=== PATIENT | female | born 1935 | race Caucasian/White ===

== ENCOUNTER → 2025-04-06 | Outpatient (CLI) | payer MEDICARE, OTHER, SELFPAY ==
[2025-04-06 12:37] LABS: Hematocrit 37.6 % (37-47); Hemoglobin 11.9 g/dL (12.0-15.0); Mean Corp Hgb Conc 31.6 g/dL (32-36); Mean Corpuscular Hgb 29.4 pg (27.0-32.0); Mean Corpuscular Volume 92.8 fL (81-99); Mean Platelet Vol. 11.8 fl (6.2-12.0); Platelet Count 178 K/mm3 (150-450); RBC Distribution Width CV 14.8 % (11.6-14.6); RBC Distribution Width SD 50.6 fl (35.1-43.9); Red Blood Count 4.05 M/mm3 (4.2-5.4); White Blood Count 6.3 K/mm3 (4.4-11.0)
[2025-04-06 13:20] LABS: ALB/GLOB Ratio 1.7 RATIO (0.9-2.4); AST(SGOT) 32 U/L (<=31); Alanine Aminotransfer ALT/SGPT 23 U/L (<=34); Albumin, Serum 4.6 g/dL (3.4-4.8); Alkaline Phosphatase 60 U/L (35-104); Anion Gap 13 (5-15); BUN 37 mg/dL (4-19); BUN/Creat Ratio 24.3 RATIO (10-20); Calcium,Total 9.4 mg/dL (7.6-11.0); Carbon Dioxide 22.8 mmol/L (21.0-32.0); Chloride 103 mmol/L (98-108); Creatinine, Serum 1.54 mg/dL (0.70-1.20); EST Glomerular Filtration Rate 32 (>60); Globulin 2.7 g/dL (2.2-4.2); Glucose 91 mg/dL (70-99); Potassium 4.3 mmol/L (3.3-5.1); Protein, Total 7.3 g/dL (5.9-8.4); Sodium Level 139 mmol/L (133-145); Total Bilirubin 0.42 mg/dL (0.00-1.30); Vitamin B12 993 pg/mL (180-914)
[2025-04-08 12:08] LABS: Vitamin D 1,25-Dihydroxy 33.4 pg/mL (24.8-81.5)
[2025-04-14 14:09] LABS: Folate, Hemolysate Test > 620.0 ng/mL (Not Estab.); Free Kappa Light Chains 33.4 mg/L (3.3-19.4); Free Lambda Light Chains 22.2 mg/L (5.7-26.3); Vitamin B1, Thiamine 165.4 nmol/L (66.5-200.0)
== END | disposition home or self-care (01) ==
PROVIDERS: PCP Internal Medicine; Referring Provider Psychiatry & Neurology Neurology; Visit Provider Psychiatry & Neurology Neurology
DX: G62.9 Polyneuropathy, unspecified (principal); F03.90 Unspecified dementia, unspecified severity, without behavioral disturbance, psychotic disturbance, mood disturbance, and anxiety
CPT/HCPCS: 36415; 80053; 82607; 82652; 82747; 83883; 84425; 84439; 84443; 85014; 85027

== ENCOUNTER 2025-05-09 10:26 | Outpatient (CLI) | payer MEDICARE, OTHER, SELFPAY ==
--- NOTE | 2025-05-09 10:37 | MRI_ITS ---
PROCEDURE: BRAIN WITHOUT CONTRAST 05/09/2025 REASON FOR EXAM: MODERATE DEMENTIA TECHNIQUE: Multiplanar and multisequential MRI of the brain was performed without contrast. COMPARISON: None. FINDINGS: Moderate generalized cerebral and cerebellar parenchymal volume loss, with associated ex vacuo ventricular enlargement. No regions of abnormal restricted diffusion to indicate recent infarct. Moderate chronic small-vessel ischemic-gliotic changes, somewhat confluence along the bilateral periventricular white matter. 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 No evidence of acute hemorrhage, extra-axial collection, mass-effect, or other acute abnormality. Two punctate foci of nonspecific remote microhemorrhage in the cerebellar vermis. Major intracranial vascular flow voids appear preserved. Prior bilateral cataract surgery. Well-aerated paranasal sinuses and bilateral mastoid air cells. MRI/Brain without Contrast IMPRESSION: No acute intracranial abnormality. Moderate generalized volume loss and chronic microangiopathic changes. Reading Location: [id number]
--- NOTE | 2025-05-09 10:50 | RAD_ITS ---
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 Dental hardware is noted. RAD/Orbits for Foreign Body IMPRESSION: There is no visible radiopaque foreign body in the region of the orbits. Reading Location: [id number]
--- OUTSIDE RECORDS SUMMARY | 2025-05-09 20:07 | XMS RPT_ITS | CCD ---
Author Organization [facility] Care Team Providers Care Cutting Department Supervisor Name Role Phone Jayshree Kerr Unavailable Unavailable Tavallaee, Santhosh Unavailable Unavailable Tavallaee, Santhosh M Unavailable Unavailable Sulove, Saksham Unavailable Unavailable Jayshree Kerr Unavailable Unavailable Tavallaee, Santhosh M Unavailable Unavailable Unavailable Jayshree Kerr DO Unavailable Unavailable Santhosh Peters MD Unavailable Unavailabl e Tavallaee Santhosh Nita Unavailable Unavailable Sulove, Saksham Unavailable Unavailable Jayshree Kerr Unavailable Unavailab le Santhosh Peters MD Primary Care Provider Unavailable Primary Care Provider UnavailSanthosh Treviño MD Primary Care Provider Santhosh Peters MD Primary Care Prov ider Santhosh Peters MD Primary Care Provider Santhosh Peters MD Primary Care Prov ider Santhosh Peters MD Primary Care Provider [phone] MARIBEL SHETH Attending Unavailable MARIBEL SHETH Referring Unavailable TAVALLAEE, SANTHOSH M Primary Care Unavailable MARIBEL SHETH Attending Unavailable MARIBEL SHETH Referring Unavailable TAVALLAEE, SANTHOSH M Primary Care Unavailable MARIBEL SHETH Attending Unavailable MARIBEL SHETH Referring Unavailable TAVALLAEE, SANTHOSH M Primary Care Unavailable MARIBEL SHETH Attending Unavailable MARIBEL SHETH Referring Unavailable TAVALLAEE, SANTHOSH M Primary Care Unavailable LEWIS, MARIBEL Attending Unavailable YUAN, MARIBEL Referring Unavailable TAVALLAEE, SANTHOSH M Primary Care Unavailable LEWIS, MARIBEL Attending Unavailable LEWIS, MARIBEL Referring Unavailable TAVALLAEE, SANTHOSH M Primary Care Unavailable LEWIS, MARIBEL Attending Unavailable LEWIS, MARIBEL Referring Unavailable TAVALLAEE, SANTHOSH M Primary Care Unavailable LEWIS, MARIBEL Attending Unavailable MARIBEL SHETH Referring Unavailable TAVALLAEE, SATNHOSH M Primary Care Unavailable Omar Arreguin Attending Unavailable Tavallaee, Santhosh Primary Care Unavailable Rodríguez, Ms. Rubi Hazel Referring Unavailabl e Tavallaee, Santhosh Primary Care Unavailable Tavallaee, Santhosh Attending Unavailable Tavallaee, Santhosh Referring Unavailable Tavallaee, Santhosh Referring Unavailable Tavallaee, Santhosh Primary Care Unavailable Tavallaee, Santhosh Attending Unavailable Tavallaee, Santhosh Primary Care Unavailable Tavallaee, Santhosh Attending Unavailable Tavallaee, Santhosh Referring Unavailable Tavallaee, Santhosh Referring Unavailable Tavallaee, Santhosh Attending Unavailable Tavallaee, Santhosh Primary Care Unavailable Tavallaee, Santhosh Referring Unavailable Tavallaee, Santhosh Attending Unavailable Tavallaee, Santhosh Primary Care Unavailable Tavallaee, Santhosh Attending Unavailable Tavallaee, Santhosh Primary Care Unavailable Tavallaee, Santhosh Referring Unavailable Tavallaee, Santhosh Primary Care Unavailable Tavallaee, Santhosh Attending Unavailable Tavallaee, Santhosh Referring Unavailable Tavallaee, Santhosh Referring Unavailable Tavallaee, Santhosh Primary Care Unavailable Rodríguez, Ms. Rubi Hazel Attending Unavailabl e Tavallaee Santhosh SANTIAGO Primary Care Provider Santhosh Peters MD Unavailable Santhosh Peters MD Unavailable [phone] TAVSANTHOSH JORDAN Attending Unavailable TAVALLAEE, SANTHOSH Moya Primary Care Unavailable TAVALLAEE, SANTHOSH M Attending Unavailable SANTHOSH PETERS Primary Care Unavailable SANTHOSH PETERS Attending Unavailable SANTHOSH PETERS Primary Care Unavailable MD SANTHOSH PETERS Primary Care U navailable Rubi Arreguin Attending Unavailable Rubi Arreguin Referring Unavailable MD SANTHOSH PETERS Primary Care U navailMD SANTHOSH Singleton Attending U hiteshailable MD SANTHOSH PETERS Primary Care U navailable Rubi Arreguin Attending Unavailable Rodríguez Rubi Referring Unavailable Dills HUMAN RESOURCE MANAGER, Cheyanne Primary Care Provider DILLS, CHEYANNE Primary Care Unavailable GALINDO MIRTHA Referring Unavailable GALINDOMIRTHA Attending Unavailable GALINDOMIRTHA Attending Unavailable SHARMILA, RIK E Referring Unavailable DILLS, CHEYANNE Primary Care Unavailable GALINDOMIRTHA Referring Unavailable GALINDOMIRTHA Attending Unavailable DILLS, CHEYANNE Primary Care Unavailable GALINDOMIRTHA Attending Unavailable DILLS, CHEYANNE Referring Unavailable DILLS, CHEYANNE Primary Care Unavailable SHARMILA, RKI E Referring Unavailable DILLS, CHEYANNE Primary Care Unavailable SHARMILA, RIK E Attending Unavailable SHARMILA, RIK E Attending Unavailable DILLS, CHEYANNE Primary Care Unavailable SHARMILA, RIK E Referring Unavailable SHARMILA, RIK E Attending Unavailable DILLS, CHEYANNE Primary Care Unavailable SHARMILA, RIK E Referring Unavailable SHARMILA, RIK E Attending Unavailable DILLS, CHEYANNE Referring Unavailable DILLS, CHEYANNE Primary Care Unavailable DILLS, CHEYANNE Primary Care Unavailable DILLS, CHEYANNE Referring Unavailable SHARMILA, RIK E Attending Unavailable SHARMILA, RIK E Referring Unavailable DILLS, CHEYANNE Primary Care Unavailable SHARMILA, RIK E Attending Unavailable Dills HUMAN RESOURCE MANAGER, Cheyanne Primary Care Provider [phone] CANE PILER, DIALLO GARZA Attending Unavailab le DILLS, CHEYANNE Primary Care Unavailable STEVEN MARTINES Attending Unavailabl e DILLS, CHEYANNE Primary Care Unavailable GALA MAYS Attending Unavailable DILLS, CHEYANNE Primary Care Unavailable Ileana SANTIAGO, Dr. Flores Attending Provider [phone] Mark Tejeda Attending Unavailable Santhosh Peters Primary Care Unavailable Mark Tejeda Referring Unavailable Mark Tejeda Attending Unavailable SANTHOSH PETERS Primary Care Unav ailable DILLS, CHEYANNE Attending Unavailable DILLS, CHEYANNE Primary Care Unavailable DILLS, CHEYANNE Attending Unavailable RANDI JACKSON Attending Unavail able DILLS, CHEYANNE Primary Care Unavailable Allergies Allergy Classification Reported Allergen(s) Allergy Type Date of Onset Reaction(s) Facility Adrenergic Antagonists (7 sources) carvedilol; Translations: [carvedilol] Drug Allergy Muscle weakness [facility] Work Phone: Bisoprolol / hydroCHLOROthiazide (14 sources) Bisoprolol / hydroCHLOROthiazide; Translations: [bisoprolol-hydrochlo rothiazide] Drug Allergy Muscle weakness [facility] Work Phone: Fenofibrate (7 sources) Fenofibrate; Translations: [Tricor] Drug Allergy Muscle weakness [facility] Work Phone: HMG-CoA Reductase Inhibitors (statins) (14 sources) atorvastatin; Translations: [Lipitor] Drug Allergy [facility] Work Phone: hydrALAZINE / Isosorbide Dinitrate (7 sources) hydrALAZINE / Isosorbide Dinitrate; Translations: [BiDil] Drug Allergy [facility] Work Phone: hydroCHLOROthiazide / Losartan (7 sources) hydroCHLOROthiazide / Losartan; Translations: [hydrochlorothiazide- losartan] Drug Allergy [facility] Work Phone: Metoprolol (7 sources) Metoprolol; Translations: [Toprol XL TB24] Drug Allergy Muscle weakness [facility] Work Phone: Sulfonamides (antibiotic) (7 sources) Sulfonamides (Antibiotic); Translations: [Sulfa Drugs] Drug Allergy [facility] Work Phone: (20 sources) atorvastatin; Translations: [Lipitor] Drug Allergy [facility] Work Phone: (20 sources) Bisoprolol / hydroCHLOROthiazide; Translations: [bisoprolol-hydrochlo rothiazide] Drug Allergy 011 Hives, Unknown, Other [facility] Work Phone: [phone] (20 sources) Bisoprolol / hydroCHLOROthiazide; Translations: [Ziac TABS] Drug Allergy Muscle weakness [facility] Work Phone: [phone] (20 sources) Fenofibrate; Translations: [Tricor] Drug Allergy Muscle weakness [facility] Work Phone: [phone] (20 sources) hydrALAZINE / Isosorbide Dinitrate; Translations: [BiDil] Drug Allergy [facility] Work Phone: [phone] (20 sources) hydroCHLOROthiazide / Losartan; Translations: [hydrochlorothiazide- losartan] Drug Allergy [facility] Work Phone: [phone] (20 sources) Metoprolol; Translations: [Toprol XL TB24] Drug Allergy 021 Muscle weakness, Other: See Comments, Myalgia, Other [facility] (20 sources) Pravastatin; Translations: [pravastatin] Drug Allergy 022 Unknown [facility] Work Phone: [phone] (20 sources) Sulfonamides (Antibiotic); Translations: [Sulfa Drugs] drug allergy [facility] Work Phone: [phone] (20 sources) carvedilol; Translations: [carvedilol] Drug Allergy 021 Muscle weakness, Other: See Comments, Other (See Comments), Other [facility] (20 sources) aliskiren; Translations: [ALISKIREN] Drug Allergy 011 [facility] Work Phone: (13 sources) amLODIPine; Translations: [AMLODIPINE BESYLATE] Drug Allergy 011 [facility] Work Phone: (18 sources) atorvastatin; Translations: [ATORVASTATIN CALCIUM] Drug Allergy 011 [facility] Work Phone: (20 sources) Fenofibrate; Translations: [FENOFIBRATE MICRONIZED] Drug Allergy 011 Hives, Other (See Comments) [facility] Work Phone: (13 sources) Furosemide; Translations: [FUROSEMIDE] Drug Allergy 011 Other: See Comments, Other [facility] Work Phone: (20 sources) hydrALAZINE / Isosorbide Dinitrate; Translations: [ISOSORBIDE-HYDRALAZI NE] Drug Allergy 021 Unknown [facility] (20 sources) hydroCHLOROthiazide / Losartan; Translations: [LOSARTAN-HYDROCHLORO THIAZIDE] Drug Allergy 011 Rash, Unknown [facility] Work Phone: (20 sources) metFORMIN; Translations: [METFORMIN] Drug Allergy 011 Rash [facility] Work Phone: (13 sources) Niacin; Translations: [NIACIN] Drug Allergy 011 [facility] Work Phone: (13 sources) olmesartan; Translations: [OLMESARTAN MEDOXOMIL] Drug Allergy 011 [facility] Work Phone: (17 sources) Phenylephrine; Translations: [PHENYLEPHRINE] Drug Allergy Intolerance, Unknown [facility] (13 sources) pioglitazone; Translations: [PIOGLITAZONE HCL] Drug Allergy 010 Rash [facility] Work Phone: (8 sources) Simvastatin; Translations: [SIMVASTATIN] Drug Allergy Other: See Comments [facility] Work Phone: (20 sources) Sulfonamides (Antibiotic); Translations: [SULFA (SULFONAMIDE ANTIBIOTICS)] Propensity to adverse reactions to drug 008 Hives, [facility] Work Phone: (13 sources) Tropicamide; Translations: [TROPICAMIDE] Drug Allergy 015 Intolerance, Unknown [facility] (12 sources) atorvastatin; Translations: [ATORVASTATIN] Drug Allergy Unknown [facility] (6 sources) Metoprolol; Translations: [METOPROLOL SUCCINATE] Drug Allergy Other (See Comments) [facility] (2 sources) Metoprolol; Translations: [METOPROLOL] Drug Allergy 021 [facility] (6 sources) Fenofibrate; Translations: [FENOFIBRATE] Drug Allergy 023 Other [facility] Work Phone: (10 sources) amLODIPine Drug Allergy 011 [facility] (10 sources) Furosemide Drug Allergy 011 [facility] (10 sources) Losartan Drug Allergy 011 [facility] (10 sources) Niacin Drug Allergy 011 Hives [facility] (10 sources) Simvastatin Propensity to adverse reactions to drug 011 [facility] (4 sources) pioglitazone Drug Allergy 010 [facility] (4 sources) Tropicamide Drug Allergy 015 [facility] Medications Current Medications Medication Drug Class(es) Dates Sig (Normalized) Sig (Original) acetaminophen 500 mg oral capsule (13 sources) Start: 04-06-2025 take 1 capsule by mouth at bedtime as needed Acetaminophen 500 mg capsule Active 500 mg PO AT BEDTIME as needed April 06, 2025 12:00am take 2 tablets by ok ut every eight hours as needed acetaminophen (TYLENOL) 500 MG tablet Ta ke 2 (two) tablets (1,000 mg total) by mouth every 8 (eight) hours as needed . Active ascorbic acid 113 mg / beta carotene 7160 mg / cuprous oxide 0.4 mg / dl-alpha tocopheryl acetate 100 unt / zinc oxide 17.4 mg oral tablet (1 source) Vitamin C Start: 04-06-2025 Vitamins A,C,E -Zinc-Copper (Preservision Areds) 2,148 mcg-113 mg-45 mg-17.4mg tablet Active 2 {tbl} PO TWICE A DAY April 06, 2025 12:00am administer with AM and PM meals benoxinate hydrochloride 4 mg/ml / fluorescein sodium 2.5 mg/ml ophthalmic solution (2 sources) Diagnostic Dye Start: 01-02-2023 End: 01-03-2023 fluorescein-benoxinate 0.25-0.4 % 1 Drop (FLURESS) Start: 11-21-2022 End: 11-21-2022 fluorescein-benoxinate 0.25- 0.4 % 1 Drop (FLURESS) busPIRone hydrochloride 5 mg oral tablet (13 sources) Start: 04-06-2025 take 1 tablet by mouth twice daily Buspirone 5 mg tablet Active 5 mg PO TWICE A DAY April 06, 2025 12:00am take 1 tablet by mouth twice radha ly busPIRone (BUSPAR) 5 MG tablet Take 1 (one) tablet (5 mg total) by mouth 2 (two) times a day . Active citalopram 10 mg oral tablet (3 sources) Serotonin Reuptake Inhibitor Start: 12-09-2024 End: 12-09-2025 take 1 tablet by mouth once daily Citalopram 10 mg tablet Active 10 mg PO daily April 06, 2025 12:00am 1 ml denosumab 60 mg/ml prefilled syringe (3 sources) RANK Ligand Inhibitor Start: 03-19-2023 denosumab (Prolia) 60 mg/mL syringe Indications: Osteoporosis, unspecified osteoporosis type, unspecified pathological fracture presence Inject 1 mL (60 mg) under the skin every 6 months. 1 mL 1 03/19/2023 Active docusate sodium 100 mg oral capsule (20 sources) Start: 04-25-2021 End: 12-09-2024 docusate sodium (Colace) 100 mg capsule Take by mouth twice a day. 0 04/25/2021 Active donepezil hydrochloride 10 mg oral tablet (20 sources) Start: 04-06-2025 take 1 tablet by mouth at bedtime Donepezil 10 mg tablet Active 10 mg PO AT BEDTIME April 06, 2025 12:00am Start: 06-11-2023 End: 06-11-2023 take 1 tablet by mouth once daily at bedtime donepezil (Aricept) 5 mg tablet Indications: Alzheimer disease (CMS/HCC) Take 1 tablet (5 mg) by mouth once daily at bedtime. 30 tablet 0 06/11/2023 06/11/2023 Discontinued (Reorder) Start: 05-17-2022 End: 06-10-2024 take 1 tablet by mouth once daily donepeziL (ARICEPT) 10 MG tablet Indications: Dementia without behavioral disturbance, unspecified dementia type Take 1 (one) tablet (10 mg total) by mouth nightly Start: 05/31/22. 30 tablet 11 05/31/2022 Active Start: 05-17-2022 End: 09-05-2022 take 1 tablet by mouth once daily donepeziL (ARICEPT) 5 MG tablet Indications: Dementia without behavioral disturbance, unspecified dementia type Take 1 (one) tablet (5 mg total) by mouth nightly for 14 days . 14 tablet 0 05/17/2022 09/05/2022 Discontinued (Therapy completed) take 2 tablets by mo [facility] at bedtime donepezil 5 MG tablet Take 2 tablets by mouth At bedtime. Active famotidine 20 mg oral tablet (20 sources) Histamine-2 Receptor Antagonist Start: 04-06-2025 take 1 tablet by mouth once daily Famotidine 20 mg tablet Active 20 mg PO daily April 06, 2025 12:00am Start: 02-15-2019 End: 12-19-2021 Famotidine 20 MG Oral Tablet Quantity: 90 Refills: 0 Ordered: 15-Feb-2019 DO Start : 15-Feb-2019 End : 19-Dec-2021 Complete Start: 09-19-2010 [facility] famotidine (PEPCID) 20 MG tablet Take 1 (one) tablet (20 mg total) by mouth daily . 09/19/2010 Active Comment on above: Take one(1) tablet d aily. fluticasone propionate 0.05 mg/actuat metered dose nasal spray (20 sources) Corticosteroid Start: take 50 ug nasal route once daily Fluticasone Propionate (Allergy Relief (Fluticasone)) 50 mcg/actuation spray,suspension Active 1 NMA INTRANASAL daily April 06, 2025 12:00am administer into each nostril Start: 02-04-2025 fluticasone pr opionate (FLONASE) 50 mcg/actuation nasal spray 02/04/2025 Active Start: 11-02-2019 take 1 spray(s) nasa l route once daily Fluticasone Propionate 50 MCG/ACT Nasal Suspension USE 1 SPRAY IN EACH NOSTRIL ONCE DAILY. Quantity: 1 Refills: 11 Ordered: 02-Nov-2019 Santhosh Peters MD Start : 02-Nov-2019 Active fosfomycin 3000 mg powder for oral solution (1 source) Start: 11-23-2024 Fosfomycin tromethamine 3 g Pack 11/23/2024 Active hydrALAZINE hydrochloride 25 mg oral tablet (20 sources) Arteriolar Vasodilator Start: 04-06-2025 take 1 tablet by mouth three times daily Hydralazine 25 mg tablet Active 25 mg PO THREE TIMES A DAY April 06, 2025 12:00am Start: 07-21-2023 hydrALAZINE (A presoline) 25 mg tablet Indications: Essential hypertension, benign 2 IN AM 1 NOON 2 PM 150 tablet 11 07/21/2023 Active Start: 06-11-2023 End: 07-21-2023 hydrALAZINE (Apresoline) 25 mg tablet Indications: Essential hypertension, benign Take 1 tablet (25 mg) by mouth 2 times a day. 2 IN AM 1 NOON 1 PM 120 tablet 11 06/11/2023 07/21/2023 Discontinued (Reorder) Start: 04-01-2023 End: 06-11-2023 hydrALAZINE (Apresoline) 25 mg tablet Indications: Essential hypertension, benign 2 IN AM 1 NOON 1 PM 120 tablet 11 06/09/2023 06/11/2023 Discontinued (Reorder) Start: 03-11-2023 End: 03-10-2024 take 1 tablet by mouth three times daily hydrALAZINE (APRESOLINE) 25 MG tablet Take 1 (one) tablet (25 mg total) by mouth 3 (three) times a day . 07/21/2023 Active Start: 01-19-2023 take 1 tablet by marine th in the morning hydrALAZINE (Apresoline) 25 mg tablet Indications: Essential hypertension, benign Take 1 tablet (25 mg) by mouth in the morning and 1 tablet (25 mg) before bedtime. 180 tablet 0 01/19/2023 Active Start: 09-24-2022 take 1 tablet by marine th twice daily hydrALAZINE HCl - 25 MG Oral Tablet Take 1 tablet twice daily Quantity: 180 Refills: 0 Ordered: 22-Oct-2022 Santhosh Peters MD Start : 24-Sep-2022 Active Start: 03-27-2022 End: 04-23-2022 take 1 tablet by mouth twice daily hydrALAZINE HCl - 25 MG Oral Tablet Take 1 tablet twice daily Quantity: 60 Refills: 11 Ordered: 8-Wilberto-2022 Santhosh Peters MD Start : 27-Mar-2022 End : 23-Apr-2022 Complete levothyroxine sodium 0.075 mg oral capsule (20 sources) l-Thyroxine Start: 04-06-2025 take 1 capsule by mouth once daily Levothyroxine 75 mcg capsule Active 75 ug PO daily April 06, 2025 12:00am Start: 07-01-2019 levothyroxine (Synthroid, Levoxyl) 50 mcg tablet Take by mouth once daily in the morning. Take before meals. 0 12/11/2022 Active Start: 05-31-2013 take 1 tablet by marine th once daily levothyroxine (SYNTHROID, LEVOTHROID) 75 MCG tablet Take 1 (one) tablet (75 mcg total) by mouth daily . 03/19/2022 Active Comment on above: once daily. lisinopril 20 mg oral tablet (17 sources) Angiotensin Converting Enzyme Inhibitor Start: 04-06-2025 take 1 tablet by mouth once daily Lisinopril 20 mg tablet Active 20 mg PO daily April 06, 2025 12:00am Start: 11-25-2024 take 1 tablet by marine th once daily lisinopriL (PRINIVIL,ZESTRIL) 10 MG tablet Take 1 (one) tablet (10 mg total) by mouth daily . 11/25/2024 Active Start: 08-06-2019 lisinopril (ZE STRIL,PRINIVIL) 30 mg tablet Take by mouth q 24 HR. 0 08/06/2019 Active Start: 08-06-2019 take 1 tablet by marine th once daily Lisinopril 30 MG Oral Tablet TAKE 1 TABLET DAILY. Quantity: 30 Refills: 11 Santhosh Peters MD Start : 06-Aug-2019 Active Comment on above: Take by mouth q 24 H R. loratadine 10 mg oral tablet (2 sources) Start: End: 5 take 1 tablet by mouth once daily Loratadine 10 mg tablet Active 10 mg PO daily April 06, 2025 12:00am 24 hr memantine hydrochloride 7 mg extended release oral capsule (5 sources) P-mikvwy-A-aspartat e Receptor Antagonist Start: 5 take 1 capsule by mouth once daily in the morning Memantine 14 mg capsule,sprinkle,ER 24hr Active 14 mg PO EVERY MORNING 30 April 06, 2025 12:00am Week #2 and onward Start: 04-06-2025 take 1 capsule by mo uth once daily in the morning Memantine 7 mg capsule,sprinkle,ER 24hr Active 7 mg PO EVERY MORNING April 06, 2025 12:00am Week #1 Start: 06-11-2022 End: 12-09-2024 take 1 tablet by mouth twice daily memantine (NAMENDA) 5 MG tablet Indications: Dementia without behavioral disturbance, unspecified dementia type Take 1 (one) tablet (5 mg total) by mouth 2 (two) times a day . 60 tablet 11 06/11/2022 12/09/2024 Discontinued (Discontinued by another clinician) 24 hr metoprolol succinate 25 mg extended release oral tablet (20 sources) beta-Adrenergic Gordon Start: 04-06-2025 take 2 tablets by mouth twice daily Metoprolol Succinate 25 mg tablet extended release 24 hr Active 12.5 mg PO TWICE A DAY April 06, 2025 12:00am Start: 01-31-2021 Metoprolol suc cinate 25 MG tablet XL 12/06/2024 Active Start: 01-31-2021 take 1 tablet by marine th once daily metoprolol succinate ER (TOPROL XL) 25 mg 24 hr tablet Take 25 mg by mouth once daily. 0 01/31/2021 Active take 1 tablet by marine th twice daily Metoprolol 25 MG tab regular release Take 1 tablet by mouth 2 times daily. Active Comment on above: Take 25 mg by mouth once daily. Multiple Vitamin (multivitamin) tablet (10 sources) take 1 tablet by mouth once daily Multiple Vitamin (multivitamin) tablet Take 1 tablet by mouth daily. Active Multiple Vitamins-Minerals (PRESERVISION AREDS 2 PO) (10 sources) take 1 tablet by mouth twice daily Multiple Vitamins-Minerals (PRESERVISION AREDS 2 PO) Take 1 tablet by mouth 2 times daily. Active multivitamin (THERAGRAN) per tablet (4 sources) Start: 03-26-2011 take 1 tablet by mouth once multivitamin (THERAGRAN) per tablet Take 1 (one) tablet by mouth once . 03/26/2011 Active Start: 03-26-2011 take 1 tablet by mouth once mu ltivitamin (THERAGRAN) per tablet Take 1 tablet by mouth once . 0 03/26/2011 Active Multivitamin With Folic Acid (Tab-A-Juliet) 400 mcg tablet (1 source) Start: 04-06-2025 Multivitamin W ith Folic Acid (Tab-A-Juliet) 400 mcg tablet Active 1 {tbl} PO daily April 06, 2025 12:00am phenylephrine hydrochloride 25 mg/ml ophthalmic solution (1 source) alpha-1 Adrenergic Agonist Start: 01-02-2023 End: 01-03-2023 PHENYLephrine 2.5 % 1 Drop (AK-DILATE, SIMON-SYNEPHRINE) polyethylene glycol 3350 92430 mg powder for oral solution (13 sources) Osmotic Laxative Start: 04-06-2025 Polyethylene Glycol 3350 17 gram/dose powder Active 4 g PO Every 3 Days April 06, 2025 12:00am polyethylene gly col (MIRALAX) 17 gram powder Take 17 (seventeen) g by mouth daily as needed . Active proparacaine hydrochloride 5 mg/ml ophthalmic solution (2 sources) Local Anesthetic Start: 01-02-2023 End: 01-03-2023 proparacaine 0.5 % 1 Drop (ALCAINE) Start: 11-21-2022 End: 11-21-2022 proparacaine 0.5 % 1 Drop (A LCAINE) tropicamide 10 mg/ml ophthalmic solution (1 source) Anticholinergic Start: 01-02-2023 End: 01-03-2023 tropicamide 1 % 1 Drop (MYDRIACYL) Completed/Discontinued Medications Medication Drug Class(es) Dates Sig (Normalized) Sig (Original) 0.05 ml aflibercept 40 mg/ml injection (7 sources) Vascular Endothelial Growth Factor Inhibitor Start: 01-02-2023 End: 01-02-2023 aflibercept intravitreal injection 2 mg/0.05 mL (EYLEA) Start: 11-21-2022 End: 11-21-2022 aflibercept intravitreal inj ection 2 mg/0.05 mL (EYLEA) Start: 08-22-2022 End: 08-22-2022 aflibercept intravitreal inj ection 2 mg/0.05 mL (EYLEA) Start: 07-04-2022 End: 07-04-2022 aflibercept intravitreal inj ection 2 mg/0.05 mL (EYLEA) Start: 05-23-2022 End: 05-23-2022 aflibercept intravitreal inj ection 2 mg/0.05 mL (EYLEA) Start: 04-04-2022 End: 04-04-2022 aflibercept intravitreal inj ection 2 mg/0.05 mL (EYLEA) Start: 02-21-2022 End: 02-21-2022 aflibercept intravitreal inj ection 2 mg/0.05 mL (EYLEA) alendronic acid 70 mg oral tablet (16 sources) Bisphosphonate Start: 08-02-2020 take 1 tablet by mouth every week Alendronate Sodium 70 MG Oral Tablet TAKE 1 TABLET Weekly Quantity: 4 Refills: 11 Ordered: 02-Aug-2020 Santhosh Peters MD Start : 02-Aug-2020 Active amLODIPine 10 mg oral tablet (20 sources) Dihydropyridine Calcium Channel Gordon Start: 07-29-2019 take 1 tablet by mouth twice daily amLODIPine Besylate 10 MG Oral Tablet TAKE 1 TABLET TWICE DAILY. Quantity: 180 Refills: 3 Ordered: 12-Aug-2022 Santhosh Peters MD Start : 29-Jul-2019 Active Start: 11-06-2016 End: 12-09-2024 take 1 tablet by mouth once daily amLODIPine (NORVASC) 10 MG tablet Take 10 mg by mouth daily . 03/09/2022 12/09/2024 Discontinued (Discontinued by another clinician) Comment on above: Take 10 mg by mouth once daily. antiox #8/om3/dha/epa/lut /zeax (PRESERVISION AREDS 2, OMEGA-3, ORAL) (7 sources) take 1 capsule by mouth once daily antiox #8/om3/dha/epa/lut/ zeax (PRESERVISION AREDS 2, OMEGA-3, ORAL) Take 1 capsule by mouth once daily. 0 Active Comment on above: Take 1 capsule by mo [facility] once daily. ascorbic acid 500 mg oral tablet (20 sources) Vitamin C take 1 tablet by mouth once daily Vitamin C 500 MG Oral Tablet TAKE 1 TABLET DAILY. Quantity: 0 Refills: 0 Ordered: 02-Nov-2019 DO Active aspirin 81 mg delayed release oral tablet (20 sources) Platelet Aggregation Inhibitor, Nonsteroidal Anti-inflammatory Drug Start: 08-06-2019 Aspirin 81 MG Oral Tablet Delayed Release Quantity: 0 Refills: 0 Ordered: 06-Aug-2019 Jayshree Kerr DO Start : 06-Aug-2019 Active Start: 09-19-2010 take 1 tablet by marine th once daily aspirin 81 mg EC tablet Take 1 tablet (81 mg) by mouth once daily. 0 09/19/2010 Active Comment on above: Take one(1) tablet d aily. BUPivacaine (PF) (MARCAINE) 0.25 % 3 mL syringe (4 sources) Start: 11-11-2024 End: 11-15-2024 BUPivacaine (PF) (MARCAINE) 0.25 % 3 mL syringe Start: 11-11-2024 End: 11-15-2024 1.5 mL, Other, ONCE (OUTPT C LINIC), 1 dose, Starting on Priscilla 11/11/24 at 0937, Until 11/15/24 at 1424 Start: 07-13-2024 End: 07-13-2024 BUPivacaine (PF) (MARCAINE) 0.25 % 3 mL syringe Start: 07-13-2024 End: 07-13-2024 1.5 mL, Other, ONCE (OUTPT C LINIC), 1 dose, Starting on Fri07/13/24 at 1345, Until Fri07/13/24 at 1346 carvedilol 3.125 mg oral tablet (7 sources) alpha-Adrenergic Gordon, beta-Adrenergic Gordon Start: 05-13-2013 CARVEDILOL 3.125 mg tablet once daily. 0 05/13/2013 Active Comment on above: once daily. Chlorpheniramine (7 sources) Histamine-1 Receptor Antagonist CHLORPHENIRAMINE MALEATE (CHLOR-TABLET ORAL) Take by mouth as needed. 0 Active Comment on above: Take by mouth as nee ded. ciprofloxacin 500 mg oral tablet (2 sources) Quinolone Antimicrobial Start: 04-25-2021 take 1 tablet by mouth twice daily Ciprofloxacin HCl - 500 MG Oral Tablet Take 1 tablet twice daily Quantity: 10 Refills: 0 Ordered: 25-Apr-2021 Malathi Blair MD Start : 25-Apr-2021 Active diclofenac sodium 0.01 mg/mg topical gel (15 sources) Nonsteroidal Anti-inflammatory Drug Start: 05-09-2021 Diclofenac Sodium 1 % External Gel APPLY 2GM TO SKIN UP TO 4 TIMES DAILY NEEDED Quantity: 1 Refills: 5 Ordered: 09-May-2021 Malathi Blair MD Start : 09-May-2021 Active DOCOSAHEXANOIC ACID (DHA ORAL) (7 sources) DOCOSAHEXANOIC A LEI (DHA ORAL) Take by mouth. 0 Active Comment on above: Take by mouth. furosemide 20 mg oral tablet (20 sources) Loop Diuretic Start: 08-29-2022 End: 12-09-2024 take 1 tablet by mouth twice daily furosemide (LASIX) 20 MG tablet Take 1 (one) tablet (20 mg total) by mouth 2 (two) times a day . 08/29/2022 12/09/2024 Discontinued (Discontinued by another clinician) Start: 08-29-2022 take 1 tablet by marine th once daily Furosemide 20 MG Oral Tablet TAKE 1 TABLET BY MOUTH EVERY DAY Quantity: 90 Refills: 0 Ordered: 15-Oct-2022 Jade Jade Start : 29-Aug-2022 Active Iohexol (OMNIPAQUE) 300 MG/M L vial 3 mL (4 sources) Start: 11-11-2024 End: 11-15-2024 Iohexol (OMNIPAQUE) 300 MG/M L vial 3 mL Start: 11-11-2024 End: 11-15-2024 3 mL, Other, ONCE (OUTPT CLI DONITA), 1 dose, Starting on Priscilla 11/11/24 at 0937, Until Fri11/15/24 at 1424, Extravasation Risk Start: 07-13-2024 End: 07-13-2024 Iohexol (OMNIPAQUE) 300 MG/M L vial 3 mL Start: 07-13-2024 End: 07-13-2024 3 mL, Other, ONCE (OUTPT CLI DONITA), 1 dose, Starting on Fri07/13/24 at 1345, Until Fri07/13/24 at 1346, Extravasation Risk Lidocaine 1% (PF) (XYLOCAINE MPF) 10 mL syringe (4 sources) Start: 11-11-2024 End: 11-15-2024 Lidocaine 1% (PF) (XYLOCAINE MPF) 10 mL syringe Start: 11-11-2024 End: 11-15-2024 5 mL, Other, ONCE (OUTPT CLI DONITA), 1 dose, Starting on Priscilla 11/11/24 at 0937, Until 11/15/24 at 1425 Start: 07-13-2024 End: 07-13-2024 Lidocaine 1% (PF) (XYLOCAINE MPF) 10 mL syringe Start: 07-13-2024 End: 07-13-2024 5 mL, Other, ONCE (OUTPT CLI DONITA), 1 dose, Starting on Fri07/13/24 at 1345, Until Fri07/13/24 at 1347 losartan potassium 100 mg oral tablet (20 sources) Angiotensin 2 Receptor Gordon Start: 05-13-2013 LOSARTAN 100 mg tablet once daily. 0 05/13/2013 Active Comment on above: once daily. methylPREDNISolone 4 MG Oral Tablet Therapy Pack (8 sources) Start: 05-09-2021 methylPREDNISolone 4 MG Oral Tablet Therapy Pack as directed Quantity: 21 Refills: 0 Ordered: 09-May-2021 Malathi Blair MD Start : 09-May-2021 Active Multi-Vitamins Oral Tablet (3 sources) take 1 tablet by mouth once daily Multi-Vitamins Oral Tablet TAKE 1 TABLET DAILY. Quantity: 30 Refills: 5 Active take 1 tablet by mouth once griselda y Multi-Vitamins Oral Tablet TAKE 1 TABLET DAILY. Quantity: 30 Refills: 5 DO Active Multi-Vitamins TABS (3 sources) Multi-Vitamins T ABS TAKE 1 TABLET DAILY. Quantity: 30 Refills: 5 DO Active Multi-Vitamins TABS (20 sources) Multi-Vitamins T ABS TAKE 1 TABLET DAILY. Quantity: 30 Refills: 5 Ordered: 02-Nov-2019 DO Active Multi-Vitamins T ABS TAKE 1 TABLET DAILY. Quantity: 30 Refills: 5 Active multivitamin (DAILY MULTIPLE) ORAL tablet (3 sources) Start: 03-26-2011 take 1 tablet by mouth once daily multivitamin (DAILY MULTIPLE) ORAL tablet Take 1 tablet by mouth once daily. 0 03/26/2011 Active Comment on above: Take 1 tablet by marine th once daily. multivitamin tablet (9 sources) Start: 03-26-2011 take 1 tablet by mouth once daily multivitamin tablet Take 1 tablet by mouth once daily. 0 03/26/2011 Active take 1 tablet by mouth once griselda y multivitamin tablet Take 1 tablet by mouth once daily. 0 Active Comment on above: Take 1 tablet by marine th once daily. omeprazole 20 mg delayed release oral capsule (7 sources) Proton Pump Inhibitor Start: 3 take 2 capsules by mouth once daily omeprazole 20 mg capsule Take 2 capsules by mouth once daily. 60 capsule 0 06/15/2013 Active Comment on above: Take 2 capsules by m outh once daily. PARoxetine hydrochloride 10 mg oral tablet (7 sources) Serotonin Reuptake Inhibitor Start: 1 take 1 tablet by mouth once daily PARoxetine HCl - 10 MG Oral Tablet TAKE 1 TABLET BY MOUTH DAILY Quantity: 30 Refills: 11 Ordered: 01-Oct-2021 Santhosh Peters MD Start : 01-Oct-2021 Active Pneumovax 23 25 MCG/0.5ML Injection Injectable (2 sources) Start: 1 End: 1 Pneumovax 23 25 MCG/0.5ML Injection Injectable inject 0.5 mL once Quantity: 1 Refills: 0 Ordered: 31-Jan-2021 Santhosh Peters MD Start : 31-Jan-2021 End : 25-Apr-2021 Complete Start: 01-31-2021 Pneumovax 23 2 5 MCG/0.5ML Injection Injectable inject 0.5 mL once Quantity: 1 Refills: 0 Ordered: 31-Jan-2021 Santhosh Peters MD Start : 31-Jan-2021 Active Shingrix 50 MCG Intramuscular Suspension Reconstituted (2 sources) Start: 01-31-2021 End: 04-25-2021 inject 0.5 ug by intramuscular injection once Shingrix 50 MCG Intramuscular Suspension Reconstituted INJECT 0.5 MCG Once Quantity: 1 Refills: 1 Ordered: 31-Jan-2021 Santhosh Peters MD Start : 31-Jan-2021 End : 25-Apr-2021 Complete Start: 01-31-2021 inject 0.5 ug by int ramuscular injection once Shingrix 50 MCG Intramuscular Suspension Reconstituted INJECT 0.5 MCG Once Quantity: 1 Refills: 1 Ordered: 31-Jan-2021 Santhosh Peters MD Start : 31-Jan-2021 Active 1 ml triamcinolone acetonide 40 mg/ml injection (4 sources) Corticosteroid Start: 11-11-2024 End: 11-15-2024 triamcinolone (KENALOG-40) injection 20 mg Start: 11-11-2024 End: 11-15-2024 20 mg, Other, ONCE (OUTPT CL INIC), 1 dose, Starting on Priscilla 11/11/24 at 0937, Until 11/15/24 at 1425 Start: 07-13-2024 End: 07-13-2024 triamcinolone (KENALOG-40) i njection 20 mg Start: 07-13-2024 End: 07-13-2024 20 mg, Other, ONCE (OUTPT CL INIC), 1 dose, Starting on Fri07/13/24 at 1345, Until Fri07/13/24 at 1347 vitamin b12 5 mg oral capsule (20 sources) Vitamin B12 Start: 07-03-2020 take 1 capsule by mouth once daily B-12 5000 MCG Oral Capsule Take one daily Quantity: 0 Refills: 0 Ordered: 03-Jul-2020 DO Start : 03-Jul-2020 Active Start: 07-03-2020 take 1 capsule by mo [facility] once daily B-12 5000 MCG Oral Capsule Take one daily Refills: 0 DO Start : 03-Jul-2020 Active vitamin e 180 mg oral tablet (20 sources) Start: 07-03-2020 take 1 tablet by mouth once daily Vitamin E 400 UNIT Oral Tablet TAKE 1 TABLET DAILY. Quantity: 0 Refills: 0 Ordered: 03-Jul-2020 DO Start : 03-Jul-2020 Active Problems Active Problems Problem Classification Problem Date Documented Date Episodic/Chronic Administrative/socia l admission (19 sources) Advance directive discussed with patient; Translations: [Other specified counseling] Episodic Anxiety disorders (20 sources) Mixed anxiety and depressive disorder; Translations: [Anxiety state, unspecified] Onset: 3 02-07-2023 Chronic Aortic; peripheral; and visceral artery aneurysms (7 sources) Dissection of aorta; Translations: [Dissection of unspecified site of aorta] Onset: 3 06-02-2013 Chronic Cataract (20 sources) Cataract; Translations: [Unspecified cataract] Onset: 5 11-15-2015 Chronic Comment on above: AND STENT; Chronic kidney disease (20 sources) Chronic kidney disease; Translations: [Chronic kidney disease, unspecified] Onset: 3 03-03-2023 Chronic Chronic kidney disease (4 sources) Chronic kidney disease; Translations: [Chronic kidney disease, stage 3b (CMS/HCC)] Onset: 2 Delirium, dementia, and amnestic and other cognitive disorders (14 sources) Dementia; Translations: [Unspecified dementia without behavioral disturbance] Onset: 3 Chronic Diabetes mellitus without complication (20 sources) Impaired fasting glycaemia; Translations: [Impaired fasting glucose] Onset: 3 03-03-2023 Episodic Disorders of lipid metabolism (20 sources) Hypertriglyceridemia; Translations: [Hypercholesterolemia] Onset: 3 03-03-2023 Chronic Diverticulosis and diverticulitis (20 sources) Diverticular disease; Translations: [Diverticulosis of colon (without mention of hemorrhage)] Onset: 3 02-07-2023 Chronic Esophageal disorders (20 sources) Gastroesophageal reflux disease; Translations: [Esophageal reflux] Onset: 3 02-07-2023 Chronic Essential hypertension (20 sources) Hypertensive disorder; Translations: [Unspecified essential hypertension] Onset: 3 02-07-2023 Chronic Glaucoma (7 sources) Primary open angle glaucoma; Translations: [Primary open-angle glaucoma, bilateral, mild stage] Onset: 7 12-02-2016 Chronic Mood disorders (20 sources) Major depression in remission; Translations: [Major depressive affective disorder, single episode, in partial or unspecified remission] Onset: 3 03-03-2023 Chronic Osteoporosis (20 sources) Osteoporosis; Translations: [Osteoporosis, unspecified] Onset: 3 02-07-2023 Chronic Other connective tissue disease (20 sources) Tendinitis of hip; Translations: [Other synovitis and tenosynovitis] Episodic Other connective tissue disease (12 sources) H/O: osteoarthritis; Translations: [Personal history of other musculoskeletal disorders] Episodic Other connective tissue disease (3 sources) Pain in bilateral legs; Translations: [Pain in right leg] 07-07-2024 Episodic Other connective tissue disease (1 source) Cramp in lower limb; Translations: [Cramp and spasm] 11-02-2024 Episodic Other connective tissue disease (2 sources) Cramp and spasm; Translations: [Cramp and spasm] Onset: 5 Episodic Other ear and sense organ disorders (2 sources) Sensorineural hearing loss, bilateral; Translations: [Sensorineural hearing loss, bilateral] Onset: 5 03-17-2025 Chronic Other ear and sense organ disorders (1 source) Sensorineural hearing loss, bilateral; Translations: [Sensorineural hearing loss, bilateral] Onset: 5 Chronic Other ear and sense organ disorders (1 source) Excessive cerumen in ear canal ; Translations: [Impacted cerumen, bilateral] 03-17-2025 Episodic Other ear and sense organ disorders (2 sources) Impacted cerumen, bilateral; Translations: [Impacted cerumen, bilateral] Onset: 5 Episodic Other endocrine disorders (20 sources) Hyperparathyroidism; Translations: [Hyperparathyroidism, unspecified] Onset: 3 03-03-2023 Chronic Other endocrine disorders (2 sources) Hyperparathyroidism, unspecified; Translations: [Hyperparathyroidism, unspecified (CMS/HCC)] Onset: 3 Chronic Other eye disorders (7 sources) Bilateral vitreous floaters; Translations: [Other vitreous opacities, bilateral] Onset: 5 05-03-2015 Chronic Other eye disorders (7 sources) Optic cupping; Translations: [Glaucomatous optic atrophy, bilateral] Onset: 6 05-15-2016 Chronic Other hereditary and degenerative nervous system conditions (2 sources) Mild cognitive impairment, so stated; Translations: [Mild cognitive impairment of uncertain or unknown etiology] Onset: 3 Chronic Other hereditary and degenerative nervous system conditions (2 sources) Cerebral atrophy; Translations: [Degenerative disease of nervous system, unspecified] Onset: 3 07-21-2023 Chronic Other nervous system disorders (11 sources) Piriformis syndrome; Translations: [Lesion of sciatic nerve] Chronic Other nervous system disorders (5 sources) Right-sided piriformis syndrome; Translations: [Lesion of sciatic nerve, right lower limb] Onset: 3 02-07-2023 Chronic Other nervous system disorders (1 source) Lesion of sciatic nerve, right lower limb; Translations: [Lesion of sciatic nerve, right lower limb] Onset: 2 Chronic Other nervous system disorders (2 sources) Other chronic pain; Translations: [Other chronic pain] Onset: 4 Chronic Other nervous system disorders (2 sources) Polyneuropathy; Translations: [Polyneuropathy, unspecified] 04-06-2025 Chronic Other nervous system disorders (2 sources) Polyneuropathy, unspecified; Translations: [Polyneuropathy, unspecified] Onset: 5 Chronic Other non-traumatic joint disorders (20 sources) Hip pain; Translations: [Pain in joint, pelvic region and thigh] 07-07-2024 Episodic Other nutritional; endocrine; and metabolic disorders (4 sources) Morbid obesity; Translations: [Morbid obesity] Chronic Other screening for suspected conditions (not mental disorders or infectious disease) (20 sources) Cancer cervix - screening done; Translations: [Patient encounter status] Onset: 3 03-03-2023 Episodic Other upper respiratory disease (20 sources) Allergic rhinitis; Translations: [Allergic rhinitis, cause unspecified] Onset: 3 02-07-2023 Chronic Other upper respiratory disease (2 sources) Vasomotor rhinitis; Translations: [Vasomotor rhinitis] Onset: 5 03-17-2025 Chronic Other upper respiratory disease (1 source) Vasomotor rhinitis; Translations: [Vasomotor rhinitis] Onset: 5 Chronic Residual codes; unclassified (11 sources) Needs influenza immunization; Translations: [Need for prophylactic vaccination and inoculation against influenza] 07-21-2023 Episodic Residual codes; unclassified (1 source) Postmenopausal state; Translations: [Asymptomatic menopausal state] 03-03-2023 Episodic Residual codes; unclassified (5 sources) Asymptomatic menopausal state; Translations: [Asymptomatic menopausal state] Onset: 3 Episodic Retinal detachments; defects; vascular occlusion; and retinopathy (14 sources) Neovascularization of choroid of left eye; 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, unspecified, left eye] Onset: 1 Chronic Spondylosis; intervertebral disc disorders; other back problems (18 sources) Inflammation of sacroiliac joint; Translations: [Sacroiliitis, not elsewhere classified] Onset: 5 07-07-2024 Chronic Spondylosis; intervertebral disc disorders; other back problems (20 sources) Low back pain; Translations: [Lumbago] Onset: 3 02-07-2023 Episodic Thyroid disorders (20 sources) Hypothyroidism; Translations: [Other specified acquired hypothyroidism] Onset: 3 03-03-2023 Chronic Unclassified (1 source) Dementia in other diseases classified elsewhere, unspecified severity, with other behavioral disturbance; Translations: [Dementia in other diseases classified elsewhere, unspecified severity, with other behavioral disturbance] Onset: 4 Urinary tract infections (4 sources) Acute cystitis; Translations: [Acute cystitis] Onset: 5 Episodic Past or Other Problems Problem Classification Problem Date Documented Da te Episodic/Chronic Abdominal pain (9 sources) Flank pain; Translations: [Abdominal pain, other specified site] Onset: 06-02-2013 06-02-2013 Episodic Immunizations and screening for infectious disease (20 sources) Patient encounter status; Translations: [Need for prophylactic vaccination and inoculation against unspecified single disease] Onset: 10-07-2022 Episodic Malaise and fatigue (20 sources) Fatigue; Translations: [Other malaise and fatigue] Onset: 02-07-2023 02-07-2023 Episodic Mood disorders (2 sources) Mood disorders Onset: 09-05-2022 09-05-2022 Other and unspecified benign neoplasm (20 sources) History of polyp of colon; Translations: [Personal history of colonic polyps] Onset: 02-07-2023 02-07-2023 Episodic Other connective tissue disease (20 sources) Cramp in lower leg ; Translations: [Cramp of limb] Onset: 02-07-2023 02-07-2023 Episodic Other connective tissue disease (5 sources) Tendinitis of right hip; Translations: [Other specified enthesopathies of right lower limb, excluding foot] Onset: 02-07-2023 02-07-2023 Episodic Other connective tissue disease (1 source) Personal history of other diseases of the musculoskeletal system and connective tissue; Translations: [Personal history of diseases of the ms sys and conn tiss] Onset: 05-09-2022 Episodic Other connective tissue disease (2 sources) Pain in right leg; Translations: [Pain in right leg] Onset: 07-27-2024 Episodic Other connective tissue disease (2 sources) Pain in left leg; Translations: [Pain in left leg] Onset: 07-27-2024 Episodic Other connective tissue disease (2 sources) Repeated falls; Translations: [Repeated falls] Onset: 06-15-2024 Episodic Other diseases of kidney and ureters (1 source) Small kidney, bilateral; Translations: [Small kidney, bilateral] Onset: 05-07-2022 Episodic Other gastrointestinal disorders (20 sources) Chronic constipation; Translations: [Constipation, unspecified] Onset: 02-07-2023 02-07-2023 Episodic Other hereditary and degenerative nervous system conditions (20 sources) Impaired cognition; Translations: [Mild cognitive impairment, so stated] Onset: 02-07-2023 Resolved: 06-11-2023 Chronic Other non-traumatic joint disorders (5 sources) Pain in right hip joint; Translations: [Pain in right hip] Onset: 02-07-2023 02-07-2023 Episodic Other non-traumatic joint disorders (2 sources) Pain in right hip; Translations: [Pain in right hip] Onset: 07-27-2024 Episodic Other non-traumatic joint disorders (2 sources) Pain in left hip; Translations: [Pain in left hip] Onset: 07-27-2024 Episodic Residual codes; unclassified (20 sources) Past history of procedure; Translations: [Other specified personal history presenting hazards to health] Onset: 07-31-2018 Episodic Comment on above: IMPRESSION:No mammog raphic evidence of malignancy.BI-RADS CATEGORY:Category: 2 - Benign Finding.Recommendation: Normal Interval Follow-up, Over Age 40.Recall Interval: 12 Months.Breast Density: Scattered Fibroglandular Density.; CAT 2; Residual codes; unclassified (12 sources) Edema of lower extremity; Translations: [Edema] Onset: 02-07-2023 02-07-2023 Episodic Residual codes; unclassified (14 sources) Memory impairment; Translations: [Other amnesia] Onset: 10-06-2022 Episodic Residual codes; unclassified (2 sources) Altered mental status, unspecified; Translations: [Altered mental status, unspecified] Onset: 11-28-2024 Episodic Screening and history of mental health and substance abuse codes (2 sources) Encounter for screening for depression; Translations: [Encounter for screening for depression] Onset: 10-07-2022 Episodic Unclassified (10 sources) Well adult; Translations: [Well adult] Unclassified (3 sources) Patient encounter status; Translations: [Encounter for vaccination] Unclassified (5 sources) Onset: 03-03-2023 Resolved: 07-21-2023 03-03-2023 Unclassified (1 source) Dementia in other diseases classified elsewhere, unspecified severity, with other behavioral disturbance; Translations: [Dementia in other diseases classified elsewhere, unspecified severity, with other behavioral disturbance] Onset: 06-15-2024 NEGATED: Highlighted row has not occurred!Residual codes; unclassified (20 sources) Disease Episodic Results Test Name Value Interpretation Reference Range Facility URINALYSISon 04-21-2025 BACTERIA, URINE None Seen Normal None Seen [facility] Comment on above: Order Comment: Micro scopic examination is performed on all urinalysis samples and only positive findings are reported. The test for blood on the chemical analytic portion of urinalysis may also be positive due to hemoglobinuria and myoglobinuria and if red blood cells are present they are quantified by microscopic examination. Performed By: #### [id number] #### LAB [address] [address] Stalin Patino M.D. [id number] BILIRUBIN, URINE Negative Normal Negative [facility] Comment on above: Order Comment: Micro scopic examination is performed on all urinalysis samples and only positive findings are reported. The test for blood on the chemical analytic portion of urinalysis may also be positive due to hemoglobinuria and myoglobinuria and if red blood cells are present they are quantified by microscopic examination. Performed By: #### [id number] #### [facility] [address] [address] Stalin Patino M.D. [id number] BLOOD, URINE Negative Normal Negative [facility] Comment on above: Order Comment: Micro scopic examination is performed on all urinalysis samples and only positive findings are reported. The test for blood on the chemical analytic portion of urinalysis may also be positive due to hemoglobinuria and myoglobinuria and if red blood cells are present they are quantified by microscopic examination. Performed By: #### [id number] #### [facility] [address] [address] Stalin Patino M.D. [id number] Clarity (U) Clear Normal Clear [facility] Comment on above: Order Comment: Micro scopic examination is performed on all urinalysis samples and only positive findings are reported. The test for blood on the chemical analytic portion of urinalysis may also be positive due to hemoglobinuria and myoglobinuria and if red blood cells are present they are quantified by microscopic examination. Performed By: #### [id number] #### [facility] [address] [address] Stalin Patino M.D. [id number] Color (U) Yellow Normal Colorless, Yellow [facility] Comment on above: Order Comment: Micro scopic examination is performed on all urinalysis samples and only positive findings are reported. The test for blood on the chemical analytic portion of urinalysis may also be positive due to hemoglobinuria and myoglobinuria and if red blood cells are present they are quantified by microscopic examination. Performed By: #### [id number] #### LAB [address] [place] [address] Stalin Patino M.D. [id number] Glucose Ql (U) Negative Normal Negative [facility] Comment on above: Order Comment: Micro scopic examination is performed on all urinalysis samples and only positive findings are reported. The test for blood on the chemical analytic portion of urinalysis may also be positive due to hemoglobinuria and myoglobinuria and if red blood cells are present they are quantified by microscopic examination. Performed By: #### [id number] #### LAB [address] [address] Stalin Patino M.D. [id number] Ketones Ql (U) Negative Normal Negative [facility] Comment on above: Order Comment: Micro scopic examination is performed on all urinalysis samples and only positive findings are reported. The test for blood on the chemical analytic portion of urinalysis may also be positive due to hemoglobinuria and myoglobinuria and if red blood cells are present they are quantified by microscopic examination. Performed By: #### 4 6625 #### LAB [address] [address] Stalin Patino M.D. [id number] Leukocyte esterase Test strip Ql (U) Negative Normal Negative [facility] Comment on above: Order Comment: Micro scopic examination is performed on all urinalysis samples and only positive findings are reported. The test for blood on the chemical analytic portion of urinalysis may also be positive due to hemoglobinuria and myoglobinuria and if red blood cells are present they are quantified by microscopic examination. Performed By: #### 4 6625 #### LAB [address] [place] [address] Stalin Patino M.D. [id number] NITRITE, URINE Negative Normal Negative [facility] Comment on above: Order Comment: Micro scopic examination is performed on all urinalysis samples and only positive findings are reported. The test for blood on the chemical analytic portion of urinalysis may also be positive due to hemoglobinuria and myoglobinuria and if red blood cells are present they are quantified by microscopic examination. Performed By: #### 4 6625 #### LAB [address] [place] [address] Stalin Patino M.D. [id number] pH (U) 7.0 [pH] Normal 5.0-7.0 [facility] Comment on above: Order Comment: Micro scopic examination is performed on all urinalysis samples and only positive findings are reported. The test for blood on the chemical analytic portion of urinalysis may also be positive due to hemoglobinuria and myoglobinuria and if red blood cells are present they are quantified by microscopic examination. Performed By: #### 4 6625 #### LAB [address] [place] [address] Stalin Patino M.D. [id number] PROTEIN, URINE Negative Normal Negative [facility] Comment on above: Order Comment: Micro scopic examination is performed on all urinalysis samples and only positive findings are reported. The test for blood on the chemical analytic portion of urinalysis may also be positive due to hemoglobinuria and myoglobinuria and if red blood cells are present they are quantified by microscopic examination. Performed By: #### 4 6625 #### LAB [address] [address] Stalin Patino M.D. [id number] RBC, URINE < Normal 0-3 [facility] Comment on above: Order Comment: Micro scopic examination is performed on all urinalysis samples and only positive findings are reported. The test for blood on the chemical analytic portion of urinalysis may also be positive due to hemoglobinuria and myoglobinuria and if red blood cells are present they are quantified by microscopic examination. Performed By: #### 4 6625 #### LAB [address] [address] Stalin Patino M.D. [id number] Specific gravity (U) [Rel density] 1.009 Normal 1.005-1.025 [facility] Comment on above: Order Comment: Micro scopic examination is performed on all urinalysis samples and only positive findings are reported. The test for blood on the chemical analytic portion of urinalysis may also be positive due to hemoglobinuria and myoglobinuria and if red blood cells are present they are quantified by microscopic examination. Performed By: #### 4 6625 #### LAB [address] [place] [address] Stalin Patino M.D. [id number] SQUAMOUS EPITHELIAL < Normal 0-4 [facility] Comment on above: Order Comment: Micro scopic examination is performed on all urinalysis samples and only positive findings are reported. The test for blood on the chemical analytic portion of urinalysis may also be positive due to hemoglobinuria and myoglobinuria and if red blood cells are present they are quantified by microscopic examination. Performed By: #### 4 6625 #### LAB [address] [address] Stalin Patino M.D. [id number] UROBILINOGEN, URINE <2.0 Normal <2.0 [facility] Comment on above: Order Comment: Micro scopic examination is performed on all urinalysis samples and only positive findings are reported. The test for blood on the chemical analytic portion of urinalysis may also be positive due to hemoglobinuria and myoglobinuria and if red blood cells are present they are quantified by microscopic examination. Performed By: #### 4 6625 #### LAB [address] [address] Stalin Patino M.D. [id number] WBC, URINE < Normal 0-5 [facility] Comment on above: Order Comment: Micro scopic examination is performed on all urinalysis samples and only positive findings are reported. The test for blood on the chemical analytic portion of urinalysis may also be positive due to hemoglobinuria and myoglobinuria and if red blood cells are present they are quantified by microscopic examination. Performed By: #### 4 6625 #### LAB [address] [place], [place] [address] Stalin Patino M.D. [id number] URINE AEROBIC CULTUREon 07-0 URINE AEROBIC CULTURE URINE CULTURE < 10,000 CFU/mL of normal urogenital microbiota Normal [facility] Comment on above: Performed By: #### 4 4053 #### [facility] [address] [place], [place] [address] Leonidas Reyes M.D. [id number] Folates, RBCon 04-14-2025 Fol.,Hemolysate > 620.0 Normal Not Estab. [facility] Comment on above: Order Comment: Test( s) 515951-Kuj. B1, Whole Blood was developed and its performance characteristics determined by [facility]. It has not been cleared or approved by the Food and Drug Administration. Performed By: #### L 3300.8000, L3100.1725, L3130.0010, L503.0106, L3300.0960, L506.0400, L501.9520, L500.4050, L100.0500 #### [facility] [address] [place], [place], [address] Folate, RBC TNP Normal . [facility] Comment on above: Order Comment: Test( s) 694224-Pff. B1, Whole Blood was developed and its performance characteristics determined by [facility]. It has not been cleared or approved by the Food and Drug Administration. Result Comment: Unab le to calculate result since non-numeric result obtained for component test. Performed By: #### L 3300.8000, L3100.1725, L3130.0010, L503.0106, L3300.0960, L506.0400, L501.9520, L500.4050, L100.0500 #### [facility] [address] [place], [address] Hematocrit TNP Normal . [facility] Comment on above: Order Comment: Test( s) 096679-Ncv. B1, Whole Blood was developed and its performance characteristics determined by [facility]. It has not been cleared or approved by the Food and Drug Administration. Result Comment: Test not performed. Deterioration occurred during specimen handling. CONTACTED SUDHA Moss AT YOUR FACILITY ON 04-12-2025 Performed By: #### L 3300.8000, L3100.1725, L3130.0010, L503.0106, L3300.0960, L506.0400, L501.9520, L500.4050, L100.0500 #### [facility] [address] [place], [address] [place] Lambda Light Chainson 04-14-2025 FR KAPPA LT CHN 33.4 mg/L Abnormal 3.3-19.4 [facility] Comment on above: Order Comment: Test( s) 984551-Epq. B1, Whole Blood was developed and its performance characteristics determined by [facility]. It has not been cleared or approved by the Food and Drug Administration. Performed By: #### L 3300.8000, L3100.1725, L3130.0010, L503.0106, L3300.0960, L506.0400, L501.9520, L500.4050, L100.0500 #### [facility] [address] [place], [address] FR LAMBDA LT CH 22.2 mg/L Normal 5.7-26.3 [facility] Comment on above: Order Comment: Test( s) 979110-Qlk. B1, Whole Blood was developed and its performance characteristics determined by [facility]. It has not been cleared or approved by the Food and Drug Administration. Performed By: #### L 3300.8000, L3100.1725, L3130.0010, L503.0106, L3300.0960, L506.0400, L501.9520, L500.4050, L100.0500 #### [facility] [address] [place], [place], [address] (297) KAPPA/LAMBDA % 1.50 Normal 0.26-1.65 [facility] Comment on above: Order Comment: Test( s) 936342-Mrs. B1, Whole Blood was developed and its performance characteristics determined by [facility]. It has not been cleared or approved by the Food and Drug Administration. Performed By: #### L 3300.8000, L3100.1725, L3130.0010, L503.0106, L3300.0960, L506.0400, L501.9520, L500.4050, L100.0500 #### [facility] [address] [place], [place], [id number] (446) Vitamin B1, Thiamineon 04-14 VIT B1 THIAMINE 165.4 nmol/L Normal 66.5-200.0 [facility] Comment on above: Order Comment: Test( s) 896504-Eaf. B1, Whole Blood was developed and its performance characteristics determined by [facility]. It has not been cleared or approved by the Food and Drug Administration. Performed By: #### L 3300.8000, L3100.1725, L3130.0010, L503.0106, L3300.0960, L506.0400, L501.9520, L500.4050, L100.0500 #### [facility] [address] [place], [address] Vitamin D 1,25-Dihydroxyon 0 04-08-2025 VIT D 1,25 DIHY 33.4 pg/mL Normal 24.8-81.5 [facility] Comment on above: Result Comment: Perf ormed at: [facility] - [facility] [address] [id number] Scratch Brusher: Snadie Teran MD, Phone: [phone] Performed By: #### L 3300.8000, L3100.1725, L3130.0010, L503.0106, L3300.0960, L506.0400, L501.9520, L500.4050, L100.0500 #### [facility] [address] [place], [address] CBC-Complete Blood Cnt No Di ffon 04-06-2025 Erythrocyte distribution width (RBC) [Ratio] 14.8 % High 11.6-14.6 [facility] Comment on above: Performed By: #### L 3300.8000, L3100.1725, L3130.0010, L503.0106, L3300.0960, L506.0400, L501.9520, L500.4050, L100.0500 #### [facility] [address] [facility] [place], [address] Hematocrit (Bld) [Volume fraction] 37.6 % Normal 37-47 [facility] Comment on above: Performed By: #### L 3300.8000, L3100.1725, L3130.0010, L503.0106, L3300.0960, L506.0400, L501.9520, L500.4050, L100.0500 #### [facility] [address] [place], [address] Hemoglobin (Bld) [Mass/Vol] 11.9 g/dL Low 12.0-15.0 [facility] Comment on above: Performed By: #### L 3300.8000, L3100.1725, L3130.0010, L503.0106, L3300.0960, L506.0400, L501.9520, L500.4050, L100.0500 #### [facility] [address] [facility] [place], [address] MCH (RBC) [Entitic mass] 29.4 pg Normal 27.0-32.0 [facility] Comment on above: Performed By: #### L 3300.8000, L3100.1725, L3130.0010, L503.0106, L3300.0960, L506.0400, L501.9520, L500.4050, L100.0500 #### [facility] [address] [place], [address] MCHC (RBC) [Mass/Vol] 31.6 g/dL Low 32-36 [facility] Comment on above: Performed By: #### L 3300.8000, L3100.1725, L3130.0010, L503.0106, L3300.0960, L506.0400, L501.9520, L500.4050, L100.0500 #### [facility] [address] [place], [address] MCV (RBC) [Entitic vol] 92.8 fL Normal 81-99 [facility] Comment on above: Performed By: #### L 3300.8000, L3100.1725, L3130.0010, L503.0106, L3300.0960, L506.0400, L501.9520, L500.4050, L100.0500 #### [facility] [address] [place], [address] Platelet mean volume (Bld) [Entitic vol] 11.8 fL Normal 6.2-12.0 [facility] Comment on above: Performed By: #### L 3300.8000, L3100.1725, L3130.0010, L503.0106, L3300.0960, L506.0400, L501.9520, L500.4050, L100.0500 #### [facility] [address] [place], [address] Platelets (Bld) [#/Vol] 178 10*3/uL Normal 150-450 [facility] Comment on above: Performed By: #### L 3300.8000, L3100.1725, L3130.0010, L503.0106, L3300.0960, L506.0400, L501.9520, L500.4050, L100.0500 #### [facility] [address] [place], [address] RBC (Bld) [#/Vol] 4.05 10*6/uL Low 4.2-5.4 [facility] Comment on above: Performed By: #### L 3300.8000, L3100.1725, L3130.0010, L503.0106, L3300.0960, L506.0400, L501.9520, L500.4050, L100.0500 #### [facility] [address] [place], [address] (379) RDW SD 50.6 fl High 35.1-43.9 [facility] Comment on above: Performed By: #### L 3300.8000, L3100.1725, L3130.0010, L503.0106, L3300.0960, L506.0400, L501.9520, L500.4050, L100.0500 #### [facility] [address] [place], [address] WBC (Bld) [#/Vol] 6.3 10*3/uL Normal 4.4-11.0 [facility] Comment on above: Performed By: #### L 3300.8000, L3100.1725, L3130.0010, L503.0106, L3300.0960, L506.0400, L501.9520, L500.4050, L100.0500 #### [facility] [address] [place], [address] Comprehensive Metabolic Prof [facility] 04-06-2025 Albumin [Mass/Vol] 4.6 g/dL Normal 3.4-4.8 [facility] Comment on above: Performed By: #### L 3300.8000, L3100.1725, L3130.0010, L503.0106, L3300.0960, L506.0400, L501.9520, L500.4050, L100.0500 #### [facility] [address] [place], [address] Albumin/Globulin [Mass ratio] 1.7 {ratio} Normal 0.9-2.4 [facility] Comment on above: Performed By: #### L 3300.8000, L3100.1725, L3130.0010, L503.0106, L3300.0960, L506.0400, L501.9520, L500.4050, L100.0500 #### [facility] [address] [place], [address] ALK PHOS 60 U/L Normal 35-104 [facility] Comment on above: Performed By: #### L 3300.8000, L3100.1725, L3130.0010, L503.0106, L3300.0960, L506.0400, L501.9520, L500.4050, L100.0500 #### [facility] [address] [place], [address] ALT [Catalytic activity/Vol] 23 U/L Normal <=34 [facility] Comment on above: Performed By: #### L 3300.8000, L3100.1725, L3130.0010, L503.0106, L3300.0960, L506.0400, L501.9520, L500.4050, L100.0500 #### [facility] [address] [place], [address] AST [Catalytic activity/Vol] 32 U/L Normal <=31 [facility] Comment on above: Performed By: #### L 3300.8000, L3100.1725, L3130.0010, L503.0106, L3300.0960, L506.0400, L501.9520, L500.4050, L100.0500 #### [facility] [address] [place], [address] Bilirubin [Mass/Vol] 0.42 mg/dL Normal 0.00-1.30 [facility] Comment on above: Performed By: #### L 3300.8000, L3100.1725, L3130.0010, L503.0106, L3300.0960, L506.0400, L501.9520, L500.4050, L100.0500 #### [facility] [address] [place], [address] BUN/CRE 24.3 RATIO High 10-20 [facility] Comment on above: Performed By: #### L 3300.8000, L3100.1725, L3130.0010, L503.0106, L3300.0960, L506.0400, L501.9520, L500.4050, L100.0500 #### [facility] [address] [place], [address] Calcium [Mass/Vol] 9.4 mg/dL Normal 7.6-11.0 [facility] Comment on above: Performed By: #### L 3300.8000, L3100.1725, L3130.0010, L503.0106, L3300.0960, L506.0400, L501.9520, L500.4050, L100.0500 #### [facility] [address] [place], [address] Chloride [Moles/Vol] 103 mmol/L Normal 98-108 [facility] Comment on above: Performed By: #### L 3300.8000, L3100.1725, L3130.0010, L503.0106, L3300.0960, L506.0400, L501.9520, L500.4050, L100.0500 #### [facility] [address] [place], [address] CO2 [Moles/Vol] 22.8 mmol/L Normal 21.0-32.0 [facility] Comment on above: Performed By: #### L 3300.8000, L3100.1725, L3130.0010, L503.0106, L3300.0960, L506.0400, L501.9520, L500.4050, L100.0500 #### [facility] [address] [place], [address] Creatinine [Mass/Vol] 1.54 mg/dL High 0.70-1.20 [facility] Comment on above: Performed By: #### L 3300.8000, L3100.1725, L3130.0010, L503.0106, L3300.0960, L506.0400, L501.9520, L500.4050, L100.0500 #### [facility] [address] [place], [place], [id number] (972) GAP 13 Normal 5-15 [facility] Comment on above: Performed By: #### L 3300.8000, L3100.1725, L3130.0010, L503.0106, L3300.0960, L506.0400, L501.9520, L500.4050, L100.0500 #### [facility] [address] [place], [place], [id number] (133) GFR/1.73 sq M.predicted among non-blacks MDRD (S/P/Bld) [Vol rate/Area] 32 mL/min/{1.73_m2} Low >60 [facility] Comment on above: Result Comment: mL/m in/1.73m2 CKD-EPI Creatinine Equation (2020) Performed By: #### L 3300.8000, L3100.1725, L3130.0010, L503.0106, L3300.0960, L506.0400, L501.9520, L500.4050, L100.0500 #### [facility] [address] [place], [address] Globulin (S) [Mass/Vol] 2.7 g/dL Normal 2.2-4.2 [facility] Comment on above: Performed By: #### L 3300.8000, L3100.1725, L3130.0010, L503.0106, L3300.0960, L506.0400, L501.9520, L500.4050, L100.0500 #### [facility] [address] [place], [address] Glucose [Mass/Vol] 91 mg/dL Normal 70-99 [facility] Comment on above: Performed By: #### L 3300.8000, L3100.1725, L3130.0010, L503.0106, L3300.0960, L506.0400, L501.9520, L500.4050, L100.0500 #### [facility] [address] [place], [address] Potassium [Moles/Vol] 4.3 mmol/L Normal 3.3-5.1 [facility] Comment on above: Performed By: #### L 3300.8000, L3100.1725, L3130.0010, L503.0106, L3300.0960, L506.0400, L501.9520, L500.4050, L100.0500 #### [facility] [address] [place], [address] Sodium [Moles/Vol] 139 mmol/L Normal 133-145 [facility] Comment on above: Performed By: #### L 3300.8000, L3100.1725, L3130.0010, L503.0106, L3300.0960, L506.0400, L501.9520, L500.4050, L100.0500 #### [facility] [address] [place], [address] T PROT 7.3 g/dL Normal 5.9-8.4 [facility] Comment on above: Performed By: #### L 3300.8000, L3100.1725, L3130.0010, L503.0106, L3300.0960, L506.0400, L501.9520, L500.4050, L100.0500 #### [facility] [address] [place], [place], [id number] Urea nitrogen [Mass/Vol] 37 mg/dL High 4-19 [facility] Comment on above: Performed By: #### L 3300.8000, L3100.1725, L3130.0010, L503.0106, L3300.0960, L506.0400, L501.9520, L500.4050, L100.0500 #### [facility] [address] [facility] [address] [address] [place], [place], [address] Neurology Visit Reporton Neurology Visit Report [facility] [address] [place] [address], [address] [place], [place] [address] OFFICE VISIT Date of Service: 04/06/25 MR#: [id number] Acct: [id number] Name: DUKE ACOSTA Rep #: [id number] : 1935 Provider: Dr. Mark montilla MD Age/Sex: 89/F [place] [facility] [place] Status: Signed with Addenda ADDENDUM by Dr. Mark Tejeda MD on 04/21/25 at 1612 Addendum Addendum (04/21/2025): The patient has depression. Citalopram will be discontinued. Sertraline 50 mg 1/2 tablet every morning for 1 week then 1 tablet every morning thereafter will be prescribed. 04/21/25 1612 Date Mark Tejeda MD cc: * Signed HPI HPI Details: History: The patient is an 89-year-old right-handed woman with a past medical history of hypertension, hypothyroidism, renal insufficiency, basal cell skin cancer status post excision, and dementia who presents for evaluation of her dementia. She is accompanied by her daughter. The patient began to exhibit cognitive decline around 2019. Her cognitive decline has progressively worsened over time. She was evaluated by a neurologist around 2022 and was diagnosed with dementia and donepezil was initiated at that time. No improvement of her memory was noted following initiation of donepezil. She has a tendency to forget conversations and to repeat conversations. She exhibits confusion. She was no longer able to manage her finances and these are now managed by her son who has power of regulatory attorney. She has become lost in familiar surroundings. Since around 2022 she has had visual and auditory hallucinations. She has also had some easy irritability. She has had some anxiety. It is unclear whether she is experiencing depression. She is independent in basic activities such as dressing and bathing. She has been residing in an assisted living community since 2022. She has chronic hearing loss. She denies having any vision change, headaches, dizziness, lightheadedness, numbness, or weakness. She has right hip pain that radiates distally in the right lower extremity. She denies having low back pain. Details regarding her prior evaluation are presently not available. She takes buspirone and citalopram. Past Medical History: As above. There is no history of diabetes mellitus, heart disease, lung disease, stroke, seizure, or hyperlipidemia. Social History: She quit smoking tobacco around 31 years ago. There is no history of alcohol abuse or illicit drug use. She left school in the 11th grade to work. Family History: The patient's mother had a stroke and related dementia. There is no family history of cerebral aneurysm or seizure. Review of Systems: As above. The patient has not had any recent fever, rash, weight change, chest pain, shortness of breath, or urinary problems. She denies having sleep disturbance. She has constipation. Physical Exam: General: Well-developed, well-nourished female in no acute distress. Neuro: The patient is awake; she is moderately bradyphrenic; she is intermittently irritable; Mini- Mental status exam score is 19/30; speech is not dysarthric Cranial nerves: Pupils are round and minimally reactive to light, 1.5 mm on the right and 2 mm on the left; EOMI; visual ham are full; visual acuity is 20/70 on the right and 20/800 on the left; face is symmetrical; tongue is midline; there are no deficits to pinprick Cerebellar system: No nystagmus or dysmetria Deep tendon reflexes: +2 at the brachioradialis bilaterally, absent at the biceps bilaterally, triceps bilaterally, knees and ankles; plantar responses are downward bilaterally Motor: Strength 5/5 in the biceps bilaterally, abductor pollicis brevis muscles bilaterally, first dorsal interosseous muscles bilaterally, quadriceps bilaterally and foot dorsiflexors bilaterally; no drift Sensory: There are no deficits to soft touch or pinprick; decreased vibration is noted in both feet Gait: Mildly slow and mildly unsteady HEENT: Normocephalic; atraumatic; tympanic membranes are clear Neck: No bruits Heart: Regular rhythm and rate Extremities: No cyanosis or edema; right posterior tibial and right dorsalis pedis pulses are not palpable; left dorsalis pedis pulses +2 Assessment and Plan Assessment and Plan (1) Dementia: Status: Acute (2) Polyneuropathy: Status: Acute Orders: Orders Brain without Contrast Today F03.90 - Unspecified dementia, unspecified severity, without behavioral disturbance, psychotic disturbance, mood disturbance, and anxiety Orbits for Foreign Body Today F03.90 - Unspecified dementia, unspecified severity, without behavioral disturbance, psychotic disturbance, mood disturbance, and anxiety CBC-Complete Blood Cnt No Diff Today F03.90 - Unspecified dementia, unspecified severity, without behavioral disturbance, psychotic disturbance, mood distu (more content not included)... Normal [facility] T4 Free Directon 04-06-2025 T4 FREE DIRECT 1.00 ng/dL Normal 0.76-1.46 [facility] Comment on above: Performed By: #### L 3300.8000, L3100.1725, L3130.0010, L503.0106, L3300.0960, L506.0400, L501.9520, L500.4050, L100.0500 #### [facility] [address] [place], [place], [id number] Thyroid Stim Hormone (TSH)on 04-06-2025 TSH 6.850 uIU/mL High 0.300-4.200 [facility] Comment on above: Performed By: #### L 3300.8000, L3100.1725, L3130.0010, L503.0106, L3300.0960, L506.0400, L501.9520, L500.4050, L100.0500 #### [facility] [address] [place], [address] Vitamin B12on 04-06-2025 Cobalamin (Vitamin B12) [Mass/Vol] 993 pg/mL High 180-914 [facility] Comment on above: Performed By: #### L 3300.8000, L3100.1725, L3130.0010, L503.0106, L3300.0960, L506.0400, L501.9520, L500.4050, L100.0500 #### [facility] [address] [place], [address] BASIC METABOLIC PANELon - Anion gap [Moles/Vol] 18 mmol/L Normal 10-20 [facility] Comment on above: Order Comment: [facility] has implemented the eGFR calculation approach that does not have a coefficient for race that conforms to the NKF-ASN Task Force Recommendations. Performed By: #### 4 6612 #### LAB [address] [place], [place] [address] Stalin Patino M.D. [id number] Calcium [Mass/Vol] 9.5 mg/dL Normal 8.4-10.2 [facility] Comment on above: Order Comment: [facility] has implemented the eGFR calculation approach that does not have a coefficient for race that conforms to the NKF-ASN Task Force Recommendations. Performed By: #### 4 6612 #### [facility] [address] [place], [place] [address] Stalin Patino M.D. [id number] Chloride [Moles/Vol] 102 mmol/L Normal 98-108 [facility] Comment on above: Order Comment: [facility] has implemented the eGFR calculation approach that does not have a coefficient for race that conforms to the NKF-ASN Task Force Recommendations. Performed By: #### 4 6612 #### LAB [address] [place], [place] [address] Stalin Patino M.D. [id number] Creatinine [Mass/Vol] 1.87 mg/dL High 0.60-1.10 [facility] Comment on above: Order Comment: [facility] has implemented the eGFR calculation approach that does not have a coefficient for race that conforms to the NKF-ASN Task Force Recommendations. Performed By: #### 4 6612 #### LAB [address] [place] [address] Stalin Patino M.D. [id number] EGFR 26 mL/min/1.73 m2 Low >=60 [facility] Comment on above: Order Comment: [facility] has implemented the eGFR calculation approach that does not have a coefficient for race that conforms to the NKF-ASN Task Force Recommendations. Result Comment: Ivonne mated GFR was calculated using the 2020 CKD-EPI creatinine equation. Performed By: #### 4 6612 #### LAB [address] [place] [address] Stalin Patino M.D. [id number] Glucose [Mass/Vol] 99 mg/dL Normal 65-99 [facility] Comment on above: Order Comment: [facility] has implemented the eGFR calculation approach that does not have a coefficient for race that conforms to the NKF-ASN Task Force Recommendations. Performed By: #### 4 6612 #### LAB [address] [place] [address] Stalin Patino M.D. [id number] HCO3 (Bld) [Moles/Vol] 22 mmol/L Normal 21-32 [facility] Comment on above: Order Comment: [facility] has implemented the eGFR calculation approach that does not have a coefficient for race that conforms to the NKF-ASN Task Force Recommendations. Performed By: #### 4 6612 #### LAB [address] [place] [address] Stalin Patino M.D. [id number] Potassium [Moles/Vol] 4.4 mmol/L Normal 3.5-5.1 [facility] Comment on above: Order Comment: [facility] has implemented the eGFR calculation approach that does not have a coefficient for race that conforms to the NKF-ASN Task Force Recommendations. Performed By: #### 4 6612 #### LAB [address] [place] [address] Stalin Patino M.D. [id number] Sodium [Moles/Vol] 138 mmol/L Normal 135-145 [facility] Comment on above: Order Comment: [facility] has implemented the eGFR calculation approach that does not have a coefficient for race that conforms to the NKF-ASN Task Force Recommendations. Performed By: #### 4 6612 #### LAB [address] [place] [address] Stalin Patino M.D. [id number] Urea nitrogen [Mass/Vol] 35 mg/dL High 8-25 [facility] Comment on above: Order Comment: [facility] has implemented the eGFR calculation approach that does not have a coefficient for race that conforms to the NKF-ASN Task Force Recommendations. Performed By: #### 4 6612 #### LAB [address] [place] [address] Stalin Patino M.D. [id number] Urea nitrogen/Creatinine [Mass ratio] 18.7 mg/mg Normal 10.0-20.0 [facility] Comment on above: Order Comment: [facility] has implemented the eGFR calculation approach that does not have a coefficient for race that conforms to the NKF-ASN Task Force Recommendations. Performed By: #### 4 6612 #### LAB [address] [address] Stalin Patino M.D. [id number] CBC WITH AUTO DIFFERENTIALon 11-28-2024 AUTO NRBC 0.0 % Normal [facility] Comment on above: Performed By: #### L [id number] #### [facility] LAB [address] [place] [id number] Stalin Patino M.D. [id number] AUTO NRBC ABS COUNT 0.00 K/mcL Normal 0.00-0.00 [facility] Comment on above: Performed By: #### L [id number] #### LAB [address] [address] Stalin Patino M.D. [id number] BASOPHILS ABSOLUTE COUNT 0.08 K/mcL Normal 0.00-0.30 [facility] Comment on above: Performed By: #### L [id number] #### LAB [address] [address] Stalin Patino M.D. [id number] Basophils/100 WBC (Bld) 0.9 % Normal [facility] Comment on above: Performed By: #### L [id number] #### LAB [address] [address] Stalin Patino M.D. [id number] Eosinophils (Bld) [#/Vol] 0.17 10*3/uL Normal 0.00-0.50 [facility] Comment on above: Performed By: #### L [id number] #### LAB [address] [address] Stalin Patino M.D. [id number] Eosinophils/100 WBC (Bld) 1.9 % Normal [facility] Comment on above: Performed By: #### L [id number] #### LAB [address] [address] Stalin Patino M.D. [id number] Erythrocyte distribution width (RBC) [Ratio] 13.8 % Normal 11.6-14.8 [facility] Comment on above: Performed By: #### L [id number] #### LAB [address] [place] [address] Stalin Patino M.D. [id number] Hematocrit (Bld) [Volume fraction] 40.7 % Normal 36.0-46.0 [facility] Comment on above: Performed By: #### L [id number] #### LAB [address] [place] [address] Stalin Patino M.D. [id number] Hemoglobin (Bld) [Mass/Vol] 12.8 g/dL Normal 12.0-16.0 [facility] Comment on above: Performed By: #### L [id number] #### LAB [address] [place] [address] Stalin Patino M.D. [id number] IG ABSOLUTE 0.04 K/mcL Normal 0.00-0.30 [facility] Comment on above: Performed By: #### L [id number] #### LAB [address] [place] [address] Stalin Patino M.D. [id number] IG PERCENT 0.40 % Normal [facility] Comment on above: Result Comment: The IG parameter is the percentage of metamyelocytes, myelocytes and promyelocytes. An immature granulocyte count (IG) of 1% or more suggests the possibility of infection, an IG count of 3% is very likely related to an infection. Performed By: #### L [id number] #### LAB [address] [place] [address] Stalin Patino M.D. [id number] Lymphocytes (Bld) [#/Vol] 1.22 10*3/uL Normal 0.90-4.00 [facility] Comment on above: Performed By: #### L [id number] #### LAB [address] [place] [address] Stalin Patino M.D. [id number] Lymphocytes/100 WBC (Bld) 13.7 % Normal [facility] Comment on above: Performed By: #### L [id number] #### LAB [address] [place] [address] Stalin Patino M.D. [id number] MCH (RBC) [Entitic mass] 29.8 pg Normal 26.0-34.0 [facility] Comment on above: Performed By: #### L [id number] #### LAB [address] [place] [address] Stalin Patino M.D. [id number] MCV (RBC) [Entitic vol] 94.9 fL Normal 80.0-100.0 [facility] Comment on above: Performed By: #### L [id number] #### LAB [address] [address] Stalin Patino M.D. [id number] MEAN CORPUSCULAR HEMOGLOBIN CONC 31.4 g/dL Normal 31.0-37.0 [facility] Comment on above: Performed By: #### L [id number] #### LAB [address] [address] Stalin Patino M.D. [id number] Monocytes (Bld) [#/Vol] 1.01 10*3/uL High 0.30-0.90 [facility] Comment on above: Performed By: #### L [id number] #### LAB [address] [address] Stalin Patino M.D. [id number] Monocytes/100 WBC (Bld) 11.3 % Normal [facility] Comment on above: Performed By: #### L [id number] #### LAB [address] [address] Stalin Patino M.D. [id number] NEUTROPHILS ABSOLUTE COUNT 6.40 K/mcL Normal 1.70-7.00 [facility] Comment on above: Performed By: #### L [id number] #### LAB [address] [address] Stalin Patino M.D. [id number] Neutrophils/100 WBC (Bld) 71.8 % Normal [facility] Comment on above: Performed By: #### L [id number] #### LAB [address] [address] Stalin Patino M.D. [id number] Platelet mean volume (Bld) [Entitic vol] 10.3 fL Normal 9.4-12.4 [facility] Comment on above: Performed By: #### L [id number] #### LAB [address] [address] Stalin Patino M.D. [id number] Platelets (Bld) [#/Vol] 167 10*3/uL Normal 150-400 [facility] Comment on above: Performed By: #### L [id number] #### LAB [address] [place], [place] [address] Stalin Patino M.D. [id number] RBC (Bld) [#/Vol] 4.29 10*6/uL Normal 4.00-5.20 [facility] Comment on above: Performed By: #### L [id number] #### [facility] LAB [address] [place], [place] [address] Stalin Patino M.D. [id number] WBC (Bld) [#/Vol] 8.92 10*3/uL Normal 4.50-11.00 [facility] Comment on above: Performed By: #### L [id number] #### [facility] [address] [address] Stalin Patino M.D. [id number] CT HEAD OR BRAIN WITHOUT CON TRASTon 11-28-2024 CT HEAD OR BRAIN WITHOUT CONTRAST EXAMINATION: CT HEAD OR BRAIN WITHOUT CONTRAST. 11/28/2024 CLINICAL HISTORY: AMS TECHNIQUE: Axial CT scans through the head were obtained without contrast administration. Dose reduction techniques were achieved by using: automated exposure control and/or adjustment of mA and/or kV according to patient size and/or use of iterative reconstruction technique. COMPARISON: None. FINDINGS: Moderate periventricular low attenuation in the cerebral hemispheres without associated mass effect. The brainstem appears normal. The cerebellum appears normal. There is no edema or intracranial hemorrhage. The ventricular system is prominent, secondary to cerebral volume loss. The visualized orbits show no gross mass. The visualized paranasal sinuses show no air-fluid levels. Middle ear cavities are clear. Mastoids are clear. IMPRESSION: No acute intracranial process. Moderate old microvascular ischemic changes in the white matter of the cerebral hemispheres and age-related cerebral volume loss. Workstation ID: [id number] Dictated by: LUCAS URIBE on [place] Nov 28, 2024 10:28:09 PM EST Transcribed by: LUCAS URIBE on [place] Nov 28, 2024 10:28:09 PM EST Finalized by: LUCAS URIBE on [place] Nov 28, 2024 10:28:09 PM EST Normal [facility] Comment on above: Order Comment: Injur y/Trauma or Illness?:Illness/Other How long have you had these symptoms (acute/chronic)?:Acute Reason for exam?:AMS Type of Exam?:Initial Additional signs and symptoms?:. ED Prov Noteon 11-28-2024 ED Prov Note PCP - Cheyanne RollinsDAYAN Chief Complaint Patient presents with Altered Mental Status HPI Keyla is a pleasant 89-year-old female presenting here from assisted living facility for evaluation of confusion this afternoon. She had noted that she needed to get the kids ready for school although this is completely inappropriate. On redirection, she was aware that this was not appropriate given her current living situation and age, but was having a hard time letting go of this and getting back to her baseline. She does have some history of dementia but generally does very well. Family and facility were concerned that this could be related to urinary tract infection which was treated with a dose of fosfomycin followed by Macrobid. Patient notes that she does not have any urinary symptoms, abdominal pain, fever, chest pain, shortness of breath, nausea or vomiting, appetite change. No fall or injury. MDM/COURSE I did personally review [facility]'s past medical history, surgical history, social history, as well as family history (when relevant). In this case, I also oversaw the her drug management by reviewing her medication list, allergy list, as well as the medications that I prescribed during the ED course and/or recommended as an out-patient (including possible OTC medications such as acetaminophen, NSAIDs , etc). Her past medical problem list included: Active Ambulatory Problems Diagnosis Date Noted Memory changes 10/06/2022 Depression screen 10/07/2022 Resolved Ambulatory Problems Diagnosis Date Noted No Resolved Ambulatory Problems Past Medical History: Diagnosis Date Disease of thyroid gland Hypertension ED MEDICATIONS GIVEN: Medications hydrALAZINE (APRESOLINE) injection 10 mg (10 mg Intravenous Given 11/28/241948) After reviewing the items above, I did look at previous medical documentation, such as recent hospitalizations, office visits, and/or recent consultations with PCP/specialist. SDOH: Another factor that I considered in [facility]'s care was her Social Determinants of Health (SDOH). During this ED encounter, she DID have issues that complicated the ED care today which included cognitive impairment (dementia, alzheimer's, etc). LAB TESTING: Labs were obtained during this encounter. Labs were compared to prior values labs including urinalysis are benign RADIOLOGY: I did consider radiological studies for [facility]'s care today. Radiology testing was notable for no hemorrhage or mass effect on my independent review of CT brain DIFFERENTIAL DIAGNOSES: Some general clinical impressions that I considered included NPH, CVA, toxic/metabolic/infecti ous encephalopathy ED COURSE: Patient is doing rather well here. She did have high blood pressure initially with improvement after hydralazine which she is prescribed at home. They have been having a hard time controlling blood pressure and are adjusting medications at the facility. No clear indication for hospitalization at this time. Son at the bedside and patient are comfortable with plan for discharge and close outpatient management On this particular ED encounter, I did utilize shared decision making. After consideration of the risks of hospitalization such as nosocomial infections, falls, thromboembolic disease as well as being discharged(worsening condition or complications up to cardiopulmonary arrest) at this time the most appropriate disposition for [facility] is Discharged . IMPRESSION 1. Altered mental status, unspecified altered mental status type 2. Dementia, unspecified dementia severity, unspecified dementia type, unspecified whether behavioral, psychotic, or mood disturbance or anxiety (HCC) 3. Accelerated hypertension Past Medical History Past Medical History: Diagnosis Date Disease of thyroid gland Hypertension Past Surgical History Past Surgical History: Procedure Laterality Date CT COLONOSCOPY 11/20/[address] COLONOSCOPY 11/01/2022 CT COLONOSCOPY Family History History reviewed. No pertinent family history. Social History Social History Tobacco Use Smoking status: Never Smokeless tobacco: Never Substance Use Topics Alcohol use: Not Currently Drug use: Never Allergies Allergies Allergen Reactions Bidil [Isosorbide-Hydralazine ] Unknown Bisoprolol-Hydrochlorot hiazide Unknown Ziac tabs also Carvedilol Other (See Comments) Muscle weakness Lipitor [Atorvastatin] Unknown Losartan-Hydrochlorothi azide Unknown Pravastatin Unknown Sulfa (Sulfonamide Antibiotics) Unknown Toprol Xl [Metoprolol Succinate] Other (See Comments) Muscle weakness Tricor [Fenofibrate Micronized] Other (See Comments) Muscle weakness Medications Active Home Medications Medication Sig Note Take Last Dose On Take Morning of Surgery Comment(s) famotidine (PEPCID) 20 MG tablet Take 1 (one) tablet (20 mg total) by mouth daily . 11/28/2024: Filled 11/25/24 #: (more content not included)... Normal [facility] HEPATIC FUNCTION PANELon 02- 09-2025 Albumin [Mass/Vol] 4.5 g/dL Normal 3.2-5.2 [facility] Comment on above: Performed By: #### 4 5866 #### LAB [address] [place] [address] Stalin Patino M.D. [id number] ALP [Catalytic activity/Vol] 61 U/L Normal 40-150 [facility] Comment on above: Performed By: #### 4 5866 #### LAB [address] [place] [address] Stalin Patino M.D. [id number] ALT [Catalytic activity/Vol] 14 U/L Normal 0-35 U/L [facility] Comment on above: Performed By: #### 4 5866 #### LAB [address] [place] [address] Stalin Patino M.D. [id number] AST [Catalytic activity/Vol] 20 U/L Normal 0-35 U/L [facility] Comment on above: Performed By: #### 4 5866 #### LAB [address] [place] [address] Stalin Patino M.D. [id number] Bilirubin [Mass/Vol] 0.3 mg/dL Normal 0.0-1.3 [facility] Comment on above: Performed By: #### 4 5866 #### LAB [address] [place] [address] Stalin Patino M.D. [id number] BILIRUBIN, DIRECT < Normal 0.0-0.4 [facility] Comment on above: Performed By: #### 4 5866 #### LAB [address] [place] [address] Stalin Patino M.D. [id number] Protein [Mass/Vol] 7.4 g/dL Normal 6.0-8.0 [facility] Comment on above: Performed By: #### 4 5866 #### [facility] LAB [address] [place] [address] Stalin Patino M.D. [id number] TSH WITH REFLEX FREE T4on TSH Qn 1.77 m[IU]/L Normal 0.27-4.20 [facility] Comment on above: Performed By: #### 4 6612 #### LAB [address] [place] [address] Stalin Patino M.D. [id number] URINALYSISon 11-28-2024 BACTERIA, URINE None Seen Normal None Seen [facility] Comment on above: Order Comment: Micro scopic examination is performed on all urinalysis samples and only positive findings are reported. The test for blood on the chemical analytic portion of urinalysis may also be positive due to hemoglobinuria and myoglobinuria and if red blood cells are present they are quantified by microscopic examination. Performed By: #### 4 6612 #### LAB [address] [place] [address] Stalin Patino M.D. [id number] BILIRUBIN, URINE Negative Normal Negative [facility] Comment on above: Order Comment: Micro scopic examination is performed on all urinalysis samples and only positive findings are reported. The test for blood on the chemical analytic portion of urinalysis may also be positive due to hemoglobinuria and myoglobinuria and if red blood cells are present they are quantified by microscopic examination. Performed By: #### 4 6612 #### LAB [address] [place] [address] Stalin Patino M.D. [id number] BLOOD, URINE Negative Normal Negative [facility] Comment on above: Order Comment: Micro scopic examination is performed on all urinalysis samples and only positive findings are reported. The test for blood on the chemical analytic portion of urinalysis may also be positive due to hemoglobinuria and myoglobinuria and if red blood cells are present they are quantified by microscopic examination. Performed By: #### 4 6612 #### LAB [address] [place] [address] Stalin Patino M.D. [id number] Clarity (U) Clear Normal Clear [facility] Comment on above: Order Comment: Micro scopic examination is performed on all urinalysis samples and only positive findings are reported. The test for blood on the chemical analytic portion of urinalysis may also be positive due to hemoglobinuria and myoglobinuria and if red blood cells are present they are quantified by microscopic examination. Performed By: #### 4 6612 #### LAB [address] [address] Stalin Patino M.D. [id number] Color (U) Yellow Normal Colorless, Yellow [facility] Comment on above: Order Comment: Micro scopic examination is performed on all urinalysis samples and only positive findings are reported. The test for blood on the chemical analytic portion of urinalysis may also be positive due to hemoglobinuria and myoglobinuria and if red blood cells are present they are quantified by microscopic examination. Performed By: #### 4 6612 #### LAB [address] [place] [address] Stalin Patino M.D. [id number] Glucose Ql (U) Negative Normal Negative, >=1000 [facility] Comment on above: Order Comment: Micro scopic examination is performed on all urinalysis samples and only positive findings are reported. The test for blood on the chemical analytic portion of urinalysis may also be positive due to hemoglobinuria and myoglobinuria and if red blood cells are present they are quantified by microscopic examination. Performed By: #### 4 6612 #### LAB [address] [place] [address] Stalin Patino M.D. [id number] Ketones Ql (U) Trace Abnormal Negative [facility] Comment on above: Order Comment: Micro scopic examination is performed on all urinalysis samples and only positive findings are reported. The test for blood on the chemical analytic portion of urinalysis may also be positive due to hemoglobinuria and myoglobinuria and if red blood cells are present they are quantified by microscopic examination. Performed By: #### 4 6612 #### LAB [address] [place] [address] Stalin Patino M.D. [id number] Leukocyte esterase Test strip Ql (U) Negative Normal Negative [facility] Comment on above: Order Comment: Micro scopic examination is performed on all urinalysis samples and only positive findings are reported. The test for blood on the chemical analytic portion of urinalysis may also be positive due to hemoglobinuria and myoglobinuria and if red blood cells are present they are quantified by microscopic examination. Performed By: #### 4 6612 #### LAB [address] [place] [address] Stalin Patino M.D. [id number] NITRITE, URINE Negative Normal Negative [facility] Comment on above: Order Comment: Micro scopic examination is performed on all urinalysis samples and only positive findings are reported. The test for blood on the chemical analytic portion of urinalysis may also be positive due to hemoglobinuria and myoglobinuria and if red blood cells are present they are quantified by microscopic examination. Performed By: #### 4 6612 #### LAB [address] [address] Stalin Patino M.D. [id number] pH (U) 6.5 [pH] Normal 5.0-7.0 [facility] Comment on above: Order Comment: Micro scopic examination is performed on all urinalysis samples and only positive findings are reported. The test for blood on the chemical analytic portion of urinalysis may also be positive due to hemoglobinuria and myoglobinuria and if red blood cells are present they are quantified by microscopic examination. Performed By: #### 4 6612 #### LAB [address] [address] Stalin Patino M.D. [id number] Protein (U) [Mass/Vol] 30 mg/dL Abnormal Negative [facility] Comment on above: Order Comment: Micro scopic examination is performed on all urinalysis samples and only positive findings are reported. The test for blood on the chemical analytic portion of urinalysis may also be positive due to hemoglobinuria and myoglobinuria and if red blood cells are present they are quantified by microscopic examination. Result Comment: Fals e positive results may occur in urines with large amounts of hemoglobin, pH greater than 8.0, contrast medium, or disinfectants including ammonium compounds. Performed By: #### 4 [id number] #### LAB [address] [address] Stalin Patino M.D. [id number] RBC LM.HPF (Urine sed) [#/Area] 2 /[HPF] Normal 0-3 [facility] Comment on above: Order Comment: Micro scopic examination is performed on all urinalysis samples and only positive findings are reported. The test for blood on the chemical analytic portion of urinalysis may also be positive due to hemoglobinuria and myoglobinuria and if red blood cells are present they are quantified by microscopic examination. Performed By: #### 4 6612 #### LAB [address] [address] Stalin Patino M.D. [id number] Specific gravity (U) [Rel density] 1.015 Normal 1.005-1.025 [facility] Comment on above: Order Comment: Micro scopic examination is performed on all urinalysis samples and only positive findings are reported. The test for blood on the chemical analytic portion of urinalysis may also be positive due to hemoglobinuria and myoglobinuria and if red blood cells are present they are quantified by microscopic examination. Performed By: #### 4 6612 #### [facility] [address] [address] Stalin Patino M.D. [id number] UROBILINOGEN, URINE <2.0 Normal <2.0 [facility] Comment on above: Order Comment: Micro scopic examination is performed on all urinalysis samples and only positive findings are reported. The test for blood on the chemical analytic portion of urinalysis may also be positive due to hemoglobinuria and myoglobinuria and if red blood cells are present they are quantified by microscopic examination. Performed By: #### 4 6612 #### LAB [address] [address] Stalin Patino M.D. [id number] WBC, URINE < Normal 0-5 [facility] Comment on above: Order Comment: Micro scopic examination is performed on all urinalysis samples and only positive findings are reported. The test for blood on the chemical analytic portion of urinalysis may also be positive due to hemoglobinuria and myoglobinuria and if red blood cells are present they are quantified by microscopic examination. Performed By: #### 4 [id number] #### LAB [address] [place] [address] Stalin Patino M.D. [id number] URINE AEROBIC CULTUREon URINE AEROBIC CULTURE URINE CULTURE No Growth (<1,000 CFU/mL) Normal [facility] Comment on above: Performed By: #### 4 [id number] #### [facility] [address] [place] [address] Leonidas Reyes M.D. [id number] GENERAL PROCEDUREon 11-15-19 25 Mirtha Galindo MD - 11/15/2024 2:00 PM EST Sacroiliac Joint Injection Procedure: Right Sacroiliac Joint Injection under Fluoroscopy Physician: Mirtha Gailndo MD PreOperative Diagnosis: Sacroiliitis, Sacroiliac Joint Disorder, Low back pain PostOperative Diagnosis: Same Anesthesia: Local Complications:None Informed Consent: The patient's condition and proposed procedures, risks (including but not limited to infection, bleeding, damage or scarring to skin, muscle, ligament, fascia, tendon, blood vessel and nerve tissue, allergic reaction, adverse side effects from medications such as steroids, contrast, local anesthetics, and medication preservatives, vasovagal reactions, headaches, bruising, soreness, and increased pain after the injection), and alternatives were discussed with the patient or responsible democrat. The patient's / responsible democrat's questions were answered. The patient / responsible democrat appeared to understand and chose to proceed. Informed consent was obtained. Blood Loss: Minimal Indications for Procedure: This patient presents for treatment of chronic low back pain. The patient has increased pain with RAAD test on the Right. The patient presents for Right SI joint injection. Technique: The scrub nurse's and physician's hands were washed immediately prior to the procedure using a chlorhexidine soap or sanitized using ethyl alcohol hand electric motor control assembler. Hat, mask, and sterile gloves were used for the entirety of the procedure. All other personnel in the room wore hat and masks, as well as appropriate personal protective equipment. Risks and benefits of the procedure were discussed in detail, and an informed consent was completed and signed by the patient and physician. A timeout was performed prior to the start of the procedure. The patient was given a verbal description of the intended procedure including the risks and benefits of the procedure. The patient then provided written informed consent for the procedure. The patient was then taken to the operating room and placed prone on the operating table. The patient's lumbosacral spine was prepped and draped in the usual sterile fashion using chlorhexidine prep times 3. A C-arm flouroscope was then brought into the operating field and an AP radiograph is taken of the lumbosacral spine with attention to the Right sacroiliac joint. The C-arm was then obliqued 10 to the left to align the medial and lateral aspect of the joint. The skin and subcutaneous tissue overlying this target was anesthetized with 2 mL of 1% lidocaine. Through this anesthetized tissue a 3.5" 22gauge angulated Quincke spinal needle was advanced under intermittent fluoroscopic guidance to enter the joint. A lateral radiograph was then taken to determine the depth of the needle. Needle position was confirmed within the joint. The stylet was then removed. Then, after negative aspiration for blood, CSF or any other body fluids, 0.5 ml of Omnipaque 300 contrast was injected which revealed an appropriate arthrogram with no vascular uptake. 20 mg of kenalog + 1.5 ml 0.25% Bupivicaine was injected slowly. When the injection was complete the needle was flushed with 0.2mL of 1% lidocaine and then removed. The patient's lumbosacral spine was cleansed and dried. A Band-Aid dressing was applied. The patient was then turned supine onto a transport bed and taken to the recovery room in good condition. The patient tolerated the procedure well with no immediate complications. Post Procedure Evaluation: Pre-procedure pain level: up to 10/10 Post-procedure pain level: 0/10 with SIJ maneuvers Amount of pain relief: 100% Pain with provocative maneuvers: Improved [employer] [facility] JOOR [facility] Radiology Study observation (narrative) JOOR [facility] XR SPINE LUMBAR W/ BENDING 6 + VIEWSon 07-30-2024 XR SPINE LUMBAR W/ BENDING 6+ VIEWS XR SPINE LUMBAR W/ BENDING 6+ VIEWS CLINICAL STATEMENT: Chronic pain radiating down the left leg. COMPARISON: None. TECHNIQUE: Scanning 7 views of the lumbar spine including lateral flexion and extension. FINDINGS: The bones are diffusely demineralized. There is moderate to severe L4-5 disc space narrowing with endplate sclerosis, endplate osteophytes and small endplate cystic changes. There is facet osteoarthritis and a slight grade 1 degenerative anterolisthesis L4 and L5. Anterolisthesis appears fixed with flexion and extension. No abnormal motion is identified. There is no obvious aggressive bone lesion. There is diffuse atherosclerotic plaquing of the abdominal aorta. IMPRESSION: 1. Diffuse osseous demineralization. Within the confines of this limitation, no acute compression fracture is identified. 2. Severe L4-L5 degenerative disc changes with a slight grade 1 degenerative anterolisthesis. Normal [facility] GENERAL PROCEDUREon 07-13-20 Mirtha Galindo MD - 07/13/2024 1:15 PM EDT Sacroiliac Joint Injection Procedure: Right Sacroiliac Joint Injection under Fluoroscopy Physician: Mirtha Galindo MD PreOperative Diagnosis: Sacroiliitis, Sacroiliac Joint Disorder, Low back pain PostOperative Diagnosis: Same Anesthesia: Local Complications:None Informed Consent: The patient's condition and proposed procedures, risks (including but not limited to infection, bleeding, damage or scarring to skin, muscle, ligament, fascia, tendon, blood vessel and nerve tissue, allergic reaction, adverse side effects from medications such as steroids, contrast, local anesthetics, and medication preservatives, vasovagal reactions, headaches, bruising, soreness, and increased pain after the injection), and alternatives were discussed with the patient or responsible democrat. The patient's / responsible democrat's questions were answered. The patient / responsible democrat appeared to understand and chose to proceed. Informed consent was obtained. Blood Loss: Minimal Indications for Procedure: This patient presents for treatment of chronic low back pain. The patient has increased pain with RAAD test on the Right. The patient presents for Right SI joint injection. Technique: The scrub nurse's and physician's hands were washed immediately prior to the procedure using a chlorhexidine soap or sanitized using ethyl alcohol hand electric motor control assembler. Hat, mask, and sterile gloves were used for the entirety of the procedure. All other personnel in the room wore hat and masks, as well as appropriate personal protective equipment. Risks and benefits of the procedure were discussed in detail, and an informed consent was completed and signed by the patient and physician. A timeout was performed prior to the start of the procedure. The patient was given a verbal description of the intended procedure including the risks and benefits of the procedure. The patient then provided written informed consent for the procedure. The patient was then taken to the operating room and placed prone on the operating table. The patient's lumbosacral spine was prepped and draped in the usual sterile fashion using chlorhexidine prep times 3. A C-arm flouroscope was then brought into the operating field and an AP radiograph is taken of the lumbosacral spine with attention to the Right sacroiliac joint. The C-arm was then obliqued 10 to the left to align the medial and lateral aspect of the joint. The skin and subcutaneous tissue overlying this target was anesthetized with 2 mL of 1% lidocaine. Through this anesthetized tissue a 3.5" 22gauge angulated Quincke spinal needle was advanced under intermittent fluoroscopic guidance to enter the joint. A lateral radiograph was then taken to determine the depth of the needle. Needle position was confirmed within the joint. The stylet was then removed. Then, after negative aspiration for blood, CSF or any other body fluids, 0.5 ml of Omnipaque 300 contrast was injected which revealed an appropriate arthrogram with no vascular uptake. 20 mg of kenalog + 1.5 ml 0.25% Bupivicaine was injected slowly. When the injection was complete the needle was flushed with 0.2mL of 1% lidocaine and then removed. The patient's lumbosacral spine was cleansed and dried. A Band-Aid dressing was applied. The patient was then turned supine onto a transport bed and taken to the recovery room in good condition. The patient tolerated the procedure well with no immediate complications. Post Procedure Evaluation: Pre-procedure pain level: up to 10/10 Post-procedure pain level: 0/10 with SIJ maneuvers Amount of pain relief: 100% Pain with provocative maneuvers: Improved [facility] Radiology Study observation (narrative) [facility] XR HIPS WITH PELVIS BILATERA Duran 07-09-2024 XR HIPS WITH PELVIS BILATERAL EXAM: XR HIPS WITH PELVIS BILATERAL HISTORY: chronic pain COMPARISON: None. FINDINGS/IMPRESSION: 1. Mild symmetric degenerative change of the hips and SI joints for age. 2. No fracture, lytic, or blastic lesion. 3. Femoral heads remain rounded. 4. Degenerative change lower lumbar spine. Normal [facility] CBCon 06-15-2024 AUTO NRBC 0.0 % Normal [facility] Comment on above: Performed By: #### 4 [id number] #### LAB [address] [address] Stalin Patino M.D. [id number] AUTO NRBC ABS COUNT 0.00 K/mcL Normal 0.00-0.00 [facility] Comment on above: Performed By: #### 4 [id number] #### LAB [address] [address] Stalin Patino M.D. [id number] Erythrocyte distribution width (RBC) [Ratio] 13.9 % Normal 11.6-14.8 [facility] Comment on above: Performed By: #### 4 [id number] #### LAB [address] [address] Stalin Patino M.D. [id number] Hematocrit (Bld) [Volume fraction] 40.5 % Normal 36.0-46.0 [facility] Comment on above: Performed By: #### 4 [id number] #### LAB [address] [address] Stalin Patino M.D. [id number] Hemoglobin (Bld) [Mass/Vol] 12.9 g/dL Normal 12.0-16.0 [facility] Comment on above: Performed By: #### 4 [id number] #### LAB [address] [address] Stalin Patino M.D. [id number] MCH (RBC) [Entitic mass] 29.7 pg Normal 26.0-34.0 [facility] Comment on above: Performed By: #### 4 [id number] #### LAB [address] [address] Stalin Patino M.D. [id number] MCV (RBC) [Entitic vol] 93.3 fL Normal 80.0-100.0 [facility] Comment on above: Performed By: #### 4 [id number] #### LAB [address] [address] Stalin Patino M.D. [id number] MEAN CORPUSCULAR HEMOGLOBIN CONC 31.9 g/dL Normal 31.0-37.0 [facility] Comment on above: Performed By: #### 4 [id number] #### LAB [address] [address] Stalin Patino M.D. [id number] Platelet mean volume (Bld) [Entitic vol] 11.2 fL Normal 9.4-12.4 [facility] Comment on above: Performed By: #### 4 [id number] #### [facility] [address] [address] Stalin Patino M.D. [id number] Platelets (Bld) [#/Vol] 175 10*3/uL Normal 150-400 [facility] Comment on above: Performed By: #### 4 [id number] #### LAB [address] [address] Stalin Patino M.D. [id number] RBC (Bld) [#/Vol] 4.34 10*6/uL Normal 4.00-5.20 [facility] Comment on above: Performed By: #### 4 [id number] #### LAB [address] [address] Stalin Patino M.D. [id number] WBC (Bld) [#/Vol] 6.32 10*3/uL Normal 4.50-11.00 [facility] Comment on above: Performed By: #### 4 [id number] #### LAB [address] [address] Stalin Patino M.D. [id number] COMPREHENSIVE METABOLIC PANE Duran 06-15-2024 Albumin [Mass/Vol] 4.5 g/dL Normal 3.2-5.2 [facility] Comment on above: Order Comment: [facility] has implemented the eGFR calculation approach that does not have a coefficient for race that conforms to the NKF-ASN Task Force Recommendations. Performed By: #### 4 6612 #### LAB [address] [address] Stalin Patino M.D. [id number] ALP [Catalytic activity/Vol] 59 U/L Normal 40-150 [facility] Comment on above: Order Comment: [facility] has implemented the eGFR calculation approach that does not have a coefficient for race that conforms to the NKF-ASN Task Force Recommendations. Performed By: #### 4 6612 #### LAB [address] [address] Stalin Patino M.D. [id number] ALT [Catalytic activity/Vol] 7 U/L Normal 0-35 U/L [facility] Comment on above: Order Comment: [facility] has implemented the eGFR calculation approach that does not have a coefficient for race that conforms to the NKF-ASN Task Force Recommendations. Performed By: #### 4 6612 #### LAB [address] [address] Stalin Patino M.D. [id number] Anion gap [Moles/Vol] 17 mmol/L Normal 10-20 [facility] Comment on above: Order Comment: [facility] has implemented the eGFR calculation approach that does not have a coefficient for race that conforms to the NKF-ASN Task Force Recommendations. Performed By: #### 4 6612 #### LAB [address] [address] Stalin Patino M.D. [id number] AST [Catalytic activity/Vol] 25 U/L Normal 0-35 U/L [facility] Comment on above: Order Comment: [facility] has implemented the eGFR calculation approach that does not have a coefficient for race that conforms to the NKF-ASN Task Force Recommendations. Performed By: #### 4 6612 #### LAB [address] [address] Stalin Patino M.D. [id number] Bilirubin [Mass/Vol] 0.5 mg/dL Normal 0.0-1.3 [facility] Comment on above: Order Comment: [facility] has implemented the eGFR calculation approach that does not have a coefficient for race that conforms to the NKF-ASN Task Force Recommendations. Performed By: #### 4 6612 #### LAB [address] [id number] Stalin Patino M.D. [id number] Calcium [Mass/Vol] 9.5 mg/dL Normal 8.4-10.2 [facility] Comment on above: Order Comment: [facility] has implemented the eGFR calculation approach that does not have a coefficient for race that conforms to the NKF-ASN Task Force Recommendations. Performed By: #### 4 6612 #### LAB [address] [address] Stalin Patino M.D. [id number] Chloride [Moles/Vol] 105 mmol/L Normal 98-108 [facility] Comment on above: Order Comment: [facility] has implemented the eGFR calculation approach that does not have a coefficient for race that conforms to the NKF-ASN Task Force Recommendations. Performed By: #### 4 6612 #### LAB [address] [address] Stalin Patino M.D. [id number] Creatinine [Mass/Vol] 1.84 mg/dL High 0.60-1.10 [facility] Comment on above: Order Comment: [facility] has implemented the eGFR calculation approach that does not have a coefficient for race that conforms to the NKF-ASN Task Force Recommendations. Performed By: #### 4 6612 #### LAB [address] [address] Stalin Patino M.D. [id number] EGFR 26 mL/min/1.73 m2 Low >=60 [facility] Comment on above: Order Comment: [facility] has implemented the eGFR calculation approach that does not have a coefficient for race that conforms to the NKF-ASN Task Force Recommendations. Result Comment: Ivonne mated GFR was calculated using the 2020 CKD-EPI creatinine equation. Performed By: #### 4 6612 #### LAB [address] [address] Stalin Patino M.D. [id number] Glucose [Mass/Vol] 94 mg/dL Normal 65-99 [facility] Comment on above: Order Comment: [facility] has implemented the eGFR calculation approach that does not have a coefficient for race that conforms to the NKF-ASN Task Force Recommendations. Performed By: #### 4 6612 #### LAB [address] [address] Stalin Patino M.D. [id number] HCO3 (Bld) [Moles/Vol] 23 mmol/L Normal 21-32 [facility] Comment on above: Order Comment: [facility] has implemented the eGFR calculation approach that does not have a coefficient for race that conforms to the NKF-ASN Task Force Recommendations. Performed By: #### 4 6612 #### LAB [address] [address] Stalin Patino M.D. [id number] Potassium [Moles/Vol] 4.0 mmol/L Normal 3.5-5.1 [facility] Comment on above: Order Comment: [facility] has implemented the eGFR calculation approach that does not have a coefficient for race that conforms to the NKF-ASN Task Force Recommendations. Performed By: #### 4 6612 #### LAB [address] [address] Stalin Patino M.D. [id number] Protein [Mass/Vol] 7.2 g/dL Normal 6.0-8.0 [facility] Comment on above: Order Comment: [facility] has implemented the eGFR calculation approach that does not have a coefficient for race that conforms to the NKF-ASN Task Force Recommendations. Performed By: #### 4 6612 #### LAB [address] [address] Stalin Patino M.D. [id number] Sodium [Moles/Vol] 141 mmol/L Normal 135-145 [facility] Comment on above: Order Comment: [facility] has implemented the eGFR calculation approach that does not have a coefficient for race that conforms to the NKF-ASN Task Force Recommendations. Performed By: #### 4 6612 #### LAB [address] [address] Stalin Patino M.D. [id number] Urea nitrogen [Mass/Vol] 30 mg/dL High 8-25 [facility] Comment on above: Order Comment: [facility] has implemented the eGFR calculation approach that does not have a coefficient for race that conforms to the NKF-ASN Task Force Recommendations. Performed By: #### 4 6612 #### LAB [address] [address] Stalin Patino M.D. [id number] Urea nitrogen/Creatinine [Mass ratio] 16.3 mg/mg Normal 10.0-20.0 [facility] Comment on above: Order Comment: [facility] has implemented the eGFR calculation approach that does not have a coefficient for race that conforms to the NKF-ASN Task Force Recommendations. Performed By: #### 4 6612 #### LAB [address] [address] Stalin Patino M.D. [id number] LIPID PANELon 06-15-2024 Cholesterol [Mass/Vol] 216 mg/dL High 100-199 [facility] Comment on above: Performed By: #### 4 6612 #### LAB [address] [address] Stalin Patino M.D. [id number] Cholesterol in HDL [Mass/Vol] 52 mg/dL Normal 40-59 [facility] Comment on above: Performed By: #### 4 6612 #### LAB [address] [address] Stalin Patino M.D. [id number] Cholesterol.total/C holesterol in HDL [Mass ratio] 4.2 {ratio} Normal [facility] Comment on above: Result Comment: [facility]ela [facility] Cholesterol/HDL Ratio: Average risk: 4.4 1/2 average risk: 3.3 2 x average risk: 7.1 Performed By: #### 4 6612 #### LAB [address] [address] Stalin Patino M.D. [id number] LDL CHOLESTEROL CALCULATED 125 mg/dL Normal 10-130 [facility] Comment on above: Result Comment: [facility] Cholesterol Education Program Guidelines: LDL Cholesterol Optimal: <100 mg/dL Near Optimal/above Optimal: 100-129 mg/dL Borderline High: 130-159 mg/dL High: 160-189 mg/dL Very High: greater than or equal to 190 mg/dL Performed By: #### 4 6612 #### LAB [address] [place], [place] [address] Stalin Patino M.D. [id number] NON HDL CHOL 164 mg/dL Normal [facility] Comment on above: Result Comment: [facility] Cholesterol Education Program Guidelines: NON HDL Cholesterol Desirable: <130 mg/dL Borderline High: 130-159 mg/dL High: 160-189 mg/dL Very High: > or = 190 mg/dL Performed By: #### 4 6612 #### LAB [address] [address] Stalin Patino M.D. [id number] Triglyceride [Mass/Vol] 195 mg/dL High 30-150 [facility] Comment on above: Performed By: #### 4 6612 #### LAB [address] [address] Stalin Patino M.D. [id number] MAGNESIUM LEVELon 06-15-2024 Magnesium [Mass/Vol] 2.3 mg/dL Normal 1.6-2.4 [facility] Comment on above: Performed By: #### 4 6109 #### LAB [address] [address] Stalin Patino M.D. [id number] TSHon 06-15-2024 TSH Qn 12.40 m[IU]/L High 0.27-4.20 [facility] Comment on above: Performed By: #### 4 6612 #### LAB [address] [id number] Stalin Patino M.D. [id number] VITAMIN B12on 06-15-2024 Cobalamin (Vitamin B12) [Mass/Vol] 1339 pg/mL High 232-1245 [facility] Comment on above: Performed By: #### 4 6612 #### LAB [address] [place], [place] [address] Stalin Patino M.D. [id number] VITAMIN D, TOTAL, 25-OHon VITAMIN D 25-HYDROXY 46 ng/mL Normal 20-100 [facility] [facility] Comment on above: Order Comment: Vitam in D Expected ValuesDeficiency: 0-10Insufficiency: 10-20Sufficient: 20-100Toxicity: >100 Performed By: #### 4 6612 #### LAB [address] [place], [place] [address] Stalin Patino M.D. [id number] BONE DENSITY, DEXA 1 OR MORE SITES: AXIAL SKELETONon 03-11-2023 BONE DENSITY, DEXA 1 OR MORE SITES: AXIAL SKELETON Patient Name: DUKE ACOSTA STUDY: BONE DENSITY, DEXA 1 OR MORE SITES: AXIAL SKELET03/11/2023 1:44 pm INDICATION: postmenopausalThe patient is a 88 year old female for a screening bone Densitometry (DEXA). COMPARISON: 07/28/2020. ACCESSION NUMBER(S): [id number] ORDERING CLINICIAN: SANTHOSH PETERS TECHNIQUE: Bone Densitometry (DEXA) of the lumbar spine and left hip performed. FINDINGS: Name: DUKE ACOSTA Date:1935 Height:162.6 Gender:F Exam Date:03/11/2023 Weight:59.875 Indications:postmenopau yaakov Fractures:None Treatments:None LEFT FEMUR -TOTAL Bone Mineral Density: 0.601 g/cm2 T-Score -2.8 Z-Score -0.5 LEFT FEMUR -NECK Bone Mineral Density: 0.619 g/cm2 T-Score -2.1 Z-Score 0.5 SPINE L1-L4 Bone Mineral Density: 0.944 g/cm2 T-Score -0.7 Z-Score 2.1 LEFT FOREARM Bone Mineral Density: 0.521 g/cm2 T-Score -2.8 Z-Score NA World Health Organization (WHO) criteria for post-menopausal, Women: Normal: T-score at or above -1 SD Osteopenia: T-score between -1 and -2.5 SD Osteoporosis: T-score at or below -2.5 SD 10-Year Fracture Risk: FRAX N/A IMPRESSION: According to World Health Organization criteria, classification is osteoporosis. Followup recommended in one year or sooner as clinically warranted. Electronically signed by: JACK LOPEZ MD [facility] DIGITAL MAMM SCREENING W/ TO Neumann 03-11-2023 DIGITAL MAMM SCREENING W/ EDGAR Patient Name: DUKE ACOSTA STUDY: Digital mammography screening with edgar; 03/11/2023 1:35 pm ACCESSION NUMBER(S): [id number] ORDERING CLINICIAN: SANTHOSH PETERS INDICATION: Screening. COMPARISON: Comparison is made to prior digital mammograms dated 08/17/2021 FINDINGS: CC and MLO 2D digital mammograms and digital breast tomosynthesis images were obtained of the bilateral breasts. 3-D volume images were reconstructed in 4 views at an independent workstation as 1 mm slices through the breasts in both the CC and MLO projections. The breast tissue is heterogeneously dense, which may obscure small masses. A well-defined intramammary lymph node is seen in the far posterolateral right breast, similar to prior studies. Scattered dystrophic calcifications are seen bilaterally, similar to prior studies. No new or enlarging mass or focal asymmetry is identified. No suspicious microcalcifications or foci of architectural distortion are seen. There has been no significant change. This study was interpreted with CAD. IMPRESSION: No mammographic evidence of malignancy. BI-RADS CATEGORY: Category: 2 - Benign. Recommendation: 1 Year Screening. Electronically signed by: JACK LOPEZ MD [facility] CBC AND DIFFERENTIALon 02-25 % AUTOMATED IMMATURE GRAN 0.3 % Normal 0.0 - 0.9 [facility] Comment on above: Result Comment: Char ture Granulocyte Count (IG) includes promyelocytes, myelocytes and metamyelocytes but does not include bands. Percent differential counts (%) should be interpreted in the context of the absolute cell counts (cells/L). Performed By: #### C BCDF #### [place] [address] Basophils (Bld) [#/Vol] 0.08 10*3/uL Normal 0.00 - 0.10 [facility] Comment on above: Performed By: #### C BCDF #### [address] [address] Basophils/100 WBC (Bld) 1.2 % Normal 0.0 - 2.0 [facility] Comment on above: Performed By: #### C BCDF #### [address] [address] Eosinophils (Bld) [#/Vol] 0.29 10*3/uL Normal 0.00 - 0.40 [facility] Comment on above: Performed By: #### C BCDF #### [address] [address] Eosinophils/100 WBC (Bld) 4.4 % Normal 0.0 - 6.0 [facility] Comment on above: Performed By: #### C BCDF #### [address] [address] Erythrocyte distribution width (RBC) [Ratio] 13.1 % Normal 11.5 - 14.5 [facility] Comment on above: Performed By: #### C BCDF #### [address] [address] Hematocrit (Bld) [Volume fraction] 42.8 % Normal 36.0 - 46.0 [facility] Comment on above: Performed By: #### C BCDF #### [address] [address] Hemoglobin (Bld) [Mass/Vol] 13.7 g/dL Normal 12.0 - 16.0 [facility] Comment on above: Performed By: #### C BCDF #### [address] [address] Lymphocytes (Bld) [#/Vol] 1.62 10*3/uL Normal 0.80 - 3.00 [facility] Comment on above: Performed By: #### C BCDF #### [address] [address] Lymphocytes/100 WBC (Bld) 24.5 % Normal 13.0 - 44.0 [facility] Comment on above: Performed By: #### C BCDF #### [address] [address] MCHC (RBC) [Mass/Vol] 32.0 g/dL Normal 32.0 - 36.0 [facility] Comment on above: Performed By: #### C BCDF #### [address] [address] MCV (RBC) [Entitic vol] 95 fL Normal 80 - 100 [facility] Comment on above: Performed By: #### C BCDF #### [address] [address] Monocytes (Bld) [#/Vol] 0.56 10*3/uL Normal 0.05 - 0.80 [facility] Comment on above: Performed By: #### C BCDF #### [address] [address] Monocytes/100 WBC (Bld) 8.5 % Normal 2.0 - 10.0 [facility] Comment on above: Performed By: #### C BCDF #### [address] [address] Neutrophils (Bld) [#/Vol] 4.05 10*3/uL Normal 1.60 - 5.50 [facility] Comment on above: Result Comment: Perc ent differential counts (%) should be interpreted in the context of the absolute cell counts (cells/L). Performed By: #### C BCDF #### [address] [address] Neutrophils/100 WBC (Bld) 61.1 % Normal 40.0 - 80.0 [facility] Comment on above: Performed By: #### C BCDF #### [address] [address] Platelets (Bld) [#/Vol] 201 10*3/uL Normal 150 - 450 [facility] Comment on above: Performed By: #### C BCDF #### [address] [address] RBC 4.52 x10E12/L Normal 4.00 - 5.20 [facility] Comment on above: Performed By: #### C BCDF #### [address] [address] WBC (Bld) [#/Vol] 6.6 10*3/uL Normal 4.4 - 11.3 [facility] Comment on above: Performed By: #### C BCDF #### [address] [address] COMPREHENSIVE PANELon 2022 Albumin [Mass/Vol] 4.1 g/dL Normal 3.4 - 5.0 [facility] Comment on above: Performed By: #### T PS2 #### [address] [address] ALP [Catalytic activity/Vol] 58 U/L Normal 33 - 136 [facility] Comment on above: Performed By: #### T PS2 #### [address] [address] ALT [Catalytic activity/Vol] 12 U/L Normal 7 - 45 [facility] Comment on above: Result Comment: Kay ents treated with Sulfasalazine may generate falsely decreased results for ALT. Performed By: #### T PS2 #### [address] [address] Anion gap [Moles/Vol] 12 mmol/L Normal 10 - 20 [facility] Comment on above: Performed By: #### T PS2 #### [address] [address] AST [Catalytic activity/Vol] 16 U/L Normal 9 - 39 [facility] Comment on above: Performed By: #### T PS2 #### [address] [address] Bilirubin [Mass/Vol] 0.6 mg/dL Normal 0.0 - 1.2 [facility] Comment on above: Performed By: #### T PS2 #### [address] [address] Calcium [Mass/Vol] 9.5 mg/dL Normal 8.6 - 10.3 [facility] Comment on above: Performed By: #### T PS2 #### [address] [address] Chloride [Moles/Vol] 102 mmol/L Normal 98 - 107 [facility] Comment on above: Performed By: #### T PS2 #### [address] [address] Creatinine [Mass/Vol] 1.40 mg/dL High 0.50 - 1.05 [facility] Comment on above: Performed By: #### T PS2 #### [address] [address] GFR/1.73 sq M.predicted among non-blacks MDRD (S/P/Bld) [Vol rate/Area] 36 mL/min/{1.73_m2} Abnormal >90 [facility] Comment on above: Result Comment: CALC ULATIONS OF ESTIMATED GFR ARE PERFORMED USING THE 2020 CKD-EPI STUDY REFIT EQUATION WITHOUT THE RACE VARIABLE FOR THE IDMS-TRACEABLE CREATININE METHODS. https://jasn.asnjournals.org/content/early//ASN.21477680 88 Performed By: #### T PS2 #### [address] [address] Glucose [Mass/Vol] 107 mg/dL High 74 - 99 [facility] Comment on above: Performed By: #### T PS2 #### [address] [address] HCO3 (Bld) [Moles/Vol] 29 mmol/L Normal 21 - 32 [facility] Comment on above: Performed By: #### T PS2 #### [address] [address] Potassium [Moles/Vol] 3.7 mmol/L Normal 3.5 - 5.3 [facility] Comment on above: Performed By: #### T PS2 #### [address] [address] Protein [Mass/Vol] 6.9 g/dL Normal 6.4 - 8.2 [facility] Comment on above: Performed By: #### T PS2 #### [address] [address] Sodium [Moles/Vol] 139 mmol/L Normal 136 - 145 [facility] Comment on above: Performed By: #### T PS2 #### [address] [address] Urea nitrogen [Mass/Vol] 34 mg/dL High 6 - 23 [facility] Comment on above: Performed By: #### T PS2 #### [address] [address] HEMOGLOBIN A1Con 02-25-2023 Glucose [Mass/Vol] 120 mg/dL Normal [facility] Comment on above: Performed By: #### T PS2 #### [address] [address] HbA1c (Bld) [Mass fraction] 5.8 % Abnormal [facility] Comment on above: Result Comment: Diag nosis of Diabetes-Adults Non-Diabetic: < or = 5.6% Increased risk for developing diabetes: 5.7-6.4% Diagnostic of diabetes: > or = 6.5% . Monitoring of Diabetes Age (y) Therapeutic Goal (%) Adults: >18 <7.0 Pediatrics: 13-18 <7.5 7-12 <8.0 0- 6 7.5-8.5 [place] [employer]. Diabetes Care 33(S1), Oct 2009. Performed By: #### T PS2 #### [address] [address] TSHon 02-25-2023 TSH Qn 2.92 m[IU]/L Normal 0.44 - 3.98 [facility] Comment on above: Result Comment: TSH testing is performed using different testing methodology at [facility] than at other [facility]. Direct result comparisons should only be made within the same method. 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) Hyperparathyroidism (252.00) (E21.3) Orders HTN (hypertension) Renew: hydrALAZINE HCl - 25 MG Oral Tablet; Take 1 tablet twice daily Rx By: Santhosh Peters; Dispense: 30 Days ; #:180 Tablet; Refill: 0;For: HTN (hypertension); ERUM = N; Sent To: [facility][id number] Patient Discussion/Summary F/U BEFORE Provider Impressions CLINICALLY DOING FINE EDEMA IS MINIMAL CONT SAME MONITOR BP GOAL BP LOWER THAN 130/80 LOW SALT EXERCISE DAILY MDM 1) COMPLEXITY: MORE THAN 1 STABLE CHRONIC CONDITION ADDRESSED 2)DATA: TESTS INTERPRETED AND OR ORDERED, TOOK INDEPENDENT HISTORY OR RECORDS REVIEWED 3)RISK: MODERATE RISK DUE TO NATURE OF MEDICAL CONDITIONS/COMORBIDITY OR MEDICATIONS ORDERED OR SURGICAL OR PROCEDURE REFERRAL, . Chief Complaint PT C/O B/L FEET EDEMA X 1 DAY History of Present IllnessPT C/O B/L LE EDEMA FOR 1 DAY SEVERITY: MILD CHARACTERISTIC: CHRONIC EXACERBATION FACTOR: NONE RELIEVING FACTOR: NONE ASSOCIATED SYMPTOMS: NONE PRIOR TX: RAN OUT OF HYDRALAZINE TAKES THE REST OF MEDS SAME Review of Systems ALL OTHER SYSTEMS HAVE BEEN REVIEWED AND ARE NEGATIVE 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) Encounter for colonoscopy in patient with family history of colon cancer (V76.51,V16.0) (Z12.11,Z80.0) Encounter for vaccination (V05.9) (Z23) Fatigue (780.79) (R53.83) GERD (gastroesophageal reflux disease) (530.81) (K21.9) History of degenerative disc disease (V13.59) (Z87.39) HTN (hypertension) (401.9) (I10) Hypercholesterolemia (272.0) (E78.00) Hyperparathyroidism (252.00) (E21.3) Hypertriglyceridemia (272.1) (E78.1) IFG (impaired fasting glucose) (790.21) (R73.01) Low back pain (724.2) (M54.50) Lower extremity edema (782.3) (R60.0) MCI (mild cognitive impairment) (331.83) (G31.84) Osteoporosis (733.00) (M81.0) Personal history of colonic polyps (V12.72) (Z86.010) Piriformis syndrome of right side (355.0) (G57.01) Right hip pain (719.45) (M25.551) Stage 3b chronic kidney disease (585.3) (N18.32) Tendinitis of right hip (727.09) (M76.891) Past Medical History Problems History of Cataract, right eye (366.9) (H26.9) History of mammogram (V15.89) (Z92.89) CAT 2 History of Pap smear, low-risk (V76.2) (Z01.419) 2011 Surgical History Problems History of Abdominal aortic dissection repair History of Cataract surgery History of Colonoscopy [address] Carolina Recommended to repeat in 3 years (2019) due to family history and personal history of polyps 02/13/2017- Colonoscopy findings Cecum identified by: ileo-cecal valve, Transillumination, PHOTO TAKEN, Cecum was normal, Ascending colon was normal, Transverse colon was normal, Descending colon was normal, SIGMOID REVEALED MILD UNCOMPLICATED DIVERTICULOSIS, Rectum was normal, Retroflex rectum was normal. Impression and Plan Diagnosis Colonic diverticular disease ([id number]-GO K57.30, Discharge, Medical). Personal history of colonic polyps 17-NOV-2013 12:29:57<$> ([id number] Z86.010, Discharge, Medical). Orders High fiber diet. Repeat colonoscopy in 3 years. History of Lumpectomy Family History Mother Family history of cerebrovascular accident (CVA) (V17.1) (Z82.3) in her 70s Family history of type 2 diabetes mellitus (V18.0) (Z83.3) Father Family history of cardiac disorder (V17.49) (Z82.49) at 57 of an [place] Son Family history of multiple sclerosis (V17.2) (Z82.0) Sister Family history of malignant neoplasm (V16.9) (Z80.9) Brother Family history of malignant neoplasm of colon (V16.0) (Z80.0) two brothers with colon cancer in their 60s Social History Problems Caffeine use (V49.89) (Z78.9) Denies alcohol consumption (V49.89) (Z78.9) Does not use illicit drugs (V49.89) (Z78.9) Former smoker (V15.82) (Z87.891) quit smoking at age 58 Patient has living will (V49.89) (Z78.9) Allergies Medication carvedilol Muscle weakness; Recorded By: Poonam Rey; 12/07/2019 8:13:51 AM Toprol XL TB24 Muscle weakness; Recorded By: Denice Martines; 11/01/2019 10:53:36 AM Tricor Muscle weakness; Recorded By: Denice Martines; 11/01/2019 10:53:36 AM Ziac TABS Muscle weakness; Recorded By: Denice Martines; 11/01/2019 10:53:36 AM BiDil Recorded By: Denice Martines; 11/01/2019 10:53:36 AM Additional reactions - Muscl (more content not included)... 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) Chronic kidney disease (585.9) (N18.9) Stage 3b chronic kidney disease (585.3) (N18.32) IFG (impaired fasting glucose) (790.21) (R73.01) Patient Discussion/Summary F/U 5 MO CMP TSH HGA1C CBC Provider Impressions DECREASE FLUID MONITOR BP GOAL BP LOWER THAN 130/80 EXERCISE DAILY C/O OFF AND ON NONSPECIFIC ITCH ON THE LEGS NO RASH , MAY TRY CLARITIN MDM 1) COMPLEXITY: 1 OR MORE CHRONIC CONDITION WITH EXACERBATION, OR PROGRESSION OR SIDE EFFECT OF TREATMENT ADDRESSED 2)DATA: TESTS INTERPRETED AND OR ORDERED, TOOK INDEPENDENT HISTORY OR RECORDS REVIEWED 3)RISK: MODERATE RISK DUE TO NATURE OF MEDICAL CONDITIONS/COMORBIDITY OR MEDICATIONS ORDERED OR SURGICAL OR PROCEDURE REFERRAL, . Chief Complaint 1 WK FU LAB AND BP CHECK TODAY History of Present IllnessHERE FOR F/U NO COMPLAINT Review of Systems Constitutional: not feeling poorly, no fever, no recent weight gain and no recent weight loss. Eyes: no blurred vision and no diplopia. ENT: no hearing loss, no tinnitus, no earache, no sore throat, no hoarseness and no swollen glands in the neck. Cardiovascular: no chest pain, no tightness or heavy pressure, no shortness of breath, no palpitations and no lower extremity edema. Respiratory: no cough, not coughing up sputum and no wheezing that is consistent with asthma. Gastrointestinal: no change in bowel habits, no diarrhea, no constipation, no bloody stools, no nausea, no vomiting, no abdominal pain, no signs and symptoms of ulcer disease, no blanca colored stools and no intolerance to fatty foods. Genitourinary: no urinary frequency, no dysuria, no burning sensation during urination and no hematuria. Musculoskeletal: no arthralgias, no joint stiffness, no muscle weakness, no back pain and no difficulty walking. Skin: no rashes, no change in skin color and pigmentation, no skin lesions and no skin lumps. Neurological: no headaches, no dizziness, no seizures, no tingling, no numbness, no signs and symptoms of stroke and no limb weakness. Psychiatric: no confusion, no memory lapses or loss, no depression and no sleep disturbances. Endocrine: no goiter, no thyroid disorder, no diabetes mellitus, no excessive thirst, no dry skin, no cold intolerance, no heat intolerance and no increased urinary frequency. Hematologic/Lymphatic: is not slow to heal, does not bleed easily, does not bruise easily, no thrombophlebitis, no anemia and no history of blood transfusion. All other systems have been reviewed and are negative for complaint. 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) Encounter for colonoscopy in patient with family history of colon cancer (V76.51,V16.0) (Z12.11,Z80.0) Encounter for vaccination (V05.9) (Z23) Fatigue (780.79) (R53.83) GERD (gastroesophageal reflux disease) (530.81) (K21.9) History of degenerative disc disease (V13.59) (Z87.39) HTN (hypertension) (401.9) (I10) Hypercholesterolemia (272.0) (E78.00) Hyperparathyroidism (252.00) (E21.3) Hypertriglyceridemia (272.1) (E78.1) IFG (impaired fasting glucose) (790.21) (R73.01) Low back pain (724.2) (M54.50) Lower extremity edema (782.3) (R60.0) MCI (mild cognitive impairment) (331.83) (G31.84) Osteoporosis (733.00) (M81.0) Personal history of colonic polyps (V12.72) (Z86.010) Piriformis syndrome of right side (355.0) (G57.01) Right hip pain (719.45) (M25.551) Stage 3b chronic kidney disease (585.3) (N18.32) Tendinitis of right hip (727.09) (M76.891) Past Medical History Problems History of Cataract, right eye (366.9) (H26.9) History of mammogram (V15.89) (Z92.89) CAT 2 History of Pap smear, low-risk (V76.2) (Z01.419) 2011 Surgical History Problems History of Abdominal aortic dissection repair History of Cataract surgery History of Colonoscopy [address] Carolina Recommended to repeat in 3 years (2019) due to family history and personal history of polyps 02/13/2017- Colonoscopy findings Cecum identified by: ileo-cecal valve, Transillumination, PHOTO TAKEN, Cecum was normal, Ascending colon was normal, Transverse colon was normal, Descending colon was normal, SIGMOID REVEALED MILD UNCOMPLICATED DIVERTICULOSIS, Rectum was normal, Retroflex rectum was normal. Impression and Plan Diagnosis Colonic diverticular disease ([id number]-BH K57.30, Discharge, Medical). Personal history of colonic polyps 17-NOV-2013 12:29:5 (more content not included)... Normal [facility] Tobacco Screening.on 022 Fall risk assessment a) No falls within the last year [facility] Work Phone: Tobacco use status CP b) No [facility] Work Phone: BASIC METABOLIC PANELon 12-0 Anion gap [Moles/Vol] 14 mmol/L Normal 10 - 20 [facility] Comment on above: Performed By: #### T PS2 #### [address] [address] Calcium [Mass/Vol] 9.5 mg/dL Normal 8.6 - 10.3 [facility] Comment on above: Performed By: #### T PS2 #### [address] [address] Chloride [Moles/Vol] 89 mmol/L Low 98 - 107 [facility] Comment on above: Performed By: #### T PS2 #### [address] [address] Creatinine [Mass/Vol] 1.39 mg/dL High 0.50 - 1.05 [facility] Comment on above: Performed By: #### T PS2 #### [address] [address] GFR/1.73 sq M.predicted among non-blacks MDRD (S/P/Bld) [Vol rate/Area] 37 mL/min/{1.73_m2} Abnormal >90 [facility] Comment on above: Result Comment: CALC ULATIONS OF ESTIMATED GFR ARE PERFORMED USING THE 2020 CKD-EPI STUDY REFIT EQUATION WITHOUT THE RACE VARIABLE FOR THE IDMS-TRACEABLE CREATININE METHODS. https://jasn.asnjournals.org/content//ASN.11452072 88 Performed By: #### T PS2 #### [address] [address] Glucose [Mass/Vol] 119 mg/dL High 74 - 99 [facility] Comment on above: Performed By: #### T PS2 #### [address] [address] HCO3 (Bld) [Moles/Vol] 25 mmol/L Normal 21 - 32 [facility] Comment on above: Performed By: #### T PS2 #### [address] [address] Potassium [Moles/Vol] 3.8 mmol/L Normal 3.5 - 5.3 [facility] Comment on above: Performed By: #### T PS2 #### [address] [address] Sodium [Moles/Vol] 124 mmol/L Low 136 - 145 [facility] Comment on above: Performed By: #### T PS2 #### [address] [address] Urea nitrogen [Mass/Vol] 19 mg/dL Normal 6 - 23 [facility] Comment on above: Performed By: #### T PS2 #### [address] [address] Laboratory - Chemistry and C hemistry - challengeon 09-27-2022 Anion gap [Moles/Vol] 14 mmol/L 10 - 20 [facility] Work Phone: Calcium [Mass/Vol] 9.5 mg/dL 8.6 - 10.3 [facility] Work Phone: Chloride [Moles/Vol] 89 mmol/L below low threshold 98 - 107 [facility] Work Phone: CO2 [Moles/Vol] 25 mmol/L 21 - 32 [facility] Work Phone: Creatinine [Mass/Vol] 1.39 mg/dL above high threshold See Below [facility] Work Phone: Comment on above: Reference Range: 0.5 0 - 1.05 Glucose [Mass/Vol] 119 mg/dL above high threshold 74 - 99 [facility] Work Phone: Potassium [Moles/Vol] 3.8 mmol/L 3.5 - 5.3 [facility] Work Phone: Sodium [Moles/Vol] 124 mmol/L below low threshold 136 - 145 [facility] Work Phone: Urea nitrogen [Mass/Vol] 19 mg/dL 6 - 23 [facility] Work Phone: No Panel Informationon 09-27 37 {mL/min/1.73m2} Abnormal >90 [facility] Work Phone: Comment on above: CALCULATIONS OF IVONNE MATED GFR ARE PERFORMED USING THE 2020 CKD-EPI STUDY REFIT EQUATION WITHOUT THE RACE VARIABLE FOR THE IDMS-TRACEABLE CREATININE METHODS.https://jasn.asnjournals.org/content//ASN. 2647745668 Office Visit (Internal Medic ine)on 09-24-2022 Follow-up visit Diagnoses/Problems Assessed HTN (hypertension) (401.9) (I10) Adult onset hypothyroidism (244.8) (E03.8) Allergic rhinitis (477.9) (J30.9) IFG (impaired fasting glucose) (790.21) (R73.01) Stage 3b chronic kidney disease (585.3) (N18.32) Orders Adult onset hypothyroidism Renew: Levothyroxine Sodium 50 MCG Oral Tablet; TAKE 1 TABLET DAILY DIRECTED Rx By: Santhosh Peters; Dispense: 30 Days ; #:30 Tablet; Refill: 11;For: Adult onset hypothyroidism; ERUM = N; Verified Transmission to [facility] 1448; Last Updated By: [employer]; 09/24/2022 1:52:27 PM HTN (hypertension) Start: hydrALAZINE HCl - 25 MG Oral Tablet; Take 1 tablet twice daily Rx By: Santhosh Peters; Dispense: 30 Days ; #:60 Tablet; Refill: 11;For: HTN (hypertension); ERUM = N; Verified Transmission to [facility] 1448; Last Updated By: [employer]; 09/24/2022 1:52:24 PM HTN (hypertension), Lower extremity edema Renew: Furosemide 20 MG Oral Tablet (Lasix); TAKE 1 TABLET BY MOUTH EVERY DAY Rx By: Santhosh Peters; Dispense: 30 Days ; #:30 Tablet; Refill: 11;For: HTN (hypertension), Lower extremity edema; ERUM = N; Verified Transmission to [facility] 1448; Last Updated By: [employer]; 09/24/2022 1:52:16 PM Patient Discussion/Summary F/U 1 WEEK FOR BP WITH BMP Provider Impressions AVOID NSAIDS INCREASE FLUID INTAKE MONITOR BP GOAL BP LOWER THAN 130/80 LOW SALT EXERCISE DAILY DECREASE LASIX ONCE A DAY HYDRALAZINE ADDED MDM 1) COMPLEXITY: 1 OR MORE CHRONIC CONDITION WITH EXACERBATION, OR PROGRESSION OR SIDE EFFECT OF TREATMENT ADDRESSED 2)DATA: TESTS INTERPRETED AND OR ORDERED, TOOK INDEPENDENT HISTORY OR RECORDS REVIEWED 3)RISK: MODERATE RISK DUE TO NATURE OF MEDICAL CONDITIONS/COMORBIDITY OR MEDICATIONS ORDERED OR SURGICAL OR PROCEDURE REFERRAL, . Chief Complaint FU LABS TODAY PT CO SINUS DRAINAGE WORSENING AND EARS FEEL PLUGGED History of Present IllnessHERE FOR F/U WITH LABS HAS BEEN HAVING NASAL CONGESTION ( CHRONIC ) LE EDEMA RESOLVED Review of Systems Constitutional: not feeling poorly, no fever, no recent weight gain and no recent weight loss. Eyes: no blurred vision and no diplopia. ENT: no hearing loss, no tinnitus, no earache, no sore throat, no hoarseness and no swollen glands in the neck. Cardiovascular: no chest pain, no tightness or heavy pressure, no shortness of breath, no palpitations and no lower extremity edema. Respiratory: no cough, not coughing up sputum and no wheezing that is consistent with asthma. Gastrointestinal: no change in bowel habits, no diarrhea, no constipation, no bloody stools, no nausea, no vomiting, no abdominal pain, no signs and symptoms of ulcer disease, no blanca colored stools and no intolerance to fatty foods. Genitourinary: no urinary frequency, no dysuria, no burning sensation during urination and no hematuria. Musculoskeletal: no arthralgias, no joint stiffness, no muscle weakness, no back pain and no difficulty walking. Skin: no rashes, no change in skin color and pigmentation, no skin lesions and no skin lumps. Neurological: no headaches, no dizziness, no seizures, no tingling, no numbness, no signs and symptoms of stroke and no limb weakness. Psychiatric: no confusion, no memory lapses or loss, no depression and no sleep disturbances. Endocrine: no goiter, no thyroid disorder, no diabetes mellitus, no excessive thirst, no dry skin, no cold intolerance, no heat intolerance and no increased urinary frequency. Hematologic/Lymphatic: is not slow to heal, does not bleed easily, does not bruise easily, no thrombophlebitis, no anemia and no history of blood transfusion. All other systems have been reviewed and are negative for complaint. 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) Encounter for colonoscopy in patient with family history of colon cancer (V76.51,V16.0) (Z12.11,Z80.0) Encounter for vaccination (V05.9) (Z23) Fatigue (780.79) (R53.83) GERD (gastroesophageal reflux disease) (530.81) (K21.9) History of degenerative disc disease (V13.59) (Z87.39) HTN (hypertension) (401.9) (I10) Hypercholesterolemia (272.0) (E78.00) Hyperparathyroidism (252.00) (E21.3) Hypertriglyceridemia (272.1) (E78.1) IFG (impaired fasting glucose) (790.21) (R73.01) Low back pain (724.2) (M54.50) Lower extremity edema (782.3) (R60.0) MCI (mild cognitive impairment) (331.83) (G31.84) Osteoporosis (733.00) (M81.0) Personal history of colonic polyps (V12.72) (Z86.010) Pir (more content not included)... Normal [employer] Tobacco Screening.on 022 Fall risk assessment a) No falls within the last year [facility] Work Phone: Tobacco use status CPHS b) No [facility] Work Phone: CBC AND DIFFERENTIALon 09-11 % AUTOMATED IMMATURE GRAN 0.3 % Normal 0.0 - 0.9 [facility] Comment on above: Result Comment: Char ture Granulocyte Count (IG) includes promyelocytes, myelocytes and metamyelocytes but does not include bands. Percent differential counts (%) should be interpreted in the context of the absolute cell counts (cells/L). Performed By: #### C BCDF #### [address] [address] Basophils (Bld) [#/Vol] 0.10 10*3/uL Normal 0.00 - 0.10 [facility] Comment on above: Performed By: #### C BCDF #### [address] [address] Basophils/100 WBC (Bld) 1.4 % Normal 0.0 - 2.0 [facility] Comment on above: Performed By: #### C BCDF #### [address] [address] Eosinophils (Bld) [#/Vol] 0.30 10*3/uL Normal 0.00 - 0.40 [facility] Comment on above: Performed By: #### C BCDF #### [address] [address] Eosinophils/100 WBC (Bld) 4.1 % Normal 0.0 - 6.0 [facility] Comment on above: Performed By: #### C BCDF #### [address] [address] Erythrocyte distribution width (RBC) [Ratio] 12.9 % Normal 11.5 - 14.5 [facility] Comment on above: Performed By: #### C BCDF #### [address] [address] Hematocrit (Bld) [Volume fraction] 45.9 % Normal 36.0 - 46.0 [facility] Comment on above: Performed By: #### C BCDF #### [address] [address] Hemoglobin (Bld) [Mass/Vol] 14.5 g/dL Normal 12.0 - 16.0 [facility] Comment on above: Performed By: #### C BCDF #### [address] [address] Lymphocytes (Bld) [#/Vol] 2.01 10*3/uL Normal 0.80 - 3.00 [facility] Comment on above: Performed By: #### C BCDF #### [address] [address] Lymphocytes/100 WBC (Bld) 27.4 % Normal 13.0 - 44.0 [facility] Comment on above: Performed By: #### C BCDF #### [address] [address] MCHC (RBC) [Mass/Vol] 31.6 g/dL Low 32.0 - 36.0 [facility] Comment on above: Performed By: #### C BCDF #### [address] [address] MCV (RBC) [Entitic vol] 92 fL Normal 80 - 100 [facility] Comment on above: Performed By: #### C BCDF #### [address] [address] Monocytes (Bld) [#/Vol] 0.59 10*3/uL Normal 0.05 - 0.80 [facility] Comment on above: Performed By: #### C BCDF #### [address] [address] Monocytes/100 WBC (Bld) 8.0 % Normal 2.0 - 10.0 [facility] Comment on above: Performed By: #### C BCDF #### [address] [address] Neutrophils (Bld) [#/Vol] 4.31 10*3/uL Normal 1.60 - 5.50 [facility] Comment on above: Result Comment: Perc ent differential counts (%) should be interpreted in the context of the absolute cell counts (cells/L). Performed By: #### C BCDF #### [address] [address] Neutrophils/100 WBC (Bld) 58.8 % Normal 40.0 - 80.0 [facility] Comment on above: Performed By: #### C BCDF #### [address] [address] Platelets (Bld) [#/Vol] 202 10*3/uL Normal 150 - 450 [facility] Comment on above: Performed By: #### C BCDF #### [address] [address] RBC 5.01 x10E12/L Normal 4.00 - 5.20 [facility] Comment on above: Performed By: #### C BCDF #### [address] [address] WBC (Bld) [#/Vol] 7.3 10*3/uL Normal 4.4 - 11.3 [facility] Comment on above: Performed By: #### C BCDF #### [address] [address] COMPREHENSIVE PANELon 2021 Albumin [Mass/Vol] 4.4 g/dL Normal 3.4 - 5.0 [facility] Comment on above: Performed By: #### C MP #### [address] [address] ALP [Catalytic activity/Vol] 69 U/L Normal 33 - 136 [facility] Comment on above: Performed By: #### C MP #### [address] [address] ALT [Catalytic activity/Vol] 10 U/L Normal 7 - 45 [facility] Comment on above: Result Comment: Kay ents treated with Sulfasalazine may generate falsely decreased results for ALT. Performed By: #### C MP #### [address] [address] Anion gap [Moles/Vol] 14 mmol/L Normal 10 - 20 [facility] Comment on above: Performed By: #### C MP #### [address] [address] AST [Catalytic activity/Vol] 15 U/L Normal 9 - 39 [facility] Comment on above: Performed By: #### C MP #### [address] [address] Bilirubin [Mass/Vol] 0.5 mg/dL Normal 0.0 - 1.2 [facility] Comment on above: Performed By: #### C MP #### [address] [address] Calcium [Mass/Vol] 9.7 mg/dL Normal 8.6 - 10.3 [facility] Comment on above: Performed By: #### C MP #### [address] [address] Chloride [Moles/Vol] 99 mmol/L Normal 98 - 107 [facility] Comment on above: Performed By: #### C MP #### [address] [address] Creatinine [Mass/Vol] 1.74 mg/dL High 0.50 - 1.05 [facility] Comment on above: Performed By: #### C MP #### [address] [address] GFR/1.73 sq M.predicted among non-blacks MDRD (S/P/Bld) [Vol rate/Area] 28 mL/min/{1.73_m2} Abnormal >90 [facility] Comment on above: Result Comment: CALC ULATIONS OF ESTIMATED GFR ARE PERFORMED USING THE 2020 CKD-EPI STUDY REFIT EQUATION WITHOUT THE RACE VARIABLE FOR THE IDMS-TRACEABLE CREATININE METHODS. https://jasn.asnjournals.org/content/early//ASN.55725297 88 Performed By: #### C MP #### [address] [address] Glucose [Mass/Vol] 179 mg/dL High 74 - 99 [facility] Comment on above: Performed By: #### C MP #### [address] [address] HCO3 (Bld) [Moles/Vol] 29 mmol/L Normal 21 - 32 [facility] Comment on above: Performed By: #### C MP #### [address] [address] Potassium [Moles/Vol] 4.1 mmol/L Normal 3.5 - 5.3 [facility] Comment on above: Performed By: #### C MP #### [address] [address] Protein [Mass/Vol] 7.0 g/dL Normal 6.4 - 8.2 [facility] Comment on above: Performed By: #### C MP #### [address] [address] Sodium [Moles/Vol] 138 mmol/L Normal 136 - 145 [facility] Comment on above: Performed By: #### C MP #### [address] [address] Urea nitrogen [Mass/Vol] 34 mg/dL High 6 - 23 [facility] Comment on above: Performed By: #### C MP #### [address] [address] Complete Blood Count + Karlene garcia 09-11-2022 Basophils/100 WBC (Bld) 1.4 % 0.0 - 2.0 [facility] Work Phone: Erythrocyte distribution width (RBC) [Ratio] 12.9 % See Below [facility] Work Phone: Comment on above: Reference Range: 11. 5 - 14.5 Hematocrit (Bld) [Volume fraction] 45.9 % See Below [facility] Work Phone: Comment on above: Reference Range: 36. 0 - 46.0 Hemoglobin (Bld) [Mass/Vol] 14.5 g/dL See Below [facility] Work Phone: Comment on above: Reference Range: 12. 0 - 16.0 Lymphocytes/100 WBC (Bld) 27.4 % See Below [facility] Work Phone: Comment on above: Reference Range: 13. 0 - 44.0 MCHC (RBC) [Mass/Vol] 31.6 g/dL below low threshold See Below [facility] Work Phone: Comment on above: Reference Range: 32. 0 - 36.0 MCV (RBC) [Entitic vol] 92 fL 80 - 100 [facility] Work Phone: Monocytes/100 WBC (Bld) 8.0 % 2.0 - 10.0 [facility] Work Phone: Neutrophils/100 WBC (Bld) 58.8 % See Below [facility] Work Phone: Comment on above: Reference Range: 40. 0 - 80.0 Platelets (Bld) [#/Vol] 202 10*3/uL 150 - 450 [facility] Work Phone: RBC (Bld) [#/Vol] 5.01 {x10E12/L} See Below [facility] Work Phone: Comment on above: Reference Range: 4.0 0 - 5.20 WBC (Bld) [#/Vol] 7.3 10*3/uL 4.4 - 11.3 [facility] Work Phone: Complete Blood Count + Differential 0.10 {x10E9/L} See Below [facility] Work Phone: Comment on above: Reference Range: 0.0 0 - 0.10 Complete Blood Count + Differential 0.30 {x10E9/L} See Below [facility] Work Phone: Comment on above: Reference Range: 0.0 0 - 0.40 Complete Blood Count + Differential 0.59 {x10E9/L} See Below [facility] Work Phone: Comment on above: Reference Range: 0.0 5 - 0.80 Complete Blood Count + Differential 2.01 {x10E9/L} See Below [facility] Work Phone: Comment on above: Reference Range: 0.8 0 - 3.00 Complete Blood Count + Differential 4.31 {x10E9/L} See Below [facility] Work Phone: Comment on above: Reference Range: 1.6 0 - 5.50 Percent differential counts (%) should be interpreted in the context of the absolute cell counts (cells/L). Complete Blood Count + Differential 4.1 % 0.0 - 6.0 [facility] Work Phone: Complete Blood Count + Differential 0.3 % 0.0 - 0.9 [facility] Work Phone: Comment on above: Immature Granulocyte Count (IG) includes promyelocytes, myelocytes and metamyelocytes but does not include bands. Percent differential counts (%) should be interpreted in the context of the absolute cell counts (cells/L). HEMOGLOBIN A1Con 09-11-2022 Glucose [Mass/Vol] 128 mg/dL Normal [facility] Comment on above: Performed By: #### P HOS #### [place] [address] HbA1c (Bld) [Mass fraction] 6.1 % Abnormal [facility] Comment on above: Result Comment: Diag nosis of Diabetes-Adults Non-Diabetic: < or = 5.6% Increased risk for developing diabetes: 5.7-6.4% Diagnostic of diabetes: > or = 6.5% . Monitoring of Diabetes Age (y) Therapeutic Goal (%) Adults: >18 <7.0 Pediatrics: 13-18 <7.5 7-12 <8.0 0- 6 7.5-8.5 [place] [employer]. Diabetes Care 33(S1), Oct 2009. Performed By: #### P HOS #### [facility] [address] [place] [address] Hemoglobin A1Con 09-11-2022 Glucose [Mass/Vol] 128 mg/dL [facility] Work Phone: HbA1c (Bld) [Mass fraction] 6.1 % Abnormal [facility] Work Phone: Comment on above: Diagnosis of Diabete s-Adults Non-Diabetic: < or = 5.6% Increased risk for developing diabetes: 5.7-6.4% Diagnostic of diabetes: > or = 6.5%. Monitoring of Diabetes Age (y) Therapeutic Goal (%) Adults: >18 <7.0 Pediatrics: 13-18 <7.5 7-12 <8.0 0- 6 7.5-8.5 [place] [employer]. Diabetes Care 33(S1), Oct 2009. Laboratory - Chemistry and C hemistry - challengeon 09-11-2022 Albumin BCP dye [Mass/Vol] 4.4 g/dL 3.4 - 5.0 [facility] Work Phone: ALP [Catalytic activity/Vol] 69 U/L 33 - 136 [facility] Work Phone: ALT With P-5'-P [Catalytic activity/Vol] 10 U/L 7 - 45 [facility] Work Phone: Comment on above: Patients treated wit h Sulfasalazine may generate falsely decreased results for ALT. Anion gap [Moles/Vol] 14 mmol/L 10 - 20 [facility] Work Phone: AST With P-5'-P [Catalytic activity/Vol] 15 U/L 9 - 39 [facility] Work Phone: Bilirubin [Mass/Vol] 0.5 mg/dL 0.0 - 1.2 [facility] Work Phone: Calcium [Mass/Vol] 9.7 mg/dL 8.6 - 10.3 [facility] Work Phone: Chloride [Moles/Vol] 99 mmol/L 98 - 107 [facility] Work Phone: CO2 [Moles/Vol] 29 mmol/L 21 - 32 [facility] Work Phone: Creatinine [Mass/Vol] 1.74 mg/dL above high threshold See Below [facility] Work Phone: Comment on above: Reference Range: 0.5 0 - 1.05 Glucose [Mass/Vol] 179 mg/dL above high threshold 74 - 99 [facility] Work Phone: Potassium [Moles/Vol] 4.1 mmol/L 3.5 - 5.3 [facility] Work Phone: Protein [Mass/Vol] 7.0 g/dL 6.4 - 8.2 [facility] Work Phone: Sodium [Moles/Vol] 138 mmol/L 136 - 145 [facility] Work Phone: Urea nitrogen [Mass/Vol] 34 mg/dL above high threshold 6 - 23 [facility] Work Phone: No Panel Informationon 09-11 28 {mL/min/1.73m2} Abnormal >90 [facility] Work Phone: Comment on above: CALCULATIONS OF IVONNE MATED GFR ARE PERFORMED USING THE 2020 CKD-EPI STUDY REFIT EQUATION WITHOUT THE RACE VARIABLE FOR THE IDMS-TRACEABLE CREATININE METHODS.https://jasn.asnjournals.org/content//ASN. 7760804096 TSHon 09-11-2022 TSH Qn 0.19 m[IU]/L Low 0.44 - 3.98 [facility] Comment on above: Result Comment: TSH testing is performed using different testing methodology at [facility] than at other [facility]. Direct result comparisons should only be made within the same method. Performed By: #### T SH2 #### [facility] [address] [place] [id number] TSH - Thyroid Stimulating Ho loraine, Serumon 09-11-2022 TSH Qn 0.19 m[IU]/L below low threshold See Below [facility] Work Phone: Comment on above: Reference Range: 0.4 4 - 3.98 TSH testing is performed using different testing methodology at [facility] than at other [facility]. Direct result comparisons should only be made within the same method. Office Visit (Internal Medic ine)on 08-29-2022 Follow-up visit Diagnoses/Problems Assessed Encounter for vaccination (V05.9) (Z23) Lower extremity edema (782.3) (R60.0) HTN (hypertension) (401.9) (I10) Stage 3b chronic kidney disease (585.3) (N18.32) Orders Encounter for vaccination Administered: Fluzone High-Dose Quadrivalent 0.7 ML Intramuscular Suspension Prefilled Syringe For: Encounter for vaccination; Ordered By:Santhosh Peters; Effective Date:29Aug2022; Administered by: Rogers Hilliard [employer]: 08/29/2022 3:32:00 PM; Last Updated By: Rogers Hilliard; 08/29/2022 3:32:40 PM HTN (hypertension), Lower extremity edema Start: Furosemide 20 MG Oral Tablet (Lasix); take 1 tablet by mouth twice a day Rx By: Santhosh Peters; Dispense: 0 Days ; #:60 Tablet; Refill: 11;For: HTN (hypertension), Lower extremity edema; ERUM = N; Verified Transmission to [facility] 9769; Last Updated By: Lisbet Mohamud; 08/29/2022 3:48:40 PM Patient Discussion/Summary F/U 2 WEEKS WITH BMP Provider Impressions MONITOR BP GOAL BP LOWER THAN 130/80 LOW SALT EXERCISE DAILY D/C AMLODIPINE START LASIX KEEP LEGS ELEVATED MDM 1) COMPLEXITY: 1 OR MORE CHRONIC CONDITION WITH EXACERBATION, OR PROGRESSION OR SIDE EFFECT OF TREATMENT ADDRESSED 2)DATA: TESTS INTERPRETED AND OR ORDERED, TOOK INDEPENDENT HISTORY OR RECORDS REVIEWED 3)RISK: MODERATE RISK DUE TO NATURE OF MEDICAL CONDITIONS/COMORBIDITY OR MEDICATIONS ORDERED OR SURGICAL OR PROCEDURE REFERRAL, . Chief Complaint C/O BLE EDEMA WITH BURNING X3WKS History of Present IllnessPT C/O LE EDEMA WITH BURNING FOR 1 MO SEVERITY: MODERATE CHARACTERISTIC: PERSISTENT EXACERBATION FACTOR: STANDING RELIEVING FACTOR: NONE ASSOCIATED SYMPTOMS: NONE PRIOR TX: AMLODIPIE Review of Systems Constitutional: not feeling poorly, no fever, no recent weight gain and no recent weight loss. Eyes: no blurred vision and no diplopia. ENT: no hearing loss, no tinnitus, no earache, no sore throat, no hoarseness and no swollen glands in the neck. Cardiovascular: no chest pain, no tightness or heavy pressure, no shortness of breath, no palpitations and no lower extremity edema. Respiratory: no cough, not coughing up sputum and no wheezing that is consistent with asthma. Gastrointestinal: no change in bowel habits, no diarrhea, no constipation, no bloody stools, no nausea, no vomiting, no abdominal pain, no signs and symptoms of ulcer disease, no blanca colored stools and no intolerance to fatty foods. Genitourinary: no urinary frequency, no dysuria, no burning sensation during urination and no hematuria. Musculoskeletal: no arthralgias, no joint stiffness, no muscle weakness, no back pain and no difficulty walking. Skin: no rashes, no change in skin color and pigmentation, no skin lesions and no skin lumps. Neurological: no headaches, no dizziness, no seizures, no tingling, no numbness, no signs and symptoms of stroke and no limb weakness. Psychiatric: no confusion, no memory lapses or loss, no depression and no sleep disturbances. Endocrine: no goiter, no thyroid disorder, no diabetes mellitus, no excessive thirst, no dry skin, no cold intolerance, no heat intolerance and no increased urinary frequency. Hematologic/Lymphatic: is not slow to heal, does not bleed easily, does not bruise easily, no thrombophlebitis, no anemia and no history of blood transfusion. All other systems have been reviewed and are negative for complaint. 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) Encounter for colonoscopy in patient with family history of colon cancer (V76.51,V16.0) (Z12.11,Z80.0) Fatigue (780.79) (R53.83) GERD (gastroesophageal reflux disease) (530.81) (K21.9) History of degenerative disc disease (V13.59) (Z87.39) HTN (hypertension) (401.9) (I10) Hypercholesterolemia (272.0) (E78.00) Hyperparathyroidism (252.00) (E21.3) Hypertriglyceridemia (272.1) (E78.1) IFG (impaired fasting glucose) (790.21) (R73.01) Low back pain (724.2) (M54.50) MCI (mild cognitive impairment) (331.83) (G31.84) Osteoporosis (733.00) (M81.0) Personal history of colonic polyps (V12.72) (Z86.010) Piriformis syndrome of right side (355.0) (G57.01) Right hip pain (719.45) (M25.551) Stage 3b chronic kidney disease (585.3) (N18.32) Tendinitis of right hip (727.09) (M76.891) Encounter for vaccination (V05.9) (Z23) Past Medical History Problems History of Cataract, right eye (366.9) (H26.9) History of mammogram (V15.89) (Z92.89) CAT (more content not included)... Normal [employer] Tobacco Screening.on 022 Adult depression screening assessment No [facility] Work Phone: Fall risk assessment a) No falls within the last year [facility] Work Phone: Tobacco use status CPHS b) No [facility] Work Phone: Established Visit (Nephrolog y)on 05-14-2022 Established Visit (Nephrology) Diagnoses/Problems Chronic kidney disease (585.9) (N18.9) GERD (gastroesophageal reflux disease) (530.81) (K21.9) HTN (hypertension) (401.9) (I10) Hypercholesterolemia (272.0) (E78.00) Orders Chronic kidney disease Albumin, Urine Spot; Status:Active; Requested for:[id number]; Basic Metabolic Panel; Status:Active; Requested for:[id number]; Patient Discussion/Summary Issues: 1. CKD that is stable. At 1.3-1.5 2. HTN that at home is well controlled. Small kidneys. No chagnes for now. Recheck labs in 6 months. Call with any issues. Provider Impressions Chronic kidney disease stage III with baseline creatinine 1.3-1.5 Hypertension: Currently not optimally controlled on amlodipine and metoprolol Degenerative disc disease Hypothyroidism on replacement GERD Osteoporosis Chief Complaint 2 WEEK FUV History of Present IllnessShe is here for follow-up secondary to chronic kidney disease with a baseline creatinine of about 1.3-1.5, hypertension, hypothyroidism, acid reflux. She had a blood work drawn on May 07 Magnesium is 2.15 Uric acid is slightly elevated at 7.4 BUN is 23 with a creatinine of 1.3 with an estimated GFR of 40 Her electrolytes look normal her bicarb is 29 phosphorus is 3.6 vitamin D 57 Urinalysis is bland Urine protein creatinine ratio is 0.23 Renal ultrasound shows the right kidney to be 6.2 cm and the left kidney to be 8.3 cm. She has bilateral small kidneys with thin cortices Her medications are reviewed and include amlodipine, Synthroid, metoprolol and a multivitamin She has been measureing her BP at home but cant remember what it was and . Her daughter states that it was 121/81. Review of Systems Constitutional: no fever, no chills, no recent weight gain and no recent weight loss. Eyes: no blurred vision and no diplopia. ENT: no hearing loss, no earache, no sore throat, no swollen glands in the neck and no nasal discharge. Cardiovascular: no chest pain, no palpitations and no lower extremity edema. Respiratory: no shortness of breath, no chronic cough and no shortness of breath during exertion. Gastrointestinal: no abdominal pain, no constipation, no heartburn, no vomiting, no bloody stools and no change in bowel movements. Genitourinary: no dysuria and no hematuria. Musculoskeletal: no arthralgias and no myalgias. Skin: no rashes and no skin lesions. Neurological: no headaches and no dizziness. Psychiatric: no confusion, no depression and no anxiety. Endocrine: no heat intolerance, no cold intolerance, appetite not increased, no thyroid disorder, no increased urinary frequency and no dry skin. Hematologic/Lymphatic: does not bleed easily and does not bruise easily. All other systems have been reviewed and are negative for complaint. 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) Encounter for colonoscopy in patient with family history of colon cancer (V76.51,V16.0) (Z12.11,Z80.0) Encounter for vaccination (V05.9) (Z23) Fatigue (780.79) (R53.83) GERD (gastroesophageal reflux disease) (530.81) (K21.9) History of degenerative disc disease (V13.59) (Z87.39) HTN (hypertension) (401.9) (I10) Hypercholesterolemia (272.0) (E78.00) Hyperparathyroidism (252.00) (E21.3) Hypertriglyceridemia (272.1) (E78.1) IFG (impaired fasting glucose) (790.21) (R73.01) Low back pain (724.2) (M54.50) MCI (mild cognitive impairment) (331.83) (G31.84) Osteoporosis (733.00) (M81.0) Personal history of colonic polyps (V12.72) (Z86.010) Piriformis syndrome of right side (355.0) (G57.01) Right hip pain (719.45) (M25.551) Stage 3b chronic kidney disease (585.3) (N18.32) Tendinitis of right hip (727.09) (M76.891) Past Medical History History of Cataract, right eye (366.9) (H26.9) History of mammogram (V15.89) (Z92.89) CAT 2 History of Pap smear, low-risk (V76.2) (Z01.419) 2011 Surgical History History of Abdominal aortic dissection repair History of Cataract surgery History of Colonoscopy [address] Carolina Recommended to repeat in 3 years (2019) due to family history and personal history of polyps 02/13/2017- Colonoscopy findings Cecum identified by: ileo-cecal valve, Transillumination, PHOTO TAKEN, Cecum was normal, Ascending colon was normal, Transverse colon was normal, Descending colon was normal, SIGMOID REVEALED MILD UNCOMPLICATED DIVERTICULOSIS, Rectum was normal, Retroflex rectum was normal. Impression and Plan Diagnosis Colonic diverticular disease ([id number]-HE K57.30, (more content not included)... Normal [facility] PT Initial Evaluationon 07-2 PT Initial Evaluation Therapy Diagnosis Assessed History of degenerative disc disease (V13.59) (Z87.39) Piriformis syndrome of right side (355.0) (G57.01) Plan of Care Goals: Goals set and discussed today. Pain: Range Of Motion/Joint Mobility: Plan of care was developed with input and agreement by the patient. Assessment Ms. Acosta arrives to outpatient PT with s/s consistent with c/o R piriformis tightness. Pt presents with the following impairments: slight weakness of B hip flexors and decreased flexibility of R HS and R piriformis which is causing pain in lateral/posterior hip especially when sleeping. As pt has limited impairments she was given HEP with no further visits planned. She verbalized good understanding of HEP. Pt instructed to call with any questions or if symptoms persist/ worsen. If pt does not make contact within 30 days she will be d/c from skilled PT. The pt verbalized understanding and agreement to goals and POC. Thank you for this referral and please call [phone] with any questions or concerns. Clinical Presentation: Stable and/or uncomplicated characteristics. Level of Complexity: low Problem List: decreased knowledge of HEP, flexibility and pain. Reason For Visit Initial Evaluation . Z87.39. Referred by: Rubi Young Adult Risk Screening There are no spiritual/cultural practices/values/needs that are important to know Initial Fall Risk Screening: DUKE has not fallen in the last 6 months. DUKE does not have a fear of falling. She does not need assistance with sitting, standing or walking. Does not need assistance walking in her home. She does not need assistance in an unfamiliar setting. The patient is not using an assistive device. Insurance Insurance reviewed Visit number: 1 Insurance: primary medicare. secondary humana supplement Evaluating therapist: Jennifer Cabral PT, DPT PT dx: G57.01 Beginnin2021 Endin2021 Subjective Current Episode of Functional Impairment and/or Pain Date of onset: 04/26/22 Mechanism of Injury:. Pt is a 87 y/o F arriving to outpatient PT c/o occasional pain in R lateral and posterior hip. She reports it is sometimes hard to sleep and she experiences swelling in the R ankle upon waking up. The pain and swelling only occur some nights. Pt denies N/T. Pt rates pain 0/10 while sitting at rest currently however states it can increase to 5/10. She is not limited in her ADLs. She lives an active lifestyle- goes up/down stairs a lot and walks. She reports pain began approximately 1.5 years ago. Medical Screening: Reviewed medical history form with patient and medical screening assessed. HTN. Current Medical Management:. Patient confirmed name and date of this session. Precautions: Fall Risk: low d/t age. Functional Assessment Prior level of function: Pt was previously IND in all ADLs with no restrictions. Patient stated goal(s) for treatment include: relieving pain . Patient Awareness: Patient is aware of her diagnosis and prognosis. Living Environment: reviewed and no concern. Personal Factors That May Impact Care:. No barriers to learning. Objective Ortho MMT hip R- flex:4+ /5 abd: 5 /5 add: 5 /5 L- flex: 4+ /5 abd: 5 /5 add: 5 /5 MMT knee flex, ext and ankle DF R- 5 /5 L- 5/5 AROM back flex, ext, rot, LF 100% TTP: none Tightness: slight of R HS, mod of R piriformis. Treatment Time in clinic started at 11:15 am Time in clinic ended at 11:55 pm Total time in clinic is 40 minutes. Total timed code time is 15 minutes. Treatment Performed Today:. Seated HS stretch R 2x30 sec Seated piriformis stretch R 2x30 sec Supine piriformis stretch R x30 sec. Evaluation Code: 70568 PT Eval: Low Complexity, 23 min(s). Timed: 19415 Therapeutic Exercises, 15 min(s), 1 unit(s). Resources provided today: home program (scanned) and education Education Provided: plan of care and home exercise program. Information communicated to patient. 05/09/22 HEP HO given HS stretch, seated and supine piriformis stretch. Contacts for Physician Signature First attempt date: 05/09/22. Referring Provider Signature: I am in agreement with the above plan of care. Referring Provider Signature __, Date/Time Signatures Electronically signed by : Jennifer Cabral PT; May 09 2022 12:02PM EST (Author) Normal [employer] BASIC METABOLIC PANELon 07- Anion gap [Moles/Vol] 10 mmol/L Normal 10 - 20 [facility] Comment on above: Performed By: #### T PS2 #### [place] [address] Calcium [Mass/Vol] 9.7 mg/dL Normal 8.6 - 10.3 [facility] Comment on above: Performed By: #### T PS2 #### [address] [address] Chloride [Moles/Vol] 102 mmol/L Normal 98 - 107 [facility] Comment on above: Performed By: #### T PS2 #### [address] [address] Creatinine [Mass/Vol] 1.30 mg/dL High 0.50 - 1.05 [facility] Comment on above: Performed By: #### T PS2 #### [address] [address] GFR/1.73 sq M.predicted among non-blacks MDRD (S/P/Bld) [Vol rate/Area] 40 mL/min/{1.73_m2} Abnormal >90 [facility] Comment on above: Result Comment: CALC ULATIONS OF ESTIMATED GFR ARE PERFORMED USING THE 2020 CKD-EPI STUDY REFIT EQUATION WITHOUT THE RACE VARIABLE FOR THE IDMS-TRACEABLE CREATININE METHODS. https://jasn.asnjournals.org/content//ASN.38778362 88 Performed By: #### T PS2 #### [address] [address] Glucose [Mass/Vol] 85 mg/dL Normal 74 - 99 [facility] Comment on above: Performed By: #### T PS2 #### [address] [address] HCO3 (Bld) [Moles/Vol] 29 mmol/L Normal 21 - 32 [facility] Comment on above: Performed By: #### T PS2 #### [address] [address] Potassium [Moles/Vol] 4.3 mmol/L Normal 3.5 - 5.3 [facility] Comment on above: Performed By: #### T PS2 #### [address] [address] Sodium [Moles/Vol] 137 mmol/L Normal 136 - 145 [facility] Comment on above: Performed By: #### T PS2 #### [place] [address] [place] [address] Urea nitrogen [Mass/Vol] 23 mg/dL Normal 6 - 23 [facility] Comment on above: Performed By: #### T PS2 #### [facility] [address] [place] [address] Laboratory - Chemistry and C hemistry - challengeon 05-07-2022 Anion gap [Moles/Vol] 10 mmol/L 10 - 20 [facility] 3 DO Work Phone: [phone] Calcium [Mass/Vol] 9.7 mg/dL 8.6 - 10.3 [place] [address] DO Work Phone: [phone] Chloride [Moles/Vol] 102 mmol/L 98 - 107 [facility] [address] [facility] Work Phone: [phone] CO2 [Moles/Vol] 29 mmol/L 21 - 32 [facility] Work Phone: [phone] Creatinine [Mass/Vol] 1.30 mg/dL above high threshold See Below [place] [address] DO Work Phone: Comment on above: Reference Range: 0.5 0 - 1.05 Glucose [Mass/Vol] 85 mg/dL 74 - 99 [facility] 3 DO Work Phone: [phone] Potassium [Moles/Vol] 4.3 mmol/L 3.5 - 5.3 [facility] [address] [facility] Work Phone: Sodium [Moles/Vol] 137 mmol/L 136 - 145 [facility] 3 DO Work Phone: [phone] Urea nitrogen [Mass/Vol] 23 mg/dL 6 - 23 [facility] 3 DO Work Phone: MAGNESIUMon 07-19-2022 Magnesium [Mass/Vol] 2.15 mg/dL Normal 1.60 - 2.40 [facility] Comment on above: Performed By: #### T PS2 #### [address] [address] Magnesium, Serumon 2 Magnesium [Mass/Vol] 2.15 mg/dL See Below [facility] 3 DO Work Phone: Comment on above: Reference Range: 1.6 0 - 2.40 No Panel Informationon 05-07 40 {mL/min/1.73m2} Abnormal >90 -[facility] 3 DO Work Phone: Comment on above: CALCULATIONS OF IVONNE MATED GFR ARE PERFORMED USING THE 2020 CKD-EPI STUDY REFIT EQUATION WITHOUT THE RACE VARIABLE FOR THE IDMS-TRACEABLE CREATININE METHODS.https://jasn.asnjournals.org/content/early//ASN. 1301320273 PHOSPHORUSon 05-07-2022 Phosphate [Mass/Vol] 3.6 mg/dL Normal 2.5 - 4.9 [facility] Comment on above: Result Comment: The performance characteristics of phosphorus testing in heparinized plasma have been validated by the individual laboratory site where testing is performed. Testing on heparinized plasma is not approved by the FDA; however, such approval is not necessary. Performed By: #### P HOS #### [address] [address] Phosphorus, Serumon 05-07-20 22 Phosphate [Mass/Vol] 3.6 mg/dL 2.5 - 4.9 [facility] 3 DO Work Phone: Comment on above: The performance osmar acteristics of phosphorus testing in heparinized plasma have been validated by the individual laboratory site where testing is performed. Testing on heparinized plasma is not approved by the FDA; however, such approval is not necessary. Radiologyon 05-07-2022 US Kidney - bilateral Please click on the link to view the study images Normal [facility] 3 DO Work Phone: US Kidney - bilateral Normal [facility] 3 DO Work Phone: TOTAL PROTEIN, URINE SPOTon 05-07-2022 CREATININE,URINE 44.0 mg/dL Normal 20.0 - 320.0 [facility] Comment on above: Performed By: #### T PS2 #### [place] [id number] T. PROTEIN/CREAT RATIO 0.23 mg/mg Creat High 0.00 - 0.17 [facility] Comment on above: Performed By: #### T PS2 #### [address] [address] TOTAL PROT,URINE SPOT 10 mg/dL Normal 5 - 24 [facility] Comment on above: Performed By: #### T PS2 #### [address] [address] CREATININE,URINE Canceled Normal [facility] Comment on above: Order Comment: TEST TOTAL PROTEIN, URINE SPOT WAS CANCELLED, 05/07/2022 12:38 pt unable to void. Performed By: #### T PS2 #### [address] [address] T. PROTEIN/CREAT RATIO Canceled Normal [facility] Comment on above: Order Comment: TEST TOTAL PROTEIN, URINE SPOT WAS CANCELLED, 05/07/2022 12:38 pt unable to void. Performed By: #### T PS2 #### [address] [address] TOTAL PROT,URINE SPOT Canceled Normal [facility] Comment on above: Order Comment: TEST TOTAL PROTEIN, URINE SPOT WAS CANCELLED, 05/07/2022 12:38 pt unable to void. Performed By: #### T PS2 #### [address] [address] Total Protein, Urine Spoton 05-07-2022 Creatinine (U) [Mass/Vol] 44.0 mg/dL See Below [facility] [address] [facility] Work Phone: Comment on above: Reference Range: 20. 0 - 320.0 Protein (U) [Mass/Vol] 10 mg/dL 5 - 24 [facility] [address] DO Work Phone: Protein/Creatinine (U) [Ratio] 0.23 {mg/mg_Creat} above high threshold See Below [place] [address] DO Work Phone: Comment on above: Reference Range: 0.0 0 - 0.17 Creatinine (U) [Mass/Vol] Canceled [place] [address] DO Work Phone: Protein (U) [Mass/Vol] Canceled [place] [address] DO Work Phone: Protein/Creatinine (U) [Ratio] Canceled [place] [address] DO Work Phone: UA MICROSCOPICon 05-07-2022 BACTERIA 1+ /HPF Abnormal [facility] Comment on above: Performed By: #### P HOS #### [place] [address] HYALINE CAST OCC Abnormal [facility] Comment on above: Performed By: #### P HOS #### [place] [address] RBC 1 /HPF Normal 0-5 [facility] Comment on above: Performed By: #### P HOS #### [place] [address] SQUAMOUS EPITH. CELLS 1 /HPF Normal [facility] Comment on above: Performed By: #### P HOS #### [place] [address] TRANSITIONAL EPITH.CELLS <1 Normal [facility] Comment on above: Performed By: #### P HOS #### [place] [address] WBC 2 /HPF Normal 0-5 [facility] Comment on above: Performed By: #### P HOS #### [address] [address] URIC ACIDon 05-07-2022 Urate [Mass/Vol] 7.4 mg/dL High 2.3 - 6.7 [facility] Comment on above: Result Comment: Lisa puncture immediately after or during the administration of Metamizole may lead to falsely low results. Testing should be performed immediately prior to Metamizole dosing. Performed By: #### T PS2 #### [address] [address] URINALYSISon 05-07-2022 Appearance (U) CLEAR Normal CLEAR [facility] Comment on above: Performed By: #### U A #### [address] [address] Bilirubin Ql (U) Negative Normal NEGATIVE [facility] Comment on above: Performed By: #### U A #### [address] [address] Color (U) Yellow Normal STRAW,YELLOW [facility] Comment on above: Performed By: #### U A #### [address] [address] Glucose Ql (U) Negative Normal NEGATIVE [facility] Comment on above: Performed By: #### U A #### [address] [address] Hemoglobin Ql (U) Negative Normal NEGATIVE [facility] Comment on above: Performed By: #### U A #### [address] [address] Ketones Ql (U) Negative Normal NEGATIVE [facility] Comment on above: Performed By: #### U A #### [address] [address] Leukocyte esterase Test strip Ql (U) TRACE Abnormal NEGATIVE [facility] Comment on above: Performed By: #### U A #### [address] [address] Nitrite Ql (U) Negative Normal NEGATIVE [facility] Comment on above: Performed By: #### U A #### [address] [address] pH (U) 7.0 [pH] Normal 5.0 - 8.0 [facility] Comment on above: Performed By: #### U A #### [address] [address] Protein Ql (U) Negative Normal NEGATIVE [facility] Comment on above: Performed By: #### U A #### [address] [address] Specific gravity (U) [Rel density] 1.009 Normal 1.005 - 1.035 [facility] Comment on above: Performed By: #### U A #### [address] [address] Urobilinogen (U) [Mass/Vol] mg/dL Normal 0.0 - 1.9 [facility] Comment on above: Performed By: #### U A #### [address] [address] Appearance (U) Canceled Normal [facility] Comment on above: Order Comment: TEST URINALYSIS WAS CANCELLED, 05/07/2022 12:38 pt unable to void. Performed By: #### P HOS #### [address] [address] ASCORBIC ACID Canceled Normal [facility] Comment on above: Order Comment: TEST URINALYSIS WAS CANCELLED, 05/07/2022 12:38 pt unable to void. Result Comment: Conc entrations > = 20 mg/dL of ascorbic acid can be expected to cause strong interference in the reactions testing for glucose, nitrite and blood. It is recommended to discontinue Vitamin C administration and retest in 10 hours. Performed By: #### P HOS #### [address] [address] Bilirubin Ql (U) Canceled Normal [facility] Comment on above: Order Comment: TEST URINALYSIS WAS CANCELLED, 05/07/2022 12:38 pt unable to void. Performed By: #### P HOS #### [address] [address] Color (U) Canceled Normal [facility] Comment on above: Order Comment: TEST URINALYSIS WAS CANCELLED, 05/07/2022 12:38 pt unable to void. Performed By: #### P HOS #### [address] [address] Glucose Ql (U) Canceled Normal [facility] Comment on above: Order Comment: TEST URINALYSIS WAS CANCELLED, 05/07/2022 12:38 pt unable to void. Performed By: #### P HOS #### [address] [address] Hemoglobin Ql (U) Canceled Normal [facility] Comment on above: Order Comment: TEST URINALYSIS WAS CANCELLED, 05/07/2022 12:38 pt unable to void. Performed By: #### P HOS #### [address] [address] Ketones Ql (U) Canceled Normal [facility] Comment on above: Order Comment: TEST URINALYSIS WAS CANCELLED, 05/07/2022 12:38 pt unable to void. Performed By: #### P HOS #### [address] [address] Leukocyte esterase Test strip Ql (U) Canceled Normal [facility] Comment on above: Order Comment: TEST URINALYSIS WAS CANCELLED, 05/07/2022 12:38 pt unable to void. Performed By: #### P HOS #### [address] [address] Nitrite Ql (U) Canceled Normal [facility] Comment on above: Order Comment: TEST URINALYSIS WAS CANCELLED, 05/07/2022 12:38 pt unable to void. Performed By: #### P HOS #### [address] [address] pH Canceled Normal [facility] Comment on above: Order Comment: TEST URINALYSIS WAS CANCELLED, 05/07/2022 12:38 pt unable to void. Performed By: #### P HOS #### [address] [address] Protein Ql (U) Canceled Normal [facility] Comment on above: Order Comment: TEST URINALYSIS WAS CANCELLED, 05/07/2022 12:38 pt unable to void. Performed By: #### P HOS #### [address] [address] Specific gravity (U) [Rel density] Canceled Normal [facility] Comment on above: Order Comment: TEST URINALYSIS WAS CANCELLED, 05/07/2022 12:38 pt unable to void. Performed By: #### P HOS #### [address] [address] UROBILINOGEN Canceled Normal [facility] Comment on above: Order Comment: TEST URINALYSIS WAS CANCELLED, 05/07/2022 12:38 pt unable to void. Performed By: #### P HOS #### [address] [address] Uric Acid, Serumon 2 Urate [Mass/Vol] 7.4 mg/dL above high threshold 2.3 - 6.7 [facility] Work Phone: Comment on above: Venipuncture immedia tely after or during the administration of Metamizole may lead to falsely low results. Testing should be performed immediately prior to Metamizole dosing. Urinalysison 05-07-2022 Color (U) Yellow See Below [facility] 3 DO Work Phone: Comment on above: Reference Range: STR AW,YELLOW Glucose Ql (U) Negative NEGATIVE -Nephrol [facility] 3 DO Work Phone: Ketones Ql (U) Negative NEGATIVE [facility] 3 DO Work Phone: Leukocyte esterase Test strip Ql (U) TRACE Abnormal NEGATIVE [facility] 3 DO Work Phone: pH (U) 7.0 [pH] 5.0 - 8.0 -Nephrology -[facility] 3 DO Work Phone: Protein (U) [Mass/Vol] Negative NEGATIVE -Nephrology [place] [address] DO Work Phone: RBC (U) [#/Vol] Negative NEGATIVE -Nephro [place] [address] DO Work Phone: Specific gravity (U) [Rel density] 1.009 1 See Below [facility] [place] [address] DO Work Phone: Comment on above: Reference Range: 1.0 05 - 1.035 Urinalysis Negative NEGATIVE [facility] [place] [address] DO Work Phone: Urinalysis <2.0 0.0 - 1.9 [facility] [place] [address] DO Work Phone: Urinalysis CLEAR CLEAR [facility] [place] [address] DO Work Phone: Appearance (U) Canceled -Nephrol [place] [address] DO Work Phone: Color (U) Canceled [facility] [place] [address] DO Work Phone: Glucose Ql (U) Canceled MP-Nephrol [facility] [place] [address] DO Work Phone: Ketones Ql (U) Canceled MP-Nephrol [place] [address] DO Work Phone: Leukocyte esterase Test strip Ql (U) Canceled -Nephrology [place] [address] DO Work Phone: RBC (U) [#/Vol] Canceled MP-Nephro logy -[facility] 3 DO Work Phone: Specific gravity (U) [Rel density] Canceled [place] [address] DO Work Phone: Urinalysis Canceled [place] [address] DO Work Phone: Comment on above: Concentrations > = 2 0 mg/dL of ascorbic acid can be expected to cause strong interference in the reactions testing for glucose, nitrite and blood. It is recommended to discontinue Vitamin C administration and retest in 10 hours. Urinalysis, Microscopicon Hyaline casts LM Ql (Urine sed) OCC Abnormal [place] [address] DO Work Phone: Urinalysis, Microscopic 1+ Abnormal [place] [address] DO Work Phone: Urinalysis, Microscopic <1 [place] [address] DO Work Phone: Urinalysis, Microscopic 1 {/HPF} 0-5 [place] [address] DO Work Phone: Urinalysis, Microscopic 2 {/HPF} 0-5 [place] [address] DO Work Phone: VITAMIN D, 25-HYDROXYon 04-19 VITAMIN D, 25-HYDROXY 57 ng/mL Normal [facility] Comment on above: Result Comment: . DEFICIENCY: < 20 NG/ML INSUFFICIENCY: 20-29 NG/ML SUFFICIENCY: 30-100 NG/ML THIS ASSAY ACCURATELY QUANTIFIES THE SUM OF VITAMIN D3, 25-HYDROXY AND VIT D2,25-HYDROXY. Performed By: #### V TDOH #### [address] [address] Vitamin D 25-Hydroxyon 05-07 25-hydroxyvitamin D3 [Mass/Vol] 57 ng/mL [place] [address] DO Work Phone: Comment on above: .DEFICIENCY: < 20 NG /MLINSUFFICIENCY: 20-29 NG/MLSUFFICIENCY: 30-100 NG/MLTHIS ASSAY ACCURATELY QUANTIFIES THE SUM OFVITAMIN D3, 25-HYDROXY AND VIT D2,25-HYDROXY. Initial Visit (Nephrology)on 04-26-2022 Initial Visit (Nephrology) Diagnoses/Problems HTN (hypertension) (401.9) (I10) Stage 3b chronic kidney disease (585.3) (N18.32) Hypercholesterolemia (272.0) (E78.00) History of degenerative disc disease (V13.59) (Z87.39) Orders Physical Therapy - General Referral Evaluation and Treatment Evaluate AND Treat Status: Hold For - Scheduling Requested for: [id number] Basic Metabolic Panel; Status:Active; Requested for:[id number]; Magnesium, Serum; Status:Active; Requested for:[id number]; Phosphorus, Serum; Status:Active; Requested for:[id number]; Total Protein, Urine Spot; Status:Active; Requested for:[id number]; Ultrasound Kidney Bilateral; Status:Active; Requested for:[id number]; Radiologist to Determine Optimal Study : Y What are the patient's signs and symptoms? : increase in creatinine Uric Acid, Serum; Status:Active; Requested for:[id number]; Urinalysis; Status:Active; Requested for:[id number]; Vitamin D 25-Hydroxy; Status:Active; Requested for:[id number]; Patient Discussion/Summary Issues: 1. Chronic kidney disease stage IIIb-creatinine is typically 1.3-1.5, she does have a slight increase on March 26-1., she was also having some more hypertension at that time, 2. 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 Vo Recommendation will be communicated via EMR Labs reviewed CMP with glucose of 129 Electrolytes sodium 140, potassium 4.0, chloride 104, bicarb 27 Renal function with a BUN of 31 and creatinine of 1.65 Calcium 9.5 Does appear that her creatinine has ranged from 1.3-1.4 since 2018 CBC with white count of 6.6, HANDH 14.2 and 42.8, platelets 215 Hemoglobin A1c 6.1 TSH 0.44 PTH 88.2 She had an ultrasound of her kidneys completed in June 2020 which showed echogenicity of the kidneys with mild cortical thinning suggestive of chronic kidney disease she had no postvoid residual. She has no complaints swelling Her blood pressure medicines that were recently increased by her primary care doctor as she was hypertensive in his office She does not routinely check her blood pressure at home She has some frequency and urgency and also some incontinence. She feels like this is getting a little worse She gets up several times during the night to void She does not routinely take any pain medication She does complain of some chronic back pain with discomfort that goes down her leg She also complains of constipation Review of Systems Constitutional: no fever, no chills, no recent weight gain and no recent weight loss. Eyes: no blurred vision and no diplopia. ENT: no hearing loss, no earache, no sore throat, no swollen glands in the neck and no nasal discharge. Cardiovascular: no chest pain, no palpitations and no lower extremity edema. Respiratory: no shortness of breath, no chronic cough and no shortness of breath during exertion. Gastrointestinal: no abdominal pain, no constipation, no heartburn, no vomiting, no bloody stools and no change in bowel movements. Genitourinary: no dysuria and no hematuria. Musculoskeletal: no arthralgias and no myalgias. Skin: no rashes and no skin lesions. Neurological: no headaches and no dizziness. Psychiatric: no confusion, no depression and no anxiety. Endocrine: no heat intolerance, no cold intolerance, appetite not increased, no thyroid disorder, no increased urinary frequency and no dry skin. Hematologic/Lymphatic: does not bleed easily and does not bruise easily. All other systems have been reviewed and are negative for complaint. 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 Normal [facility] Office Visit (Internal Medic ine)on 04-23-2022 Follow-up visit Diagnoses/Problems Assessed Stage 3b chronic kidney disease (585.3) (N18.32) HTN (hypertension) (401.9) (I10) MCI (mild cognitive impairment) (331.83) (G31.84) IFG (impaired fasting glucose) (790.21) (R73.01) Orders HTN (hypertension) Renew: Metoprolol Succinate ER 25 MG Oral Tablet Extended Release 24 Hour (Toprol XL); TAKE 1 TAB BID Rx By: Santhosh Peters; Dispense: 0 Days ; #:60 Tablet; Refill: 11;For: HTN (hypertension); ERUM = N; Verified Transmission to [facility]; Last Updated By: Lisbet Mohamud; 04/23/2022 2:57:39 PM MCI (mild cognitive impairment) Neurology - General Referral Evaluation and Treatment Evaluate AND Treat Status: Hold For - Scheduling Requested for: [id number] Ordered;For: MCI (mild cognitive impairment); Ordered By: Santhosh Peters Performed: Due: 22Jul2022 Patient Discussion/Summary LETTER TO DELIVER THE MAIL TO THE DOOR DUE TO HEALTH CONDITION SET UP VIISTING NURSE FOR MED MANAGEMENT F/U 4 MO CBC CMP TSH HGA1C TSH Provider Impressions AVOID NSAIDS INCREASE FLUID INTAKE MONITOR BP GOAL BP LOWER THAN 130/80 LOW SALT EXERCISE DAILY MDM 1) COMPLEXITY: 1 OR MORE CHRONIC CONDITION WITH EXACERBATION, OR PROGRESSION OR SIDE EFFECT OF TREATMENT ADDRESSED 2)DATA: TESTS INTERPRETED AND OR ORDERED, TOOK INDEPENDENT HISTORY OR RECORDS REVIEWED 3)RISK: MODERATE RISK DUE TO NATURE OF MEDICAL CONDITIONS/COMORBIDITY OR MEDICATIONS ORDERED OR SURGICAL OR PROCEDURE REFERRAL, . Chief Complaint 1 MONTH F/U BP. HYDRAZALINE D/C LAST WEEK B/C IT CASUSED BURNING OF HER LEGS AND AROUND TO HER BACK ON RIGHT SIDE. DISCUSS REFERRAL TO KIDNEY SPECIALIST AND GO OVER LABS. PT STOPPED HER PAXIL. DISCUSS HOME HEALTH NURSE TO HELP WITH MEDS (SHE HAS SOME CONFUSION WITH HER MEDS). PT NEEDS NOTE SO MAIL CAN BE DELIVERED TO HER DOOR. History of Present IllnessHERE FOR F/U DUE TO SIDE EFFECT OF HYDRALAZINE HAD TO STOP SINCE IT CAUSED LEG BURNING PAIN NEED VISITING NURSE MAIL TO BE DELIVERED DAUGHTER CONCERNS THE ,MEMORY IS GETTING WORSE PT STOPPED HER PAXIL FEELS BETTER NOW SINCE OFF HYDRALAZINE Review of Systems Constitutional: not feeling poorly, no fever, no recent weight gain and no recent weight loss. Eyes: no blurred vision and no diplopia. ENT: no hearing loss, no tinnitus, no earache, no sore throat, no hoarseness and no swollen glands in the neck. Cardiovascular: no chest pain, no tightness or heavy pressure, no shortness of breath, no palpitations and no lower extremity edema. Respiratory: no cough, not coughing up sputum and no wheezing that is consistent with asthma. Gastrointestinal: no change in bowel habits, no diarrhea, no constipation, no bloody stools, no nausea, no vomiting, no abdominal pain, no signs and symptoms of ulcer disease, no blanca colored stools and no intolerance to fatty foods. Genitourinary: no urinary frequency, no dysuria, no burning sensation during urination and no hematuria. Musculoskeletal: no arthralgias, no joint stiffness, no muscle weakness, no back pain and no difficulty walking. Skin: no rashes, no change in skin color and pigmentation, no skin lesions and no skin lumps. Neurological: no headaches, no dizziness, no seizures, no tingling, no numbness, no signs and symptoms of stroke and no limb weakness. Psychiatric: memory lapses or loss, but no confusion, no depression and no sleep disturbances. Endocrine: no goiter, no thyroid disorder, no diabetes mellitus, no excessive thirst, no dry skin, no cold intolerance, no heat intolerance and no increased urinary frequency. Hematologic/Lymphatic: is not slow to heal, does not bleed easily, does not bruise easily, no thrombophlebitis, no anemia and no history of blood transfusion. All other systems have been reviewed and are negative for complaint. 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) Encounter for colonoscopy in patient with family history of colon cancer (V76.51,V16.0) (Z12.11,Z80.0) Encounter for vaccination (V05.9) (Z23) Fatigue (780.79) (R53.83) GERD (gastroesophageal reflux disease) (530.81) (K21.9) HTN (hypertension) (401.9) (I10) Hypercholesterolemia (272.0) (E78.00) Hyperparathyroidism (252.00) (E21.3) Hypertriglyceridemia (272.1) (E78.1) IFG (impaired fasting glucose) (790.21) (R73.01) Low back pain (724.2) (M54.50) MCI (mild cognitive impairment) (331.83) (G31.84) Osteoporosis (733.00) (M81.0) Personal history of colonic polyps (V12.72) (Z86.010) Right hip pain (719.45) (M25.551) S (more content not included)... Normal [facility] Tobacco Screening.on 022 Fall risk assessment a) No falls within the last year [facility] Work Phone: Tobacco use status [facility]PH[facility] b) No [facility] Work Phone: Medicare Annual Wellness Vis iton 03-27-2022 Medicare Annual Wellness Visit *Chief Complaint MEDICARE WELLNESS WITH LABS. NO LONGER TAKING LOSARTAN History of Present Illness The patient is being seen for the subsequent annual wellness visit. Past Medical, Surgical and Family History: reviewed and updated in chart. Medications and Supplements: Review of all medications by a prescribing practitioner or clinical pharmacist (such as prescriptions, OTCs, herbal therapies and supplements) documented in the medical record. No, the patient is not using opioids. Patient Self Assessment of Health Status: good. Tobacco use: Non-User Alcohol use: Non-User Illicit drug use: Non-User Current diet: unhealthy diet. Exercise Frequency: the patient does not exercise. Depression/Suicide Screening: Patient has a current diagnosis of depression. Cognitive Impairment: Cognitive impairment was observed. Bathing: performs independently. Dressing: performs independently. Walking: performs independently. Managing Finances: performs independently. Shopping: performs independently. Managing Medications: performs independently. Housework / Basic Home Maintenance: performs independently. Falls Risk Screening:. [facility] has not fallen in the last 6 months. Home safety risk factors: none. Advance directives:. Advance Care Planning discussed and documented in the medical record, patient did not wish or was not able to name a surrogate decision maker or provide an advance care plan. Additional Information: BRING A COPY. HERE FOR F/U NO COMPLAINT WELLNESS EXAM HAS NOT BEEN ABLE TO TAKE LOSARTAN GIVE HER HEAT BURN Review of Systems Constitutional: not feeling poorly, no fever, no recent weight gain and no recent weight loss. Eyes: no blurred vision and no diplopia. ENT: no hearing loss, no tinnitus, no earache, no sore throat, no hoarseness and no swollen glands in the neck. Cardiovascular: no chest pain, no tightness or heavy pressure, no shortness of breath, no palpitations and no lower extremity edema. Respiratory: no cough, not coughing up sputum and no wheezing that is consistent with asthma. Gastrointestinal: no change in bowel habits, no diarrhea, no constipation, no bloody stools, no nausea, no vomiting, no abdominal pain, no signs and symptoms of ulcer disease, no blanca colored stools and no intolerance to fatty foods. Genitourinary: no urinary frequency, no dysuria, no burning sensation during urination and no hematuria. Musculoskeletal: no arthralgias, no joint stiffness, no muscle weakness, no back pain and no difficulty walking. Skin: no rashes, no change in skin color and pigmentation, no skin lesions and no skin lumps. Neurological: no headaches, no dizziness, no seizures, no tingling, no numbness, no signs and symptoms of stroke and no limb weakness. Psychiatric: no confusion, no memory lapses or loss, no depression and no sleep disturbances. Endocrine: no goiter, no thyroid disorder, no diabetes mellitus, no excessive thirst, no dry skin, no cold intolerance, no heat intolerance and no increased urinary frequency. Hematologic/Lymphatic: is not slow to heal, does not bleed easily, does not bruise easily, no thrombophlebitis, no anemia and no history of blood transfusion. All other systems have been reviewed and are negative for complaint. 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) Encounter for colonoscopy in patient with family history of colon cancer (V76.51,V16.0) (Z12.11,Z80.0) Encounter for vaccination (V05.9) (Z23) Fatigue (780.79) (R53.83) GERD (gastroesophageal reflux disease) (530.81) (K21.9) HTN (hypertension) (401.9) (I10) Hypercholesterolemia (272.0) (E78.00) Hyperparathyroidism (252.00) (E21.3) Hypertriglyceridemia (272.1) (E78.1) IFG (impaired fasting glucose) (790.21) (R73.01) Low back pain (724.2) (M54.50) MCI (mild cognitive impairment) (331.83) (G31.84) Osteoporosis (733.00) (M81.0) Personal history of colonic polyps (V12.72) (Z86.010) Right hip pain (719.45) (M25.551) Stage 3b chronic kidney disease (585.3) (N18.32) Tendinitis of right hip (727.09) (M76.891) Past Medical History History of Cataract, right eye (366.9) (H26.9) History of mammogram (V15.89) (Z92.89) CAT 2 History of Pap smear, low-risk (V76.2) (Z01.419) 2011 Surgical History History of Abdominal aortic dissection repair History of Cataract surgery History of Colonoscopy [address] Carolina Recommended to repeat in 3 years (2019) due to family history and personal history of polyps 02/13/2017- C (more content not included)... [facility] Tobacco Screening.on 022 Fall risk assessment a) No falls within the last year [facility] Work Phone: Tobacco use status CP b) No [facility] Work Phone: CBC AND DIFFERENTIALon 03-26 Basophils (Bld) [#/Vol] 0.10 10*3/uL Normal 0.00 - 0.10 [facility] Comment on above: Performed By: #### T PS2 #### [address] [address] Basophils/100 WBC (Bld) 1.4 % Normal 0.0 - 2.0 [facility] Comment on above: Performed By: #### T PS2 #### [address] [address] Eosinophils (Bld) [#/Vol] 0.30 10*3/uL Normal 0.00 - 0.40 [facility] Comment on above: Performed By: #### T PS2 #### [address] [address] Eosinophils/100 WBC (Bld) 5.1 % Normal 0.0 - 6.0 [facility] Comment on above: Performed By: #### T PS2 #### [address] [address] Erythrocyte distribution width (RBC) [Ratio] 13.2 % Normal 11.5 - 14.5 [facility] Comment on above: Performed By: #### T PS2 #### [address] [address] Hematocrit (Bld) [Volume fraction] 42.8 % Normal 36.0 - 46.0 [facility] Comment on above: Performed By: #### T PS2 #### [address] [address] Hemoglobin (Bld) [Mass/Vol] 14.2 g/dL Normal 12.0 - 16.0 [facility] Comment on above: Performed By: #### T PS2 #### [address] [address] Lymphocytes (Bld) [#/Vol] 2.10 10*3/uL Normal 0.80 - 3.00 [facility] Comment on above: Performed By: #### T PS2 #### [address] [address] Lymphocytes/100 WBC (Bld) 31.2 % Normal 13.0 - 44.0 [facility] Comment on above: Performed By: #### T PS2 #### [address] [address] MCHC (RBC) [Mass/Vol] 33.3 g/dL Normal 32.0 - 36.0 [facility] Comment on above: Performed By: #### T PS2 #### [address] [address] MCV (RBC) [Entitic vol] 90 fL Normal 80 - 100 [facility] Comment on above: Performed By: #### T PS2 #### [address] [address] Monocytes (Bld) [#/Vol] 0.50 10*3/uL Normal 0.05 - 0.80 [facility] Comment on above: Performed By: #### T PS2 #### [address] [address] Monocytes/100 WBC (Bld) 7.9 % Normal 2.0 - 10.0 [facility] Comment on above: Performed By: #### T PS2 #### [address] [address] Neutrophils (Bld) [#/Vol] 3.60 10*3/uL Normal 1.60 - 5.50 [facility] Comment on above: Result Comment: Perc ent differential counts (%) should be interpreted in the context of the absolute cell counts (cells/L). Performed By: #### T PS2 #### [address] [address] Neutrophils/100 WBC (Bld) 54.4 % Normal 40.0 - 80.0 [facility] Comment on above: Performed By: #### T PS2 #### [address] [address] NUCLEATED RBC 0.1 /100 WBC Normal [facility] Comment on above: Performed By: #### T PS2 #### [address] [address] Platelets (Bld) [#/Vol] 215 10*3/uL Normal 150 - 450 [facility] Comment on above: Performed By: #### T PS2 #### [address] [address] RBC 4.75 x10E12/L Normal 4.00 - 5.20 [facility] Comment on above: Performed By: #### T PS2 #### [address] [address] WBC (Bld) [#/Vol] 6.6 10*3/uL Normal 4.4 - 11.3 [facility] Comment on above: Performed By: #### T PS2 #### [address] [address] COMPREHENSIVE PANELon 2021 Albumin [Mass/Vol] 4.4 g/dL Normal 3.4 - 5.0 [facility] Comment on above: Performed By: #### T PS2 #### [address] [address] ALP [Catalytic activity/Vol] 56 U/L Normal 33 - 136 [facility] Comment on above: Performed By: #### T PS2 #### [address] [address] ALT [Catalytic activity/Vol] 17 U/L Normal 7 - 45 [facility] Comment on above: Result Comment: Kay ents treated with Sulfasalazine may generate falsely decreased results for ALT. Performed By: #### T PS2 #### [address] [address] Anion gap [Moles/Vol] 13 mmol/L Normal 10 - 20 [facility] Comment on above: Performed By: #### T PS2 #### [address] [address] AST [Catalytic activity/Vol] 19 U/L Normal 9 - 39 [facility] Comment on above: Performed By: #### T PS2 #### [address] [address] Bilirubin [Mass/Vol] 0.6 mg/dL Normal 0.0 - 1.2 [facility] Comment on above: Performed By: #### T PS2 #### [address] [address] Calcium [Mass/Vol] 9.5 mg/dL Normal 8.6 - 10.3 [facility] Comment on above: Performed By: #### T PS2 #### [address] [address] Chloride [Moles/Vol] 104 mmol/L Normal 98 - 107 [facility] Comment on above: Performed By: #### T PS2 #### [address] [address] Creatinine [Mass/Vol] 1.65 mg/dL High 0.50 - 1.05 [facility] Comment on above: Performed By: #### T PS2 #### [address] [address] GFR/1.73 sq M.predicted among non-blacks MDRD (S/P/Bld) [Vol rate/Area] 30 mL/min/{1.73_m2} Abnormal >90 [facility] Comment on above: Result Comment: CALC ULATIONS OF ESTIMATED GFR ARE PERFORMED USING THE 2020 CKD-EPI STUDY REFIT EQUATION WITHOUT THE RACE VARIABLE FOR THE IDMS-TRACEABLE CREATININE METHODS. https://jasn.asnjournals.org/content/early/ASN.51937689 88 Performed By: #### T PS2 #### [address] [address] Glucose [Mass/Vol] 129 mg/dL High 74 - 99 [facility] Comment on above: Performed By: #### T PS2 #### [address] [address] HCO3 (Bld) [Moles/Vol] 27 mmol/L Normal 21 - 32 [facility] Comment on above: Performed By: #### T PS2 #### [address] [address] Potassium [Moles/Vol] 4.0 mmol/L Normal 3.5 - 5.3 [facility] Comment on above: Performed By: #### T PS2 #### [address] [address] Protein [Mass/Vol] 7.0 g/dL Normal 6.4 - 8.2 [facility] Comment on above: Performed By: #### T PS2 #### [address] [address] Sodium [Moles/Vol] 140 mmol/L Normal 136 - 145 [facility] Comment on above: Performed By: #### T PS2 #### [place] [address] [place] [address] Urea nitrogen [Mass/Vol] 31 mg/dL High 6 - 23 [facility] Comment on above: Performed By: #### T PS2 #### [place] [place] [address] Complete Blood Count + Diffe jose 03-26-2022 Basophils/100 WBC (Bld) 1.4 % 0.0 - 2.0 [facility] Work Phone: Erythrocyte distribution width (RBC) [Ratio] 13.2 % See Below [facility] Work Phone: Comment on above: Reference Range: 11. 5 - 14.5 Hematocrit (Bld) [Volume fraction] 42.8 % See Below [facility] Work Phone: Comment on above: Reference Range: 36. 0 - 46.0 Hemoglobin (Bld) [Mass/Vol] 14.2 g/dL See Below [facility] Work Phone: Comment on above: Reference Range: 12. 0 - 16.0 Lymphocytes/100 WBC (Bld) 31.2 % See Below [facility] Work Phone: Comment on above: Reference Range: 13. 0 - 44.0 MCHC (RBC) [Mass/Vol] 33.3 g/dL See Below [facility] Work Phone: Comment on above: Reference Range: 32. 0 - 36.0 MCV (RBC) [Entitic vol] 90 fL 80 - 100 [facility] Work Phone: Monocytes/100 WBC (Bld) 7.9 % 2.0 - 10.0 [facility] Work Phone: Neutrophils/100 WBC (Bld) 54.4 % See Below [facility] Work Phone: Comment on above: Reference Range: 40. 0 - 80.0 Platelets (Bld) [#/Vol] 215 10*3/uL 150 - 450 [facility] Work Phone: RBC (Bld) [#/Vol] 4.75 {x10E12/L} See Below [facility] Work Phone: Comment on above: Reference Range: 4.0 0 - 5.20 WBC (Bld) [#/Vol] 6.6 10*3/uL 4.4 - 11.3 [facility] Work Phone: Complete Blood Count + Differential 0.10 {x10E9/L} See Below [facility] Work Phone: Comment on above: Reference Range: 0.0 0 - 0.10 Complete Blood Count + Differential 0.30 {x10E9/L} See Below [facility] Work Phone: Comment on above: Reference Range: 0.0 0 - 0.40 Complete Blood Count + Differential 0.50 {x10E9/L} See Below [facility] Work Phone: Comment on above: Reference Range: 0.0 5 - 0.80 Complete Blood Count + Differential 2.10 {x10E9/L} See Below [facility] Work Phone: Comment on above: Reference Range: 0.8 0 - 3.00 Complete Blood Count + Differential 3.60 {x10E9/L} See Below [facility] Work Phone: Comment on above: Reference Range: 1.6 0 - 5.50 Percent differential counts (%) should be interpreted in the context of the absolute cell counts (cells/L). Complete Blood Count + Differential 5.1 % 0.0 - 6.0 [facility] Work Phone: Complete Blood Count + Differential 0.1 {/100_WBC} [facility] Work Phone: HEMOGLOBIN A1Con 03-26-2022 Glucose [Mass/Vol] 128 mg/dL Normal [facility] Comment on above: Performed By: #### T PS2 #### [id number] [place] [address] HbA1c (Bld) [Mass fraction] 6.1 % Abnormal [facility] Comment on above: Result Comment: Diag nosis of Diabetes-Adults Non-Diabetic: < or = 5.6% Increased risk for developing diabetes: 5.7-6.4% Diagnostic of diabetes: > or = 6.5% . Monitoring of Diabetes Age (y) Therapeutic Goal (%) Adults: >18 <7.0 Pediatrics: 13-18 <7.5 7-12 <8.0 0- 6 7.5-8.5 [place] [employer]. Diabetes Care 33(S1), Oct 2009. Performed By: #### T PS2 #### [address] [address] Hemoglobin A1Con 03-26-2022 Glucose [Mass/Vol] 128 mg/dL [facility] Work Phone: HbA1c (Bld) [Mass fraction] 6.1 % Abnormal [facility] Work Phone: Comment on above: Diagnosis of Diabete s-Adults Non-Diabetic: < or = 5.6% Increased risk for developing diabetes: 5.7-6.4% Diagnostic of diabetes: > or = 6.5%. Monitoring of Diabetes Age (y) Therapeutic Goal (%) Adults: >18 <7.0 Pediatrics: 13-18 <7.5 7-12 <8.0 0- 6 7.5-8.5 [place] [employer]. Diabetes Care 33(S1), Oct 2009. Laboratory - Chemistry and C hemistry - challengeon 03-26-2022 Albumin BCP dye [Mass/Vol] 4.4 g/dL 3.4 - 5.0 [facility] Work Phone: ALP [Catalytic activity/Vol] 56 U/L 33 - 136 [facility] Work Phone: ALT With P-5'-P [Catalytic activity/Vol] 17 U/L 7 - 45 [facility] Work Phone: Comment on above: Patients treated wit h Sulfasalazine may generate falsely decreased results for ALT. Anion gap [Moles/Vol] 13 mmol/L 10 - 20 [facility] Work Phone: AST With P-5'-P [Catalytic activity/Vol] 19 U/L 9 - 39 [facility] Work Phone: Bilirubin [Mass/Vol] 0.6 mg/dL 0.0 - 1.2 [facility] Work Phone: Calcium [Mass/Vol] 9.5 mg/dL 8.6 - 10.3 [facility] Work Phone: Chloride [Moles/Vol] 104 mmol/L 98 - 107 [facility] Work Phone: CO2 [Moles/Vol] 27 mmol/L 21 - 32 [facility] Work Phone: Creatinine [Mass/Vol] 1.65 mg/dL above high threshold See Below [facility] Work Phone: Comment on above: Reference Range: 0.5 0 - 1.05 Glucose [Mass/Vol] 129 mg/dL above high threshold 74 - 99 [facility] Work Phone: Potassium [Moles/Vol] 4.0 mmol/L 3.5 - 5.3 [facility] Work Phone: Protein [Mass/Vol] 7.0 g/dL 6.4 - 8.2 [facility] Work Phone: Sodium [Moles/Vol] 140 mmol/L 136 - 145 [facility] Work Phone: TSH Qn 0.44 m[IU]/L See Below [facility] Work Phone: Comment on above: Reference Range: 0.4 4 - 3.98 TSH testing is performed using different testing methodology at [facility] than at other [facility]. Direct result comparisons should only be made within the same method. Urea nitrogen [Mass/Vol] 31 mg/dL above high threshold 6 - 23 [facility] Work Phone: No Panel Informationon 03-26 30 {mL/min/1.73m2} Abnormal >90 [facility] Work Phone: Comment on above: CALCULATIONS OF IVONNE MATED GFR ARE PERFORMED USING THE 2020 CKD-EPI STUDY REFIT EQUATION WITHOUT THE RACE VARIABLE FOR THE IDMS-TRACEABLE CREATININE METHODS.https://jasn.asnjournals.org/content/early/ASN. 2849586478 PARATHYROID HORMONE,INTACTon 03-26-2022 PARATHYROID HORMONE,INTACT 88.2 pg/mL High 18.5 - 88.0 [facility] Comment on above: Performed By: #### P HOS #### [address] [address] Parathormone Intact, Serumon 03-26-2022 Parathyrin.intact [Mass/Vol] 88.2 pg/mL above high threshold See Below [facility] Work Phone: Comment on above: Reference Range: 18. 5 - 88.0 TSH WITH REFLEX TO FREE T4 I F ABNORMALon 03-26-2022 TSH Qn 0.44 m[IU]/L Normal 0.44 - 3.98 [facility] Comment on above: Result Comment: TSH testing is performed using different testing methodology at [facility] than at [facility]. Direct result comparisons should only be made within the same method. Performed By: #### T PS2 #### [address] [address] Office Visit (Internal Medic ine)on 12-19-2021 Follow-up visit Diagnoses/Problems Assessed HTN (hypertension) (401.9) (I10) Adult onset hypothyroidism (244.8) (E03.8) Patient Discussion/Summary F/U BEFORE Provider Impressions MONITOR BP GOAL BP LOWER THAN 130/80 LOW SALT EXERCISE DAILY BP AT HOME HAS BEEN VERY GOOD, HAS A LOG MEDS REVIEWED AND DISCUSSED WITH PT TO CONT. SAME Chief Complaint PT WANTS TO DISCUSS HER MEDICATIONS POSSIBLY GETTING SOME DC'D SHE IS UNSURE OF THE BEST TIME TO TAKE THEM History of Present IllnessHERE TO DISCUSS MEDS FEELS FINE Review of Systems Constitutional: not feeling poorly, no fever, no recent weight gain and no recent weight loss. Eyes: no blurred vision and no diplopia. ENT: no hearing loss, no tinnitus, no earache, no sore throat, no hoarseness and no swollen glands in the neck. Cardiovascular: no chest pain, no tightness or heavy pressure, no shortness of breath, no palpitations and no lower extremity edema. Respiratory: no cough, not coughing up sputum and no wheezing that is consistent with asthma. Gastrointestinal: no change in bowel habits, no diarrhea, no constipation, no bloody stools, no nausea, no vomiting, no abdominal pain, no signs and symptoms of ulcer disease, no blanca colored stools and no intolerance to fatty foods. Genitourinary: no urinary frequency, no dysuria, no burning sensation during urination and no hematuria. Musculoskeletal: no arthralgias, no joint stiffness, no muscle weakness, no back pain and no difficulty walking. Skin: no rashes, no change in skin color and pigmentation, no skin lesions and no skin lumps. Neurological: no headaches, no dizziness, no seizures, no tingling, no numbness, no signs and symptoms of stroke and no limb weakness. Psychiatric: no confusion, no memory lapses or loss, no depression and no sleep disturbances. Endocrine: no goiter, no thyroid disorder, no diabetes mellitus, no excessive thirst, no dry skin, no cold intolerance, no heat intolerance and no increased urinary frequency. Hematologic/Lymphatic: is not slow to heal, does not bleed easily, does not bruise easily, no thrombophlebitis, no anemia and no history of blood transfusion. All other systems have been reviewed and are negative for complaint. 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) Encounter for colonoscopy in patient with family history of colon cancer (V76.51,V16.0) (Z12.11,Z80.0) Encounter for vaccination (V05.9) (Z23) Fatigue (780.79) (R53.83) GERD (gastroesophageal reflux disease) (530.81) (K21.9) HTN (hypertension) (401.9) (I10) Hypercholesterolemia (272.0) (E78.00) Hyperparathyroidism (252.00) (E21.3) Hypertriglyceridemia (272.1) (E78.1) IFG (impaired fasting glucose) (790.21) (R73.01) Low back pain (724.2) (M54.50) MCI (mild cognitive impairment) (331.83) (G31.84) Osteoporosis (733.00) (M81.0) Personal history of colonic polyps (V12.72) (Z86.010) Right hip pain (719.45) (M25.551) Stage 3b chronic kidney disease (585.3) (N18.32) Tendinitis of right hip (727.09) (M76.891) Past Medical History Problems History of Cataract, right eye (366.9) (H26.9) History of mammogram (V15.89) (Z92.89) CAT 2 History of Pap smear, low-risk (V76.2) (Z01.419) 2011 Surgical History Problems History of Abdominal aortic dissection repair History of Cataract surgery History of Colonoscopy 2013, [address] Carolina Recommended to repeat in 3 years (2019) due to family history and personal history of polyps 02/13/2017- Colonoscopy findings Cecum identified by: ileo-cecal valve, Transillumination, PHOTO TAKEN, Cecum was normal, Ascending colon was normal, Transverse colon was normal, Descending colon was normal, SIGMOID REVEALED MILD UNCOMPLICATED DIVERTICULOSIS, Rectum was normal, Retroflex rectum was normal. Impression and Plan Diagnosis Colonic diverticular disease ([id number] K57.30, Discharge, Medical). Personal history of colonic polyps 17-NOV-2013 12:29:57<$> ([id number] Z86.010, Discharge, Medical). Orders High fiber diet. Repeat colonoscopy in 3 years. History of Lumpectomy Family History Mother Family history of cerebrovascular accident (CVA) (V17.1) (Z82.3) in her 70s Family history of type 2 diabetes mellitus (V18.0) (Z83.3) Father Family history of cardiac disorder (V17.49) (Z82.49) at 57 of an [place] Son Family history of multiple sclerosis (V17.2) (Z82.0) Sister Family history of malignant neoplasm (V16.9) (Z80.9) Brother Family history of malig (more content not included)... 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) Orders HTN (hypertension) Renew: amLODIPine Besylate 10 MG Oral Tablet; TAKE 1 TABLET DAILY Rx By: Santhosh Peters; Dispense: 30 Days ; #:90 Tablet; Refill: 3;For: HTN (hypertension); ERUM = N; Sent To: [facility] Renew: Losartan Potassium 100 MG Oral Tablet (Cozaar); TAKE 1 TABLET DAILY Rx By: Santhosh Peters; Dispense: 90 Days ; #:90 Tablet; Refill: 3;For: HTN (hypertension); ERUM = N; Sent To: [facility] Renew: Metoprolol Succinate ER 25 MG Oral Tablet Extended Release 24 Hour (Toprol XL); Take 1 tablet daily Rx By: Santhosh Peters; Dispense: 90 Days ; #:90 Tablet; Refill: 3;For: HTN (hypertension); ERUM = N; Sent To: [facility] Patient Discussion/Summary F/U 4 MO CMP PTH CBC HGA1C Provider Impressions MONITOR BP GOAL BP LOWER THAN 130/80 LOW SALT EXERCISE DAILY MDM 1) COMPLEXITY: MORE THAN 1 STABLE CHRONIC CONDITION ADDRESSED 2)DATA: TESTS INTERPRETED AND OR ORDERED, TOOK INDEPENDENT HISTORY OR RECORDS REVIEWED 3)RISK: MODERATE RISK DUE TO NATURE OF MEDICAL CONDITIONS/COMORBIDITY OR MEDICATIONS ORDERED OR SURGICAL OR PROCEDURE REFERRAL, . Chief Complaint 6 MO FU LAB NOT DONE NO NEW CO TODAY PT NOT TAKING PAXIL STATES SHE DOESN'T NEED IT Adult Risk Screening Advance Care Planning discussed and documented in the medical record, patient did not wish or was not able to name a surrogate decision maker or provide an advance care plan. Requested patient bring documents again on next visit. History of Present Illness HERE FOR F/U NO COMPLAINT Review of Systems Constitutional: not feeling poorly, no fever, no recent weight gain and no recent weight loss. Eyes: no blurred vision and no diplopia. ENT: no hearing loss, no tinnitus, no earache, no sore throat, no hoarseness and no swollen glands in the neck. Cardiovascular: no chest pain, no tightness or heavy pressure, no shortness of breath, no palpitations and no lower extremity edema. Respiratory: no cough, not coughing up sputum and no wheezing that is consistent with asthma. Gastrointestinal: no change in bowel habits, no diarrhea, no constipation, no bloody stools, no nausea, no vomiting, no abdominal pain, no signs and symptoms of ulcer disease, no blanca colored stools and no intolerance to fatty foods. Genitourinary: no urinary frequency, no dysuria, no burning sensation during urination and no hematuria. Musculoskeletal: no arthralgias, no joint stiffness, no muscle weakness, no back pain and no difficulty walking. Skin: no rashes, no change in skin color and pigmentation, no skin lesions and no skin lumps. Neurological: no headaches, no dizziness, no seizures, no tingling, no numbness, no signs and symptoms of stroke and no limb weakness. Psychiatric: no confusion, no memory lapses or loss, no depression and no sleep disturbances. Endocrine: no goiter, no thyroid disorder, no diabetes mellitus, no excessive thirst, no dry skin, no cold intolerance, no heat intolerance and no increased urinary frequency. Hematologic/Lymphatic: is not slow to heal, does not bleed easily, does not bruise easily, no thrombophlebitis, no anemia and no history of blood transfusion. All other systems have been reviewed and are negative for complaint. 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) Allergic rhinitis (477.9) (J30.9) Anxiety and depression (300.00,311) (F41.9,F32.A) Breast cancer screening (V76.10) (Z12.39) Cataract, right (366.9) (H26.9) AND STENT Chronic constipation (564.00) (K59.09) Chronic kidney disease (585.9) (N18.9) Cramp in lower leg (729.82) (R25.2) Diverticular disease (562.10) (K57.90) Encounter for colonoscopy in patient with family history of colon cancer (V76.51,V16.0) (Z12.11,Z80.0) Encounter for vaccination (V05.9) (Z23) Fatigue (780.79) (R53.83) GERD (gastroesophageal reflux disease) (530.81) (K21.9) HTN (hypertension) (401.9) (I10) Hypercholesterolemia (272.0) (E78.00) Hyperparathyroidism (252.00) (E21.3) Hypertriglyceridemia (272.1) (E78.1) IFG (impaired fasting glucose) (790.21) (R73.01) Low back pain (724.2) (M54.50) MCI (mild cognitive impairment) (331.83) (G31.84) Osteoporosis (733.00) (M81.0) Personal history of colonic polyps (V12.72) (Z86.010) Right hip pain (719.45) (M25.551) Stage 3b chronic kidney disease (585.3) (N18.32) Tendinitis of right hip (727.09) (M76.891) Past Medical History Problems History of Cataract, right eye (366.9) (H26.9) History of mammogram (V15.89) (Z92.89) CAT 2 History of Pap smear, low-risk (V76.2) (Z01.419) 2011 Surgical History Problems History of Abdomin (more content not included)... Normal [facility] Tobacco Screening.on 022 Fall risk assessment a) No falls within the last year [facility] Work Phone: Tobacco use status [facility] b) No [facility] Work Phone: Tobacco Screening.on 021 Fall risk assessment a) No falls within the last year [facility] Work Phone: Tobacco use status [facility] b) No [facility] Work Phone: No Panel Informationon 07-05 [facility] Work Phone: [email or web address] pro [email or web address] ?={[id number] [id number]} [facility] Work Phone: Tobacco Screening.on 021 Fall risk assessment a) No falls within the last year [facility] Work Phone: Tobacco use status [facility] b) No [facility] Work Phone: Hemoglobin A1Con 06-01-2021 Glucose [Mass/Vol] 134 mg/dL [facility] Work Phone: HbA1c (Bld) [Mass fraction] 6.3 % [facility] Work Phone: Comment on above: Diagnosis of Diabete s-Adults Non-Diabetic: < or = 5.6% Increased risk for developing diabetes: 5.7-6.4% Diagnostic of diabetes: > or = 6.5%. Monitoring of Diabetes Age (y) Therapeutic Goal (%) Adults: >18 <7.0 Pediatrics: 13-18 <7.5 7-12 <8.0 0- 6 7.5-8.5 [place] [employer]. Diabetes Care 33(S1), Oct 2009. Laboratory - Chemistry and C hemistry - challengeon 06-01-2021 Albumin BCP dye [Mass/Vol] 4.4 g/dL 3.4 - 5.0 [facility] Work Phone: ALP [Catalytic activity/Vol] 62 U/L 33 - 136 [facility] Work Phone: ALT With P-5'-P [Catalytic activity/Vol] 16 U/L 7 - 45 [facility] Work Phone: Comment on above: Patients treated wit h Sulfasalazine may generate falsely decreased results for ALT. Anion gap [Moles/Vol] 12 mmol/L 10 - 20 [facility] Work Phone: AST With P-5'-P [Catalytic activity/Vol] 20 U/L 9 - 39 [facility] Work Phone: Bilirubin [Mass/Vol] 0.6 mg/dL 0.0 - 1.2 [facility] Work Phone: Calcium [Mass/Vol] 10.1 mg/dL 8.6 - 10.3 [facility] Work Phone: Chloride [Moles/Vol] 104 mmol/L 98 - 107 [facility] Work Phone: CO2 [Moles/Vol] 28 mmol/L 21 - 32 [facility] Work Phone: Creatinine [Mass/Vol] 1.41 mg/dL above high threshold See Below [facility] Work Phone: Comment on above: Reference Range: 0.5 0 - 1.05 Glucose [Mass/Vol] 111 mg/dL above high threshold 74 - 99 [facility] Work Phone: Potassium [Moles/Vol] 4.1 mmol/L 3.5 - 5.3 [facility] Work Phone: Protein [Mass/Vol] 7.2 g/dL 6.4 - 8.2 [facility] Work Phone: Sodium [Moles/Vol] 140 mmol/L 136 - 145 [facility] Work Phone: TSH Qn 1.20 m[IU]/L See Below [facility] Work Phone: Comment on above: Reference Range: 0.4 4 - 3.98 TSH testing is performed using different testing methodology at [facility] than at [facility]. Direct result comparisons should only be made within the same method. Urea nitrogen [Mass/Vol] 23 mg/dL 6 - 23 [facility] Work Phone: No Panel Informationon 06-01 42 {mL/min/1.73m2} Abnormal >60 [facility] Work Phone: Comment on above: CALCULATIONS OF IVONNE MATED GFR ARE PERFORMED USING THE MDRD STUDY EQUATION FOR THE IDMS-TRACEABLE CREATININE METHODS. CLIN CHEM 2007;53:766-72 35 {mL/min/1.73m2} Abnormal >60 [facility] Work Phone: Tobacco Screening.on 021 Fall risk assessment a) No falls within the last year [facility] Work Phone: Tobacco use status [facility] b) No [facility] Work Phone: Cult, Urineon 04-25-2021 Bacteria identified Cx Nom (U) [facility] Work Phone: IO UA (automated w/o microsc opy)on 04-25-2021 Protein (U) [Mass/Vol] Trace [facility] Work Phone: IO UA (automated w/o microscopy) Trace [facility] Work Phone: IO UA (automated w/o microscopy) Negative [facility] Work Phone: IO UA (automated w/o microscopy) Normal (0.2-1.0 mg/dl) [facility] Work Phone: IO UA (automated w/o microscopy) 6.0 1 [facility] Work Phone: IO UA (automated w/o microscopy) 1.025 1 [facility] Work Phone: IO UA (automated w/o microscopy) (+)small - 15 [facility] Work Phone: IO UA (automated w/o microscopy) Clear [facility] Work Phone: IO UA (automated w/o microscopy) Yellow [facility] Work Phone: No Panel Informationon 04-25 Normal [facility] Work Phone: Please click on the link to view the study images Normal [facility] Work Phone: Tobacco Screening.on 021 Fall risk assessment b) One or more falls in the last year [facility] Work Phone: Tobacco use status [facility] b) No [facility] Work Phone: Mamm - Screening Mammogram w / Tomosynthesison 08-14-2020 MG Breast screening Interpreted by: JACK LOPEZ08/15/20 09:44MRN: [id number] Name: DUKE ACOSTA STUDY:Digital mammography screening with edgar; 08/14/2020 2:22 pm ORDERING CLINICIAN:SANTHOSH PETERS INDICATION:Screening. COMPARISON:Comparison is made to prior digital mammograms dated1 FINDINGS:CC and MLO 2D digital mammograms and digital breast tomosynthesisimages were obtained of the bilateral breasts. 3-D volume imageswere reconstructed in 4 views at an independent workstation as 1 mmslices through the breasts in both the CC and MLO projections. There are areas of scattered fibroglandular tissue. Scattereddystrophic calcifications are seen bilaterally, similar to priorstudies. No discrete mass or focal asymmetry is identified. Nosuspicious microcalcifications or foci of architectural distortionare seen. There has been no significant change. This study was interpreted with CAD. IMPRESSION:No mammographic evidence of malignancy. BI-RADS CATEGORY: Category: 2 - Benign.Recommendation: 1 Year Screening.Electronicall y signed by: JACK LOPEZ 08/15/20 09:44 Normal [facility] Work Phone: Otheron 08-09-2020 US Thyroid gland Interpreted by: LILIA JONAS08/09/20 11:57MRN: [id number] Name: DUKE ACOSTA STUDY:US THYROID; 08/09/2020 10:50 am INDICATION:PAIN. COMPARISON:None. ORDERING CLINICIAN:SANTHOSH PETERS TECHNIQUE:Multiple ultrasonographic images of the thyroid gland were obtained. FINDINGS: RIGHT LOBE:The right lobe measures 2.2 x 0.7 x 0.9 cm. The echogenicity ishomogeneous. No mass lesion. LEFT LOBE:The left lobe measures 2.3 x 0.6 x 1 cm without any focal masslesion. The echogenicity is similar to the contralateral side. ISTHMUS:The isthmus measures approximately 1 mm and is homogeneous inechotexture and without any identifiable nodules. The parathyroid glands were not visualized IMPRESSION:Small size of thyroid. No thyroid nodules.Electronically signed by: TANVIR JONAS 08/09/20 11:57 Normal [facility] Work Phone: Comment on above: ORDER REVISED TO A [facility] THYROID BY RADIOLOGIST; Original Order Number: [id number] Metabolic Panelon 07-28-2020 Anion gap [Moles/Vol] 12 mmol/L 10 - [facility] Work Phone: Calcium [Mass/Vol] 9.2 mg/dL 8.6 - 10.3 [facility] Work Phone: Chloride [Moles/Vol] 105 mmol/L 98 - 107 [facility] Work Phone: CO2 [Moles/Vol] 26 mmol/L 21 - 32 [facility] Work Phone: Creatinine [Mass/Vol] 1.33 mg/dL above high threshold See Below [facility] Work Phone: Comment on above: Reference Range: 0.5 0 - 1.05 Glucose [Mass/Vol] 126 mg/dL above high threshold 74 - 99 [facility] Work Phone: Potassium [Moles/Vol] 4.1 mmol/L 3.5 - 5.3 [facility] Work Phone: Sodium [Moles/Vol] 139 mmol/L 136 - 145 [facility] Work Phone: Urea nitrogen [Mass/Vol] 24 mg/dL above high threshold 6 - 23 [facility] Work Phone: Otheron 07-28-2020 Interpreted by: REINA STEWART07/28/20 16:18MRN: [id number] Name: DUKE ACOSTA STUDY:BONE DENSITY, DEXA 1 OR MORE SITES: AXIAL SKELETN; 07/28/2020 12:57 pm INDICATION:HYPERTHYROID ISM RIGHT HIP PAIN. Evaluate for osteopenia/osteoporosis , COMPARISON:None. ORDERING CLINICIAN:SANTHOSH PETERS FINDINGS:Standard measurements were obtained utilizing an [employer] X-rayAbsorptiometry bone densitometer. Data obtained includes planar bonedensity measurements over the left hip and lumbar spine and leftforearm. Comparison of measured data and standardized mean data for [facility] adult population (when peak bone mass occurs) results in a Tscore. This represents the number of standard deviations above orbelow the mean of a young adult population. Comparison of measureddata to standards from an age-adjusted population similarly yields aZ score. Left hip Bone density: 0.635 g/cm2 T score: - 2.5. Fracture risk is high. Z Score: - 0.2 Lumbar Spine (L1-3) Bone density: 0.950 g/cm2 T Score: - 0.6 Z Score: 2.2 Left forearm Bone density: 0.403 g/cm2 T Score: - 3.2. Fracture risk is high. Z Score: 0.6 World Health Organization (WHO) criteria defines normal bone densityas that which is less than 1 standard deviation below the mean of [facility] adult population. Osteopenia is defined as a measured bonedensity that is between 1 and 2.5 standard deviations below the meanof a young adult population. Osteoporosis is defined as a measuredbone density that is greater than or equal to 2.5 standard deviationsbelow the mean of a young adult population. IMPRESSION:According to World Health Organization criteria, bone mineral densityof the left hip is osteoporotic and lumbar spine is within normallimits and left forearm is osteoporotic. The patient is at high riskfor fracture . Electronically signed by: REINA STEWART 07/28/20 16:18 Normal [facility] Work Phone: Comment on above: ORDER REVISED TO A B ONE DENSITY, DEXA 1 OR MORE SITES: AXIAL SKELETON BY RADIOLOGIST; Original Order Number: [id number] 46 {mL/min/1.73m2} Abnormal >60 [facility] Work Phone: Comment on above: CALCULATIONS OF IVONNE MATED GFR ARE PERFORMED USING THE MDRD STUDY EQUATION FOR THE IDMS-TRACEABLE CREATININE METHODS. CLIN CHEM 2007;53:766-72 38 {mL/min/1.73m2} Abnormal >60 [facility] Work Phone: Vitamin D 25-Hydroxyon 07-28 Calcidiol [Mass/Vol] 67 ng/mL [facility] Work Phone: Comment on above: .DEFICIENCY: < 20 NG /MLINSUFFICIENCY: 20-29 NG/MLSUFFICIENCY: 30-100 NG/MLTHIS ASSAY ACCURATELY QUANTIFIES THE SUM OFVITAMIN D3, 25-HYDROXY AND VIT D2,25-HYDROXY. Otheron 07-17-2020 Kidney - bilateral Interpreted by: RADHA RILEY MLIWVY75/29/20 12:11MRN: [id number] Name: FOSTERFRANCESCADUKE Ortiz STUDY:US RENAL BILAT; 07/17/2020 3:31 pm INDICATION:PAIN. COMPARISON:01/30/2018 ORDERING CLINICIAN:SANTHOSH PETERS TECHNIQUE:Multiple images of the kidneys were obtained . FINDINGS:RIGHT KIDNEY:Mild cortical thinning with echogenic cortex. 12 mm peripelvic cyst.No hydronephrosis. 7.3 cm in cephalocaudal length.Visualized portion of the liver appears echogenic. LEFT KIDNEY:Mild cortical thinning with echogenic cortex. No hydronephrosis. 8.0cm in cephalocaudal length. BLADDER:Prevoid volume 516 mL. Postvoid residual 5 mL. IMPRESSION:Echogenic kidneys with mild cortical thinning suggesting chronicmedical renal disease. No hydronephrosis. Partially imaged findings suggesting hepatic steatosis.Electronicall y signed by: RADHA SUAREZ 07/18/20 12:11 Normal [facility] Work Phone: Comment on above: ORDER REVISED TO A [facility] RENAL BILAT BY RADIOLOGIST; Original Order Number: [id number] Hemoglobin A1Con 06-22-2020 Glucose [Mass/Vol] 134 mg/dL [facility] Work Phone: HbA1c (Bld) [Mass fraction] 6.3 % [facility] Work Phone: Comment on above: Diagnosis of Diabete s-Adults Non-Diabetic: < or = 5.6% Increased risk for developing diabetes: 5.7-6.4% Diagnostic of diabetes: > or = 6.5%. Monitoring of Diabetes Age (y) Therapeutic Goal (%) Adults: >18 <7.0 Pediatrics: 13-18 <7.5 7-12 <8.0 0- 6 7.5-8.5 [place] [employer]. Diabetes Care 33(S1), Oct 2009. Laboratory - Chemistry and C hemistry - challengeon 06-22-2020 Albumin BCP dye [Mass/Vol] 4.5 g/dL 3.4 - 5.0 [facility] Medicine Work Phone: ALP [Catalytic activity/Vol] 54 U/L 33 - 136 [facility] Work Phone: ALT With P-5'-P [Catalytic activity/Vol] 22 U/L 7 - 45 [facility] Work Phone: Comment on above: Patients treated wit h Sulfasalazine may generate falsely decreased results for ALT. Anion gap [Moles/Vol] 11 mmol/L 10 - 20 [facility] Work Phone: AST With P-5'-P [Catalytic activity/Vol] 19 U/L 9 - 39 [facility] Work Phone: Bilirubin [Mass/Vol] 0.4 mg/dL 0.0 - 1.2 [facility] Work Phone: Calcium [Mass/Vol] 9.7 mg/dL 8.6 - 10.3 [facility] Work Phone: Chloride [Moles/Vol] 104 mmol/L 98 - 107 [facility] Work Phone: CO2 [Moles/Vol] 28 mmol/L 21 - 32 [facility] Work Phone: Creatinine [Mass/Vol] 1.37 mg/dL above high threshold See Below [facility] Work Phone: Comment on above: Reference Range: 0.5 0 - 1.05 Glucose [Mass/Vol] 125 mg/dL above high threshold 74 - 99 [facility] Work Phone: Potassium [Moles/Vol] 4.1 mmol/L 3.5 - 5.3 [facility] Work Phone: Protein [Mass/Vol] 7.2 g/dL 6.4 - 8.2 [facility] Work Phone: Sodium [Moles/Vol] 139 mmol/L 136 - 145 [facility] Work Phone: Urea nitrogen [Mass/Vol] 26 mg/dL above high threshold 6 - 23 [facility] Work Phone: No Panel Informationon 06-22 37 {mL/min/1.73m2} Abnormal >60 [facility] Work Phone: 45 {mL/min/1.73m2} Abnormal >60 [facility] Work Phone: Comment on above: CALCULATIONS OF IVONNE MATED GFR ARE PERFORMED USING THE MDRD STUDY EQUATION FOR THE IDMS-TRACEABLE CREATININE METHODS. CLIN CHEM 2007;53:766-72 Parathormone Intact, Serumon 06-22-2020 Parathyrin.intact [Mass/Vol] 106.9 pg/mL above high threshold See Below [facility] Work Phone: Comment on above: Reference Range: 18. 5 - 88.0 Metabolic Panelon 02-28-2020 Anion gap [Moles/Vol] 11 mmol/L 10 - 20 [facility] Work Phone: Calcium [Mass/Vol] 10.6 mg/dL above high threshold 8.6 - 10.3 [facility] Work Phone: Chloride [Moles/Vol] 102 mmol/L 98 - 107 [facility] Work Phone: CO2 [Moles/Vol] 31 mmol/L 21 - 32 [facility] Work Phone: Creatinine [Mass/Vol] 1.58 mg/dL above high threshold See Below [facility] Work Phone: Comment on above: Reference Range: 0.5 0 - 1.05 Glucose [Mass/Vol] 120 mg/dL above high threshold 74 - 99 [facility] Work Phone: Potassium [Moles/Vol] 4.1 mmol/L 3.5 - 5.3 [facility] Work Phone: Sodium [Moles/Vol] 140 mmol/L 136 - 145 [facility] Work Phone: Urea nitrogen [Mass/Vol] 36 mg/dL above high threshold 6 - 23 [facility] Work Phone: Otheron 02-28-2020 31 {mL/min/1.73m2} Abnormal >60 [facility] Work Phone: 38 {mL/min/1.73m2} Abnormal >60 [facility] Work Phone: Comment on above: CALCULATIONS OF IVONNE MATED GFR ARE PERFORMED USING THE MDRD STUDY EQUATION FOR THE IDMS-TRACEABLE CREATININE METHODS. CLIN CHEM 2007;53:766-72 TSH - Thyroid Stimulating Ho Tara baronon 02-28-2020 TSH Qn 0.70 {mIU/L} See Below [facility] Work Phone: Comment on above: Reference Range: 0.4 4 - 3.98 Note new pediatric reference range as of 12/23/2019. TSH testing is performed using different testing methodology at [facility] than at other [facility] hospitals. Direct result comparisons should only be made within the same method. Otheron 11-18-2019 Name KEYLA ACOSTA Pathologist: MARIANA BARONate of Procedure: 11/18/2019Date Received: 11/18/2019Date Reported 11/22/2019Submitting Physician: SANTHOSH PETERS M.D.Location: [facility] Endoscopy Copy To/Referring/Attending: SANTHOSH PETERS M.D. Other External # FINAL DIAGNOSISA. DESCENDING COLON POLYP: --COLON POLYP WITH MARKED CAUTERY ARTIFACT.B. TRANSVERSE COLON POLYP: --TUBULAR ADENOMA. [facility]ation performed at:[facility] [id number] [place] [address]Phone: Electronically Signed Out By HILDA CROSS MD/Ashley the signature on this report, the individual or group listed as making theFinal Interpretation/Diagnosi s certifies that they have reviewed this case. Clinical History:Physician Contact Number: [id number] (A): FormalinFixative (B): FormalinClinical Diagnosis History HX COLON POLYPSSpecimens Submitted As:A: DESCENDING COLON POLYP B: TRANSVERSE COLON POLYP Gross Description:A: Received in formalin, labeled with the patient's name and hospital numberand descending colon polyp", is a fragment of zepeda, soft tissue measuring 0.2 x0.2 x 0.2 cm. The specimen is submitted in toto in one cassette.IADB: Received in formalin, labeled with the patient's name and hospital numberand transverse colon polyp", is a fragment of zepeda, soft tissue measuring 0.2 x0.2 x 0.1 cm. The specimen is submitted in toto in one cassette.IADiad/11/19/19 20 [facility] Work Phone: [email or web address] ?={[id number]} [facility] Work Phone: Auto Diffon 07-31-2018 Basophils #/vol (Bld) 0.1 E3/mcL Normal 0.0-0.2 [facility] Comment on above: Order Comment: Order Added by Discern Expert. Performed By: #### 2 [id number] #### MANUELITO EstevesHemo [facility] [place] [address] Basophils/100 WBC (Bld) 2.0 % Normal 0.0-2.0 [facility] Comment on above: Order Comment: Order Added by Discern Expert. Performed By: #### 2 [id number] #### MANUEILTO EstevesHemo [address] [place] [address] Eos Absolute 0.2 E3/mcL Normal 0.0-0.7 [facility] Comment on above: Order Comment: Order Added by Discern Expert. Performed By: #### 2 [id number] #### MANUELITO RemHemo [address] [place] [address] Eosinophils/100 WBC (Bld) 4.7 % Normal 0.0-11.0 [facility] Comment on above: Order Comment: Order Added by Discern Expert. Performed By: #### 2 [id number] #### MANUELITO RemHemo [address] [place] [address] Lymphocytes #/vol (Bld) 1.9 E3/mcL Normal 1.2-3.4 [facility] Comment on above: Order Comment: Order Added by Discern Expert. Performed By: #### 2 [id number] #### MANUELITO RemHemo [facility] [place] [address] Lymphocytes/100 WBC (Bld) 36.7 % Normal 20.0-55.0 [facility] Comment on above: Order Comment: Order Added by Discern Expert. Performed By: #### 2 [id number] #### MANUELITO RemHemo [address] [place] [address] [place] Absolute 0.6 E3/mcL Normal 0.0-0.7 [facility] Comment on above: Order Comment: Order Added by Discern Expert. Performed By: #### 2 [id number] #### MANUELITO EstevesHemo [address] [place] [address] Monocytes/100 WBC (Bld) 10.9 % High 0.0-10.0 [facility] Comment on above: Order Comment: Order Added by Discern Expert. Performed By: #### 2 [id number] #### MANUELITO RemHemo [address] [place] [address] Neutro Absolute 2.3 E3/mcL Normal 1.4-6.5 [facility] Comment on above: Order Comment: Order Added by Discern Expert. Performed By: #### 2 [id number] #### MANUELITO EstevesHemo [address] [place] [address] Neutro Auto 45.7 % Normal 37.0-75.0 [facility] Comment on above: Order Comment: Order Added by Discern Expert. Performed By: #### 2 [id number] #### MANUELITO EstevesHemo [address] [place] [address] CBC w/ Auto Diffon 8 Erythrocyte distribution width Ratio (RBC) 13.5 % Normal 11.5-14.5 [facility] Comment on above: Performed By: #### 2 [id number] #### MANUELITO RemHemo [address] [place] [address] Hematocrit Volume Fraction (Bld) 41.2 % Normal 36.0-48.0 [facility] Comment on above: Performed By: #### 2 [id number] #### MANUELITO RemHemo [address] [place] [address] Hemoglobin mass conc (Bld) 13.7 g/dL Normal 12.0-16.0 [facility] Comment on above: Performed By: #### 2 [id number] #### MANUELITO RemHemo [address] [place] [address] MCH Entitic mass (RBC) 30.2 pg Normal 27.0-31.0 [facility] Comment on above: Performed By: #### 2 [id number] #### MANUELITO RemHemo [address] [place] [address] MCHC mass conc (RBC) 33.2 g/dL Normal 33.0-37.0 [facility] Comment on above: Performed By: #### 2 [id number] #### MANUELITO RemHemo [address] [place] [address] MCV Entitic volume (RBC) 91.1 fL Normal 78.0-100.0 [facility] Comment on above: Performed By: #### 2 [id number] #### MANUELITO RemHemo [address] [place] [id number] Platelet mean volume Entitic volume (Bld) 8.9 fL Normal 7.4-11.0 [facility] Comment on above: Performed By: #### 2 [id number] #### MANUELITO RemHemo [address] [place] [id number] Platelets #/vol (Bld) 199 E3/mcL Normal 130-400 [facility] Comment on above: Performed By: #### 2 [id number] #### MANUELITO RemHemo [address] [place] [address] RBC #/vol (Bld) 4.53 E6/mcL Normal 3.90-5.40 [facility] Comment on above: Performed By: #### 2 [id number] #### MANUELITO RemHemo [address] [place] [address] WBC #/vol (Bld) 5.1 E3/mcL Normal 3.6-11.0 [facility] Comment on above: Performed By: #### 2 [id number] #### MANUELITO RemHemo [address] [place] [address] CMPon 07-31-2018 Globulin mass conc (S) 3.0 g/dL Normal 2.0-4.0 [facility] Comment on above: Performed By: #### 2 [id number] #### MANUELITO [employer] [address] [place] [address] Anion gap molar conc 11 mmol/L Normal 6-16 [facility] Comment on above: Performed By: #### 2 126524 #### MANUELITO [employer] [address] [place] [address] Albumin mass conc 4.5 g/dL Normal 3.4-5.0 [facility] Comment on above: Performed By: #### 2 [id number] #### [facility] [employer] [address] [place] [address] Albumin/Globulin mass ratio 1.7 {ratio} Normal 1.1-1.9 [facility] Comment on above: Performed By: #### 2 108612 #### [facility] [employer] [address] [place] [address] Alk Phos 54 Int._Unit/L Normal 33-136 [facility] Comment on above: Performed By: #### 2 [id number] #### [facility] [employer] [address] [place] [address] ALT enzyme act/vol 18 Int._Unit/L Normal 7-45 [facility] Comment on above: Performed By: #### 2 [id number] #### [facility] [employer] [address] [place] [address] AST enzyme act/vol 20 Int._Unit/L Normal 9-39 [facility] Comment on above: Performed By: #### 2 147040 #### [facility] [employer] [address] [place] [address] Bili Total 0.5 mg/dL Normal 0.0-1.2 [facility] Comment on above: Performed By: #### 2 316915 #### [facility] [employer] [address] [place] [address] Calcium mass conc 9.7 mg/dL Normal 8.6-10.3 [facility] Comment on above: Performed By: #### 2 060313 #### MANUELITO [employer] [address] [place] [address] Chloride molar conc 104 mmol/L Normal 98-[address] [facility] Comment on above: Performed By: #### 2 281366 #### MANUELITO [employer] [address] [place] [address] CO2 molar conc 28.0 mmol/L Normal 21.0-32.0 [facility] Comment on above: Performed By: #### 2 392684 #### MANUELITO [employer] [address] [place] [address] Creatinine mass conc 1.6 mg/dL High 0.6-1.3 [facility] Comment on above: Performed By: #### 2 376168 #### MANUELITO [employer] [address] [place] [address] Glucose mass conc 122 mg/dL High 70-99 [facility] Comment on above: Performed By: #### 2 [id number] #### MANUELITO [employer] [address] [place] [address] Potassium molar conc 4.0 mmol/L Normal 3.5-5.3 [facility] Comment on above: Performed By: #### 2 [id number] #### MANUELITO [employer] [address] [place] [address] Protein mass conc 7.1 g/dL Normal 6.4-8.2 [facility] Comment on above: Performed By: #### 2 286758 #### MANUELITO [employer] [address] [place] [address] Sodium molar conc 139 mmol/L Normal 136-145 [facility] Comment on above: Performed By: #### 2 273026 #### MANUELITO [employer] [address] [place] [address] Urea nitrogen mass conc 32 mg/dL High 6-23 [facility] Comment on above: Performed By: #### 2 [id number] #### MANUELITO [employer] [address] [place] [address] Urea nitrogen/Creatinine mass ratio 20.0 ratio Normal 5.4-30.0 [facility] Comment on above: Performed By: #### 2 242976 #### MANUELITO [employer] [address] [place] [address] Lipid Profileon 07-31-2018 Cholesterol in HDL mass conc 45 mg/dL Normal [facility] Comment on above: Performed By: #### 3 [id number] #### MANUELITO [employer] [address] [place] [address] Cholesterol in LDL mass conc 135 mg/dL High 0-130 [facility] Comment on above: Result Comment: <100 OPTIMAL 100-129 NEAR / ABOVE OPTIMAL 130-159 BORDERLINE HIGH 160-189 HIGH >190 VERY HIGH CALC LDL NOT VALID WHEN TRIGLYCERIDE IS >400 MG/DL Performed By: #### 3 [id number] #### MANUELITO [employer] [address] [place] [address] Cholesterol in VLDL mass conc 49 mg/dL Normal [facility] Comment on above: Performed By: #### 3 [id number] #### MANUELITO [employer] [address] [place] [address] Cholesterol mass conc 229 mg/dL High 120-200 [facility] Comment on above: Result Comment: TOTA L CHOLEESTEROL: <200 NORMAL 200 - 239 BORDERLINE HIGH >240 HIGH Performed By: #### 3 [id number] #### MANUELITO [employer] [address] [place] [address] Triglyceride mass conc 245 mg/dL High 0-150 [facility] Comment on above: Result Comment: <150 NORMAL 150-199 BORDERLINE HIGH 200-499 HIGH >500 VERY HIGH Performed By: #### 3 [id number] #### MANUELITO [employer] [address] [place], [place] [address] [place] Mamm Screen w/CAD if perf and 3D Bilon 07-31-2018 Bilirubin.direct mass conc Exam Date/Time: 07/31/2018 14:05 EDT Reason for Exam: SCREENING 3D/EDGAR;Screening Report STUDY: Digital mammography screening with edgar; 07/31/2018 2:05 pm ACCESSION NUMBER(S): [id number] ORDERING CLINICIAN: Santhosh Peters INDICATION: Screening. COMPARISON: Comparison is made to prior digital mammograms dated1 and 07/29/2016 FINDINGS: CC and MLO 2D digital mammograms and digital breast tomosynthesis images were obtained of the bilateral breasts. 3-D volume images were reconstructed in 4 views at an independent workstation as 1 mm slices through the breasts in both the CC and MLO projections. There are areas of scattered fibroglandular tissue. Tightly clustered microcalcifications are seen inches the 11 o'clock position of the right breast, unchanged from prior studies. A well-defined intramammary lymph node is seen in the posterior upper outer quadrant of the right breast, and is unchanged.No new or enlarging mass or focal asymmetry is identified. No suspicious microcalcifications or foci of architectural distortion are seen. There has been no significant change. This study was interpreted with CAD. IMPRESSION: No mammographic evidence of malignancy. BI-RADS CATEGORY: Category: 2 - Benign Finding. Recommendation: Normal Interval Follow-up, Over Age 40. Recall Interval: 12 Months. Breast Density: Scattered Fibroglandular Density. FINAL REPORT Dictated: 07/31/2018 2:50 pm Jack Lopez MD Signed (Electronic Signature): 07/31/2018 2:50 pm Signed by: Jack Lopez MD Technologist: KVNG Assessment: BI-RADS Category 2-Benign finding Recommendation: Normal interval follow-up Normal [facility] TSHon 07-31-2018 Thyrotropin Qn 0.75 mIU/m Normal 0.30-5.60 [facility] Comment on above: Performed By: #### 2 [id number] #### MANUELITO [employer] [address] [place] [id number] eGFRon 07-31-2018 GFR/1.73 sq M predicted among non-blacks MDRD vol rate/area (S/P/Bld) 37 mL/min/1.73 m2 [facility] Comment on above: Order Comment: Order added by Discern Expert. Performed By: #### 1 [id number] #### MANUELITO [employer] [address] [place] [id number] GFR/1.73 sq M predicted among non-blacks MDRD vol rate/area (S/P/Bld) 31 mL/min/1.73 m2 [facility] Comment on above: Order Comment: Order added by Discern Expert. Performed By: #### 1 [id number] #### MANUELITO [employer] [address] [place] [id number] No Panel Information [facility] Vital Signs Date Time Vital Sign Value Performing Clinician Facility 04-06-2025 09:28-0400 Body height 162.[address] Mark Tejeda MD Work Phone: [facility] 04-06-2025 09:28-0400 Body mass index (BMI) [Ratio] 19.8 kg/m2 Dr. Mark Tejeda MD Work Phone: [facility] 04-06-2025 09:28-0400 Body temperature 94.6 [degF] Dr. Mark Tejeda MD Work Phone: [facility] 04-06-2025 09:28-0400 Body weight 52.[address] Mark Tejeda MD Work Phone: [facility] 04-06-2025 09:28-0400 Diastolic blood pressure 79 mm[Hg] Dr. Mark Tejeda MD Work Phone: [facility] 04-06-2025 09:28-0400 Heart rate 55 /min Dr. Mark Tejeda MD Work Phone: [facility] 04-06-2025 09:28-0400 Respiratory rate 17 /min Dr. Mark Tejeda MD Work Phone: [facility] 04-06-2025 09:28-0400 SaO2% (BldA) [Mass fraction] 99 % Dr. Mark Tejeda MD Work Phone: [facility] 04-06-2025 09:28-0400 Systolic blood pressure 202 mm[Hg] Dr. Mark Tejeda MD Work Phone: [facility] 03-17-2025 13:32-0400 Body height 163.8 cm Landrum [employer] HUMAN RESOURCE MANAGER Work Phone: [facility] 03-17-2025 13:32-0400 Body mass index (BMI) [Ratio] 19.43 kg/m2 Landrum [employer] HUMAN RESOURCE MANAGER Work Phone: [facility] 03-17-2025 13:32-0400 Body weight 52.16 kg Landrum Log Sorting Supervisor HUMAN RESOURCE MANAGER Work Phone: [facility] 03-17-2025 13:32-0400 Heart rate 58 /min Landrum [employer] Sorting Supervisor HUMAN RESOURCE MANAGER Work Phone: [facility] 03-17-2025 13:32-0400 SaO2% (BldA) [Mass fraction] 96 % Landrum [employer] HUMAN RESOURCE MANAGER Work Phone: [facility] 12-09-2024 11:29-0500 Diastolic blood pressure 91 mm[Hg] Steven Martines HUMAN RESOURCE MANAGER Work Phone: [facility] 12-09-2024 11:29-0500 Systolic blood pressure 221 mm[Hg] Steven Martines HUMAN RESOURCE MANAGER Work Phone: [facility] 12-09-2024 10:07-0500 Heart rate 50 /min Steven Martines HUMAN RESOURCE MANAGER Work Phone: [facility] 12-09-2024 10:07-0500 Respiratory rate 16 /min Steven Martines HUMAN RESOURCE MANAGER Work Phone: [facility] 12-09-2024 10:07-0500 SaO2% (BldA) [Mass fraction] 96 % Steven Martines HUMAN RESOURCE MANAGER Work Phone: [facility] 12-08-2024 15:01-0500 Body height 162.6 cm Rik Douglas APRN-HUMAN RESOURCE MANAGER Work Phone: [facility] 12-08-2024 15:01-0500 Body mass index (BMI) [Ratio] 20.6 kg/m2 Rik Douglas APRN-HUMAN RESOURCE MANAGER Work Phone: [facility] 12-08-2024 15:01-0500 Body weight 54.43 kg Rik Douglas APRN-HUMAN RESOURCE MANAGER Work Phone: [facility] 12-08-2024 15:01-0500 Diastolic blood pressure 71 mm[Hg] Rik Douglas APRN-HUMAN RESOURCE MANAGER Work Phone: [facility] 12-08-2024 15:01-0500 Heart rate 56 /min Rik Douglas APRN-HUMAN RESOURCE MANAGER Work Phone: [facility] 12-08-2024 15:01-0500 SaO2% (BldA) [Mass fraction] 100 % Rik Douglas APRN-HUMAN RESOURCE MANAGER Work Phone: [facility] 12-08-2024 15:01-0500 Systolic blood pressure 127 mm[Hg] Rik Douglas APRN-HUMAN RESOURCE MANAGER Work Phone: [facility] 11-15-2024 14:28-0500 Diastolic blood pressure 89 mm[Hg] Mirtha Galindo MD Work Phone: [facility] 11-15-2024 14:28-0500 Heart rate 58 /min Mirtha Galindo MD Work Phone: [facility] 11-15-2024 14:28-0500 Respiratory rate 18 /min Mirtha Galindo MD Work Phone: [facility] 11-15-2024 14:28-0500 SaO2% (BldA) [Mass fraction] 97 % Mirtha Galindo MD Work Phone: [facility] 11-15-2024 14:28-0500 Systolic blood pressure 188 mm[Hg] Mirtha Galindo MD Work Phone: [facility] 11-02-2024 13:52-0500 Body height 162.6 cm Rik Douglas [employer] CLAIM[employer] SUPERVISOR-HUMAN RESOURCE MANAGER Work Phone: [facility] 11-02-2024 13:52-0500 Body mass index (BMI) [Ratio] 20.6 kg/m2 Rik Douglas APRN-HUMAN RESOURCE MANAGER Work Phone: [facility] 11-02-2024 13:52-0500 Body weight 54.43 kg Rik Douglas APRN-HUMAN RESOURCE MANAGER Work Phone: [facility] 11-02-2024 13:52-0500 Diastolic blood pressure 78 mm[Hg] Rik Douglas APRN-HUMAN RESOURCE MANAGER Work Phone: [facility] 11-02-2024 13:52-0500 Heart rate 50 /min Rik Douglas APRN-HUMAN RESOURCE MANAGER Work Phone: [facility] 11-02-2024 13:52-0500 Respiratory rate 17 /min Rik Douglas APRN-HUMAN RESOURCE MANAGER Work Phone: [facility] 11-02-2024 13:52-0500 SaO2% (BldA) [Mass fraction] 98 % Rik Douglas APRN-HUMAN RESOURCE MANAGER Work Phone: [facility] [employer] [facility] 11-02-2024 13:52-0500 Systolic blood pressure 168 mm[Hg] Rik Douglas [employer]CH[employer]ING [employer] CLAIMS SUPERVISOR-HUMAN RESOURCE MANAGER Work Phone: [facility] 07-27-2024 14:34-0400 Body height 160 cm Rik Douglas [employer] CLAIM[employer] SUPERVISOR-HUMAN RESOURCE MANAGER Work Phone: [facility] [employer] [facility] 07-27-2024 14:34-0400 Diastolic blood pressure 93 mm[Hg] Rik Douglas [employer] CLAIMS SUPERVISOR-HUMAN RESOURCE MANAGER Work Phone: [facility] [employer] [facility] 07-27-2024 14:34-0400 Heart rate 53 /min Rik Douglas [employer]CH[employer]ING [employer] CLAIMS SUPERVISOR-HUMAN RESOURCE MANAGER Work Phone: [facility] 07-27-2024 14:34-0400 Respiratory rate 20 /min Rik Douglas [employer]CH[employer]ING [employer] CLAIMS SUPERVISOR-HUMAN RESOURCE MANAGER Work Phone: [facility] 07-27-2024 14:34-0400 SaO2% (BldA) [Mass fraction] 97 % Rik Douglas [employer] CLAIMS SUPERVISOR-HUMAN RESOURCE MANAGER Work Phone: [facility] [employer] [facility] 07-27-2024 14:34-0400 Systolic blood pressure 200 mm[Hg] Rik Douglas [employer]ING [employer] CLAIMS SUPERVISOR-HUMAN RESOURCE MANAGER Work Phone: [facility] 07-13-2024 14:00-0400 Diastolic blood pressure 61 mm[Hg] Mirtha Galindo MD Work Phone: [facility] 07-13-2024 14:00-0400 Heart rate 45 /min Mirtha Galindo MD Work Phone: [facility] 07-13-2024 14:00-0400 Respiratory rate 18 /min Mirtha Galindo MD Work Phone: [facility] 07-13-2024 14:00-0400 SaO2% (BldA) [Mass fraction] 98 % Mirtha Galindo MD Work Phone: [facility] 07-13-2024 14:00-0400 Systolic blood pressure 152 mm[Hg] Mirtha Galindo MD Work Phone: [facility] 07-07-2024 09:38-0400 Body height 160 cm Rik Douglas [employer]CH[employer]ING [employer] CLAIMS SUPERVISOR-HUMAN RESOURCE MANAGER Work Phone: [facility] 07-07-2024 09:38-0400 Diastolic blood pressure 82 mm[Hg] Rik Douglas [employer]CH[employer]ING [employer] CLAIMS SUPERVISOR-HUMAN RESOURCE MANAGER Work Phone: [facility] 07-07-2024 09:38-0400 Heart rate 48 /min Rik Douglas [employer]CH[employer]ING [employer] CLAIMS SUPERVISOR-HUMAN RESOURCE MANAGER Work Phone: [facility] 07-07-2024 09:38-0400 SaO2% (BldA) [Mass fraction] 98 % Rik Douglas [employer]ING [employer] CLAIMS SUPERVISOR-HUMAN RESOURCE MANAGER Work Phone: [employer] [facility] 07-07-2024 09:38-0400 Systolic blood pressure 183 mm[Hg] Rik Douglas APRN-HUMAN RESOURCE MANAGER Work Phone: [facility] 07-21-2023 15:02-0400 Body height 162.6 cm Santhosh Peters MD Work Phone: [facility] 07-21-2023 15:02-0400 Body mass index (BMI) [Ratio] 21.63 kg/m2 Santhosh Peters MD Work Phone: [facility] 07-21-2023 15:02-0400 Body weight 57.15 kg Santhosh Peters MD Work Phone: [facility] 07-21-2023 15:02-0400 Diastolic blood pressure 69 mm[Hg] Santhosh Peters MD Work Phone: [facility] 07-21-2023 15:02-0400 Heart rate 59 /min Santhosh Peters MD Work Phone: [facility] 07-21-2023 15:02-0400 Systolic blood pressure 159 mm[Hg] Santhosh Peters MD Work Phone: [facility] 06-11-2023 10:21-0400 Diastolic blood pressure 72 mm[Hg] Santhosh Peters MD Work Phone: [facility] 06-11-2023 10:21-0400 Heart rate 57 /min Santhosh Peters MD Work Phone: [facility] 06-11-2023 10:21-0400 Systolic blood pressure 136 mm[Hg] Santhosh Peters MD Work Phone: [facility] 06-09-2023 13:31-0400 Body height 162.6 cm Santhosh Peters MD Work Phone: [phone] [place] [address] 06-09-2023 13:31-0400 Body mass index (BMI) [Ratio] 21.97 kg/m2 Santhosh Peters MD Work Phone: [facility] 06-09-2023 13:31-0400 Body weight 58.06 kg Santhosh Peters MD Work Phone: 4(997)[phone] [place] [address] 06-09-2023 13:31-0400 Diastolic blood pressure 79 mm[Hg] Santhosh Peters MD Work Phone: [facility] 06-09-2023 13:31-0400 Heart rate 54 /min Santhosh Peters MD Work Phone: [facility] 06-09-2023 13:31-0400 Systolic blood pressure 154 mm[Hg] Santhosh Peters MD Work Phone: [facility] 03-18-2023 09:00-0400 Body mass index (BMI) [Ratio] 22.49 kg/m2 Santhosh Peters MD Work Phone: [facility] 03-18-2023 09:00-0400 Body weight 59.42 kg Santhosh Peters MD Work Phone: 5([phone] [place] [address] 03-18-2023 09:00-0400 Diastolic blood pressure 81 mm[Hg] Santhosh Peters MD Work Phone: [facility] 03-18-2023 09:00-0400 Heart rate 51 /min Santhosh Peters MD Work Phone: [facility] 03-18-2023 09:00-0400 SaO2% (BldA) [Mass fraction] 97 % Santhosh Peters MD Work Phone: [facility] 03-18-2023 09:00-0400 Systolic blood pressure 145 mm[Hg] Santhosh Peters MD Work Phone: [facility] 03-03-2023 10:05-0400 Body height 162.6 cm Santhosh Peters MD Work Phone: [facility] 03-03-2023 10:05-0400 Body mass index (BMI) [Ratio] 22.66 kg/m2 Santhosh Peters MD Work Phone: [facility] 03-03-2023 10:05-0400 Body weight 59.88 kg Santhosh Peters MD Work Phone: [facility] 03-03-2023 10:05-0400 Diastolic blood pressure 76 mm[Hg] Santhosh Peters MD Work Phone: [facility] 03-03-2023 10:05-0400 Heart rate 60 /min Santhosh Peters MD Work Phone: [facility] 03-03-2023 10:05-0400 Systolic blood pressure 146 mm[Hg] Santhosh Peters MD Work Phone: [facility] 10-01-2022 10:45-0500 Body height 162.56 cm Santhosh Peters Work Phone: [facility] Work Phone: 10-01-2022 10:45-0500 Body mass index (BMI) [Ratio] 21.97 kg/m2 Santhosh Nita Tavallaee Work Phone: [facility] Work Phone: 10-01-2022 10:45-0500 Body surface area Derived from formula 1.62 m2 Santhosh Nita Tavallaee Work Phone: [facility] Work Phone: 10-01-2022 10:45-0500 Body weight 58.06 kg Santhosh Nita Tavallaee Work Phone: [facility] Work Phone: 10-01-2022 10:45-0500 Diastolic blood pressure 65 mm[Hg] Santhosh Nita Tavallaee Work Phone: [facility] Work Phone: 10-01-2022 10:45-0500 Heart rate 50 /min Santhosh Nita Tavallaee Work Phone: [facility] Work Phone: 10-01-2022 10:45-0500 Systolic blood pressure 133 mm[Hg] Santhosh Nita Tavallaee Work Phone: [facility] Work Phone: 09-24-2022 13:32-0500 Body height 162.56 cm Santhosh Nita Tavallaee Work Phone: [facility] Work Phone: 09-24-2022 13:32-0500 Body mass index (BMI) [Ratio] 21.28 kg/m2 Santhosh M Tavallaee Work Phone: [facility] Work Phone: 09-24-2022 13:32-0500 Body surface area Derived from formula 1.6 m2 Santhosh Nita Tavallaee Work Phone: [facility] Work Phone: 09-24-2022 13:32-0500 Body weight 56.25 kg Santhosh Moya Tavallaee Work Phone: [facility] Work Phone: 09-24-2022 13:32-0500 Diastolic blood pressure 96 mm[Hg] Santhosh Moya Tavallaee Work Phone: [facility] Work Phone: 09-24-2022 13:32-0500 Heart rate 56 /min Santhosh Nita Tavallaee Work Phone: [facility] Work Phone: 09-24-2022 13:32-0500 Systolic blood pressure 196 mm[Hg] Santhosh Moya Tavallaee Work Phone: [facility] Work Phone: 09-05-2022 08:11-0500 Body height 163.8 cm Steven Martines HUMAN RESOURCE MANAGER Work Phone: [facility] 09-05-2022 08:11-0500 Body mass index (BMI) [Ratio] 20.28 kg/m2 Steven Martines HUMAN RESOURCE MANAGER Work Phone: [facility] 09-05-2022 08:11-0500 Body weight 54.43 kg Steven Martines HUMAN RESOURCE MANAGER Work Phone: [facility] 09-05-2022 08:11-0500 Diastolic blood pressure 73 mm[Hg] Steven Martines HUMAN RESOURCE MANAGER Work Phone: [facility] 09-05-2022 08:11-0500 Heart rate 52 /min Steven Martines HUMAN RESOURCE MANAGER Work Phone: [facility] 09-05-2022 08:11-0500 Respiratory rate 16 /min Steven Martines HUMAN RESOURCE MANAGER Work Phone: [facility] 09-05-2022 08:11-0500 SaO2% (BldA) [Mass fraction] 98 % Steven Martines HUMAN RESOURCE MANAGER Work Phone: [facility] 09-05-2022 08:11-0500 Systolic blood pressure 170 mm[Hg] Steven Rick HUMAN RESOURCE MANAGER Work Phone: [facility] 08-29-2022 15:22-0500 Body height 162.56 cm Santhosh M Tavallaee Work Phone: [facility] Work Phone: 08-29-2022 15:22-0500 Body mass index (BMI) [Ratio] 22.66 kg/m2 Santhosh M Tavallaee Work Phone: [facility] Work Phone: 08-29-2022 15:22-0500 Body surface area Derived from formula 1.64 m2 Santhosh M Tavallaee Work Phone: [facility] Work Phone: 08-29-2022 15:22-0500 Body weight 59.88 kg Santhosh M Tavallaee Work Phone: [facility] Work Phone: 08-29-2022 15:22-0500 Diastolic blood pressure 71 mm[Hg] Santhosh M Tavallaee Work Phone: [facility] Work Phone: 08-29-2022 15:22-0500 Heart rate 69 /min Santhosh M Tavallaee Work Phone: [facility] Work Phone: 08-29-2022 15:22-0500 Systolic blood pressure 154 mm[Hg] Santhosh M Tavallaee Work Phone: [facility] Work Phone: 05-14-2022 14:35-0400 Body height 162.56 cm Santhosh M Tavallaee Work Phone: [facility] DO Work Phone: 05-14-2022 14:35-0400 Body mass index (BMI) [Ratio] 22.01 kg/m2 Santhosh M Tavallaee Work Phone: [facility] DO Work Phone: 05-14-2022 14:35-0400 Body surface area Derived from formula 1.62 m2 Santhosh M Tavallaee Work Phone: [facility] DO Work Phone: 05-14-2022 14:35-0400 Body weight 58.15 kg Santhosh M Tavallaee Work Phone: [facility] DO Work Phone: 05-14-2022 14:35-0400 Diastolic blood pressure 68 mm[Hg] Santhosh Nita Tavallaee Work Phone: [facility] Work Phone: 05-14-2022 14:35-0400 Heart rate 66 /min Santhosh Nita Tavallaee Work Phone: [facility] DO Work Phone: 05-14-2022 14:35-0400 Systolic blood pressure 152 mm[Hg] Santhosh M Tavallaee Work Phone: [facility] Work Phone: 04-26-2022 11:26-0400 Body height 162.56 cm Santhosh M Tavallaee Work Phone: [facility] DO Work Phone: 04-26-2022 11:26-0400 Body mass index (BMI) [Ratio] 21.8 kg/m2 Santhosh Nita Tavallaee Work Phone: [facility] DO Work Phone: 04-26-2022 11:26-0400 Body surface area Derived from formula 1.61 m2 Santhosh Nita Tavallaee Work Phone: [facility] DO Work Phone: 04-26-2022 11:26-0400 Body weight 57.61 kg Santhosh Nita Tavallaee Work Phone: [facility] DO Work Phone: 04-26-2022 11:26-0400 Diastolic blood pressure 78 mm[Hg] Santhosh Nita Tavallaee Work Phone: [facility] DO Work Phone: 04-26-2022 11:26-0400 Heart rate 89 /min Santhosh Nita Patriciaallaee Work Phone: [facility] DO Work Phone: 04-26-2022 11:26-0400 Systolic blood pressure 142 mm[Hg] Santhosh Nita Tavallaee Work Phone: [facility] DO Work Phone: 04-23-2022 14:28-0400 Body mass index (BMI) [Ratio] 21.63 kg/m2 Santhosh M Tavallaee Work Phone: [facility] Work Phone: 04-23-2022 14:28-0400 Body surface area Derived from formula 1.61 m2 Santhosh M Tavallaee Work Phone: [facility] Work Phone: 04-23-2022 14:28-0400 Body weight 57.15 kg Santhosh Nita Tavallaee Work Phone: [facility] Work Phone: 04-23-2022 14:28-0400 Diastolic blood pressure 78 mm[Hg] Santhosh Nita Tavallaee Work Phone: [facility] Work Phone: 04-23-2022 14:28-0400 Heart rate 70 /min Santhosh Nita Tavallaee Work Phone: [facility] Work Phone: 04-23-2022 14:28-0400 SaO2% (BldA) [Mass fraction] 98 % Santhosh Nita Tavallaee Work Phone: [facility] Work Phone: 04-23-2022 14:28-0400 Systolic blood pressure 148 mm[Hg] Santhosh Nita Tavallaee Work Phone: [facility] Work Phone: 03-27-2022 09:57-0400 Body height 162.56 cm Santhosh Nita Tavallaee Work Phone: [facility] Work Phone: 03-27-2022 09:57-0400 Body mass index (BMI) [Ratio] 22.83 kg/m2 Santhosh Nita Tavallaee Work Phone: [facility] Work Phone: 03-27-2022 09:57-0400 Body surface area Derived from formula 1.64 m2 Santhosh Nita Tavallaee Work Phone: [facility] Work Phone: 03-27-2022 09:57-0400 Body weight 60.33 kg Santhosh Nita Tavallaee Work Phone: [facility] Work Phone: 03-27-2022 09:57-0400 Diastolic blood pressure 70 mm[Hg] Santhosh Nita Tavallaee Work Phone: [facility] Work Phone: 03-27-2022 09:57-0400 Heart rate 64 /min Santhosh Nita Tavallaee Work Phone: [facility] Work Phone: 03-27-2022 09:57-0400 Systolic blood pressure 170 mm[Hg] Santhosh Nita Tavallaee Work Phone: [facility] Work Phone: 12-19-2021 11:41-0500 Body height 162.56 cm Santhoshho Patriciaallaee Work Phone: [facility] Work Phone: 12-19-2021 11:41-0500 Body mass index (BMI) [Ratio] 23.69 kg/m2 Santhosh Nita Tavallaee Work Phone: [facility] Work Phone: 12-19-2021 11:41-0500 Body surface area Derived from formula 1.67 m2 Santhosh Patriciaallaee Work Phone: [facility] Work Phone: 12-19-2021 11:41-0500 Body weight 62.6 kg Santhosh Nita Patriciaallaee Work Phone: [facility] Work Phone: 12-19-2021 11:41-0500 Diastolic blood pressure 82 mm[Hg] Santhosh Nita Tavallaee Work Phone: [facility] Work Phone: 12-19-2021 11:41-0500 Heart rate 60 /min Santhosh M Tavallaee Work Phone: [facility] Work Phone: 12-19-2021 11:41-0500 Systolic blood pressure 142 mm[Hg] Santhosh Nita Tavallaee Work Phone: [facility] Work Phone: 12-05-2021 13:11-0500 Body height 162.56 cm Santhosh Nita Tavallaee Work Phone: [facility] Work Phone: 12-05-2021 13:11-0500 Body mass index (BMI) [Ratio] 23.52 kg/m2 Santhosh Nita Tavallaee Work Phone: [facility] Work Phone: 12-05-2021 13:11-0500 Body surface area Derived from formula 1.67 m2 Santhosh Nita Tavallaee Work Phone: [facility] Work Phone: 12-05-2021 13:11-0500 Body weight 62.14 kg Santhosh M Tavallaee Work Phone: [facility] Work Phone: 12-05-2021 13:11-0500 Diastolic blood pressure 68 mm[Hg] Santhosh Nita Tavallaee Work Phone: [facility] Work Phone: 12-05-2021 13:11-0500 Heart rate 64 /min Santhosh Nita Tavallaee Work Phone: [facility] Work Phone: 12-05-2021 13:11-0500 Systolic blood pressure 138 mm[Hg] Santhosh Nita Tavallaee Work Phone: [facility] Work Phone: 07-16-2021 11:41-0400 Body height 162.56 cm Santhosh M Tavallaee Work Phone: [facility] Work Phone: 07-16-2021 11:41-0400 Body mass index (BMI) [Ratio] 23.69 kg/m2 Santhosh M Tavallaee Work Phone: [facility] Work Phone: 07-16-2021 11:41-0400 Body surface area Derived from formula 1.67 m2 Santhosh M Tavallaee Work Phone: [facility] Work Phone: 07-16-2021 11:41-0400 Body weight 62.6 kg Santhosh M Tavallaee Work Phone: [facility] Work Phone: 07-16-2021 11:41-0400 Diastolic blood pressure 82 mm[Hg] Santhosh M Tavallaee Work Phone: [facility] Work Phone: 07-16-2021 11:41-0400 Heart rate 74 /min Santhosh M Tavallaee Work Phone: [facility] Work Phone: 07-16-2021 11:41-0400 Systolic blood pressure 106 mm[Hg] Santhosh M Tavallaee Work Phone: [facility] Work Phone: 06-04-2021 13:02-0400 Body height 162.56 cm Santhosh M Tavallaee Work Phone: [facility] Work Phone: 06-04-2021 13:02-0400 Body mass index (BMI) [Ratio] 23.86 kg/m2 Santhosh M Tavallaee Work Phone: [facility] Work Phone: 06-04-2021 13:02-0400 Body surface area Derived from formula 1.68 m2 Santhosh Nita Tavallaee Work Phone: [facility] Work Phone: 06-04-2021 13:02-0400 Body weight 63.05 kg Santhosh Nita Tavallaee Work Phone: [facility] Work Phone: 06-04-2021 13:02-0400 Diastolic blood pressure 78 mm[Hg] Santhosh Nita Tavallaee Work Phone: [facility] Work Phone: 06-04-2021 13:02-0400 Heart rate 60 /min Santhosh Nita Patriciaallaee Work Phone: [facility] Work Phone: 06-04-2021 13:02-0400 Systolic blood pressure 126 mm[Hg] Santhosh Nita Tavallaee Work Phone: [facility] Work Phone: 05-09-2021 09:55-0400 Body height 162.56 cm Santhosh Nita Tavallaee Work Phone: [facility] Work Phone: 05-09-2021 09:55-0400 Body mass index (BMI) [Ratio] 23.52 kg/m2 Santhosh Nita Tavallaee Work Phone: [facility] Work Phone: 05-09-2021 09:55-0400 Body surface area Derived from formula 1.67 m2 Santhosh Nita Tavallaee Work Phone: [facility] Work Phone: 05-09-2021 09:55-0400 Body weight 62.14 kg Santhoshho Patriciaallaee Work Phone: [facility] Work Phone: 05-09-2021 09:55-0400 Diastolic blood pressure 82 mm[Hg] Santhosh Nita Tavallaee Work Phone: [facility] Work Phone: 05-09-2021 09:55-0400 Heart rate 60 /min Santhoshho Patriciaallaee Work Phone: [facility] Work Phone: 05-09-2021 09:55-0400 SaO2% (BldA) [Mass fraction] 96 % Santhoshho Patriciaallaee Work Phone: [facility] Work Phone: 05-09-2021 09:55-0400 Systolic blood pressure 118 mm[Hg] Santhosh M Tavallaee Work Phone: [facility] Work Phone: 04-25-2021 09:50-0400 Body height 162.56 cm Santhoshho Durbinaee Work Phone: [facility] Work Phone: 04-25-2021 09:50-0400 Body mass index (BMI) [Ratio] 23.34 kg/m2 Santhoshho Patriciaallaee Work Phone: [facility] Work Phone: 04-25-2021 09:50-0400 Body surface area Derived from formula 1.66 m2 Santhosh Nita Patriciaallaee Work Phone: [facility] Work Phone: 04-25-2021 09:50-0400 Body weight 61.69 kg Santhosh Nita Patriciaallaee Work Phone: [facility] Work Phone: 04-25-2021 09:50-0400 Diastolic blood pressure 72 mm[Hg] Santhosh Moya Tavallaee Work Phone: [facility] Work Phone: 04-25-2021 09:50-0400 Heart rate 60 /min Santhosh Moya Tavallaee Work Phone: [facility] Work Phone: 04-25-2021 09:50-0400 Systolic blood pressure 145 mm[Hg] Santhosh M Tavallaee Work Phone: [facility] Work Phone: 08-02-2020 14:59-0400 BMI (Body Mass Index) 24.55 kg/m2 Jayshree Kerr [facility] Work Phone: 08-02-2020 14:59-0400 Body weight 64.86 kg Jayshree Kerr [facility] Work Phone: 08-02-2020 14:59-0400 BP Diastolic 72 mm[Hg] Jayshree Kerr [facility] Work Phone: 08-02-2020 14:59-0400 BP Systolic 130 mm[Hg] Jayshree Kerr [facility] Work Phone: 08-02-2020 14:59-0400 BSA (Body Surface Area) 1.7 m2 Jayshree Kerr [facility] Work Phone: 08-02-2020 14:59-0400 Height 162.56 cm Jayshree Kerr [facility] Work Phone: 08-02-2020 14:59-0400 Pulse (Heart Rate) 62 /min Jayshree Kerr [facility] Work Phone: 07-03-2020 16:37-0400 Body height 163.19 cm Jayshree Usha [facility] Work Phone: 07-03-2020 16:37-0400 Body mass index (BMI) [Ratio] 24.01 kg/m2 Jayshree Kerr DO [facility] Work Phone: 07-03-2020 16:37-0400 Body surface area Derived from formula 1.69 m2 Jayshree Kerr DO [facility] Work Phone: 07-03-2020 16:37-0400 Body weight 63.96 kg Jayshree Kerr DO [facility] Work Phone: 07-03-2020 16:37-0400 Diastolic blood pressure 80 mm[Hg] Jayshree Kerr DO [facility] Work Phone: Comment on above: Location: [facility]; Position: Sitting 07-03-2020 16:37-0400 Heart rate 64 /min Jayshree Kerr DO [facility] Work Phone: 07-03-2020 16:37-0400 Systolic blood pressure 128 mm[Hg] Jayshree Kerr DO [facility] Work Phone: Comment on above: Location: [place]; Position: Sitting 03-01-2020 15:05-0400 Height 162.56 cm Jayshree Kerr [facility] Work Phone: 11-02-2019 14:38-0500 BMI (Body Mass Index) 23.39 kg/m2 Jayshree Kerr [facility] Work Phone: 11-02-2019 14:38-0500 Body weight 62.14 kg Jayshree Kerr [facility] Work Phone: 11-02-2019 14:38-0500 BP Diastolic 80 mm[Hg] Jayshree Kerr [facility] Work Phone: Comment on above: Location: [facility]; Position: Sitting 11-02-2019 14:38-0500 BP Systolic 158 mm[Hg] Jayshree Swensoner [facility] Work Phone: Comment on above: Location: [place]; Position: Sitting 11-02-2019 14:38-0500 BSA (Body Surface Area) 1.67 m2 Jayshree Kerr [facility] Work Phone: 11-02-2019 14:38-0500 Height 162.99 cm Jayshree Kerr [facility] Work Phone: 11-02-2019 14:38-0500 Pulse (Heart Rate) 68 /min Jayshree Kerr [facility] Work Phone: Encounters Encounter Date Encounter Type Care Provider Facility Start: 04-21-2025 End: 04-21-[address] [facility] Start: 04-06-2025 [facility]ulatory [facility] Start: 04-06-2025 End: 04-06-[address] Mark Tejeda MD -[facility] Work Phone: Start: 04-06-2025 End: 04-06-2025 ambulatory Mark Tejeda [facility] Work Phone: Start: 03-17-2025 End: 03-17-2025 Office outpatient new 30 minutes Diallo Jiang HUMAN RESOURCE MANAGER Work Phone: [facility] Comment on above: Vasomotor rhinitis ( Primary Dx); Excessive cerumen in both ear canals; Sensorineural hearing loss, bilateral Start: 03-17-2025 End: 03-17-2025 ambulatory DIALLO JIANG [facility] Ambulatory Start: 12-09-2024 End: 12-09-2024 Office outpatient visit 25 minutes Steven Martines HUMAN RESOURCE MANAGER Work Phone: [facility] Comment on above: Depression with anxi ety (Primary Dx); Dementia, unspecified dementia severity, unspecified dementia type, unspecified whether behavioral, psychotic, or mood disturbance or anxiety (HCC) Start: 12-09-2024 End: 12-09-2024 ambulatory [facility] Start: 12-08-2024 End: 12-08-2024 Office outpatient visit 15 minutes Rki Douglas APRN-HUMAN RESOURCE MANAGER Work Phone: [facility] Comment on above: Sacroiliitis (Primar y Dx); Lumbar spondylosis; Lumbar radiculopathy Start: 12-08-2024 ambulatory [facility] Start: 11-28-2024 End: 11-28-2024 Emergency department patient visit [facility] Start: 11-15-2024 End: 11-15-2024 Patient encounter procedure Mirtha Galindo MD Work Phone: [facility] Comment on above: Sacroiliitis (Primar y Dx) Start: 11-15-2024 End: 11-15-2024 Subsequent hospital visit by physician Mirtha Galindo MD Work Phone: [facility] Comment on above: Arrived Start: 11-15-2024 ambulatory CHEYANNE ROLLINS [facility] Start: 11-02-2024 ambulatory [facility] Start: 11-02-2024 End: 11-02-2024 Office outpatient visit 25 minutes Rik Douglas APRN-HUMAN RESOURCE MANAGER Work Phone: [facility] Comment on above: Sacroiliitis (Primar y Dx); Lumbar radiculopathy; Lumbar spondylosis; Leg cramps Start: 07-27-2024 ambulatory [facility] Start: 07-27-2024 End: 07-27-2024 Subsequent hospital visit by physician Rik Douglas APRN-HUMAN RESOURCE MANAGER Work Phone: [facility] Comment on above: Arrived Start: 07-27-2024 End: 07-27-2024 Office outpatient visit 15 minutes Rik Douglas APRN-HUMAN RESOURCE MANAGER Work Phone: [facility] Comment on above: Sacroiliitis (Primar y Dx); Lumbar radiculopathy; Bilateral leg pain; Lumbar spondylosis; Chronic hip pain, bilateral Start: 07-27-2024 ambulatory [facility] Start: 07-13-2024 End: 07-13-2024 Patient encounter procedure Mirtha Galindo MD Work Phone: [facility] Comment on above: Sacroiliitis (Primar y Dx) Start: 07-13-2024 End: 07-13-2024 Subsequent hospital visit by physician Mirtha Galindo MD Work Phone: [facility] Comment on above: Arrived Start: 07-13-2024 ambulatory [facility] Start: 07-07-2024 ambulatory [facility] Start: 07-07-2024 End: 07-07-2024 Subsequent hospital visit by physician Rik Douglas APRN-HUMAN RESOURCE MANAGER Work Phone: [facility] Comment on above: Arrived Start: 07-07-2024 End: 07-07-2024 Office outpatient new 45 minutes Rik Douglas PURCHASING AND CLAIMS SUPERVISOR-HUMAN RESOURCE MANAGER Work Phone: [facility] Comment on above: Sacroiliitis (Primar y Dx); Lumbar radiculopathy; Bilateral leg pain; Lumbar spondylosis; Chronic hip pain, bilateral Start: 07-07-2024 ambulatory [facility] Start: 06-15-2024 End: 06-15-2024 ambulatory [facility] Start: 07-21-2023 End: 07-21-2023 Office outpatient visit 25 minutes Santhosh Peters MD Work Phone: [facility] Comment on above: Primary hypertension (Primary Dx); Need for immunization against influenza; Alzheimer disease (CMS/HCC); Hyperparathyroidism (CMS/HCC); Essential hypertension, benign; Cerebral atrophy (CMS/HCC); IFG (impaired fasting glucose) Start: 06-11-2023 End: 06-11-2023 Office outpatient visit 25 minutes Santhosh Peters MD Work Phone: [facility] Comment on above: Alzheimer disease (C MS/HCC) (Primary Dx); Primary hypertension; Essential hypertension, benign Start: 06-09-2023 End: 06-09-2023 Office outpatient visit 25 minutes Santhosh Peters MD Work Phone: [facility] Comment on above: Primary hypertension (Primary Dx); IFG (impaired fasting glucose); Adult onset hypothyroidism; Hypercholesterolemia; Essential hypertension, benign Start: 03-18-2023 End: 03-18-2023 ambulatory [facility] Start: 03-18-2023 End: 03-18-2023 Office outpatient visit 15 minutes Santhosh Peters MD Work Phone: [facility] Comment on above: Primary hypertension (Primary Dx); Adult onset hypothyroidism Start: 03-11-2023 ambulatory MD SANTHOSH PETERS Facility:[id number] Start: 03-11-2023 End: 03-11-2023 ambulatory [facility] Start: 03-03-2023 End: 03-03-2023 ambulatory [facility] Start: 03-03-2023 End: 03-03-2023 Encounter for general adult medical examination without abnormal findings [facility] Start: 03-03-2023 End: 03-03-2023 Assay of hemosiderin, quant Santhosh Peters MD Work Phone: [facility] Work Phone: Start: 03-03-2023 End: 03-03-2023 Patient encounter procedure Santhosh Peters MD Work Phone: [facility] Comment on above: Adult onset hypothyr oidism (Primary Dx); Depression, major, in remission (CMS/HCC); Hyperparathyroidism (CMS/HCC); Stage 3b chronic kidney disease; IFG (impaired fasting glucose); MCI (mild cognitive impairment); Healthcare maintenance; Encounter for screening mammogram for breast cancer; Post-menopausal; Hypercholesterolemia; Routine general medical examination at health care facility Start: 03-03-2023 End: 03-03-2023 Patient encounter status Santhosh Peters MD Work Phone: [facility] Work Phone: Start: 01-02-2023 End: 01-02-2023 Patient encounter procedure Maribel Sheth MD, PhD Work Phone: Ophthalmology Comment on above: 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 Start: 12-10-2022 AUDIT Santhosh johnson Work Phone: [facility] Work Phone: Start: 11-21-2022 End: 11-21-2022 ambulatory MARIBEL SHETH Facility:[facility] Start: 11-21-2022 End: 11-21-2022 Patient encounter procedure Maribel Sheth MD, PhD Work Phone: Ophthalmology Comment on above: 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 Start: 10-22-2022 ambulatory Santhosh Peters Facil [id number] Start: 10-03-2022 End: 10-03-2022 ambulatory MARIBEL SHETH Facility:[facility] Start: 10-01-2022 FUV, Provider: Santhosh Peters, Status: Parth, Time: 10:45 AM Santhosh Peters Work Phone: [facility] Work Phone: Start: 10-01-2022 Office outpatient vi sit 25 minutes Santhosh Peters Work Phone: [facility] Work Phone: Start: 10-01-2022 ambulatory Santhosh Peters Facil [id number] Start: 09-29-2022 Chart Update Santhosh johnson Work Phone: [facility] Work Phone: Start: 09-24-2022 Office outpatient vi sit 25 minutes Santhosh Peters Work Phone: [facility] Work Phone: Start: 09-24-2022 ambulatory Santhosh Tavallaee Facil [id number] Start: 09-16-2022 ambulatory Santhosh Tavallaee Facil [id number] Start: 09-16-2022 FUV, Provider: Santhosh Peters, Status: Pen, Time: 10:30 AM Santhosh Ellise Work Phone: [facility] Work Phone: Start: 09-15-2022 Chart Update Santhosh Moya Tava llaee Work Phone: [facility] Work Phone: Start: 09-11-2022 Chart Update Santhosh Moya Tava llaee Work Phone: [facility] Work Phone: Start: 09-05-2022 End: 09-05-2022 Office outpatient visit 40 minutes Steven Martines CNP Work Phone: [facility] Comment on above: Memory changes; Depression screen Start: 08-29-2022 Office outpatient vi sit 25 minutes Santhosh Peters Work Phone: [facility] Work Phone: Start: 08-29-2022 ambulatory Santhosh Tavallaee Facil [id number] Start: 08-22-2022 End: 08-22-2022 ambulatory MARIBEL SHETH Facility:[facility] Start: 08-22-2022 End: 08-22-2022 Patient encounter procedure Maribel Sheth MD, PhD Work Phone: Ophthalmology Comment on above: 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 Start: 08-12-2022 AUDIT Santhosh Patriciaa llaee Work Phone: [facility] Work Phone: Start: 07-05-2022 ambulatory Jade VENTURA [facility] Start: 07-04-2022 End: 07-04-2022 ambulatory MARIBEL SHETH Facility:[facility] Start: 07-04-2022 End: 07-04-2022 Patient encounter procedure Maribel Sheth MD, PhD Work Phone: Ophthalmology Comment on above: 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 Start: 06-06-2022 AUDIT Santhosh johnson Work Phone: [facility] Work Phone: Start: 05-23-2022 End: 05-23-2022 ambulatory MARIBEL SHETH Facility:[facility] Start: 05-23-2022 End: 05-23-2022 Patient encounter procedure Maribel Sheth MD, PhD Work Phone: Ophthalmology Comment on above: 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 Start: 05-14-2022 Office outpatient vi sit 15 minutes Santhosh Peters Work Phone: [facility] 3 DO Work Phone: Start: 05-14-2022 ambulatory Omar Rodríguez Facility:[id number] Start: 05-09-2022 PTARMIDA, Provider : Jennifer Cabral, Status: Pen, Time: 11:15 AM Santhosh Peters [facility] Work Phone: Start: 05-09-2022 Chart Update Santhosh johnson Work [facility] Work Phone: Start: 05-09-2022 ambulatory MD SANTHOSH PETERS Facility:[id number] Start: 05-07-2022 Chart Update Santhosh johnson [facility] DO Work Phone: Start: 05-07-2022 ambulatory MD SANTHOSH PETERS Facility:[id number] Start: 04-26-2022 ambulatory Santhosh Tavallaee Facil [id number] Start: 04-24-2022 Transcribe Orders Santhosh Peters MD Work Phone: [facility] Comment on above: MCI (mild cognitive impairment) (Primary Dx) Start: 04-23-2022 Office outpatient vi sit 25 minutes Santhosh Peters Work Phone: [facility] Work Phone: Start: 04-23-2022 ambulatory Santhosh Tavallaee Facil [id number] Start: 04-04-2022 End: 04-04-2022 ambulatory MARIBEL SHETH Facility:[facility] Start: 04-04-2022 End: 04-04-2022 Patient encounter procedure Maribel Sheth MD, PhD Work Phone: Ophthalmology Comment on above: 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 Start: 03-27-2022 ambulatory Santhosh Tavallaee Facil [id number] Start: 03-27-2022 Adv care pln/ no alt dcsn mkr docd or refusal Santhosh Peters Work Phone: [facility] Work Phone: Start: 03-27-2022 Patient encounter procedure Santhosh Peters Work Phone: [facility] Work Phone: Start: 03-27-2022 Chart Update Santhosh Patriciaa llaee Work Phone: [facility] Work Phone: Start: 03-26-2022 Chart Update Santhosh Delacruz llaee Work Phone: [facility] Work Phone: Start: 02-21-2022 End: 02-21-2022 ambulatory MARIBEL SHETH Facility:[facility] Start: 02-21-2022 End: 02-21-2022 Patient encounter procedure Maribel Sheth MD, PhD Work Phone: Ophthalmology Comment on above: 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 Start: 12-20-2021 End: 12-20-2021 ambulatory MARIBEL SHETH Facility:[facility] Start: 12-19-2021 Office outpatient vi sit 15 minutes Santhosh Durbinaee Work Phone: [facility] Work Phone: Start: 12-05-2021 Adv care pln/ no alt dcsn mkr docd or refusal Santhosh Patriciaallaee Work Phone: [facility] Work Phone: Start: 07-16-2021 Office outpatient vi sit 15 minutes Santhosh Durbinaee Work Phone: [facility] Work Phone: Start: 07-16-2021 Patient encounter procedure Santhosh Durbinaee Work Phone: [facility] Work Phone: Start: 07-12-2021 Chart Update Santhosh johnson Work Phone: [facility] Work Phone: Start: 06-19-2021 AUDIT Santhosh hammonde Work Phone: [facility] Medicine Work Phone: Start: 06-04-2021 EPV, Provider: Santhosh Peters, Status: Pen, Time: 1:00 PM Santhosh Ellise Work Phone: [facility] Work Phone: Start: 06-04-2021 Office outpatient vi sit 25 minutes Santhosh Durbinaee Work Phone: [facility] Work Phone: Start: 06-03-2021 Chart Update Santhosh Moya Tava llaee Work Phone: [facility] Work Phone: Start: 05-09-2021 Office outpatient vi sit 25 minutes Santhosh Moya Tavallaee Work Phone: [facility] Work Phone: Start: 04-27-2021 Chart Update Santhosh Moya Tava llaee Work Phone: [facility] Work Phone: Start: 04-25-2021 Office outpatient vi sit 25 minutes Santhosh Nita Tavallaee Work Phone: [facility] Work Phone: Start: 03-21-2021 AUDIT Santhosh Moya Tava llaee Work Phone: [facility] Work Phone: Start: 08-02-2020 Patient encounter procedure Jayshree Swensoner [facility] Work Phone: Start: 07-03-2020 Patient encounter procedure Jayshree Kerr DO [facility] Work Phone: Start: 03-01-2020 Patient encounter procedure Jayshree Swensoner [facility] Work Phone: Start: 11-02-2019 Patient encounter procedure Jayshree Swensoner [facility] Work Phone: Start: 08-06-2019 Patient encounter procedure Jayshree Oberhauser [facility] Work Phone: Cancer cervix - screening done Jayshree Usha DO [facility] Work Phone: Comment on above: 2011; Encounter for gynecological examination (general) (routine) without abnormal findings Santhoshho Patriciaallaee Work Phone: [facility] Work Phone: Comment on above: 2011; Procedures Date Procedure Procedure Detail Performing Clinician Start: 11-15-2024 GENERAL PROCEDURE Mirtha Galindo MD Work Phone: Start: 07-13-2024 GENERAL PROCEDURE Mirtha Galindo MD Work Phone: Start: 02-25-2023 Thyrotropin [Units/v olume] in Serum or Plasma Santhosh Peters MD Work Phone: Start: 01-02-2023 Intravitreal njx pha rmacologic agt spx Maribel Sheth MD, PhD Work Phone: Start: 01-02-2023 Computerized ophthal kenny imaging retina Maribel Sheth MD, PhD Work Phone: Start: 11-21-2022 Intravitreal njx pha rmacologic agt spx Maribel Sheth MD, PhD Work Phone: Start: 11-21-2022 Computerized ophthal kenny imaging retina Maribel Sheth MD, PhD Work Phone: Start: 09-05-2022 Adult depression scr eening [facility] Steven Mratines [facility] Work Phone: Start: 08-22-2022 Intravitreal njx pha rmacologic agt spx Maribel Sheth MD, PhD Work Phone: Start: 08-22-2022 Computerized ophthal kenny imaging retina Maribel Sheth MD, PhD Work Phone: Start: 07-04-2022 Intravitreal njx pha rmacologic agt spx Maribel Sheth MD, PhD Work Phone: Start: 07-04-2022 Computerized ophthal kenny imaging retina Maribel Sheth MD, PhD Work Phone: Start: 05-23-2022 Intravitreal njx pha rmacologic agt spx Maribel Sheth MD, PhD Work Phone: Start: 05-23-2022 Computerized ophthal kenny imaging retina Maribel Sheth MD, PhD Work Phone: Start: 04-04-2022 Intravitreal njx pha rmacologic agt spx Maribel Sheth MD, PhD Work Phone: Start: 04-04-2022 Computerized ophthal kenny imaging retina Maribel Sheth MD, PhD Work Phone: Start: 02-21-2022 Intravitreal njx pha rmacologic agt spx Maribel Sheth MD, PhD Work Phone: Start: 02-21-2022 Computerized ophthal kenny imaging retina Maribel Sheth MD, PhD Work Phone: Start: 07-05-2021 Colonoscopy Santhosh Peters Work Phone: Start: 01-26-2021 Lipid 1996 panel - S issac or Plasma Santhosh Peters MD Work Phone: Start: 08-02-2020 Albumin, Urine Spot Doris an Usha Start: 08-02-2020 Comprehensive metabo lic 2000 panel Jayshree Oberhauser Start: 08-02-2020 Hemoglobin glycosylated a1c Jayshree Obsonger Start: 08-02-2020 Lipid panel Jayshree Anand iman Start: 07-03-2020 25 hydroxy includes fractions if performed Jayshree Kerr Start: 07-03-2020 Basic metabolic 1998 panel - Serum or Plasma Jayshree Messier Start: 07-03-2020 Calcium, Urine 24 Hour Jayshree Messier Start: 07-03-2020 Ultrasound Neck Jayshree herrera Start: 07-03-2020 Xray Hip, unilateral w pelvis when performed min 4 views Jayshree Swensoner Start: 03-01-2020 Assay of parathormone M steven Kerr Start: 03-01-2020 Comprehensive metabo lic 2000 panel Jayshree Oberhauser Start: 03-01-2020 Hemoglobin glycosylated a1c Jayshree Oberhauser Start: 11-18-2019 Colonoscopy Jayshree Anand iman Start: 11-18-2019 Colonoscopy Santhosh Peters Work Phone: Comment on above: 2016 done by Duane Meyer to repeat in 3 years (2019) due to family history and personal history of polyps02/13/2017- Colonoscopy findings Cecum identified by: ileo-cecal valve, Transillumination, PHOTO TAKEN, Cecum was normal, Ascending colon was normal, Transverse colon was normal, Descending colon was normal, SIGMOID REVEALED MILD UNCOMPLICATED DIVERTICULOSIS, Rectum was normal, Retroflex rectum was normal. Impression and Plan Diagnosis Colonic diverticular disease ([id number] K57.30, Discharge, Medical). Personal history of colonic polyps 17-NOV-2013 12:29:57<$> ([id number] Z86.010, Discharge, Medical). Orders High fiber diet. Repeat colonoscopy in 3 years.; Start: 11-02-2019 Assay of thyroid sti mulating hormone tsh Jayshree Obnahedhauser Start: 11-02-2019 Basic metabolic 1998 panel - Serum or Plasma Jayshree Oberhauser Cataract surgery Jayshree Oberh auser Colonoscopy Jayshree Swensone r End: 02-13-2017 Colonoscopy Jayshree Oberhauser DO Lumpectomy of breast Jayshree O berhauser Repair of dissection of abdominal aorta Jayshree Obsonger Plan of Treatment Date Care Activity Detail Author Start: 01-26-2026 Lipid panel Lipid Panel [facility] Start: 11-28-2025 eGFR - Kidney Disease eGFR - Kidney Disease [facility] Start: 11-28-2025 Urine screening for protein eGFR - Kidney Disease [facility] Start: 06-20-2025 Influenza vaccination Influenz a Vaccine (Season Ended) [facility] Start: 06-06-2025 End: 06-06-2025 Patient encounter procedure 06/06/2025 9:30 AM EDT Office Visit [facility] [address] [place] [address] Steven Martines CNP [address] [place] [address] [facility] Start: 12-08-2024 End: 12-08-2024 Patient encounter procedure 12/08/2024 3:00 PM EST Office Visit [facility] [address] [place] [address] Rik Douglas APRN-HUMAN RESOURCE MANAGER [address] [place] [address] [facility] Start: 11-15-2024 End: 11-15-2025 Fluoroscopy guided nasogastric tube procedure [facility] Comment on above: Expected: 11/15/2024 , Expires: 11/15/2025 1 Occurrences starti ng 11/15/2024 until 11/15/2024 Start: 11-15-2024 End: 11-15-2024 Patient encounter procedure 11/15/2024 2:00 PM EST Office Visit [facility] [address] [facility] [place] [address] Mirtha Galindo MD [address] [place] [address] [facility] Start: 07-27-2024 End: 07-27-2024 Patient encounter procedure 07/27/2024 2:15 PM EDT Office Visit [facility] [address] [place] [address] Rik Douglas, PURCHASING AND CLAIMS SUPERVISOR-HUMAN RESOURCE MANAGER [address] [facility] [place] [address] [facility] Start: 07-13-2024 End: 07-13-2025 Fluoroscopy guided nasogastric tube procedure [facility] Comment on above: Expected: 07/13/2024 , Expires: 07/13/2025 1 Occurrences starti ng 07/13/2024 until 07/13/2024 Start: 07-13-2024 End: 07-13-2024 Patient encounter procedure 07/13/2024 1:15 PM EDT Office Visit [facility] [address] [facility] [place] [address] Mirtha Galindo MD [address] [place] [address] [facility] Start: 07-07-2024 End: 07-07-2025 XR Lumbar spine Views W right bending and W left bending XR SPINE LUMBAR W/ BENDING 6+ VIEWS Imaging Routine Lumbar radiculopathy Expected: 07/07/2024, Expires: 07/07/2025 [facility] Comment on above: Expected: 07/07/2024 , Expires: 07/07/2025 Start: 07-07-2024 End: 07-07-2025 XR Pelvis and Hip - bilateral Views [facility] Comment on above: Expected: 07/07/2024 , Expires: 07/07/2025 1 Occurrences starti ng 07/07/2024 until 07/07/2024 Start: 06-20-2024 COVID-19 VACCINE ( season) COVID-19 VACCINE () [facility] Start: 06-20-2024 COVID-19 VACCINE () COVID-19 VACCINE ( season) [facility] Start: 06-20-2024 COVID-19 VACCINE () COVID-19 VACCINE () [facility] Start: 06-20-2024 COVID-19 Vaccine () COVID-19 Vaccine () [facility] Start: 06-20-2024 Influenza vaccination INFLUENZA VACC INE (#1) [facility] Start: 03-11-2024 Screening for osteoporosis Bone Density Scan [facility] Start: 03-04-2024 Yearly Adult Physical Yearly Adult P hysical [facility] Start: 03-03-2024 Medicare Wellness Visit Medicare Wellness Visit [facility] Start: 02-26-2024 Diabetes mellitus screening Diabetes Screening [facility] Start: 02-26-2024 Hemoglobin A1c measurement Diabetes: Hemoglobin A1C [facility] Start: 02-26-2024 Thyroid stimulating hormone measurement TSH Level [facility] Start: 01-17-2024 End: 06-25-2024 OCT MACULA CIRRUS OU (BOTH EYES) OCT MACULA CIRRUS OU (BOTH EYES) OPHT Imaging Routine Choroidal neovascular membrane of left eye Expected: 01/17/2024, Expires: 06/25/2024 [facility] Work Phone: Comment on above: Expected: 01/17/2024 , Expires: 06/25/2024 Start: 12-06-2023 End: 05-14-2024 OCT MACULA CIRRUS OU (BOTH EYES) OCT MACULA CIRRUS OU (BOTH EYES) OPHT Imaging Routine Choroidal neovascular membrane of left eye Expected: 12/06/2023, Expires: 05/14/2024 [facility] Work Phone: Comment on above: Expected: 12/06/2023 , Expires: 05/14/2024 Start: 09-06-2023 End: 02-13-2024 OCT MACULA CIRRUS OS (LEFT EYE) OCT MACULA CIRRUS OS (LEFT EYE) OPHT Imaging Routine Choroidal neovascular membrane of left eye Expected: 09/06/2023, Expires: 02/13/2024 [facility] Work Phone: Comment on above: Expected: 09/06/2023 , Expires: 02/13/2024 Start: 09-05-2023 Depression screening using PHQ-9 (Patient Health Questionnaire 9) score [facility] Start: 09-03-2023 End: 09-03-2023 Patient encounter procedure 09/03/2023 2:00 PM EST Office Visit [facility] Internal [facility] [address] [place] [phone] Santhosh Peters MD [address] [facility] [place] [address] [facility] Start: 08-21-2023 End: 08-21-2023 Patient encounter procedure 08/21/2023 2:15 PM EDT Office Visit [facility] [address] [place] [phone] Santhosh Peters MD [address] [facility] [place] [address] [facility] Internal [facility] Start: 08-02-2023 DIABETES SCREEN DIABETES SCREEN [facility] Start: 07-21-2023 End: 07-21-2024 Comprehensive metabolic 2000 panel - Serum or Plasma Comprehensive Metabolic Panel Lab Routine Need for immunization against influenza Primary hypertension Alzheimer disease (CMS/HCC) Hyperparathyroidism (CMS/HCC) Essential hypertension, benign Cerebral atrophy (CMS/HCC) IFG (impaired fasting glucose) Expected: 07/21/2023 (Approximate), Expires: 07/21/2024 [facility] Service Area Work Phone: Comment on above: Expected: 07/21/2023 (Approximate), Expires: 07/21/2024 Start: 07-21-2023 End: 07-21-2024 Hemoglobin A1c/Hemoglobin.total in Blood Hemoglobin A1C Lab Routine IFG (impaired fasting glucose) Expected: 07/21/2023 (Approximate), Expires: 07/21/2024 [facility] Work Phone: Comment on above: Expected: 07/21/2023 (Approximate), Expires: 07/21/2024 Start: 07-19-2023 End: 12-26-2023 OCT MACULA CIRRUS OS (LEFT EYE) OCT MACULA CIRRUS OS (LEFT EYE) OPHT Imaging Routine Choroidal neovascular membrane of left eye Expected: 07/19/2023, Expires: 12/26/2023 [facility] Work Phone: Comment on above: Expected: 07/19/2023 , Expires: 12/26/2023 Start: 07-14-2023 End: 07-14-2023 Patient encounter procedure 07/14/2023 10:45 AM EDT Office Visit [facility] Internal Medicine [address] [place] [phone] Santhosh Peters MD [address] [place] [address] [facility] Internal Medicine Start: 06-20-2023 Influenza vaccination Influenza Vacc ine (#1) [facility] Start: 06-11-2023 End: 06-11-2024 CT Head WO contrast CT head wo IV contrast Imaging Routine Alzheimer disease (CMS/HCC) Expected: 06/11/2023, Expires: 06/11/2024 [facility] Service Area Work Phone: Comment on above: Expected: 06/11/2023 , Expires: 06/11/2024 Start: 06-10-2023 End: 06-10-2023 Patient encounter procedure 06/10/2023 10:45 AM EDT Office Visit [facility] Internal Medicine [address] [phone] Santhosh Peters MD [address] [place] [address] [facility] Internal Medicine Start: 06-09-2023 End: 06-09-2024 Comprehensive metabolic 2000 panel - Serum or Plasma Comprehensive Metabolic Panel Lab Routine Primary hypertension IFG (impaired fasting glucose) Adult onset hypothyroidism Hypercholesterolemia Expected: 06/09/2023 (Approximate), Expires: 06/09/2024 [facility] Service Area Work Phone: Comment on above: Expected: 06/09/2023 (Approximate), Expires: 06/09/2024 Start: 06-09-2023 End: 06-09-2024 Hemoglobin A1c/Hemoglobin.total in Blood Hemoglobin A1C Lab Routine IFG (impaired fasting glucose) Expected: 06/09/2023 (Approximate), Expires: 06/09/2024 [facility] Work Phone: Comment on above: Expected: 06/09/2023 (Approximate), Expires: 06/09/2024 Start: 06-09-2023 End: 06-09-2024 Lipid 1996 panel - Serum or Plasma Lipid Panel Lab Routine Hypercholesterolemia Expected: 06/09/2023 (Approximate), Expires: 06/09/2024 [facility] Work Phone: Comment on above: Expected: 06/09/2023 (Approximate), Expires: 06/09/2024 Start: 06-07-2023 End: 11-14-2023 OCT MACULA CIRRUS OU (BOTH EYES) OCT MACULA CIRRUS OU (BOTH EYES) OPHT Imaging Routine Choroidal neovascular membrane of left eye Expected: 06/07/2023, Expires: 11/14/2023 [facility] Work Phone: Comment on above: Expected: 06/07/2023 , Expires: 11/14/2023 Start: 04-19-2023 End: 09-26-2023 OCT MACULA CIRRUS OS (LEFT EYE) OCT MACULA CIRRUS OS (LEFT EYE) OPHT Imaging Routine Choroidal neovascular membrane of left eye Expected: 04/19/2023, Expires: 09/26/2023 [facility] Work Phone: Comment on above: Expected: 04/19/2023 , Expires: 09/26/2023 Start: 03-08-2023 End: 08-15-2023 OCT MACULA CIRRUS OS (LEFT EYE) OCT MACULA CIRRUS OS (LEFT EYE) OPHT Imaging Routine Choroidal neovascular membrane of left eye Expected: 03/08/2023, Expires: 08/15/2023 [facility] Work Phone: Comment on above: Expected: 03/08/2023 , Expires: 08/15/2023 Start: 03-06-2023 End: 03-06-2023 Patient encounter procedure 03/06/2023 Office Visit Neurology Steven Martines, [employer] [address] [place] [address] [facility] Start: 03-03-2023 End: 03-03-2024 Comprehensive metabolic 2000 panel - Serum or Plasma Comprehensive Metabolic Panel Lab Routine Stage 3b chronic kidney disease IFG (impaired fasting glucose) Expected: 03/03/2023 (Approximate), Expires: 03/03/2024 [facility] Work Phone: Comment on above: Expected: 03/03/2023 (Approximate), Expires: 03/03/2024 Start: 03-03-2023 End: 05-03-2024 DBT Breast - bilateral BI mammo bilateral screening tomosynthesis Imaging Routine Encounter for screening mammogram for breast cancer Expected: 03/03/2023, Expires: 05/03/2024 [facility] Work Phone: Comment on above: Expected: 03/03/2023 , Expires: 05/03/2024 Start: 03-03-2023 End: 03-03-2024 DXA Skeletal system Views for bone density XR DEXA bone density Imaging Routine Post-menopausal Expected: 03/03/2023, Expires: 03/03/2024 [facility] Service Area Work Phone: Comment on above: Expected: 03/03/2023 , Expires: 03/03/2024 Start: 03-03-2023 End: 03-03-2024 Hemoglobin A1c/Hemoglobin.total in Blood Hemoglobin A1C Lab Routine IFG (impaired fasting glucose) Expected: 03/03/2023 (Approximate), Expires: 03/03/2024 [facility] Work Phone: Comment on above: Expected: 03/03/2023 (Approximate), Expires: 03/03/2024 Start: 03-03-2023 End: 03-03-2024 Lipid 1996 panel - Serum or Plasma Lipid Panel Lab Routine Hypercholesterolemia Expected: 03/03/2023 (Approximate), Expires: 03/03/2024 [facility] Work Phone: Comment on above: Expected: 03/03/2023 (Approximate), Expires: 03/03/2024 Start: 03-03-2023 End: 03-03-2024 TSH with reflex to Free T4 if abnormal TSH with reflex to Free T4 if abnormal Lab Routine Adult onset hypothyroidism Expected: 03/03/2023 (Approximate), Expires: 03/03/2024 [facility] Work Phone: Comment on above: Expected: 03/03/2023 (Approximate), Expires: 03/03/2024 Start: 03-03-2023 FUV, Provider: Santhosh Peters, Status: Parth, Time: 10:00 AM FUV, Provider: Santhosh Peters, Status: Parth, Time: 10:00 AM [facility] Work Phone: Start: 03-03-2023 Patient encounter procedure MCRANNUAL, Provider: Santhosh Peters, Status: Parth, Time: 10:00 AM [facility] Work Phone: Start: 11-14-2022 FUV, Provider: Omar Arreguin, Status: Parth, Time: 1:45 PM FUV, Provider: Omar Arreguin, Status: Pen, Time: 1:45 PM [id number] Work Phone: Start: 10-20-2022 ADVANCE DIRECTIVE DISCUSSION ADVANCE DIRECTIVE DISCUSSION [facility] Start: 10-20-2022 DEPRESSION ASSESSMENT DEPRESSION ASS ESSMENT [facility] Start: 10-01-2022 FUV, Provider: Santhosh Peters, Status: Pen, Time: 10:45 AM FUV, Provider: Santhosh Peters, Status: Pen, Time: 10:45 AM [facility] Work Phone: Start: 09-24-2022 FUV, Provider: Santhosh Peters, Status: Pen, Time: 1:30 PM FUV, Provider: Santhosh Peters, Status: Pen, Time: 1:30 PM [facility] Work Phone: Start: 09-16-2022 FUV, Provider: Santhosh Peters, Status: Pen, Time: 10:30 AM FUV, Provider: Santhosh Peters, Status: Pen, Time: 10:30 AM [facility] Work Phone: Start: 07-05-2022 Screening for malignant neoplasm of colon COLORECTAL CANCER SCREENING DISCUSSION [facility] Start: 06-20-2022 Influenza vaccination C [facility] Start: 05-14-2022 FUV, Provider: Omar Arreguin, Status: Pen, Time: 2:45 PM FUV, Provider: Omar Arreguin, Status: Pen, Time: 2:45 PM [id number] Work Phone: Start: 05-07-2022 COVID-19 Vaccine (5 - Booster for Moderna series) COVID-19 Vaccine (5 - Booster for Moderna series) [facility] Start: 05-01-2022 FUV, Provider: Santhosh Peters, Status: Pen, Time: 11:00 AM FUV, Provider: Santhosh Peters, Status: Pen, Time: 11:00 AM [facility] Work Phone: Start: 04-26-2022 NPV, Provider: Rubi Arreguin, Status: Pen, Time: 11:30 AM NPV, Provider: Rubi Arreguin, Status: Pen, Time: 11:30 AM [facility] Work Phone: Start: 04-03-2022 Patient encounter procedure MCRANNUAL, Provider: Santhosh Peters, Status: Pen, Time: 1:15 PM [facility] Work Phone: Start: 02-04-2022 Patient encounter procedure MCRANNUAL, Provider: Santhosh Peters, Status: Pen, Time: 12:45 PM [facility] Work Phone: Start: 01-31-2022 Pneumococcal Vaccine : Age 65+ (2 - PCV) Pneumococcal Vaccine: Age 65+ (2 - PCV) [facility] Start: 01-30-2022 Patient encounter procedure MCRANNUAL, Provider: Santhosh Peters, Status: Pen, Time: 12:30 PM [facility] Work Phone: Start: 12-29-2021 COVID-19 VACCINE (4 - Booster for Moderna series) COVID-19 VACCINE (4 - Booster for Moderna series) [facility] Start: 12-05-2021 FUV, Provider: Santhosh Peters, Status: Pen, Time: 1:00 PM FUV, Provider: Santhosh Peters, Status: Pen, Time: 1:00 PM [facility] Work Phone: Start: 12-01-2021 COVID-19 VACCINE (4 - Booster) COVID-19 VACCINE (4 - Booster) [facility] Start: 10-26-2021 COVID-19 VACCINE (4 - Booster for Moderna series) COVID-19 VACCINE (4 - Booster for Moderna series) [facility] Start: 10-26-2021 COVID-19 Vaccine (4 - Moderna series) COVID-19 Vaccine (4 - Moderna series) [facility] Start: 10-20-2021 ADVANCE DIRECTIVE DISCUSSION ADVANCE DIRECTIVE DISCUSSION [facility] Start: 10-20-2021 DEPRESSION ASSESSMENT DEPRESSION ASS ESSMENT [facility] Start: 07-28-2021 Screening for osteoporosis Bone Density Scan [facility] Start: 07-16-2021 FUV, Provider: Santhosh Peters, Status: Pen, Time: 11:45 AM FUV, Provider: Santhosh Peters, Status: Pen, Time: 11:45 AM [facility] Work Phone: Start: 07-05-2021 COLON, Provider: Santhosh Peters, Status: Pen, Time: 9:00 AM COLON, Provider: Santhosh Peters, Status: Pen, Time: 9:00 AM [facility] Work Phone: Start: 06-04-2021 EPV, Provider: Santhosh Peters, Status: Pen, Time: 1:00 PM EPV, Provider: Santhosh Peters, Status: Pen, Time: 1:00 PM [facility] Work Phone: Start: 05-30-2021 FUV, Provider: Santhosh Peters, Status: Pen, Time: 9:45 AM FUV, Provider: Santhosh Peters, Status: Pen, Time: 9:45 AM [facility] Work Phone: Start: 05-09-2021 FUV, Provider: Malathi Blair, Status: Pen, Time: 9:45 AM FUV, Provider: Malathi Blair, Status: Pen, Time: 9:45 AM [facility] Work Phone: Start: 03-01-2021 Pneumococcal vaccination PNEUMOCOCCAL VACCINE SERIES (2 of 2 - PCV) [facility] Start: 08-02-2020 25 hydroxy includes fractions if performed Vitamin D 25-Hydroxy [facility] Work Phone: Start: 08-02-2020 Basic metabolic 1998 panel - Serum or Plasma Basic Metabolic Panel [facility] Work Phone: Start: 08-02-2020 Calcium, Urine 24 Hour [facility] Work Phone: Start: 07-03-2020 25 hydroxy includes fractions if performed Vitamin D 25-Hydroxy [facility] Medicine Work Phone: Start: 07-03-2020 Basic metabolic 1998 panel - Serum or Plasma Basic Metabolic Panel [facility] Work Phone: Start: 07-03-2020 Calcium, Urine 24 Hour Calcium, Urine 24 Hour [facility] Medicine Work Phone: Start: 07-03-2020 Ultrasound Kidney Bilateral Ultrasound Kidney Bilateral [facility] Work Phone: Start: 07-03-2020 Ultrasound Neck Ultrasound Neck [facility] Work Phone: Start: 07-03-2020 Xray Bone Density, Dexa 1 or More Sites Xray Bone Density, Dexa 1 or More Sites [facility] Medicine Work Phone: Start: 07-03-2020 Xray Hip, unilateral w pelvis when performed min 4 views Xray Hip, unilateral w pelvis when performed min 4 views [facility] Work Phone: Start: 07-03-2020 [facility] Medicine Work Phone: Start: 03-02-2020 Basic metabolic 1998 panel - Serum or Plasma Basic Metabolic Panel [facility] Work Phone: Start: 03-02-2020 TSH Qn TSH - Thyroid Stimulating Hormone, Serum [facility] Work Phone: Start: 06-07-2014 FECAL OCCULT BLOOD FECAL OCCULT BLOO D [facility] Start: 12-31-2010 Respiratory Syncytia l Virus Immunization: Risk, 60-74 Risk, or 75+ (1 - 1-dose 75+ series) Respiratory Syncytial Virus Immunization: Risk, 60-74 Risk, or 75+ (1 - 1-dose 75+ series) [facility] Start: 12-31-2010 RSV VACCINE (1 - 1-dose 75+ series) RSV VACCINE (1 - 1-dose 75+ series) [facility] Start: 12-31-2000 BONE DENSITY BONE DENSITY [facility] Start: 12-31-2000 Fall risk assessment Falls Risk Asse ssment [facility] Start: 12-31-2000 Pneumococcal vaccination PNEUMOCOCCAL VACCINE SERIES (1 of 1 - PCV) [facility] Start: 12-31-2000 PNEUMOCOCCAL: 65+ (1 - PCV) PNEUMOCOCCAL: 65+ (1 - PCV) [facility] Start: 12-31-2000 PNEUMOVAX AGE 65 AND OVER WITH 5YR LOOKBACK (#1) PNEUMOVAX AGE 65 AND OVER WITH 5YR LOOKBACK (#1) [facility] Start: 1996 RSV VACCINE (1 - 1-dose 60+ series) RSV VACCINE (1 - 1-dose 60+ series) [facility] Start: 12-31-1985 Administration of herpes zoster vaccine Zoster Vaccines (1 of 2) [facility] Start: 12-31-1985 SHINGRIX VACCINE (1 of 2) SHINGRIX VACCINE (1 of 2) [facility] Start: 12-31-1985 Zoster vaccine hzv live for subcutaneous use ZOSTER (SHINGLES) VACCINE (1 of 2) [facility] Start: 12-31-1985 Zoster Vaccines (1 o f 2) Zoster Vaccines (1 of 2) [facility] Start: 12-31-1980 Screening for malignant neoplasm of colon COLORECTAL CANCER SCREENING DISCUSSION [facility] Start: 1976 Screening for malignant neoplasm of breast MAMMOGRAM SCREENING DISCUSSION [facility] Start: 12-31-1957 DTaP/Tdap/Td Vaccine s (1 - Tdap) DTaP/Tdap/Td Vaccines (1 - Tdap) [facility] Start: 12-31-1956 Screening for malignant neoplasm of cervix CERVICAL CANCER SCREENING DISCUSSION [facility] Start: 12-31-1954 SHINGRIX VACCINE (1 of 2) SHINGRIX VACCINE (1 of 2) [facility] Start: 12-31-1954 Third diphtheria, tetanus and acellular pertussis (DTaP) vaccination TDAP (ADULT) [facility] Start: 12-31-1954 Urine microalbumin profile DTAP,TDAP,TD (1 - Tdap) [facility] Start: 1948 Depression screening using PHQ-9 (Patient Health Questionnaire 9) score Depression Screening (PHQ-2/9) [facility] Start: 12-31-1945 Urine screening for protein Urine (micro)albumin/creatinine ratio - Kidney Disease [facility] Start: 12-31-1941 PNEUMOCOCCAL: 65+ (1 - PCV) PNEUMOCOCCAL: 65+ (1 - PCV) [facility] Start: 12-31-1938 History and physical examination, annual for health maintenance Wellness Visit [facility] Start: 1936 Potassium [Moles/volume] in Serum or Plasma POTASSIUM [facility] Start: 1936 Screening for osteoporosis [facility] Start: 1936 Tetanus vaccination [facility] Start: 1936 Thyroid stimulating hormone measurement TSH [facility] Cobalamin (Vitamin B12) [Mass/volume] in Serum or Plasma [facility] Complete blood count [facility] Comprehensive metabolic 2000 panel - Serum or Plasma [facility] Folic acid measurement, RBC [facility] MR Brain WO contrast [facility] T4 free measurement [facility] Thiamine measurement [facility] Thyroid stimulating hormone measurement [facility] Vitamin B6 measurement [facility] Vitamin D, 1,25-dihydroxy measurement [facility] End: 07-27-2024 XR Lumbar spine Views W right bending and W left bending [facility] Comment on above: 1 Occurrences starti ng 07/27/2024 until 07/27/2024 XR Orbit - bilateral Views for foreign body [facility] Internal Medicine Work Phone: [facility] NEGATED: Highlighted row has been ruled out! Planned Goals not documented [facility] Work Phone: Immunizations Immunization Date Immunization Notes Care Provider [facility] 07-21-2023 Flu vaccine, quadrivalent, high-dose, preservative free, age 65y+ (FLUZONE) Santhosh Peters MD Work Phone: [facility] Work Phone: 07-21-2023 influenza virus vaccine, unspecified formulation Mirtha Galindo MD Work Phone: [facility] 03-11-2023 zoster vaccine-recombinant adjuvanted (Shingrix, PF,) 50 mcg/0.5 mL vaccine Santhosh Peters MD Work Phone: [facility] Work Phone: 08-29-2022 Fluzone High-Dose Quadrivalent 0.7 ML Intramuscular Suspension Prefilled Syringe; Translations: [Fluzone High-Dose Quadrivalent 0.7 ML Intramuscular Suspension Prefilled Syringe] Santhosh Peters Work Phone: [facility] Work Phone: Comment on above: Series: 08-29-2022 influenza virus vaccine, unspecified formulation Santhosh Peters MD Work Phone: [facility] Work Phone: 03-12-2022 Comirnaty 30 MCG/0.3 ML Intramuscular Suspension Santhosh Peters Work Phone: [facility] Work Phone: 03-12-2022 Prevnar 20 0.5 ML Intramuscular Suspension Prefilled Syringe Santhosh Peters Work Phone: [facility] 08-31-2021 Pfizer-BioNTech COVID-19 Vacc 30 MCG/0.3ML Intramuscular Suspension Santhosh Peters Work Phone: [facility] 07-16-2021 Fluzone High-Dose Quadrivalent 0.7 ML Intramuscular Suspension Prefilled Syringe; Translations: [Fluzone High-Dose Quadrivalent 0.7 ML Intramuscular Suspension Prefilled Syringe] Santhosh Peters Work Phone: [facility] Work Phone: Comment on above: Series: 07-16-2021 influenza virus vaccine, unspecified formulation Santhosh Peters MD Work Phone: [facility] Work Phone: 01-31-2021 pneumococcal vaccine , unspecified formulation Santhosh Peters Work Phone: [facility] Work Phone: 12-29-2020 Moderna COVID-19 Vaccine 100 MCG/0.5ML Intramuscular Suspension Santhosh Peters Work Phone: [facility] 11-30-2020 Moderna COVID-19 Vaccine 100 MCG/0.5ML Intramuscular Suspension Santhosh Peters Work Phone: [facility] Work Phone: 07-03-2020 influenza, injectabl e, quadrivalent, preservative free; Translations: [Flulaval Quadrivalent 0.5 ML Intramuscular Suspension Prefilled Syringe] Jayshree Kerr DO [facility] Work Phone: Comment on above: Series: 07-03-2020 influenza virus vaccine, unspecified formulation Santhosh Peters MD Work Phone: [facility] Work Phone: 03-01-2020 pneumococcal polysaccharide vaccine, 23 valent Santhosh Peters Work Phone: [facility] Work Phone: Comment on above: Series: 03-01-2020 pneumococcal polysaccharide vaccine, 23 valent Jayshree Kerr [facility] Work Phone: 08-06-2019 influenza, high dose seasonal, preservative-free; Translations: [Fluzone High-Dose 0.5 ML Intramuscular Suspension Prefilled Syringe] Jayshree Kerr [facility] Work Phone: Comment on above: Series: 08-06-2018 influenza virus vaccine, unspecified formulation; Translations: [influenza virus vaccine, unspecified formulation] Jayshree Kerr DO [facility] Work Phone: Comment on above: Series: 07-23-2017 influenza, injectabl e, quadrivalent, preservative free Santhosh Peters Work Phone: [facility] Work Phone: Payers Date Payer Category Payer Self-pay 2015 Managed Care (unspecified) [id number] 2015 Private Health Insurance [employer] HU[employer]NA MEDICARE SUPPLEMENT [id number] 2015-Present [phone] [address] [address] [place] [address] Indemnity [id number] 2015 Private Health Insurance [id number] 2015 Unknown 2015 Medicare [id number] 2000 Medicare MEDICARE MEDICAR E A AND B [id number] 2000-Present [phone] [address] [address] [place] [address] Medicare [id number] 2000 Medicare [id number] 2000 Medicare [id number] 1936 Unknown [id number] 2.16.840.1.609103.3.579. 2.356 1936 Unknown [id number] 2.16.840.1.923997.3.579. 2.356 1936 Unknown [id number] 2.16.840.1.594155.3.579. 2.356 1936 Unknown [id number] 2.16.840.1.441935.3.579. 2.356 1936 Unknown [id number] 2.16.840.1.740527.3.579. 2.356 1936 Unknown [id number] 2.16.840.1.241878.3.579. 2.356 1936 Unknown [id number] 2.16.840.1.715898.3.579. 2.356 1936 Unknown [id number] 2.16.840.1.604593.3.579. 2.356 1936 Unknown [id number] 2.16.840.1.552867.3.579. 2.356 1936 Unknown [id number] 2.16.840.1.073022.3.579. 2.1244 1936 Unknown [id number] 2.16.840.1.402002.3.579. 2.1244 1936 Unknown [id number] 2.16.840.1.718960.3.579. 2.1244 1936 Unknown [id number] 2.16.840.1.550330.3.579. 2.1069 1936 Unknown [id number] 2.16.840.1.646208.3.579. 2.1069 1936 Unknown [id number] 2.16.840.1.378300.3.579. 2.1069 1936 Unknown [id number] 2.16.840.1.319872.3.579. 2.983 1936 Unknown [id number] 2.16.840.1.244782.3.579. 2.983 1936 Unknown [id number] 2.16.840.1.822407.3.579. 2.983 1936 Unknown [id number] 2.16.840.1.892067.3.579. 2.983 1936 Unknown [id number] 2.16.840.1.054986.3.579. 2.983 1936 Unknown [id number] 2.16.840.1.284486.3.579. 2.983 1936 Unknown [id number] 2.16.840.1.631807.3.579. 2.983 1936 Unknown [id number] 2.16.840.1.084344.3.579. 2.983 1936 Unknown [id number] 2.16.840.1.383096.3.579. 2.983 1936 Unknown [id number] 2.16.840.1.252214.3.579. 2.983 1935 Unknown [id number] 1935 Unknown [id number] 1935 Unknown [id number] [id number] 1935 Unknown [id number] [id number] 1935 Unknown [id number] [id number] Unknown [id number] Unknown [id number] [id number] Social History Date Type Detail Facility Start: 05-03-2015 End: 09-05-2022 Former smoker Former smoker [facility] Work Phone: Comment on above: quit smoking at age 58; Start: 05-03-2015 End: 03-17-2025 Tobacco smoking status NHIS Ex-smoker [facility] End: 10-20-1997 History of tobacco use Current smoker [facility] End: 10-20-1997 History of tobacco use Cigarette Smoker [facility] Start: 02-21-2022 End: 01-02-2023 Alcohol intake Current drinker of alcohol (finding) [facility] Start: 03-26-2011 History SDOH Alcohol Comment rarely, not even yearly [facility] Start: 1935 Sex Assigned At Not on file [facility] Start: 02-11-2022 End: 07-21-2023 Exposure to SARS-CoV-2 (event) Not sure [facility] Tobacco smoking status ARIS Tobacco smoking consumption unknown [facility] Start: 05-03-2015 End: 03-17-2025 Tobacco use and exposure Smokeless tobacco non-user [facility] Start: 09-05-2022 Tobacco smoking status NHIS Never smoked tobacco [facility] Start: 09-05-2022 End: 03-17-2025 Alcohol intake Ex-drinker (finding) [facility] History of tobacco use Passive smoker [facility] Work Phone: Start: 09-05-2022 End: 02-27-2023 Tobacco use panel [facility] Work Phone: Start: 11-22-2012 Sex Female (finding) [facility] Adult Depression Screening Assessment 0 [facility] Start: 03-17-2025 Tobacco Comment Quit smoking 4 0 years ago [facility] Start: 1935 Sex Assigned At Female W [facility] NEGATED: Highlighted row - - [facility] Work Phone: Functional Status Date Assessment Result Facility NEGATED: Highlighted row Functional performance Functional status health issues are not documented Disease [facility] Work Phone: Mental Status Date Assessment Result Facility NEGATED: Highlighted row Cognitive function [Interpretation] Cognitive status health issues are not documented Disease [facility] Work Phone: Clinical Notes 05-03-2015 to 03-17-2025 Four PointsDiallo CNP - 03/17/2025 10:30 AM EDTAssessment & Plan Note - Steven Martines CNP - 12/16/2024 7:56 PM Steven Jason CNP - 12/09/2024 10:27 AM EST Note Date & Type Note Facility 03-17-2025 History of Present illness Narrative ENT New Patient Visit Patient Name: Duke Acosta MR #: [id number] : 1935 Physicians: Cheyanne Rollins CNP (Family); No ref. provider found (Referring) Chief Complaint/Reason for Visit: ear cleaning & congestion History of Present Illness: Duke Acosta is a 89 y.o. y/o female presenting from PCP with c/o ear cleaning and congestion Duke is a new patient who presents with concerns for possible cerumen impaction. Patient presents with her son who acts as patent lawyer as patient has history of dementia with cognitive impairment. Denies requiring professional ear cleanings in the past. Treatment at home has included nothing without benefit. Symptoms include hearing loss, nasal/sinus congestion, rhinorrhea & PND. Denies ear pain/pressure/drainage, mastoid reactivity, sudden hearing changes, fever, or other constitutional symptoms. Has tried Flonase over the last month, son states "she hasn't been complaining of her sinuses as much since she started". Patient lives in [place]. Has known history of hearing loss with prior hearing testing and obtained hearing aids approximately 3+ years ago. Per son report "she got frustrated with them and threw them away". Patient presents for evaluation with possible ear cleaning. History: Past Medical History: Diagnosis Date Dementia (HCC) Disease of thyroid gland HL (hearing loss) Hypertension Past Surgical History: Procedure Laterality Date CT COLONOSCOPY 11/20/[address] COLONOSCOPY 11/01/2022 CT COLONOSCOPY No family history on file. Social History [1] Allergy Information: I have reviewed the patient's allergies. Allergies[2] Home Medications: Current Medications[3] ROS: Review of Systems Constitutional: Negative for activity change, appetite change, fatigue and fever. HENT: Positive for congestion, hearing loss, postnasal drip and rhinorrhea. Negative for ear discharge, ear pain, nosebleeds, sinus pressure, sinus pain, sneezing, sore throat, tinnitus, trouble swallowing and voice change. Eyes: Negative for pain, discharge, redness, itching and visual disturbance. Respiratory: Negative for apnea, cough, choking, chest tightness, shortness of breath and wheezing. Cardiovascular: Negative for chest pain and palpitations. Gastrointestinal: Negative for nausea and vomiting. Musculoskeletal: Negative for arthralgias, back pain, gait problem, myalgias, neck pain and neck stiffness. Skin: Negative for color change, pallor, rash and wound. Allergic/Immunologic: Negative for environmental allergies and immunocompromised state. Neurological: Negative for dizziness, syncope, facial asymmetry, weakness, light-headedness, numbness and headaches. Hematological: Negative for adenopathy. Psychiatric/Behavioral: Positive for confusion. The patient is not nervous/anxious. Physical Examination: Vital Signs: Pulse (!) 58 Ht 5' 4.5" Wt 52.2 kg (115 lb) SpO2 96% BMI 19.43 kg/m Physical Exam Vitals reviewed. Constitutional: General: She is not in acute distress. Appearance: She is well-developed. She is not ill-appearing or diaphoretic. HENT: Head: Normocephalic and atraumatic. No abrasion, contusion or laceration. Jaw: No tenderness, swelling or pain on movement. Right Ear: Tympanic membrane, ear canal and external ear normal. Decreased hearing noted. No drainage, swelling or tenderness. No middle ear effusion. There is impacted cerumen. No foreign body. No mastoid tenderness. Tympanic membrane is not scarred, perforated, retracted or bulging. Left Ear: Tympanic membrane, ear canal and external ear normal. Decreased hearing noted. No drainage, swelling or tenderness. No middle ear effusion. There is impacted cerumen. No foreign body. No mastoid tenderness. Tympanic membrane is not scarred, perforated, retracted or bulging. Ears: Comments: CONSENT: Informed consent was obtained prior to the procedure after discussion of risks, benefits, and alternatives and expected outcomes were discussed with the patient. The possibile need for additional procedures and failure to diagnose a condition were also discussed. The patient concurred with the proposed plan, giving informed consent. With the patient in a sitting position utilizing the microscope impacted yellow cerumen was found blocking the bilateral canal(s) causing symptoms noted in physical exam. Impacted cerumen was removed from bilateral ear canals using loop. The canals and tympanic membranes were then visualized and found to be without acute/chronic pathology. Patient tolerated procedure well with minimal discomfort Nose: Rhinorrhea present. No nasal deformity, mucosal edema or congestion. Right Sinus: Maxillary sinus tenderness present. No frontal sinus tenderness. Left Sinus: Maxillary sinus tenderness present. No frontal sinus tenderness. Mouth/Throat: Lips: [place]. No lesions. Mouth: Mucous membranes are moist. No lacerations or oral lesions. Dentition: Normal dentition. No dental caries or dental abscesses. Tongue: No lesions. Palate: No mass. Pharynx: Uvula midline. No oropharyngeal exudate, posterior oropharyngeal erythema or uvula swelling. Eyes: General: No scleral icterus. Right eye: No discharge. Left eye: No discharge. Conjunctiva/sclera: Conjunctivae normal. Neck: Trachea: Phonation normal. Pulmonary: Effort: Pulmonary effort is normal. No respiratory distress. Musculoskeletal: General: Normal range of motion. Cervical back: Full passive range of motion without pain, normal range of motion and neck supple. No rigidity. Normal range of motion. Lymphadenopathy: Head: Right side of head: No submental, submandibular, tonsillar, preauricular or posterior auricular adenopathy. Left side of head: No submental, submandibular, tonsillar, preauricular or posterior auricular adenopathy. Cervical: No cervical adenopathy. Right cervical: No superficial, deep or posterior cervical adenopathy. Left cervical: No superficial, deep or posterior cervical adenopathy. Skin: General: Skin is warm and dry. Coloration: Skin is not pale. Findings: No erythema or rash. Neurological: General: No focal deficit present. Mental Status: She is alert and oriented to person, place, and time. GCS: GCS eye subscore is 4. GCS verbal subscore is 5. GCS motor subscore is 6. Psychiatric: Attention and Perception: Attention normal. Mood and Affect: Mood normal. Mood is not anxious. Affect is not blunt. Speech: Speech normal. Behavior: Behavior normal. Behavior is cooperative. Thought Content: Thought content normal. Cognition and Memory: Cognition normal. Judgment: Judgment normal. Assessment and Plan: Duke Acosta is a 89 y.o. y/o female presenting with vasomotor rhinitis, hearing loss, & excess cerumen On exam there was yellow cerumen blocking bilateral ear canals that was removed in above mentioned procedure note, patient tolerated well. Immediate improvement noted following removal of wax. There was no other acute/chronic pathology visualized after removal. Encouraged continued Flonase daily and recommended once daily Loratadine for symptoms suggestive of vasomotor rhinitis. Patient with known history of hearing loss, had prior hearing aids but threw them away after paying approximately $5000. Without having formal hearing testing, unable to determine actual hearing loss, but due to cognitive decline I'm not sure if patient would tolerate hearing aids moving forward. Educated son we could repeat testing in future at their discretion. May try OTC hearing amplifiers to see if this is beneficial for patient as this option may be much more cost effective. Patient and her son verbalized understanding and are in agreement with plans of care Follow-up as needed with any changes or new concerns Diagnoses and all orders for this visit: Vasomotor rhinitis - loratadine (CLARITIN) 10 mg tablet; Take 1 (one) tablet (10 mg total) by mouth daily . Excessive cerumen in both ear canals Sensorineural hearing loss, bilateral Diallo Jiang, DAYAN 03/17/25 [1] Social History Socioeconomic History Marital status: Tobacco Use Smoking status: Former Types: Cigarettes Smokeless tobacco: Never Tobacco comments: Quit smoking 40 years ago Substance and Sexual Activity Alcohol use: Not Currently Drug use: Never [2] Allergies Allergen Reactions Bidil [Isosorbide-Hydralazine] Unknown Bisoprolol-Hydrochlorothiazide Unknown Ziac tabs also Carvedilol Other (See Comments) Muscle weakness Lipitor [Atorvastatin] Unknown Losartan-Hydrochlorothiazide Unknown Pravastatin Unknown Sulfa (Sulfonamide Antibiotics) Unknown Toprol Xl [Metoprolol Succinate] Other (See Comments) Muscle weakness Tricor [Fenofibrate Micronized] Other (See Comments) Muscle weakness [3] Current Outpatient Medications Medication Sig Dispense Refill acetaminophen (TYLENOL) 500 MG tablet Take 2 (two) tablets (1,000 mg total) by mouth every 8 (eight) hours as needed . busPIRone (BUSPAR) 5 MG tablet Take 1 (one) tablet (5 mg total) by mouth 2 (two) times a day . citalopram (CELEXA) 10 MG tablet Take 1 (one) tablet (10 mg total) by mouth daily . 30 tablet 11 donepeziL (ARICEPT) 10 MG tablet Take 1 (one) tablet (10 mg total) by mouth nightly Start: 05/31/22. 30 tablet 11 famotidine (PEPCID) 20 MG tablet Take 1 (one) tablet (20 mg total) by mouth daily . fluticasone propionate (FLONASE) 50 mcg/actuation nasal spray hydrALAZINE (APRESOLINE) 25 MG tablet Take 1 (one) tablet (25 mg total) by mouth 3 (three) times a day . levothyroxine (SYNTHROID, LEVOTHROID) 75 MCG tablet Take 1 (one) tablet (75 mcg total) by mouth daily . lisinopriL (PRINIVIL,ZESTRIL) 10 MG tablet Take 1 (one) tablet (10 mg total) by mouth daily . metoprolol succinate (TOPROL-XL) 25 MG 24 hr tablet Take 1 (one) tablet (25 mg total) by mouth 2 (two) times a day . multivitamin (THERAGRAN) per tablet Take 1 (one) tablet by mouth once . polyethylene glycol (MIRALAX) 17 gram powder Take 17 (seventeen) g by mouth daily as needed . loratadine (CLARITIN) 10 mg tablet Take 1 (one) tablet (10 mg total) by mouth daily . 30 tablet 3 No current facility-administered medications for this visit. documented in this encounter [facility] 03-17-2025 Note ENT New Patient Visi t Patient Name: Duke Acosta MR #: [id number] : 1935 Physicians: Cheyanne Rollins CNP (Family); No ref. provider found (Referring) Chief Complaint/Reason for Visit: ear cleaning & congestion History of Present Illness: Duke Acosta is a 89 y.o. y/o female presenting from PCP with c/o ear cleaning and congestion Duke is a new patient who presents with concerns for possible cerumen impaction. Patient presents with her son who acts as patent lawyer as patient has history of dementia with cognitive impairment. Denies requiring professional ear cleanings in the past. Treatment at home has included nothing without benefit. Symptoms include hearing loss, nasal/sinus congestion, rhinorrhea & PND. Denies ear pain/pressure/drainage, mastoid reactivity, sudden hearing changes, fever, or other constitutional symptoms. Has tried Flonase over the last month, son states "she hasn't been complaining of her sinuses as much since she started". Patient lives in [place]. Has known history of hearing loss with prior hearing testing and obtained hearing aids approximately 3+ years ago. Per son report she got frustrated with them and threw them away". Patient presents for evaluation with possible ear cleaning. History: Past Medical History: Diagnosis Date Dementia (HCC) Disease of thyroid gland HL (hearing loss) Hypertension Past Surgical History: Procedure Laterality Date CT COLONOSCOPY 11/20/[address] COLONOSCOPY 11/01/2022 CT COLONOSCOPY No family history on file. Social History [1] Allergy Information: I have reviewed the patient's allergies. Allergies[2] Home Medications: Current Medications[3] ROS: Review of Systems Constitutional: Negative for activity change, appetite change, fatigue and fever. HENT: Positive for congestion, hearing loss, postnasal drip and rhinorrhea. Negative for ear discharge, ear pain, nosebleeds, sinus pressure, sinus pain, sneezing, sore throat, tinnitus, trouble swallowing and voice change. Eyes: Negative for pain, discharge, redness, itching and visual disturbance. Respiratory: Negative for apnea, cough, choking, chest tightness, shortness of breath and wheezing. Cardiovascular: Negative for chest pain and palpitations. Gastrointestinal: Negative for nausea and vomiting. Musculoskeletal: Negative for arthralgias, back pain, gait problem, myalgias, neck pain and neck stiffness. Skin: Negative for color change, pallor, rash and wound. Allergic/Immunologic: Negative for environmental allergies and immunocompromised state. Neurological: Negative for dizziness, syncope, facial asymmetry, weakness, light-headedness, numbness and headaches. Hematological: Negative for adenopathy. Psychiatric/Behavioral: Positive for confusion. The patient is not nervous/anxious. Physical Examination: Vital Signs: Pulse (!) 58 Ht 5' 4.5" Wt 52.2 kg (115 lb) SpO2 96% BMI 19.43 kg/m Physical Exam Vitals reviewed. Constitutional: General: She is not in acute distress. Appearance: She is well-developed. She is not ill-appearing or diaphoretic. HENT: Head: Normocephalic and atraumatic. No abrasion, contusion or laceration. Jaw: No tenderness, swelling or pain on movement. Right Ear: Tympanic membrane, ear canal and external ear normal. Decreased hearing noted. No drainage, swelling or tenderness. No middle ear effusion. There is impacted cerumen. No foreign body. No mastoid tenderness. Tympanic membrane is not scarred, perforated, retracted or bulging. Left Ear: Tympanic membrane, ear canal and external ear normal. Decreased hearing noted. No drainage, swelling or tenderness. No middle ear effusion. There is impacted cerumen. No foreign body. No mastoid tenderness. Tympanic membrane is not scarred, perforated, retracted or bulging. Ears: Comments: CONSENT: Informed consent was obtained prior to the procedure after discussion of risks, benefits, and alternatives and expected outcomes were discussed with the patient. The possibile need for additional procedures and failure to diagnose a condition were also discussed. The patient concurred with the proposed plan, giving informed consent. With the patient in a sitting position utilizing the microscope impacted yellow cerumen was found blocking the bilateral canal(s) causing symptoms noted in physical exam. Impacted cerumen was removed from bilateral ear canals using loop. The canals and tympanic membranes were then visualized and found to be without acute/chronic pathology. Patient tolerated procedure well with minimal discomfort Nose: Rhinorrhea present. No nasal deformity, mucosal edema or congestion. Right Sinus: Maxillary sinus tenderness present. No frontal sinus tenderness. Left Sinus: Maxillary sinus tenderness present. No frontal sinus tenderness. Mouth/Throat: Lips: [place]. No lesions. Mouth: Mucous mem (more content not included)... [facility] 12-16-2024 Evaluation + Plan note Associated Problem(s): Depression with anxiety History of anxiety. Exhibits some symptoms of anxiety and depression. Difficulty with adjusting to living environment Agreeable to start citalopram 10 mg daily for anxiety and depression. Monitor for any change or worsening symptoms. [facility] 12-16-2024 Miscellaneous Notes Associated Problem(s): Depression with anxiety History of anxiety. Exhibits some symptoms of anxiety and depression. Difficulty with adjusting to living environment Agreeable to start citalopram 10 mg daily for anxiety and depression. Monitor for any change or worsening symptoms. Associated Problem(s): Dementia (HCC) Images from the original note were not included. Continue donepezil 10 mg daily for memory. No longer on memantine - patient felt it was causing her to have symptoms. Encouraged to keep mentally and physically active. She loves to play cards. The facility has several opportunities to play cards. I encouraged her to look into participating in some of these activities that interest her. No driving (has not been driving for 1.5 years). Encouraged to call with any further questions or concerns. Follow-up in 6 months or sooner as needed. Mini-Mental State Examination (MMS) - 12/10/24 1046 ORIENTATION What is the YEAR, SEASON, DATE, DAY, and MONTH? 2 Stated year was "20-something" Where are we? STATE, COUNTY, CITY, or TOWN, HOSPITAL, FLOOR? 4 Unable to state town Total for Orientation 6 REGISTRATION Name 3 common objects (APPLE, TABLE, and SUDHA) 3 2 attempts - hard of hearing ATTENTION AND CALCULATION Spell "WORLD" backwards. 4 RECALL Ask for the 3 objects repeated above. 0 0/3 with clues provided LANGUAGE Name a "PENCIL" and "WATCH" 2 Repeat the following: "No ifs, ands, or buts." 1 Follow a 3 stage command: 3 "Close your eyes" 1 "Write a sentence" 1 Copying the design: (shown to patient) 1 (MMS) TOTAL SCORE 22 documented in this encounter [facility] 12-16-2024 Evaluation + Plan note Associated Problem(s): Dementia (HCC) Images from the original note were not included. Continue donepezil 10 mg daily for memory. No longer on memantine - patient felt it was causing her to have symptoms. Encouraged to keep mentally and physically active. She loves to play cards. The facility has several opportunities to play cards. I encouraged her to look into participating in some of these activities that interest her. No driving (has not been driving for 1.5 years). Encouraged to call with any further questions or concerns. Follow-up in 6 months or sooner as needed. Mini-Mental State Examination (MMS) - 12/10/24 1046 ORIENTATION What is the YEAR, SEASON, DATE, DAY, and MONTH? 2 Stated year was "20-something" Where are we? STATE, COUNTY, CITY, or TOWN, HOSPITAL, FLOOR? 4 Unable to state town Total for Orientation 6 REGISTRATION Name 3 common objects (APPLE, TABLE, and SUDHA) 3 2 attempts - hard of hearing ATTENTION AND CALCULATION Spell "WORLD" backwards. 4 RECALL Ask for the 3 objects repeated above. 0 0/3 with clues provided LANGUAGE Name a "PENCIL" and "WATCH" 2 Repeat the following: "No ifs, ands, or buts." 1 Follow a 3 stage command: 3 "Close your eyes" 1 "Write a sentence" 1 Copying the design: (shown to patient) 1 (MMS) TOTAL SCORE 22 [facility] 12-09-2024 Note Patient ID: Duke Acosta is a 89 y.o. female. Assessment/Plan: Problem List Diagnosed Dementia (HCC) Continue donepezil 10 mg daily for memory. No longer on memantine - patient felt it was causing her to have symptoms. Encouraged to keep mentally and physically active. She loves to play cards. The facility has several opportunities to play cards. I encouraged her to look into participating in some of these activities that interest her. No driving (has not been driving for 1.5 years). Encouraged to call with any further questions or concerns. Follow-up in 6 months or sooner as needed. Mini-Mental State Examination (MMS) - 12/10/24 1046 ORIENTATION What is the YEAR, SEASON, DATE, DAY, and MONTH? 2 Stated year was 20-something Where are we? STATE, COUNTY, CITY, or TOWN, HOSPITAL, FLOOR? 4 Unable to state [facility] Total for Orientation 6 REGISTRATION Name 3 common objects (APPLE, TABLE, and SUDHA) 3 2 attempts - hard of hearing ATTENTION AND CALCULATION Spell "WORLD" backwards. 4 RECALL Ask for the 3 objects repeated above. 0 0/3 with clues provided LANGUAGE Name a "PENCIL" and "WATCH" 2 Repeat the following: "No ifs, ands, or buts." 1 Follow a 3 stage command: 3 "Close your eyes" 1 "Write a sentence" 1 Copying the design: (shown to patient) 1 (MMS) TOTAL SCORE 22 Relevant Medications citalopram (CELEXA) 10 MG tablet Depression with anxiety - Primary History of anxiety. Exhibits some symptoms of anxiety and depression. Difficulty with adjusting to living environment Agreeable to start citalopram 10 mg daily for anxiety and depression. Monitor for any change or worsening symptoms. Relevant Medications citalopram (CELEXA) 10 MG tablet Follow-up in 6 months or sooner as needed. Time statement: A total of 35 minutes were spent on this encounter, which includes the time reviewing the patient's diagnostic tests, seeing the patient, speaking with nursing staff, and documenting in the record. Steven Martines, MSN, HUMAN RESOURCE MANAGER [facility] Neurology Subjective HPI Duke Acosta is an 89 year old female here for memory follow-up. Her son accompanies her to the appointment today. Son reports she has been having periods of what appears to be sundowning behavior. This does not happen every day. Short term memory continues to decline. She has not been driving for 1.5 years now. In the Summer of 2022 she moved to [facility]. Son reports things were not going well there so he moved her to [place] June 2024. He moved her because she was repeatedly reporting how unhappy she was there and how she hated it. She's not happy at [place] either. She states that it's not home and she just wants to go back to living in her own home and caring for her house independently. Son states she was moved from her home when she started to hearing things in her house. This was mainly occurring at nighttime. She reportedly was going over to her neighbors house in the middle of the night, waking them up. She was also repeatedly calling the police with concerns. She's very hard of hearing but will not wear hearing aids. In fact, her son believes that she threw them away. On 11/28/2024 she went to the ER due to increased confusion. She was evaluated to include urinalysis which was negative for UTI. I previously followed up with her 09/05/2022. At that time her daughter came with her to the appointment. Her memory issues at that time had been noticeable for about 2 years. She was living alone at that time and her son was handling her finances and had most of her bills on automatic payments. Review of patients current medication list along with allergies, past medical history, surgical history, family history, and social history was reviewed and updated as appropriate. Review of Systems Unable to perform ROS: Dementia Objective BP (!) 221/91 (BP Location: Left arm, Patient Position: Sitting, BP Cuff Size: Adult) Pulse (!) 50 Resp 16 SpO2 96% Neurological Exam Mental Status Awake and alert. Oriented only to person and place. Oriented to person, place, and time. Recalls 0 of 3 objects immediately. At 5 minutes recalls 0 of 3 objects. Recalls 0 of 3 objects with prompting. Able to copy figure. Speech is normal. Follows three-step commands. Cranial Nerves CN II: Visual acuity is normal. Visual ahm full to confrontation. CN III, IV, : Extraocular movements intact bilaterally. Normal lids and orbits bilaterally. Pupils equal round and reactive to light bilaterally. CN V: Facial sensation is normal. CN VII: Full and symmetric facial movement. CN VIII: Hearing is normal. CN IX, X: Palate elevates symmetrically. Normal gag reflex. CN XI: Shoulder shrug strength is normal. CN XII: Tongue midline without atrophy or fasciculations. Motor Normal muscle bulk throughout. Normal muscle tone. Strength is 5/5 thro (more content not included)... [facility] 12-09-2024 History of Present illness Narrative Images from the original note were not included. Patient ID: Duke Acosta is a 89 y.o. female. Assessment/Plan: Problem List Diagnosed Dementia (HCC) Continue donepezil 10 mg daily for memory. No longer on memantine - patient felt it was causing her to have symptoms. Encouraged to keep mentally and physically active. She loves to play cards. The facility has several opportunities to play cards. I encouraged her to look into participating in some of these activities that interest her. No driving (has not been driving for 1.5 years). Encouraged to call with any further questions or concerns. Follow-up in 6 months or sooner as needed. Mini-Mental State Examination (MMS) - 12/10/24 1046 ORIENTATION What is the YEAR, SEASON, DATE, DAY, and MONTH? 2 Stated year was "20-something" Where are we? STATE, COUNTY, CITY, or TOWN, HOSPITAL, FLOOR? 4 Unable to state town Total for Orientation 6 REGISTRATION Name 3 common objects (APPLE, TABLE, and SUDHA) 3 2 attempts - hard of hearing ATTENTION AND CALCULATION Spell "WORLD" backwards. 4 RECALL Ask for the 3 objects repeated above. 0 0/3 with clues provided LANGUAGE Name a "PENCIL" and "WATCH" 2 Repeat the following: "No ifs, ands, or buts." 1 Follow a 3 stage command: 3 "Close your eyes" 1 "Write a sentence" 1 Copying the design: (shown to patient) 1 (MMS) TOTAL SCORE 22 Relevant Medications citalopram (CELEXA) 10 MG tablet Depression with anxiety - Primary History of anxiety. Exhibits some symptoms of anxiety and depression. Difficulty with adjusting to living environment Agreeable to start citalopram 10 mg daily for anxiety and depression. Monitor for any change or worsening symptoms. Relevant Medications citalopram (CELEXA) 10 MG tablet Follow-up in 6 months or sooner as needed. Time statement: A total of 35 minutes were spent on this encounter, which includes the time reviewing the patient's diagnostic tests, seeing the patient, speaking with nursing staff, and documenting in the record. Steven Martines, MSN, HUMAN RESOURCE MANAGER [facility] Neurology Subjective HPI Duke Acosta is an 89 year old female here for memory follow-up. Her son accompanies her to the appointment today. Son reports she has been having periods of what appears to be sundowning behavior. This does not happen every day. Short term memory continues to decline. She has not been driving for 1.5 years now. In the Summer of 2022 she moved to [facility] assisted living. Son reports things were not going well there so he moved her to [facility] June 2024. He moved her because she was repeatedly reporting how unhappy she was there and how she hated it. She's not happy at [facility] either. She states that it's not home and she just wants to go back to living in her own home and caring for her house independently. Son states she was moved from her home when she started to hearing things in her house. This was mainly occurring at nighttime. She reportedly was going over to her neighbors house in the middle of the night, waking them up. She was also repeatedly calling the police with concerns. She's very hard of hearing but will not wear hearing aids. In fact, her son believes that she threw them away. On 11/28/2024 she went to the ER due to increased confusion. She was evaluated to include urinalysis which was negative for UTI. I previously followed up with her 09/05/2022. At that time her daughter came with her to the appointment. Her memory issues at that time had been noticeable for about 2 years. She was living alone at that time and her son was handling her finances and had most of her bills on automatic payments. Review of patients current medication list along with allergies, past medical history, surgical history, family history, and social history was reviewed and updated as appropriate. Review of Systems Unable to perform ROS: Dementia Objective BP (!) 221/91 (BP Location: Left arm, Patient Position: Sitting, BP Cuff Size: Adult) Pulse (!) 50 Resp 16 SpO2 96% Neurological Exam Mental Status Awake and alert. Oriented only to person and place. Oriented to person, place, and time. Recalls 0 of 3 objects immediately. At 5 minutes recalls 0 of 3 objects. Recalls 0 of 3 objects with prompting. Able to copy figure. Speech is normal. Follows three-step commands. Cranial Nerves CN II: Visual acuity is normal. Visual ham full to confrontation. CN III, IV, : Extraocular movements intact bilaterally. Normal lids and orbits bilaterally. Pupils equal round and reactive to light bilaterally. CN V: Facial sensation is normal. CN VII: Full and symmetric facial movement. CN VIII: Hearing is normal. CN IX, X: Palate elevates symmetrically. Normal gag reflex. CN XI: Shoulder shrug strength is normal. CN XII: Tongue midline without atrophy or fasciculations. Motor Normal muscle bulk throughout. Normal muscle tone. Strength is 5/5 throughout all four extremities. Sensory Sensation is intact to light touch, pinprick, vibration and proprioception in all four extremities. Reflexes Deep tendon reflexes are 2+ and symmetric in all four extremities. Right Left Biceps 2+ 2+ Triceps 2+ 2+ Patellar 2+ 2+ Coordination Lqsmah-[id number], rapid alternating movements and [id number] normal bilaterally without dysmetria. Gait Normal casual, toe, heel and tandem gait. Normal gait. Steady gait. Ambulates without assistive device. . Physical Exam Vitals and nursing note reviewed. Constitutional: General: She is awake. Appearance: She is well-developed. Comments: Patient is very pleasant and cooperative for exam. She is well groomed and dressed appropriate for season. HENT: Head: Normocephalic and atraumatic. Eyes: General: Lids are normal. Extraocular Movements: Extraocular movements intact. Pupils: Pupils are equal, round, and reactive to light. Cardiovascular: Rate and Rhythm: Normal rate and regular rhythm. Heart sounds: No murmur heard. Pulmonary: Effort: Pulmonary effort is normal. No respiratory distress. Breath sounds: Normal breath sounds. No wheezing. Abdominal: General: Bowel sounds are normal. There is no distension. Palpations: Abdomen is soft. Musculoskeletal: General: Normal range of motion. Cervical back: Normal range of motion and neck supple. Skin: General: Skin is warm and dry. Findings: No rash. Neurological: Mental Status: She is alert and oriented to person, place, and time. Motor: Motor strength is normal. Coordination: Coordination is intact. Gait: Gait is intact. Deep Tendon Reflexes: Reflexes are normal and symmetric. Reflex Scores: Tricep reflexes are 2+ on the right side and 2+ on the left side. Bicep reflexes are 2+ on the right side and 2+ on the left side. Patellar reflexes are 2+ on the right side and 2+ on the left side. Psychiatric: Speech: Speech normal. Behavior: Behavior normal. Thought Content: Thought content normal. Judgment: Judgment normal. documented in this encounter [facility] 12-08-2024 History of Present illness Narrative HPI: Duke Acosta Presents for evaluation and treatment of B/L leg pain. Pain is described as Aching and is currently rated 0/10, and at it's most severe is rated 4/10. Pain is increased with getting upset and is relieved by injection. The patient admits to having numbness/tingling right leg. she admits to having weakness right leg. The patient denies to falls within the last 3 months. The patient denies bowel/bladder incontinence. The patient responded with significant relief to the most recent procedure which was Right Sacroiliac Joint Injection . Patient denies tobacco use. Audit-C Questionnaire How often do you have a drink containing alcohol? (0) never 2. How many standard drinks containing alcohol do you have on a typical day? (0) 1 or 2 3. How often do you have six or more drinks on one occasion? (0) never *A score of 3 or more in women or 4 or more in men is a positive score that requires education. Current Outpatient Medications Medication Sig acetaminophen 500 MG tablet Take 2 tablets by mouth every 8 hours as needed for Mild Pain. busPIRone 5 MG tablet Take 1 tablet by mouth 2 times daily. donepezil 5 MG tablet Take 2 tablets by mouth At bedtime. faMOTIdine 20 MG tablet Take 1 tablet by mouth daily. fluticasone 50 MCG/ACT Suspension nasal spray 1 spray by Nasal route daily. furOSEmide 20 MG tablet Take 1 tablet by mouth 2 times daily. hydrALAZINE 25 MG tablet Take 1 tablet by mouth 2 times daily. Levothyroxine 50 MCG tablet Take 1 tablet by mouth every morning before breakfast. Metoprolol 25 MG tab regular release Take 1 tablet by mouth 2 times daily. Multiple Vitamin (multivitamin) tablet Take 1 tablet by mouth daily. Multiple Vitamins-Minerals (PRESERVISION AREDS 2 PO) Take 1 tablet by mouth 2 times daily. Polyethylene glycol 17 g Pack packet Take 1 packet by mouth daily as needed for Constipation. Review of Systems: General: Denies fevers, chills, or night sweats Abdominal: Denies nausea, vomiting, diarrhea Respiratory: Denies cough, sputum production Genitourinary: Denies dysuria or frequency HPI: Duke Valentinradhavitor Presents for evaluation and treatment of B/L leg pain. Pain is described as Aching and is currently rated 0/10, and at it's most severe is rated 4/10. Pain is increased with getting upset and is relieved by injection. The patient admits to having numbness/tingling right leg. she admits to having weakness right leg. The patient denies to falls within the last 3 months. The patient denies bowel/bladder incontinence. The patient responded with significant relief to the most recent procedure which was Right Sacroiliac Joint Injection . Patient denies tobacco use. Audit-C Questionnaire How often do you have a drink containing alcohol? (0) never 2. How many standard drinks containing alcohol do you have on a typical day? (0) 1 or 2 3. How often do you have six or more drinks on one occasion? (0) never *A score of 3 or more in women or 4 or more in men is a positive score that requires education. Current Outpatient Medications Medication Sig acetaminophen 500 MG tablet Take 2 tablets by mouth every 8 hours as needed for Mild Pain. busPIRone 5 MG tablet Take 1 tablet by mouth 2 times daily. donepezil 5 MG tablet Take 2 tablets by mouth At bedtime. faMOTIdine 20 MG tablet Take 1 tablet by mouth daily. fluticasone 50 MCG/ACT Suspension nasal spray 1 spray by Nasal route daily. furOSEmide 20 MG tablet Take 1 tablet by mouth 2 times daily. hydrALAZINE 25 MG tablet Take 1 tablet by mouth 2 times daily. Levothyroxine 50 MCG tablet Take 1 tablet by mouth every morning before breakfast. Metoprolol 25 MG tab regular release Take 1 tablet by mouth 2 times daily. Multiple Vitamin (multivitamin) tablet Take 1 tablet by mouth daily. Multiple Vitamins-Minerals (PRESERVISION AREDS 2 PO) Take 1 tablet by mouth 2 times daily. Polyethylene glycol 17 g Pack packet Take 1 packet by mouth daily as needed for Constipation. Review of Systems: General: Denies fevers, chills, or night sweats Abdominal: Denies nausea, vomiting, diarrhea Respiratory: Denies cough, sputum production Genitourinary: Denies dysuria or frequency Physical Examination: Vitals: 12/08/24 1501 BP: 127/71 Pulse: 56 SpO2: 100% Constitutional The patient is awake, alert, well developed, well nourished and well groomed. The patient is pleasant and cooperative. The patient is a good historian and is very helpful with the history and physical examination. No lesions noted on face. Neurologic Cranial Nerves 2-12 are grossly intact. The gait is abnormal. Sensory testing for light touch is grossly intact. Psychiatric The patient is oriented to person, place, and time. Speech is fluent and words are clear. Thought processes are coherent, insight is good. There are no obsessive, compulsive, phobic or delusional thoughts; there are no illusions or hallucinations. The patient's fund of knowledge: awareness of current events and past history is appropriate for age. The patient's higher cognitive functions are intact. The patient's mood is neutral and the affect appropriate; there are no loose associations. MSK Facet Loading: Bilateral Sacroiliac Joint Maneuvers:Right-Raad, -thigh thrust, -yeomen's test The patient has Mild Limitation difficulty transitioning from sitting to standing. The patient has an antalgic gait. The lumbar spine demonstrates a flexion biased curve. Palpation reveals tenderness over the Bilateral lumbar spine. Lumbosacral range of motion is limited in flexion, extension, Bilateral rotation, Bilateral lateral bend. There is no deformity to the lumbosacral spine. RAAD Pablo test produces pain in the Right lumbar spine. There is no abnormality in muscle tone in the lumbosacral spine. Trigger points are not present in the lumbosacral spine musculature. Muscle strength is 5/5 in the bilateral lower extremities.SLR to bilateral legs negative Negative internal and external log roll Assessment: ICD-10-CM 1. Sacroiliitis M46.1 2. Lumbar spondylosis M47.816 3. Lumbar radiculopathy M54.16 89 y.o. female w/PMHx of memory changes, OA, HTN, depression who presents for evaluation of bilateral leg pain Injections: 07/13/24 right SIJ injection >50% improvement greater than 3 months 11/15/24 right SIJ injection >50% improvement ongoing Meds: currently tylenol with mild relief Imagin07/07/24 bilateral hip/pelvis xray: 1. Mild symmetric degenerative change of the hips and SI joints for age. 2. No fracture, lytic, or blastic lesion. 3. Femoral heads remain rounded. 4. Degenerative change lower lumbar spine. Referrals/consults: none PT: currently engaged without improvement, recently completed >6 weeks of provider guided exercises at her assisted living facility with no improvement Labs: 06/15/24 Cr 1.84 eGFR 26 The patient has had over 3 months of moderate to severe low back bilateral leg pain with functional impairment and inadequate response to conservative care including NSAIDS (unless there are contraindication such as concurrent blood thinners), multiple oral or topical pain medications, and home exercise program/physical therapy. Patient has completed >6 weeks of guided home exercise program and/or formal physical therapy program without relief of their symptoms. The Oswestry Disability Index was completed, and the patient scored a 12%, previously 66%. Plan: -repeat right SIJ injection providing >50% improvement ongoing -continue follow-up with PCP, poor historian due to memory changes. Defer medication management at this time. Patient not interested in additional medications -follow-up 3 months, sooner if needed DARIEL Coleman documented in this encounter [facility] 11-15-2024 History and physical note HPI: This 89 y.o. female presents for treatment of chronic back Pain. Current Outpatient Medications: acetaminophen 500 MG tablet, Take 2 tablets by mouth every 8 hours as needed for Mild Pain., Disp: , Rfl: busPIRone 5 MG tablet, Take 1 tablet by mouth 2 times daily., Disp: , Rfl: donepezil 5 MG tablet, Take 2 tablets by mouth At bedtime., Disp: , Rfl: faMOTIdine 20 MG tablet, Take 1 tablet by mouth daily., Disp: , Rfl: fluticasone 50 MCG/ACT Suspension nasal spray, 1 spray by Nasal route daily., Disp: , Rfl: furOSEmide 20 MG tablet, Take 1 tablet by mouth 2 times daily., Disp: , Rfl: hydrALAZINE 25 MG tablet, Take 1 tablet by mouth 2 times daily., Disp: , Rfl: Levothyroxine 50 MCG tablet, Take 1 tablet by mouth every morning before breakfast., Disp: , Rfl: Metoprolol 25 MG tab regular release, Take 1 tablet by mouth 2 times daily., Disp: , Rfl: Multiple Vitamin (multivitamin) tablet, Take 1 tablet by mouth daily., Disp: , Rfl: Multiple Vitamins-Minerals (PRESERVISION AREDS 2 PO), Take 1 tablet by mouth 2 times daily., Disp: , Rfl: Polyethylene glycol 17 g Pack packet, Take 1 packet by mouth daily as needed for Constipation., Disp: , Rfl: Current Facility-Administered Medications: BUPivacaine (PF) (MARCAINE) 0.25 % 3 mL syringe, 1.5 mL, Other, Once (Outpt Clinic), Mirtha Galindo MD Iohexol (OMNIPAQUE) 300 MG/ML vial 3 mL, 3 mL, Other, Once (Outpt Clinic), Mirtha Galindo MD Lidocaine 1% (PF) (XYLOCAINE MPF) 10 mL syringe, 5 mL, Other, Once (Outpt Clinic), Mirtha Galindo MD triamcinolone (KENALOG-40) injection 20 mg, 20 mg, Other, Once (Outpt Clinic), Mirtha Galindo MD No past medical history on file. No past surgical history on file. No family history on file. Review of Systems: General: Denies fevers, chills, or night sweats Abdominal: Denies nausea, vomiting, diarrhea Respiratory: Denies cough, sputum production Genitourinary: Denies dysuria or frequency Vitals: 11/15/24 1354 BP: 168/67 Pulse: Resp: SpO2: Physical Examination: Vitals: 11/15/24 1354 BP: 168/67 Pulse: Resp: SpO2: Constitutional The patient is awake, alert, well developed, well nourished and well groomed. The patient is pleasant and cooperative. The patient is a good historian and is very helpful with the history and physical examination. Musculoskeletal Lumbar Spine The patient has moderate difficulty transitioning from sitting to standing. The patient has a(n) antalgic gait. The lumbar spine demonstrates a flexion biased curve. Palpation reveals tenderness over the right sacral spine and over the PSIS. Lumbosacral range of motion is limited in extension, right rotation, right lateral bend, left rotation, left lateral bend RAAD Pablo test produces pain in the right sacroiliac joint pain. There is also positive thigh thrust, ASIS compression test, Portland's test, and Gaenslen's on exam.There is mild abnormality in muscle tone in the lumbosacral spine. Trigger points are not present in the lumbosacral spine musculature. Muscle strength is grossly intact in the bilateral lower extremities. Seated straight leg raise is negative in the lower extremity for leg pain radiating to the foot from the low back today. Neurologic Cranial Nerves 2-12 are grossly intact. The gait is abnormal. Sensory testing for light touch is grossly intact. Psychiatric The patient is oriented to person, place, and time. Speech is fluent and words are clear. Thought processes are coherent, insight is good. There are no obsessive, compulsive, phobic or delusional thoughts; there are no illusions or hallucinations. The patient's fund of knowledge: awareness of current events and past history is appropriate for age. The patient's higher cognitive functions are intact. The patient's mood is neutral and the affect appropriate; there are no loose associations. Assessment: ICD-10-CM 1. Sacroiliitis M46.1 07/13/24 right SIJ injection >50% improvement greater than 3 months Plan: Proceed with right sacroiliac joint injection [facility] 11-15-2024 History and physical note HPI: This 89 y.o. female presents for treatment of chronic back Pain. Current Outpatient Medications: acetaminophen 500 MG tablet, Take 2 tablets by mouth every 8 hours as needed for Mild Pain., Disp: , Rfl: busPIRone 5 MG tablet, Take 1 tablet by mouth 2 times daily., Disp: , Rfl: donepezil 5 MG tablet, Take 2 tablets by mouth At bedtime., Disp: , Rfl: faMOTIdine 20 MG tablet, Take 1 tablet by mouth daily., Disp: , Rfl: fluticasone 50 MCG/ACT Suspension nasal spray, 1 spray by Nasal route daily., Disp: , Rfl: furOSEmide 20 MG tablet, Take 1 tablet by mouth 2 times daily., Disp: , Rfl: hydrALAZINE 25 MG tablet, Take 1 tablet by mouth 2 times daily., Disp: , Rfl: Levothyroxine 50 MCG tablet, Take 1 tablet by mouth every morning before breakfast., Disp: , Rfl: Metoprolol 25 MG tab regular release, Take 1 tablet by mouth 2 times daily., Disp: , Rfl: Multiple Vitamin (multivitamin) tablet, Take 1 tablet by mouth daily., Disp: , Rfl: Multiple Vitamins-Minerals (PRESERVISION AREDS 2 PO), Take 1 tablet by mouth 2 times daily., Disp: , Rfl: Polyethylene glycol 17 g Pack packet, Take 1 packet by mouth daily as needed for Constipation., Disp: , Rfl: Current Facility-Administered Medications: BUPivacaine (PF) (MARCAINE) 0.25 % 3 mL syringe, 1.5 mL, Other, Once (Outpt Clinic), Mirtha Galindo MD Iohexol (OMNIPAQUE) 300 MG/ML vial 3 mL, 3 mL, Other, Once (Outpt Clinic), Mirtha Galindo MD Lidocaine 1% (PF) (XYLOCAINE MPF) 10 mL syringe, 5 mL, Other, Once (Outpt Clinic), Mirtha Galindo MD triamcinolone (KENALOG-40) injection 20 mg, 20 mg, Other, Once (Outpt Clinic), Mirtha Galindo MD No past medical history on file. No past surgical history on file. No family history on file. Review of Systems: General: Denies fevers, chills, or night sweats Abdominal: Denies nausea, vomiting, diarrhea Respiratory: Denies cough, sputum production Genitourinary: Denies dysuria or frequency Vitals: 11/15/24 1354 BP: 168/67 Pulse: Resp: SpO2: Physical Examination: Vitals: 11/15/24 1354 BP: 168/67 Pulse: Resp: SpO2: Constitutional The patient is awake, alert, well developed, well nourished and well groomed. The patient is pleasant and cooperative. The patient is a good historian and is very helpful with the history and physical examination. Musculoskeletal Lumbar Spine The patient has moderate difficulty transitioning from sitting to standing. The patient has a(n) antalgic gait. The lumbar spine demonstrates a flexion biased curve. Palpation reveals tenderness over the right sacral spine and over the PSIS. Lumbosacral range of motion is limited in extension, right rotation, right lateral bend, left rotation, left lateral bend RAAD Pablo test produces pain in the right sacroiliac joint pain. There is also positive thigh thrust, ASIS compression test, Portland's test, and Gaenslen's on exam.There is mild abnormality in muscle tone in the lumbosacral spine. Trigger points are not present in the lumbosacral spine musculature. Muscle strength is grossly intact in the bilateral lower extremities. Seated straight leg raise is negative in the lower extremity for leg pain radiating to the foot from the low back today. Neurologic Cranial Nerves 2-12 are grossly intact. The gait is abnormal. Sensory testing for light touch is grossly intact. Psychiatric The patient is oriented to person, place, and time. Speech is fluent and words are clear. Thought processes are coherent, insight is good. There are no obsessive, compulsive, phobic or delusional thoughts; there are no illusions or hallucinations. The patient's fund of knowledge: awareness of current events and past history is appropriate for age. The patient's higher cognitive functions are intact. The patient's mood is neutral and the affect appropriate; there are no loose associations. Assessment: ICD-10-CM 1. Sacroiliitis M46.1 07/13/24 right SIJ injection >50% improvement greater than 3 months Plan: Proceed with right sacroiliac joint injection documented in this encounter [facility] 11-15-2024 History of Present illness Narrative PHYSICIAN: Dr. Isa Galindo SCRUB: Cara ChiuVibrator Operator CARPENTER MINE: Lainey Hatch RN, Verónica Hunt RT: Conner MCCLURE THERMITE BOMB LOADER: none Site cleansed with Chloraprep documented in this encounter [facility] 11-15-2024 Procedure note Associated Ord er(s): GENERAL PROCEDURE Sacroiliac Joint Injection Procedure: Right Sacroiliac Joint Injection under Fluoroscopy Physician: Mirtha Galindo MD PreOperative Diagnosis: Sacroiliitis, Sacroiliac Joint Disorder, Low back pain PostOperative Diagnosis: Same Anesthesia: Local Complications:None Informed Consent: The patient's condition and proposed procedures, risks (including but not limited to infection, bleeding, damage or scarring to skin, muscle, ligament, fascia, tendon, blood vessel and nerve tissue, allergic reaction, adverse side effects from medications such as steroids, contrast, local anesthetics, and medication preservatives, vasovagal reactions, headaches, bruising, soreness, and increased pain after the injection), and alternatives were discussed with the patient or responsible democrat. The patient's / responsible democrat's questions were answered. The patient / responsible democrat appeared to understand and chose to proceed. Informed consent was obtained. Blood Loss: Minimal Indications for Procedure: This patient presents for treatment of chronic low back pain. The patient has increased pain with RAAD test on the Right. The patient presents for Right SI joint injection. Technique: The scrub nurse's and physician's hands were washed immediately prior to the procedure using a chlorhexidine soap or sanitized using ethyl alcohol hand electric motor control assembler. Hat, mask, and sterile gloves were used for the entirety of the procedure. All other personnel in the room wore hat and masks, as well as appropriate personal protective equipment. Risks and benefits of the procedure were discussed in detail, and an informed consent was completed and signed by the patient and physician. A timeout was performed prior to the start of the procedure. The patient was given a verbal description of the intended procedure including the risks and benefits of the procedure. The patient then provided written informed consent for the procedure. The patient was then taken to the operating room and placed prone on the operating table. The patient's lumbosacral spine was prepped and draped in the usual sterile fashion using chlorhexidine prep times 3. A C-arm flouroscope was then brought into the operating field and an AP radiograph is taken of the lumbosacral spine with attention to the Right sacroiliac joint. The C-arm was then obliqued 10 to the left to align the medial and lateral aspect of the joint. The skin and subcutaneous tissue overlying this target was anesthetized with 2 mL of 1% lidocaine. Through this anesthetized tissue a 3.5" 22gauge angulated Quincke spinal needle was advanced under intermittent fluoroscopic guidance to enter the joint. A lateral radiograph was then taken to determine the depth of the needle. Needle position was confirmed within the joint. The stylet was then removed. Then, after negative aspiration for blood, CSF or any other body fluids, 0.5 ml of Omnipaque 300 contrast was injected which revealed an appropriate arthrogram with no vascular uptake. 20 mg of kenalog + 1.5 ml 0.25% Bupivicaine was injected slowly. When the injection was complete the needle was flushed with 0.2mL of 1% lidocaine and then removed. The patient's lumbosacral spine was cleansed and dried. A Band-Aid dressing was applied. The patient was then turned supine onto a transport bed and taken to the recovery room in good condition. The patient tolerated the procedure well with no immediate complications. Post Procedure Evaluation: Pre-procedure pain level: up to 10/10 Post-procedure pain level: 0/10 with SIJ maneuvers Amount of pain relief: 100% Pain with provocative maneuvers: Improved [facility] 11-15-2024 Procedure note Associated Ord er(s): GENERAL PROCEDURE Sacroiliac Joint Injection Procedure: Right Sacroiliac Joint Injection under Fluoroscopy Physician: Mirtha Galindo MD PreOperative Diagnosis: Sacroiliitis, Sacroiliac Joint Disorder, Low back pain PostOperative Diagnosis: Same Anesthesia: Local Complications:None Informed Consent: The patient's condition and proposed procedures, risks (including but not limited to infection, bleeding, damage or scarring to skin, muscle, ligament, fascia, tendon, blood vessel and nerve tissue, allergic reaction, adverse side effects from medications such as steroids, contrast, local anesthetics, and medication preservatives, vasovagal reactions, headaches, bruising, soreness, and increased pain after the injection), and alternatives were discussed with the patient or responsible democrat. The patient's / responsible democrat's questions were answered. The patient / responsible democrat appeared to understand and chose to proceed. Informed consent was obtained. Blood Loss: Minimal Indications for Procedure: This patient presents for treatment of chronic low back pain. The patient has increased pain with RAAD test on the Right. The patient presents for Right SI joint injection. Technique: The scrub nurse's and physician's hands were washed immediately prior to the procedure using a chlorhexidine soap or sanitized using ethyl alcohol hand electric motor control assembler. Hat, mask, and sterile gloves were used for the entirety of the procedure. All other personnel in the room wore hat and masks, as well as appropriate personal protective equipment. Risks and benefits of the procedure were discussed in detail, and an informed consent was completed and signed by the patient and physician. A timeout was performed prior to the start of the procedure. The patient was given a verbal description of the intended procedure including the risks and benefits of the procedure. The patient then provided written informed consent for the procedure. The patient was then taken to the operating room and placed prone on the operating table. The patient's lumbosacral spine was prepped and draped in the usual sterile fashion using chlorhexidine prep times 3. A C-arm flouroscope was then brought into the operating field and an AP radiograph is taken of the lumbosacral spine with attention to the Right sacroiliac joint. The C-arm was then obliqued 10 to the left to align the medial and lateral aspect of the joint. The skin and subcutaneous tissue overlying this target was anesthetized with 2 mL of 1% lidocaine. Through this anesthetized tissue a 3.5" 22gauge angulated Quincke spinal needle was advanced under intermittent fluoroscopic guidance to enter the joint. A lateral radiograph was then taken to determine the depth of the needle. Needle position was confirmed within the joint. The stylet was then removed. Then, after negative aspiration for blood, CSF or any other body fluids, 0.5 ml of Omnipaque 300 contrast was injected which revealed an appropriate arthrogram with no vascular uptake. 20 mg of kenalog + 1.5 ml 0.25% Bupivicaine was injected slowly. When the injection was complete the needle was flushed with 0.2mL of 1% lidocaine and then removed. The patient's lumbosacral spine was cleansed and dried. A Band-Aid dressing was applied. The patient was then turned supine onto a transport bed and taken to the recovery room in good condition. The patient tolerated the procedure well with no immediate complications. Post Procedure Evaluation: Pre-procedure pain level: up to 10/10 Post-procedure pain level: 0/10 with SIJ maneuvers Amount of pain relief: 100% Pain with provocative maneuvers: Improved documented in this encounter [facility] 11-02-2024 History of Present illness Narrative HPI: Duke Acosta Presents for evaluation and treatment of B/L leg pain. Pain is described as Shooting and is currently rated 4/10, and at it's most severe is rated 8/10. Patient states last dose of Opioid Medication N/A was taken N/A. Pain is increased with going up and down stairs, standing, walking, and house work and is relieved by massage, pain medication, and heating pad. The patient denies numbness/tingling. she admits to having weakness B/L legs and is worse on right side. The patient denies to falls within the last 3 months. The patient denies bowel/bladder incontinence. Patient denies tobacco use. Audit-C Questionnaire How often do you have a drink containing alcohol? (0) never 2. How many standard drinks containing alcohol do you have on a typical day? (0) 1 or 2 3. How often do you have six or more drinks on one occasion? (0) never *A score of 3 or more in women or 4 or more in men is a positive score that requires education. Current Outpatient Medications Medication Sig acetaminophen 500 MG tablet Take 2 tablets by mouth every 8 hours as needed for Mild Pain. busPIRone 5 MG tablet Take 1 tablet by mouth 2 times daily. donepezil 5 MG tablet Take 2 tablets by mouth At bedtime. faMOTIdine 20 MG tablet Take 1 tablet by mouth daily. fluticasone 50 MCG/ACT Suspension nasal spray 1 spray by Nasal route daily. furOSEmide 20 MG tablet Take 1 tablet by mouth 2 times daily. hydrALAZINE 25 MG tablet Take 1 tablet by mouth 2 times daily. Levothyroxine 50 MCG tablet Take 1 tablet by mouth every morning before breakfast. Metoprolol 25 MG tab regular release Take 1 tablet by mouth 2 times daily. Multiple Vitamin (multivitamin) tablet Take 1 tablet by mouth daily. Multiple Vitamins-Minerals (PRESERVISION AREDS 2 PO) Take 1 tablet by mouth 2 times daily. Polyethylene glycol 17 g Pack packet Take 1 packet by mouth daily as needed for Constipation. Review of Systems: General: Denies fevers, chills, or night sweats Abdominal: Denies nausea, vomiting, diarrhea Respiratory: Denies cough, sputum production Genitourinary: Denies dysuria or frequency HPI: Duke Acosta Presents for evaluation and treatment of B/L leg pain. Pain is described as Shooting and is currently rated 4/10, and at it's most severe is rated 8/10. Patient states last dose of Opioid Medication N/A was taken N/A. Pain is increased with going up and down stairs, standing, walking, and house work and is relieved by massage, pain medication, and heating pad. The patient denies numbness/tingling. she admits to having weakness B/L legs and is worse on right side. The patient denies to falls within the last 3 months. The patient denies bowel/bladder incontinence. Patient denies tobacco use. Audit-C Questionnaire How often do you have a drink containing alcohol? (0) never 2. How many standard drinks containing alcohol do you have on a typical day? (0) 1 or 2 3. How often do you have six or more drinks on one occasion? (0) never *A score of 3 or more in women or 4 or more in men is a positive score that requires education. Current Outpatient Medications Medication Sig acetaminophen 500 MG tablet Take 2 tablets by mouth every 8 hours as needed for Mild Pain. busPIRone 5 MG tablet Take 1 tablet by mouth 2 times daily. donepezil 5 MG tablet Take 2 tablets by mouth At bedtime. faMOTIdine 20 MG tablet Take 1 tablet by mouth daily. fluticasone 50 MCG/ACT Suspension nasal spray 1 spray by Nasal route daily. furOSEmide 20 MG tablet Take 1 tablet by mouth 2 times daily. hydrALAZINE 25 MG tablet Take 1 tablet by mouth 2 times daily. Levothyroxine 50 MCG tablet Take 1 tablet by mouth every morning before breakfast. Metoprolol 25 MG tab regular release Take 1 tablet by mouth 2 times daily. Multiple Vitamin (multivitamin) tablet Take 1 tablet by mouth daily. Multiple Vitamins-Minerals (PRESERVISION AREDS 2 PO) Take 1 tablet by mouth 2 times daily. Polyethylene glycol 17 g Pack packet Take 1 packet by mouth daily as needed for Constipation. Review of Systems: General: Denies fevers, chills, or night sweats Abdominal: Denies nausea, vomiting, diarrhea Respiratory: Denies cough, sputum production Genitourinary: Denies dysuria or frequency Physical Examination: Vitals: 11/02/24 1352 BP: 168/78 Pulse: 50 Resp: 17 SpO2: 98% Constitutional The patient is awake, alert, well developed, well nourished and well groomed. The patient is pleasant and cooperative. The patient is a good historian and is very helpful with the history and physical examination. No lesions noted on face. Neurologic Cranial Nerves 2-12 are grossly intact. The gait is abnormal. Sensory testing for light touch is grossly intact. Psychiatric The patient is oriented to person, place, and time. Speech is fluent and words are clear. Thought processes are coherent, insight is good. There are no obsessive, compulsive, phobic or delusional thoughts; there are no illusions or hallucinations. The patient's fund of knowledge: awareness of current events and past history is appropriate for age. The patient's higher cognitive functions are intact. The patient's mood is neutral and the affect appropriate; there are no loose associations. MSK L-Spine Assessment Facet Tenderness: Bilateral Facet Loading: Bilateral Sacroiliac Joint Maneuvers:Right+Raad, +thigh thrust, +yeomen's test The patient has Mild Limitation difficulty transitioning from sitting to standing. The patient has an antalgic gait. The lumbar spine demonstrates a flexion biased curve. Palpation reveals tenderness over the Bilateral lumbar spine. Lumbosacral range of motion is limited in flexion, extension, Bilateral rotation, Bilateral lateral bend. There is no deformity to the lumbosacral spine. RAAD Pablo test produces pain in the Right lumbar spine. There is no abnormality in muscle tone in the lumbosacral spine. Trigger points are not present in the lumbosacral spine musculature. Muscle strength is 5/5 in the bilateral lower extremities. Negative internal and external log roll Assessment: ICD-10-CM 1. Sacroiliitis M46.1 2. Lumbar radiculopathy M54.16 3. Lumbar spondylosis M47.816 4. Leg cramps R25.2 89 y.o. female w/PMHx of memory changes, OA, HTN, depression who presents for evaluation of bilateral leg pain Injections: 07/13/24 right SIJ injection >50% improvement greater than 3 months Meds: currently tylenol with mild relief Imagin07/07/24 bilateral hip/pelvis xray: 1. Mild symmetric degenerative change of the hips and SI joints for age. 2. No fracture, lytic, or blastic lesion. 3. Femoral heads remain rounded. 4. Degenerative change lower lumbar spine. Referrals/consults: none PT: currently engaged without improvement, recently completed >6 weeks of provider guided exercises at her assisted living facility with no improvement Labs: 06/15/24 Cr 1.84 eGFR 26 The patient has had over 3 months of moderate to severe low back bilateral leg pain with functional impairment and inadequate response to conservative care including NSAIDS (unless there are contraindication such as concurrent blood thinners), multiple oral or topical pain medications, and home exercise program/physical therapy. Patient has completed >6 weeks of guided home exercise program and/or formal physical therapy program without relief of their symptoms. The Oswestry Disability Index was completed, and the patient scored a 66%. The patient noted the following: the patient has moderate or greater pain, the patient has pain that limits and/or needs help to manage their personal care, pain prevents from lifting heavy weights, pain prevents patient from walking 0.5 mile or less, pain limits ability to sit for 60 minutes or less, the patient has pain that prevents them from standing for 60 minutes or less, Pain limits the patient to 6 hours of sleep or less, the patient's social life is restricted by pain, and pain restricts journeys of 1 hour or less Plan: -repeat right SIJ injection, previous injection provided >50% improvement greater than 3 months -continue PT/HEP as tolerated -continue follow-up with PCP, poor historian due to memory changes. Defer medication management at this time. Patient not interested in additional medications -consider lumbar ELEAZAR if needed -follow-up 2 weeks after injection DARIEL Coleman documented in this encounter [facility] 07-27-2024 History of Present illness Narrative HPI: Duke Acosta Presents for evaluation and treatment of lower back pain. Pain is described as Aching, Stabbing, and Sharp and is currently rated 0/10, and at it's most severe is rated 10/10. Pain is increased with when the patient is upset and is relieved by nothing. The patient denies numbness/tingling. she denies weakness. The patient denies to falls within the last 3 months. The patient denies bowel/bladder incontinence. The patient responded with mild relief to the most recent procedure which was Right SIJI. Patient denies tobacco use. Audit-C Questionnaire How often do you have a drink containing alcohol? (0) never 2. How many standard drinks containing alcohol do you have on a typical day? (0) 1 or 2 3. How often do you have six or more drinks on one occasion? (0) never *A score of 3 or more in women or 4 or more in men is a positive score that requires education. Current Outpatient Medications Medication Sig acetaminophen 500 MG tablet Take 2 tablets by mouth every 8 hours as needed for Mild Pain. busPIRone 5 MG tablet Take 1 tablet by mouth 2 times daily. donepezil 5 MG tablet Take 2 tablets by mouth At bedtime. faMOTIdine 20 MG tablet Take 1 tablet by mouth daily. fluticasone 50 MCG/ACT Suspension nasal spray 1 spray by Nasal route daily. furOSEmide 20 MG tablet Take 1 tablet by mouth 2 times daily. hydrALAZINE 25 MG tablet Take 1 tablet by mouth 2 times daily. Levothyroxine 50 MCG tablet Take 1 tablet by mouth every morning before breakfast. Metoprolol 25 MG tab regular release Take 1 tablet by mouth 2 times daily. Multiple Vitamin (multivitamin) tablet Take 1 tablet by mouth daily. Multiple Vitamins-Minerals (PRESERVISION AREDS 2 PO) Take 1 tablet by mouth 2 times daily. Polyethylene glycol 17 g Pack packet Take 1 packet by mouth daily as needed for Constipation. Review of Systems: General: Denies fevers, chills, or night sweats Abdominal: Denies nausea, vomiting, diarrhea Respiratory: Denies cough, sputum production Genitourinary: Denies dysuria or frequency Physical Examination: Vitals: 07/27/24 1434 BP: (!) 200/93 Pulse: 53 Resp: 20 SpO2: 97% Constitutional The patient is awake, alert, well developed, well nourished and well groomed. The patient is pleasant and cooperative. The patient is a good historian and is very helpful with the history and physical examination. No lesions noted on face. Neurologic Cranial Nerves 2-12 are grossly intact. The gait is abnormal. Sensory testing for light touch is grossly intact. Psychiatric The patient is oriented to person, place, and time. Speech is fluent and words are clear. Thought processes are coherent, insight is good. There are no obsessive, compulsive, phobic or delusional thoughts; there are no illusions or hallucinations. The patient's fund of knowledge: awareness of current events and past history is appropriate for age. The patient's higher cognitive functions are intact. The patient's mood is neutral and the affect appropriate; there are no loose associations. MSK L-Spine Assessment Lumbar Radiculopathy: Negative Straight Leg Test: Negative Facet Tenderness: Negative Facet Loading: Negative Sacroiliac Joint Maneuvers:Right-Raad, -thigh thrust, -yeomen's test The patient has Mild Limitation difficulty transitioning from sitting to standing. The patient has an antalgic gait. The lumbar spine demonstrates a flexion biased curve. There is no deformity to the lumbosacral spine. There is no abnormality in muscle tone in the lumbosacral spine. Trigger points are not present in the lumbosacral spine musculature. Muscle strength is 5/5 in the bilateral lower extremities. Negative internal and external log roll of right and left hip Assessment: ICD-10-CM 1. Sacroiliitis M46.1 2. Lumbar radiculopathy M54.16 3. Bilateral leg pain M79.604 M79.605 4. Lumbar spondylosis M47.816 5. Chronic hip pain, bilateral M25.551 M25.552 G89.29 89 y.o. female w/PMHx of memory changes, OA, HTN, depression who presents for evaluation of bilateral leg pain Injections: none Meds: currently tylenol with mild relief Imagin07/07/24 bilateral hip/pelvis xray: 1. Mild symmetric degenerative change of the hips and SI joints for age. 2. No fracture, lytic, or blastic lesion. 3. Femoral heads remain rounded. 4. Degenerative change lower lumbar spine. Referrals/consults: none PT: currently engaged without improvement, recently completed >6 weeks of provider guided exercises at her assisted living facility with no improvement Labs: 06/15/24 Cr 1.84 eGFR 26 The patient has had over 3 months of moderate to severe low back bilateral leg pain with functional impairment and inadequate response to conservative care including NSAIDS (unless there are contraindication such as concurrent blood thinners), multiple oral or topical pain medications, and home exercise program/physical therapy. Patient has completed >6 weeks of guided home exercise program and/or formal physical therapy program without relief of their symptoms. The Oswestry Disability Index was completed, and the patient scored a 11%. Previously 26% Plan: -pending lumbar xray with flexion to assess low back pain and radiculopathy, however significant improvement on physical exam. Encouraged to complete before next appointment -bilateral hip and pelvis xray reviewed with pt, recent right SIJ injection provided 100% improvement while anesthetized and significant relief on exam -continue PT/HEP as tolerated -continue follow-up with PCP, poor historian due to memory changes. Defer medication management at this time. Patient not interested in additional medications -new dx of HTN, continue follow-up with PCP -follow-up PRN, pain well controlled Blood pressure is elevated today. No signs or symptoms of [place]/CVA including chest pain, SOB, left sided acute neck, arm, or jaw pain (separate from chronic pain complaint), diaphoresis, facial drooping, new acute neuro changes in both upper and lower extremities (other than those mentioned in the note above). Recommend follow up with PCP for further evaluation and treatment. DARIEL Coleman HPI: Duke Acosta Presents for evaluation and treatment of lower back pain. Pain is described as Aching, Stabbing, and Sharp and is currently rated 0/10, and at it's most severe is rated 10/10. Pain is increased with when the patient is upset and is relieved by nothing. The patient denies numbness/tingling. she denies weakness. The patient denies to falls within the last 3 months. The patient denies bowel/bladder incontinence. The patient responded with mild relief to the most recent procedure which was Right SIJI. Patient denies tobacco use. Audit-C Questionnaire How often do you have a drink containing alcohol? (0) never 2. How many standard drinks containing alcohol do you have on a typical day? (0) 1 or 2 3. How often do you have six or more drinks on one occasion? (0) never *A score of 3 or more in women or 4 or more in men is a positive score that requires education. Current Outpatient Medications Medication Sig acetaminophen 500 MG tablet Take 2 tablets by mouth every 8 hours as needed for Mild Pain. busPIRone 5 MG tablet Take 1 tablet by mouth 2 times daily. donepezil 5 MG tablet Take 2 tablets by mouth At bedtime. faMOTIdine 20 MG tablet Take 1 tablet by mouth daily. fluticasone 50 MCG/ACT Suspension nasal spray 1 spray by Nasal route daily. furOSEmide 20 MG tablet Take 1 tablet by mouth 2 times daily. hydrALAZINE 25 MG tablet Take 1 tablet by mouth 2 times daily. Levothyroxine 50 MCG tablet Take 1 tablet by mouth every morning before breakfast. Metoprolol 25 MG tab regular release Take 1 tablet by mouth 2 times daily. Multiple Vitamin (multivitamin) tablet Take 1 tablet by mouth daily. Multiple Vitamins-Minerals (PRESERVISION AREDS 2 PO) Take 1 tablet by mouth 2 times daily. Polyethylene glycol 17 g Pack packet Take 1 packet by mouth daily as needed for Constipation. Review of Systems: General: Denies fevers, chills, or night sweats Abdominal: Denies nausea, vomiting, diarrhea Respiratory: Denies cough, sputum production Genitourinary: Denies dysuria or frequency documented in this encounter [facility] 07-13-2024 History and physical note HPI: This 89 y.o. female presents for treatment of chronic back Pain. Current Outpatient Medications: acetaminophen 500 MG tablet, Take 2 tablets by mouth every 8 hours as needed for Mild Pain., Disp: , Rfl: busPIRone 5 MG tablet, Take 1 tablet by mouth 2 times daily., Disp: , Rfl: donepezil 5 MG tablet, Take 2 tablets by mouth At bedtime., Disp: , Rfl: faMOTIdine 20 MG tablet, Take 1 tablet by mouth daily., Disp: , Rfl: fluticasone 50 MCG/ACT Suspension nasal spray, 1 spray by Nasal route daily., Disp: , Rfl: furOSEmide 20 MG tablet, Take 1 tablet by mouth 2 times daily., Disp: , Rfl: hydrALAZINE 25 MG tablet, Take 1 tablet by mouth 2 times daily., Disp: , Rfl: Levothyroxine 50 MCG tablet, Take 1 tablet by mouth every morning before breakfast., Disp: , Rfl: Metoprolol 25 MG tab regular release, Take 1 tablet by mouth 2 times daily., Disp: , Rfl: Multiple Vitamin (multivitamin) tablet, Take 1 tablet by mouth daily., Disp: , Rfl: Multiple Vitamins-Minerals (PRESERVISION AREDS 2 PO), Take 1 tablet by mouth 2 times daily., Disp: , Rfl: Polyethylene glycol 17 g Pack packet, Take 1 packet by mouth daily as needed for Constipation., Disp: , Rfl: No past medical history on file. No past surgical history on file. No family history on file. Review of Systems: General: Denies fevers, chills, or night sweats Abdominal: Denies nausea, vomiting, diarrhea Respiratory: Denies cough, sputum production Genitourinary: Denies dysuria or frequency Vitals: 07/13/24 1321 BP: 114/51 Pulse: (!) 49 Resp: 18 SpO2: 97% Physical Examination: Vitals: 07/13/24 1321 BP: 114/51 Pulse: (!) 49 Resp: 18 SpO2: 97% Constitutional The patient is awake, alert, well developed, well nourished and well groomed. The patient is pleasant and cooperative. The patient is a good historian and is very helpful with the history and physical examination. Musculoskeletal Lumbar Spine The patient has moderate difficulty transitioning from sitting to standing. The patient has a(n) antalgic gait. The lumbar spine demonstrates a flexion biased curve. Palpation reveals tenderness over the right sacral spine and over the PSIS. Lumbosacral range of motion is limited in extension, right rotation, right lateral bend, left rotation, left lateral bend RAAD Pablo test produces pain in the right sacroiliac joint pain. There is also positive thigh thrust, ASIS compression test, Portland's test, and Gaenslen's on exam.There is mild abnormality in muscle tone in the lumbosacral spine. Trigger points are not present in the lumbosacral spine musculature. Muscle strength is grossly intact in the bilateral lower extremities. Seated straight leg raise is negative in the lower extremity for leg pain radiating to the foot from the low back today. Neurologic Cranial Nerves 2-12 are grossly intact. The gait is abnormal. Sensory testing for light touch is grossly intact. Psychiatric The patient is oriented to person, place, and time. Speech is fluent and words are clear. Thought processes are coherent, insight is good. There are no obsessive, compulsive, phobic or delusional thoughts; there are no illusions or hallucinations. The patient's fund of knowledge: awareness of current events and past history is appropriate for age. The patient's higher cognitive functions are intact. The patient's mood is neutral and the affect appropriate; there are no loose associations. Assessment: ICD-10-CM 1. Sacroiliitis M46.1 Plan: Proceed with right sacroiliac joint injection [facility] 07-13-2024 History and physical note HPI: This 89 y.o. female presents for treatment of chronic back Pain. Current Outpatient Medications: acetaminophen 500 MG tablet, Take 2 tablets by mouth every 8 hours as needed for Mild Pain., Disp: , Rfl: busPIRone 5 MG tablet, Take 1 tablet by mouth 2 times daily., Disp: , Rfl: donepezil 5 MG tablet, Take 2 tablets by mouth At bedtime., Disp: , Rfl: faMOTIdine 20 MG tablet, Take 1 tablet by mouth daily., Disp: , Rfl: fluticasone 50 MCG/ACT Suspension nasal spray, 1 spray by Nasal route daily., Disp: , Rfl: furOSEmide 20 MG tablet, Take 1 tablet by mouth 2 times daily., Disp: , Rfl: hydrALAZINE 25 MG tablet, Take 1 tablet by mouth 2 times daily., Disp: , Rfl: Levothyroxine 50 MCG tablet, Take 1 tablet by mouth every morning before breakfast., Disp: , Rfl: Metoprolol 25 MG tab regular release, Take 1 tablet by mouth 2 times daily., Disp: , Rfl: Multiple Vitamin (multivitamin) tablet, Take 1 tablet by mouth daily., Disp: , Rfl: Multiple Vitamins-Minerals (PRESERVISION AREDS 2 PO), Take 1 tablet by mouth 2 times daily., Disp: , Rfl: Polyethylene glycol 17 g Pack packet, Take 1 packet by mouth daily as needed for Constipation., Disp: , Rfl: No past medical history on file. No past surgical history on file. No family history on file. Review of Systems: General: Denies fevers, chills, or night sweats Abdominal: Denies nausea, vomiting, diarrhea Respiratory: Denies cough, sputum production Genitourinary: Denies dysuria or frequency Vitals: 07/13/24 1321 BP: 114/51 Pulse: (!) 49 Resp: 18 SpO2: 97% Physical Examination: Vitals: 07/13/24 1321 BP: 114/51 Pulse: (!) 49 Resp: 18 SpO2: 97% Constitutional The patient is awake, alert, well developed, well nourished and well groomed. The patient is pleasant and cooperative. The patient is a good historian and is very helpful with the history and physical examination. Musculoskeletal Lumbar Spine The patient has moderate difficulty transitioning from sitting to standing. The patient has a(n) antalgic gait. The lumbar spine demonstrates a flexion biased curve. Palpation reveals tenderness over the right sacral spine and over the PSIS. Lumbosacral range of motion is limited in extension, right rotation, right lateral bend, left rotation, left lateral bend RAAD Pablo test produces pain in the right sacroiliac joint pain. There is also positive thigh thrust, ASIS compression test, Portland's test, and Gaenslen's on exam.There is mild abnormality in muscle tone in the lumbosacral spine. Trigger points are not present in the lumbosacral spine musculature. Muscle strength is grossly intact in the bilateral lower extremities. Seated straight leg raise is negative in the lower extremity for leg pain radiating to the foot from the low back today. Neurologic Cranial Nerves 2-12 are grossly intact. The gait is abnormal. Sensory testing for light touch is grossly intact. Psychiatric The patient is oriented to person, place, and time. Speech is fluent and words are clear. Thought processes are coherent, insight is good. There are no obsessive, compulsive, phobic or delusional thoughts; there are no illusions or hallucinations. The patient's fund of knowledge: awareness of current events and past history is appropriate for age. The patient's higher cognitive functions are intact. The patient's mood is neutral and the affect appropriate; there are no loose associations. Assessment: ICD-10-CM 1. Sacroiliitis M46.1 Plan: Proceed with right sacroiliac joint injection documented in this encounter [facility] 07-13-2024 History of Present illness Narrative PHYSICIAN: Dr. Isa Galindo SCRUB: Rayshawn PRO CARPENTER MINE: Dacia Clemente RN and Diaz Jordan RN RT: Margie MCCLURE THERMITE BOMB LOADER: N/A Site cleansed with chloraprep. documented in this encounter [facility] 07-13-2024 Procedure note Associated Ord er(s): GENERAL PROCEDURE Sacroiliac Joint Injection Procedure: Right Sacroiliac Joint Injection under Fluoroscopy Physician: Mirtha Galindo MD PreOperative Diagnosis: Sacroiliitis, Sacroiliac Joint Disorder, Low back pain PostOperative Diagnosis: Same Anesthesia: Local Complications:None Informed Consent: The patient's condition and proposed procedures, risks (including but not limited to infection, bleeding, damage or scarring to skin, muscle, ligament, fascia, tendon, blood vessel and nerve tissue, allergic reaction, adverse side effects from medications such as steroids, contrast, local anesthetics, and medication preservatives, vasovagal reactions, headaches, bruising, soreness, and increased pain after the injection), and alternatives were discussed with the patient or responsible democrat. The patient's / responsible democrat's questions were answered. The patient / responsible democrat appeared to understand and chose to proceed. Informed consent was obtained. Blood Loss: Minimal Indications for Procedure: This patient presents for treatment of chronic low back pain. The patient has increased pain with RAAD test on the Right. The patient presents for Right SI joint injection. Technique: The scrub nurse's and physician's hands were washed immediately prior to the procedure using a chlorhexidine soap or sanitized using ethyl alcohol hand electric motor control assembler. Hat, mask, and sterile gloves were used for the entirety of the procedure. All other personnel in the room wore hat and masks, as well as appropriate personal protective equipment. Risks and benefits of the procedure were discussed in detail, and an informed consent was completed and signed by the patient and physician. A timeout was performed prior to the start of the procedure. The patient was given a verbal description of the intended procedure including the risks and benefits of the procedure. The patient then provided written informed consent for the procedure. The patient was then taken to the operating room and placed prone on the operating table. The patient's lumbosacral spine was prepped and draped in the usual sterile fashion using chlorhexidine prep times 3. A C-arm flouroscope was then brought into the operating field and an AP radiograph is taken of the lumbosacral spine with attention to the Right sacroiliac joint. The C-arm was then obliqued 10 to the left to align the medial and lateral aspect of the joint. The skin and subcutaneous tissue overlying this target was anesthetized with 2 mL of 1% lidocaine. Through this anesthetized tissue a 3.5" 22gauge angulated Quincke spinal needle was advanced under intermittent fluoroscopic guidance to enter the joint. A lateral radiograph was then taken to determine the depth of the needle. Needle position was confirmed within the joint. The stylet was then removed. Then, after negative aspiration for blood, CSF or any other body fluids, 0.5 ml of Omnipaque 300 contrast was injected which revealed an appropriate arthrogram with no vascular uptake. 20 mg of kenalog + 1.5 ml 0.25% Bupivicaine was injected slowly. When the injection was complete the needle was flushed with 0.2mL of 1% lidocaine and then removed. The patient's lumbosacral spine was cleansed and dried. A Band-Aid dressing was applied. The patient was then turned supine onto a transport bed and taken to the recovery room in good condition. The patient tolerated the procedure well with no immediate complications. Post Procedure Evaluation: Pre-procedure pain level: up to 10/10 Post-procedure pain level: 0/10 with SIJ maneuvers Amount of pain relief: 100% Pain with provocative maneuvers: Improved [facility] 07-13-2024 Procedure note Associated Ord er(s): GENERAL PROCEDURE Sacroiliac Joint Injection Procedure: Right Sacroiliac Joint Injection under Fluoroscopy Physician: Mirtha Galindo MD PreOperative Diagnosis: Sacroiliitis, Sacroiliac Joint Disorder, Low back pain PostOperative Diagnosis: Same Anesthesia: Local Complications:None Informed Consent: The patient's condition and proposed procedures, risks (including but not limited to infection, bleeding, damage or scarring to skin, muscle, ligament, fascia, tendon, blood vessel and nerve tissue, allergic reaction, adverse side effects from medications such as steroids, contrast, local anesthetics, and medication preservatives, vasovagal reactions, headaches, bruising, soreness, and increased pain after the injection), and alternatives were discussed with the patient or responsible democrat. The patient's / responsible democrat's questions were answered. The patient / responsible democrat appeared to understand and chose to proceed. Informed consent was obtained. Blood Loss: Minimal Indications for Procedure: This patient presents for treatment of chronic low back pain. The patient has increased pain with RAAD test on the Right. The patient presents for Right SI joint injection. Technique: The scrub nurse's and physician's hands were washed immediately prior to the procedure using a chlorhexidine soap or sanitized using ethyl alcohol hand electric motor control assembler. Hat, mask, and sterile gloves were used for the entirety of the procedure. All other personnel in the room wore hat and masks, as well as appropriate personal protective equipment. Risks and benefits of the procedure were discussed in detail, and an informed consent was completed and signed by the patient and physician. A timeout was performed prior to the start of the procedure. The patient was given a verbal description of the intended procedure including the risks and benefits of the procedure. The patient then provided written informed consent for the procedure. The patient was then taken to the operating room and placed prone on the operating table. The patient's lumbosacral spine was prepped and draped in the usual sterile fashion using chlorhexidine prep times 3. A C-arm flouroscope was then brought into the operating field and an AP radiograph is taken of the lumbosacral spine with attention to the Right sacroiliac joint. The C-arm was then obliqued 10 to the left to align the medial and lateral aspect of the joint. The skin and subcutaneous tissue overlying this target was anesthetized with 2 mL of 1% lidocaine. Through this anesthetized tissue a 3.5" 22gauge angulated Quincke spinal needle was advanced under intermittent fluoroscopic guidance to enter the joint. A lateral radiograph was then taken to determine the depth of the needle. Needle position was confirmed within the joint. The stylet was then removed. Then, after negative aspiration for blood, CSF or any other body fluids, 0.5 ml of Omnipaque 300 contrast was injected which revealed an appropriate arthrogram with no vascular uptake. 20 mg of kenalog + 1.5 ml 0.25% Bupivicaine was injected slowly. When the injection was complete the needle was flushed with 0.2mL of 1% lidocaine and then removed. The patient's lumbosacral spine was cleansed and dried. A Band-Aid dressing was applied. The patient was then turned supine onto a transport bed and taken to the recovery room in good condition. The patient tolerated the procedure well with no immediate complications. Post Procedure Evaluation: Pre-procedure pain level: up to 10/10 Post-procedure pain level: 0/10 with SIJ maneuvers Amount of pain relief: 100% Pain with provocative maneuvers: Improved documented in this encounter [facility] 07-07-2024 History of Present illness Narrative Nurse Note: Review of Systems All other systems reviewed and are negative. Nursing Assessment: Physical Exam Thank you for the referral of Duke Acosta. As you know, she is a very pleasant 89 y.o. female who presents with b/l leg pain. The patient began to notice this pain generator 1.5 yrs ago. Duke does not recall an inciting event. Pain is described as Aching and is currently rated 9/10 when walking, 0/10 sitting in chair and at it's most severe is rated 9/10. Pain is increased with standing, walking, and any weight bearing and is relieved by relaxation. The patient states that pain is worst when standing/walking. The patient denies numbness/tingling. Duke admits to having weakness b/l legs when standing. The patient denies bowel/bladder incontinence. Treatment modalities that have been used include relaxation and pain medication. The patient denies injection therapy. The patient does not report spine surgery. Patient denies tobacco use. Audit-C Questionnaire How often do you have a drink containing alcohol? (0) never 2. How many standard drinks containing alcohol do you have on a typical day? (0) 1 or 2 3. How often do you have six or more drinks on one occasion? (0) never *A score of 3 or more in women or 4 or more in men is a positive score that requires education. Nurse Note: Review of Systems All other systems reviewed and are negative. Nursing Assessment: Physical Exam Thank you for the referral of Duke Acosta. As you know, she is a very pleasant 89 y.o. female who presents with b/l leg pain. The patient began to notice this pain generator 1.5 yrs ago. Duke does not recall an inciting event. Pain is described as Aching and is currently rated 9/10 when walking, 0/10 sitting in chair and at it's most severe is rated 9/10. Pain is increased with standing, walking, and any weight bearing and is relieved by relaxation. The patient states that pain is worst when standing/walking. The patient denies numbness/tingling. Duke admits to having weakness b/l legs when standing. The patient denies bowel/bladder incontinence. Treatment modalities that have been used include relaxation and pain medication. The patient denies injection therapy. The patient does not report spine surgery. Patient denies tobacco use. Audit-C Questionnaire How often do you have a drink containing alcohol? (0) never 2. How many standard drinks containing alcohol do you have on a typical day? (0) 1 or 2 3. How often do you have six or more drinks on one occasion? (0) never *A score of 3 or more in women or 4 or more in men is a positive score that requires education. No past medical history on file. No past surgical history on file. Psychological/Psychiatric History: The patient has not been evaluated by a psychiatrist or psychologist. Social History: Social History Socioeconomic History Marital status: Single Family History: The patient denies any family history of autoimmune or connective tissue disorders. Physical Examination: Vitals: 07/07/24 0938 BP: 183/82 Pulse: (!) 48 SpO2: 98% Constitutional The patient is awake, alert, well developed, well nourished and well groomed. The patient is pleasant and cooperative. The patient is a good historian and is very helpful with the history and physical examination. Head The skull is normocephalic, atraumatic and without masses. The patient's facial expression and facial contours are normal; the parotid glands are not enlarged. The sinuses are non-tender. There is symmetry of the nasolabial folds. There is no facial droop. Eyes The eyelids are without lesions. The sclera is white and the conjunctiva pink. No tearing noted at baseline. No scarring noted. ENT External inspection of ears and nose is without scars, lesions or masses. Hearing appears to be grossly intact. The nasal mucosa is pink and without discharge. The septum is midline. The turbinates are not enlarged. The buccal mucosa is pink; there is no cyanosis. The lips are normal color; there are no ulcers, masses or lesions. The mucosa of the oropharynx is moist, The tongue is midline. Neck The neck is supple and the trachea is midline. No erythema or visible venous distension. No scaring noted. Respiratory The patient is relaxed and breathes without effort. The patient is not cyanotic and does not use the accessory muscles of respiration. The chest expands symmetrically upon inspiration. Cardiovascular There is no pitting edema of the lower extremities. Extremities are warm. Gastrointestinal The abdomen is soft and nontender; there is no guarding or rigidity. Neurologic Cranial Nerves 2-12 are grossly intact. The deep tendon reflexes of the in bilateral upper and bilateral lower extremities are symmetrical;. Plantar reflexes (Babinski): toes are downgoing. Cerebellar function is normal; Romberg's test is negative. The gait is abnormal. Sensory testing for pain (pinprick), light touch, and proprioception is intact in bilateral upper and bilateral lower extremities dermatome/s. No ankle or wrist clonus present. Negative Schwartz's sign. Motor in bilateral upper and bilateral lower extremities is 5/5. Psychiatric The patient is oriented to person, place, and time. Speech is fluent and words are clear. Thought processes are coherent, insight is good. There are no obsessive, compulsive, phobic or delusional thoughts; there are no illusions or hallucinations. The patient's fund of knowledge: awareness of current events and past history is appropriate for age. The patient's higher cognitive functions are intact. The patient's mood is neutral and the affect appropriate MSK L-Spine Assessment Lumbar Radiculopathy: Positive Dermatomal Distribution: L5 and S1 Right Straight Leg Test: Positive Right Facet Tenderness: Bilateral Facet Loading: Bilateral Sacroiliac Joint Maneuvers:Right+Raad, +thigh thrust, +yeomen's test The patient has Mild Limitation difficulty transitioning from sitting to standing. The patient has an antalgic gait. The lumbar spine demonstrates a flexion biased curve. Palpation reveals tenderness over the Bilateral lumbar spine. Lumbosacral range of motion is limited in flexion, extension, Bilateral rotation, Bilateral lateral bend. There is no deformity to the lumbosacral spine. RAAD Pablo test produces pain in the Right lumbar spine. There is no abnormality in muscle tone in the lumbosacral spine. Trigger points are not present in the lumbosacral spine musculature. Muscle strength is 5/5 in the bilateral lower extremities. Negative internal and external log roll Assessment: ICD-10-CM 1. Sacroiliitis M46.1 2. Lumbar radiculopathy M54.16 3. Bilateral leg pain M79.604 M79.605 4. Lumbar spondylosis M47.816 5. Chronic hip pain, bilateral M25.551 M25.552 G89.29 89 y.o. female w/PMHx of memory changes, OA, HTN, depression who presents for evaluation of bilateral leg pain Injections: none Meds: currently tylenol with mild relief Imaging: none Referrals/consults: none PT: currently engaged without improvement, recently completed >6 weeks of provider guided exercises at her assisted living facility with no improvement Labs: 06/15/24 Cr 1.84 eGFR 26 The patient has had over 3 months of moderate to severe low back bilateral leg pain with functional impairment and inadequate response to conservative care including NSAIDS (unless there are contraindication such as concurrent blood thinners), multiple oral or topical pain medications, and home exercise program/physical therapy. Patient has completed >6 weeks of guided home exercise program and/or formal physical therapy program without relief of their symptoms. The Oswestry Disability Index was completed, and the patient scored a 26%. The patient noted the following: pain prevents patient from walking 0.5 mile or less, the patient has pain that prevents them from standing for 60 minutes or less, and the patient's social life is restricted by pain We discussed the risks and benefits of the procedure with the patient, and we are NOT planning on using sedation as outlined in the guidelines from Medicare unless there is a documented reason that sedation would be strongly recommended. The procedure will be completed with fluoroscopic guidance. Plan: -update lumbar xray with flexion to assess low back pain and radiculopathy -update bilateral hip/pelvis xray -right SIJ injection under fluoroscopy for sacroilitis -continue PT/HEP as tolerated -consider lumbar ELEAZAR in the future -continue follow-up with PCP, poor historian due to memory changes. Defer medication management at this time -MEDICAL STAFF SPECIALIST reviewed and signed -defer UDS -follow-up 2 weeks after SIJ injection Thank you for the opportunity to participate in the care of your patient. Sincerely, DARIEL Coleman documented in this encounter [facility] 07-21-2023 History of Present illness Narrative Subjective Patient ID: Duke Acosta is a 88 y.o. female who presents for Follow-up (1 mo fu ). Here for fu, feels fine Review of Systems Constitutional: Negative. Negative for chills and fever. HENT: Negative. Negative for congestion. Eyes: Negative. Negative for discharge. Respiratory: Negative. Negative for cough, shortness of breath and wheezing. Cardiovascular: Negative. Negative for chest pain, palpitations and leg swelling. Gastrointestinal: Negative. Negative for abdominal distention, abdominal pain, constipation, diarrhea, nausea and vomiting. Endocrine: Negative. Genitourinary: Negative. Negative for dysuria and urgency. Musculoskeletal: Negative. Negative for back pain, joint swelling and neck stiffness. Skin: Negative. Negative for rash. Allergic/Immunologic: Negative. Negative for immunocompromised state. Neurological: Negative. Negative for light-headedness, numbness and headaches. Hematological: Negative. Negative for adenopathy. Psychiatric/Behavioral: Negative. Negative for agitation, behavioral problems and confusion. All other systems reviewed and are negative. Objective Physical Exam Vitals reviewed. Constitutional: General: She is not in acute distress. Appearance: Normal appearance. HENT: Head: Normocephalic and atraumatic. Nose: Nose normal. Eyes: Conjunctiva/sclera: Conjunctivae normal. Pupils: Pupils are equal, round, and reactive to light. Neck: Vascular: No carotid bruit. Cardiovascular: Rate and Rhythm: Normal rate and regular rhythm. Pulses: Normal pulses. Heart sounds: No gallop. Pulmonary: Effort: Pulmonary effort is normal. No respiratory distress. Breath sounds: Normal breath sounds. No wheezing. Abdominal: General: Bowel sounds are normal. Palpations: Abdomen is soft. Tenderness: There is no abdominal tenderness. Musculoskeletal: General: Normal range of motion. Cervical back: Normal range of motion. No rigidity. Lymphadenopathy: Cervical: No cervical adenopathy. Skin: General: Skin is warm. Findings: No rash. Neurological: General: No focal deficit present. Mental Status: She is alert and oriented to person, place, and time. Psychiatric: Mood and Affect: Mood normal. Behavior: Behavior normal. BP 159/69 (BP Location: Right arm, Patient Position: Sitting) Pulse 59 Ht 1.626 m (5' 4") Wt 57.2 kg (126 lb) LMP (LMP Unknown) BMI 21.63 kg/m Hemoglobin A1C Date/Time Value Ref Range Status 02/25/2023 09:31 AM 5.8 (A) % Final Comment: Diagnosis of Diabetes-Adults Non-Diabetic: < or = 5.6% Increased risk for developing diabetes: 5.7-6.4% Diagnostic of diabetes: > or = 6.5% . Monitoring of Diabetes Age (y) Therapeutic Goal (%) Adults: >18 <7.0 Pediatrics: 13-18 <7.5 7-12 <8.0 0- 6 7.5-8.5 [place] [employer]. Diabetes Care 33(S1), Oct 2009. Assessment/Plan Problem List Items Addressed This Visit HTN (hypertension) - Primary Relevant Orders Comprehensive Metabolic Panel Hyperparathyroidism (CMS/HCC) Relevant Orders Comprehensive Metabolic Panel IFG (impaired fasting glucose) Relevant Orders Comprehensive Metabolic Panel Hemoglobin A1C Alzheimer disease (CMS/HCC) Relevant Orders Comprehensive Metabolic Panel Cerebral atrophy (CMS/HCC) Relevant Orders Comprehensive Metabolic Panel Other Visit Diagnoses Need for immunization against influenza Relevant Orders Flu vaccine, quadrivalent, high-dose, preservative free, age 65y+ (FLUZONE) (Completed) Comprehensive Metabolic Panel Essential hypertension, benign Relevant Medications hydrALAZINE (Apresoline) 25 mg tablet Other Relevant Orders Comprehensive Metabolic Panel Ct reviewed MONITOR BP GOAL BP LOWER THAN 130/80 LOW SALT EXERCISE DAILY MDM 1) COMPLEXITY: 1 OR MORE CHRONIC CONDITION WITH EXACERBATION, OR PROGRESSION OR SIDE EFFECT OF TREATMENT ADDRESSED 2)DATA: TESTS INTERPRETED AND OR ORDERED, TOOK INDEPENDENT HISTORY OR RECORDS REVIEWED 3)RISK: MODERATE RISK DUE TO NATURE OF MEDICAL CONDITIONS/COMORBIDITY OR MEDICATIONS ORDERED OR SURGICAL OR PROCEDURE REFERRAL, . FU 1 MO BW documented in this encounter [facility] Work Phone: 06-11-2023 History of Present illness Narrative Subjective Patient ID: Duke Acosta is a 88 y.o. female who presents for Follow-up (Family here for discussion pt co dizziness). Here with family discuss memory, pt denies any problem with that Pt co off and on dizziness Review of Systems Constitutional: Negative. Negative for chills and fever. HENT: Negative. Negative for congestion. Eyes: Negative. Negative for discharge. Respiratory: Negative. Negative for cough, shortness of breath and wheezing. Cardiovascular: Negative. Negative for chest pain, palpitations and leg swelling. Gastrointestinal: Negative. Negative for abdominal distention, abdominal pain, constipation, diarrhea, nausea and vomiting. Endocrine: Negative. Genitourinary: Negative. Negative for dysuria and urgency. Musculoskeletal: Negative. Negative for back pain, joint swelling and neck stiffness. Skin: Negative. Negative for rash. Allergic/Immunologic: Negative. Negative for immunocompromised state. Neurological: Positive for dizziness. Negative for light-headedness, numbness and headaches. Hematological: Negative. Negative for adenopathy. Psychiatric/Behavioral: Negative. Negative for agitation, behavioral problems and confusion. All other systems reviewed and are negative. Objective Physical Exam Vitals reviewed. Constitutional: General: She is not in acute distress. Appearance: Normal appearance. HENT: Head: Normocephalic and atraumatic. Nose: Nose normal. Eyes: Conjunctiva/sclera: Conjunctivae normal. Pupils: Pupils are equal, round, and reactive to light. Neck: Vascular: No carotid bruit. Cardiovascular: Rate and Rhythm: Normal rate and regular rhythm. Pulses: Normal pulses. Heart sounds: No gallop. Pulmonary: Effort: Pulmonary effort is normal. No respiratory distress. Breath sounds: Normal breath sounds. No wheezing. Abdominal: General: Bowel sounds are normal. Palpations: Abdomen is soft. Tenderness: There is no abdominal tenderness. Musculoskeletal: General: Normal range of motion. Cervical back: Normal range of motion. No rigidity. Lymphadenopathy: Cervical: No cervical adenopathy. Skin: General: Skin is warm. Findings: No rash. Neurological: General: No focal deficit present. Mental Status: She is alert and oriented to person, place, and time. Psychiatric: Mood and Affect: Mood normal. Behavior: Behavior normal. Comments: 6 CIT score 10 BP 136/72 (BP Location: Right arm, Patient Position: Sitting) Pulse 57 LMP (LMP Unknown) Hemoglobin A1C Date/Time Value Ref Range Status 02/25/2023 09:31 AM 5.8 (A) % Final Comment: Diagnosis of Diabetes-Adults Non-Diabetic: < or = 5.6% Increased risk for developing diabetes: 5.7-6.4% Diagnostic of diabetes: > or = 6.5% . Monitoring of Diabetes Age (y) Therapeutic Goal (%) Adults: >18 <7.0 Pediatrics: 13-18 <7.5 7-12 <8.0 0- 6 7.5-8.5 [place] [employer]. Diabetes Care 33(S1), Oct 2009. Assessment/Plan Problem List Items Addressed This Visit HTN (hypertension) Alzheimer disease (CMS/[facility]) - Primary Relevant Medications donepezil (Aricept) 10 mg tablet Other Relevant Orders CT head wo IV contrast Other Visit Diagnoses Essential hypertension, benign Relevant Medications hydrALAZINE (Apresoline) 25 mg tablet Mild dementia Do not drive Recommend assisted living Decrease hydralazine After discussion the pt and family decided to sto driving and and move to [place] Start aricept 5 mg dialy hs x 1 mo the 10 mg hs MDM 1) COMPLEXITY: 1 OR MORE CHRONIC CONDITION WITH EXACERBATION, OR PROGRESSION OR SIDE EFFECT OF TREATMENT ADDRESSED 2)DATA: TESTS INTERPRETED AND OR ORDERED, TOOK INDEPENDENT HISTORY OR RECORDS REVIEWED 3)RISK: MODERATE RISK DUE TO NATURE OF MEDICAL CONDITIONS/COMORBIDITY OR MEDICATIONS ORDERED OR SURGICAL OR PROCEDURE REFERRAL, . documented in this encounter [facility] Work Phone: 06-09-2023 History of Present illness Narrative Subjective Patient ID: Duke Acosta is a 88 y.o. female who presents for Follow-up (Bp check today). Here for fu for BP Review of Systems Constitutional: Negative. Negative for chills and fever. HENT: Negative. Negative for congestion. Eyes: Negative. Negative for discharge. Respiratory: Negative. Negative for cough, shortness of breath and wheezing. Cardiovascular: Negative. Negative for chest pain, palpitations and leg swelling. Gastrointestinal: Negative. Negative for abdominal distention, abdominal pain, constipation, diarrhea, nausea and vomiting. Endocrine: Negative. Genitourinary: Negative. Negative for dysuria and urgency. Musculoskeletal: Negative. Negative for back pain, joint swelling and neck stiffness. Skin: Negative. Negative for rash. Allergic/Immunologic: Negative. Negative for immunocompromised state. Neurological: Negative. Negative for light-headedness, numbness and headaches. Hematological: Negative. Negative for adenopathy. Psychiatric/Behavioral: Negative. Negative for agitation, behavioral problems and confusion. All other systems reviewed and are negative. Objective Physical Exam Vitals reviewed. Constitutional: General: She is not in acute distress. Appearance: Normal appearance. HENT: Head: Normocephalic and atraumatic. Nose: Nose normal. Eyes: Conjunctiva/sclera: Conjunctivae normal. Pupils: Pupils are equal, round, and reactive to light. Neck: Vascular: No carotid bruit. Cardiovascular: Rate and Rhythm: Normal rate and regular rhythm. Pulses: Normal pulses. Heart sounds: No gallop. Pulmonary: Effort: Pulmonary effort is normal. No respiratory distress. Breath sounds: Normal breath sounds. No wheezing. Abdominal: General: Bowel sounds are normal. Palpations: Abdomen is soft. Tenderness: There is no abdominal tenderness. Musculoskeletal: General: Normal range of motion. Cervical back: Normal range of motion. No rigidity. Lymphadenopathy: Cervical: No cervical adenopathy. Skin: General: Skin is warm. Findings: No rash. Neurological: General: No focal deficit present. Mental Status: She is alert and oriented to person, place, and time. Psychiatric: Mood and Affect: Mood normal. Behavior: Behavior normal. BP 154/79 (BP Location: Right arm, Patient Position: Sitting) Pulse 54 Ht 1.626 m (5' 4") Wt 58.1 kg (128 lb) LMP (LMP Unknown) BMI 21.97 kg/m Hemoglobin A1C Date/Time Value Ref Range Status 02/25/2023 09:31 AM 5.8 (A) % Final Comment: Diagnosis of Diabetes-Adults Non-Diabetic: < or = 5.6% Increased risk for developing diabetes: 5.7-6.4% Diagnostic of diabetes: > or = 6.5% . Monitoring of Diabetes Age (y) Therapeutic Goal (%) Adults: >18 <7.0 Pediatrics: 13-18 <7.5 7-12 <8.0 0- 6 7.5-8.5 [place] [employer]. Diabetes Care 33(S1), Oct 2009. Assessment/Plan Problem List Items Addressed This Visit Adult onset hypothyroidism Relevant Orders Comprehensive Metabolic Panel HTN (hypertension) - Primary Relevant Orders Comprehensive Metabolic Panel Hypercholesterolemia Relevant Orders Comprehensive Metabolic Panel Lipid Panel IFG (impaired fasting glucose) Relevant Orders Comprehensive Metabolic Panel Hemoglobin A1C Other Visit Diagnoses Essential hypertension, benign Relevant Medications hydrALAZINE (Apresoline) 25 mg tablet Has been taking hydralazin 1 tid to increase to 2 in am 1 at noon 1 in pm MONITOR BP GOAL BP LOWER THAN 130/80 LOW SALT EXERCISE DAILY Fu 1 mo bp MDM 1) COMPLEXITY: 1 OR MORE CHRONIC CONDITION WITH EXACERBATION, OR PROGRESSION OR SIDE EFFECT OF TREATMENT ADDRESSED 2)DATA: TESTS ORDERED, TOOK INDEPENDENT HISTORY OR RECORDS REVIEWED 3)RISK: MODERATE RISK DUE TO NATURE OF MEDICAL CONDITIONS/COMORBIDITY OR MEDICATIONS ORDERED OR SURGICAL OR PROCEDURE REFERRAL, . documented in this encounter [facility] Work Phone: 03-03-2023 History of Present illness Narrative Subjective Reason for Visit: Duke Acosta is an 88 y.o. female here for a Medicare Wellness visit. Past Medical, Surgical, and Family History reviewed and updated in chart. Reviewed all medications by prescribing practitioner or clinical pharmacist (such as prescriptions, OTCs, herbal therapies and supplements) and documented in the medical record. FEELS FINE, NO COMPLANT WELLNESS EXAM Patient Care Team: Santhosh Peters MD as PCP - General Satnhosh Peters MD as PCP - [facility] Attributed Provider Santhosh Peters MD as PCP - [employer] PCP Review of Systems Constitutional: Negative. Negative for chills and fever. HENT: Negative. Negative for congestion. Eyes: Negative. Negative for discharge. Respiratory: Negative. Negative for cough, shortness of breath and wheezing. Cardiovascular: Negative. Negative for chest pain, palpitations and leg swelling. Gastrointestinal: Negative. Negative for abdominal distention, abdominal pain, constipation, diarrhea, nausea and vomiting. Endocrine: Negative. Genitourinary: Negative. Negative for dysuria and urgency. Musculoskeletal: Negative. Negative for back pain, joint swelling and neck stiffness. Skin: Negative. Negative for rash. Allergic/Immunologic: Negative. Negative for immunocompromised state. Neurological: Negative. Negative for light-headedness, numbness and headaches. Hematological: Negative. Negative for adenopathy. Psychiatric/Behavioral: Negative. Negative for agitation, behavioral problems and confusion. All other systems reviewed and are negative. Objective Vitals: BP 146/76 (BP Location: Left arm, Patient Position: Sitting) Pulse 60 Ht 1.626 m (5' 4") Wt 59.9 kg (132 lb) BMI 22.66 kg/m Physical Exam Vitals reviewed. Constitutional: General: She is not in acute distress. Appearance: Normal appearance. HENT: Head: Normocephalic and atraumatic. Nose: Nose normal. Eyes: Conjunctiva/sclera: Conjunctivae normal. Pupils: Pupils are equal, round, and reactive to light. Neck: Vascular: No carotid bruit. Cardiovascular: Rate and Rhythm: Normal rate and regular rhythm. Pulses: Normal pulses. Heart sounds: No gallop. Pulmonary: Effort: Pulmonary effort is normal. No respiratory distress. Breath sounds: Normal breath sounds. No wheezing. Abdominal: General: Bowel sounds are normal. Palpations: Abdomen is soft. Tenderness: There is no abdominal tenderness. Musculoskeletal: General: Normal range of motion. Cervical back: Normal range of motion. No rigidity. Lymphadenopathy: Cervical: No cervical adenopathy. Skin: General: Skin is warm. Findings: No rash. Neurological: General: No focal deficit present. Mental Status: She is alert and oriented to person, place, and time. Psychiatric: Mood and Affect: Mood normal. Behavior: Behavior normal. Assessment/Plan Problem List Items Addressed This Visit Nervous MCI (mild cognitive impairment) Genitourinary Stage 3b chronic kidney disease Relevant Orders Comprehensive Metabolic Panel Endocrine/Metabolic Adult onset hypothyroidism - Primary Relevant Orders TSH with reflex to Free T4 if abnormal Hyperparathyroidism (CMS/HCC) IFG (impaired fasting glucose) Relevant Orders Hemoglobin A1C Comprehensive Metabolic Panel Other Depression, major, in remission (CMS/HCC) Hypercholesterolemia Relevant Orders Lipid Panel Other Visit Diagnoses Healthcare maintenance Encounter for screening mammogram for breast cancer Relevant Orders BI mammo bilateral screening tomosynthesis Post-menopausal Relevant Orders XR DEXA bone density Routine general medical examination at health care facility Advanced Care Planing discussed, diagnosis , treatment and prognosis discussed with pt,pt has capacity to make own decision, pt has a living will, to bring a copy for the chart. MONITOR BP GOAL BP LOWER THAN 130/80 LOW SALT EXERCISE DAILY 1800 QUIRINO ADA HGA1C GOAL LESS THAN 7 LOSE WT EXERCISE DAILY FU 6 MO BW MDM 1) COMPLEXITY: MORE THAN 1 STABLE CHRONIC CONDITION ADDRESSED 2)DATA: TESTS INTERPRETED AND OR ORDERED, TOOK INDEPENDENT HISTORY OR RECORDS REVIEWED 3)RISK: MODERATE RISK DUE TO NATURE OF MEDICAL CONDITIONS/COMORBIDITY OR MEDICATIONS ORDERED OR SURGICAL OR PROCEDURE REFERRAL, . documented in this encounter [facility] Work Phone: 01-02-2023 Instructions Maribel Sheth MD, PhD - 01/02/2023 1:57 PM EDT Post Injection Patient Information You had eye injection(s) today. These are your after injection instructions. Today: Preservative free artificial tears 1 drop every hour while awake as needed Tomorrow: Preservative free artificial tears 1 drop every 2 hours while awake as needed Care instructions after eye injections: Do not rub or touch your eye other than dabbing lightly with a tissue An [id number] pain reliever (i.e. Tylenol) can be used for mild soreness Use artificial tears/lubricating drops once an hour as needed for comfort (chill the tears in the refrigerator for more comfort). If you are using the tears more than 4 times a day they need to be the preservative free kind Warm or cool compresses are okay It is okay to shower and wash your face. No swimming pools or saunas for 24 hours COMMON symptoms after successful eye injections: Mild to moderate pain or irritation beginning the day of the injection. This should begin to improve the following day. Eyelash in the eye or sonia/gritty sensation Tearing Mild floaters or bubbles in your vision - usually resolves after 1-2 days Bloody tears for 1-2 days after treatment Eye Redness Also known as subconjunctival hemorrhage This bruise can cover the entire white part of the eye and may last a few weeks CONCERNING symptoms after eye injections: Severe, constant pain Worsening pain after the first day Decreased vision Severe, constant floaters Curtain or veil in your vision New eye redness that was not there after the injection and covers the whole eye Please call the office immediately for any of the above listed concerning symptoms or with any other questions. 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 posterior chamber intraocular lens (PCIOL) OU Plan: Eylea 6 w ago with improved SRF Gets worse at 8 weeks with avastin and 9 wks Eylea not interested in clinical trials Eylea today left eye, subconj Maintain at 7-9 wks weeks for sti Full exam in jun/jul I have confirmed and edited as necessary the relevant ophthalmic history, ROS, and the neuro exam findings as obtained by others. I have seen and examined this patient. I have discussed the case and the management of this patient's care with the Resident/Fellow, if applicable. I also have reviewed and agree with the assessment and plan as stated above and agree with all of its relevant components. Maribel Sheth MD documented in this encounter [facility] 11-21-2022 Note HNO ID: [id number] Author: Maribel Sheth MD, PhD Service: ? Author Type: Physician Type: Progress Notes Filed: 11/21/2022 10:44 AM Note Text: Here for Choroidal neovascular membrane f/u 1. 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 posterior chamber intraocular lens (PCIOL) OU Plan: Eylea 7 w ago with trace subretinal fluid , increased Gets worse at 8 weeks with avastin and 9 wks Eylea not interested in clinical trials Eylea today left eye, subconj Maintain at 6-8 wks weeks for full exam I have confirmed and edited as necessary the relevant ophthalmic history, ROS, and the neuro exam findings as obtained by others. I have seen and examined this patient. I have discussed the case and the management of this patient's care with the Resident/Fellow, if applicable. I also have reviewed and agree with the assessment and plan as stated above and agree with all of its relevant components. Maribel Sheth MD [facility] 11-21-2022 Instructions Maribel Sheth MD, PhD - 11/21/2022 10:43 AM EST Post-Procedure Patient Information Injection [ ] You had an injection into the eye. [ ] You had an injection adjacent to the eye. Tearing and some redness are common after an eye injection. If the eye feels irritated, try to keep it closed; some patients find that a mild pain medicine such as acetaminophen helps. If tearing or pain persists the next day, please call. The redness may take some days to a week to resolve. If you notice increasing pain, redness or blurred vision, please call the office. Loss of central or peripheral vision should prompt a call to us. Please call if you have any questions or concerns. For Questions or an Appointment, please call: [phone] Visit us online at [email or web address]. documented in this encounter [facility] 11-21-2022 History of Present illness Narrative Here for Choroidal neovascular membrane f/u 1. 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 posterior chamber intraocular lens (PCIOL) OU Plan: Eylea 7 w ago with trace subretinal fluid , increased Gets worse at 8 weeks with avastin and 9 wks Eylea not interested in clinical trials Eylea today left eye, subconj Maintain at 6-8 wks weeks for full exam I have confirmed and edited as necessary the relevant ophthalmic history, ROS, and the neuro exam findings as obtained by others. I have seen and examined this patient. I have discussed the case and the management of this patient's care with the Resident/Fellow, if applicable. I also have reviewed and agree with the assessment and plan as stated above and agree with all of its relevant components. Maribel Sheth MD documented in this encounter [facility] 10-07-2022 Evaluation + Plan note Associated Problem(s): Depression screen 1. No issues with anxiety or depression reported. 2. PHQ-9 Over the last 2 weeks, how often have you been bothered by any of the following problems? Little interest or pleasure in doing things: Not at all Feeling down, depressed, or hopeless: Not at all PHQ-2 Total Score: 0 [facility] 10-07-2022 Miscellaneous Notes Associated Problem(s): Depression screen 1. No issues with anxiety or depression reported. 2. PHQ-9 Over the last 2 weeks, how often have you been bothered by any of the following problems? Little interest or pleasure in doing things: Not at all Feeling down, depressed, or hopeless: Not at all PHQ-2 Total Score: 0 Associated Problem(s): Memory changes Images from the original note were not included. 1. Short term memory - likely complicated by hearing impairment. 2. Continue donepezil 10 mg daily and memantine 5 mg BID for memory. 3. Encouraged to keep mentally and physically active. She enjoys reading. 4. Caution with driving. 5. MMSE 26/30. 6. Follow-up in 6 months. Mini-Mental State Examination (MMS) - 09/05/22 0839 ORIENTATION What is the YEAR, SEASON, DATE, DAY, and MONTH? 4 missed date Where are we? STATE, COUNTY, CITY, or TOWN, HOSPITAL, FLOOR? 5 Total for Orientation 9 REGISTRATION Name 3 common objects (APPLE, TABLE, and SUDHA) 3 ATTENTION AND CALCULATION Spell "WORLD" backwards. 4 forgot the "R" RECALL Ask for the 3 objects repeated above. 1 LANGUAGE Name a "PENCIL" and "WATCH" 2 Repeat the following: "No ifs, ands, or buts." 1 Follow a 3 stage command: 3 "Close your eyes" 1 "Write a sentence" 1 Copying the design: (shown to patient) 1 ([facility]) TOTAL SCORE 26 documented in this encounter [facility] 10-06-2022 Evaluation + Plan note Associated Problem(s): Memory changes Images from the original note were not included. 1. Short term memory - likely complicated by hearing impairment. 2. Continue donepezil 10 mg daily and memantine 5 mg BID for memory. 3. Encouraged to keep mentally and physically active. She enjoys reading. 4. Caution with driving. 5. MMSE 26/30. 6. Follow-up in 6 months. Mini-Mental State Examination (MMS) - 09/05/22 0839 ORIENTATION What is the YEAR, SEASON, DATE, DAY, and MONTH? 4 missed date Where are we? STATE, COUNTY, CITY, or TOWN, HOSPITAL, FLOOR? 5 Total for Orientation 9 REGISTRATION Name 3 common objects (APPLE, TABLE, and SUDHA) 3 ATTENTION AND CALCULATION Spell "WORLD" backwards. 4 forgot the "R" RECALL Ask for the 3 objects repeated above. 1 LANGUAGE Name a "PENCIL" and "WATCH" 2 Repeat the following: "No ifs, ands, or buts." 1 Follow a 3 stage command: 3 "Close your eyes" 1 "Write a sentence" 1 Copying the design: (shown to patient) 1 ([facility]) TOTAL SCORE 26 [facility] 10-03-2022 Note HNO ID: [id number] Author: Maribel Sheth MD, PhD Service: ? 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 posterior chamber intraocular lens (PCIOL) OU Plan: Eylea 6 w ago with improved SRF Gets worse at 8 weeks with avastin and 9 wks Eylea not interested in clinical trials Eylea today left eye, subconj Maintain at 7-8 wks weeks for sti Full exam Mar I have confirmed and edited as necessary the relevant ophthalmic history, ROS, and the neuro exam findings as obtained by others. I have seen and examined this patient. I have discussed the case and the management of this patient's care with the Resident/Fellow, if applicable. I also have reviewed and agree with the assessment and plan as stated above and agree with all of its relevant components. Maribel Sheth MD [facility] 09-05-2022 Instructions Steven Martines CNP - 09/05/2022 8:25 AM EST Continue Aricept 10 mg daily for memory. Continue Namenda 5 mg twice a day for memory. Monitor blood pressure closely. Goal less than 140/80. Keep mentally and physically active. Monitor for changes in memory and mood. Make sure you drink plenty of water. Monitor dizziness for any changes or worsening. Change positions slowly. Stress caution with driving. If you have issues getting lost or trouble with driving you will need to discontinue driving. Call with further questions, concerns, or new changes. Follow-up in 6 months or sooner as needed. documented in this encounter [facility] 09-05-2022 History of Present illness Narrative Images from the original note were not included. Patient ID: Duke Acosta is a 87 y.o. female. Assessment/Plan: Problem List Memory changes Short term memory - likely complicated by hearing impairment. Continue donepezil 10 mg daily and memantine 5 mg BID for memory. Encouraged to keep mentally and physically active. She enjoys reading. Caution with driving. MMSE 26/30. Follow-up in 6 months. Mini-Mental State Examination (MMS) - 09/05/22 0839 ORIENTATION What is the YEAR, SEASON, DATE, DAY, and MONTH? 4 missed date Where are we? STATE, COUNTY, CITY, or TOWN, HOSPITAL, FLOOR? 5 Total for Orientation 9 REGISTRATION Name 3 common objects (APPLE, TABLE, and SUDHA) 3 ATTENTION AND CALCULATION Spell "WORLD" backwards. 4 forgot the "R" RECALL Ask for the 3 objects repeated above. 1 LANGUAGE Name a "PENCIL" and "WATCH" 2 Repeat the following: "No ifs, ands, or buts." 1 Follow a 3 stage command: 3 "Close your eyes" 1 "Write a sentence" 1 Copying the design: (shown to patient) 1 (MMS) TOTAL SCORE 26 Depression screen No issues with anxiety or depression reported. PHQ-9 Over the last 2 weeks, how often have you been bothered by any of the following problems? Little interest or pleasure in doing things: Not at all Feeling down, depressed, or hopeless: Not at all PHQ-2 Total Score: 0 Follow-up in 6 months. Time statement: A total of 40 minutes were spent on this encounter, which includes the time reviewing the patient's diagnostic tests, seeing the patient, speaking with nursing staff, and documenting in the record. Steven Martines, ALEJANDRO, HUMAN RESOURCE MANAGER [facility] Neurology Subjective HPI Duke Acosta is an 87 year old female who is here with her daughter for memory follow-up. Daughter feels like her memory seems better. She last followed up with Dr. Cardoso 05/17/2022. Memory loss has been noted for around 2 years. She has a previous MoCA score noted at 09/18. It was noted during her exam that hearing loss interfered with testing. She continues to live alone. Her son set up her bills on automatic payments. Throughout the day she enjoys reading. She still drives but not on a frequent basis. She denies any issues getting lost while driving or any issues with operating the vehicle. 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 She has hearing aids but daughter states that these have been misplaced and they have been unable to locate these. She denies any issues with sleep. No anxiety or depression concerns reported. No further issues or concerns reported at this time. Review of patients current medication list along with allergies, past medical history, surgical history, family history, and social history was reviewed and updated as appropriate. Review of Systems Constitutional: Negative for activity change, appetite change, chills, fatigue, fever and unexpected weight change. HENT: Negative for trouble swallowing. Eyes: Negative for visual disturbance. Respiratory: Negative for cough, shortness of breath and wheezing. Cardiovascular: Negative for chest pain and palpitations. Gastrointestinal: Negative for abdominal pain, nausea and vomiting. Endocrine: Negative for polydipsia, polyphagia and polyuria. Genitourinary: Negative for difficulty urinating. Musculoskeletal: Positive for arthralgias. Negative for back pain and neck pain. Skin: Negative for rash. Neurological: Positive for dizziness (with abrupt position changes\\). Negative for tremors, seizures, syncope, weakness, light-headedness and headaches. Psychiatric/Behavioral: Positive for confusion. Negative for decreased concentration, dysphoric mood and sleep disturbance. The patient is not nervous/anxious. Objective BP (!) 170/73 (BP Location: Right arm, Patient Position: Sitting, BP Cuff Size: Adult) Pulse (!) 52 Resp 16 Ht 5' 4.5" Wt 54.4 kg (120 lb) SpO2 98% BMI 20.28 kg/m Neurologic Exam Mental Status Oriented to person, place, and time. Oriented to person. Oriented to place. Disoriented to date. Oriented to year, month, day and season. Registration: recalls 3 of 3 objects. Recall at 5 minutes: recalls 1 of 3 objects. Attention: normal. Concentration: normal. Speech: speech is normal (Clear, spontaneous, and fluent. ) Level of consciousness: alert Knowledge: good. Able to name object. Able to read. Able to repeat. Able to write. Normal comprehension. MMSE 26/30 Cranial Nerves Cranial nerves II through XII intact. CN III, IV, Pupils are equal, round, and reactive to light. Extraocular motions are normal. Right pupil: Size: 2 mm. Consensual response: intact. Accommodation: intact. Left pupil: Size: 2 mm. Consensual response: intact. Accommodation: intact. CN III: no CN III palsy CN : no CN palsy Nystagmus: none Diplopia: none Ophthalmoparesis: none Upgaze: normal Downgaze: normal Conjugate gaze: present Motor Exam Muscle bulk: normal Overall muscle tone: normal Right arm pronator drift: absent Left arm pronator drift: absent Strength Strength 5/5 throughout. Sensory Exam Light touch normal. Gait, Coordination, and Reflexes Gait Gait: normal (Steady gait, ambulates without assistive device.) Coordination Romberg: negative Finger to nose coordination: normal Tremor Resting tremor: absent Intention tremor: absent Action tremor: absent Reflexes Reflexes 2+ except as noted. Right biceps: 2+ Left biceps: 2+ Right triceps: 2+ Left triceps: 2+ Right patellar: 2+ Left patellar: 2+ Physical Exam Vitals and nursing note reviewed. Constitutional: Appearance: She is well-developed. Comments: Patient is very pleasant and cooperative for exam. She is well groomed and dressed appropriate for season. She is wearing a surgical mask in compliance with the current COVID-19 guidelines. HENT: Head: Normocephalic and atraumatic. Eyes: Extraocular Movements: EOM normal. Pupils: Pupils are equal, round, and reactive to light. Cardiovascular: Rate and Rhythm: Normal rate and regular rhythm. Heart sounds: No murmur heard. Pulmonary: Effort: Pulmonary effort is normal. No respiratory distress. Breath sounds: Normal breath sounds. No wheezing. Abdominal: General: Bowel sounds are normal. There is no distension. Palpations: Abdomen is soft. Musculoskeletal: General: Normal range of motion. Cervical back: Normal range of motion and neck supple. Skin: General: Skin is warm and dry. Findings: No rash. Neurological: Mental Status: She is alert and oriented to person, place, and time. Cranial Nerves: Cranial nerves 2-12 are intact. Motor: Motor strength is normal. Coordination: Cfwnlh-Mihf-Xuxfgj Test and Romberg Test normal. Gait: Gait is intact. Deep Tendon Reflexes: Reflex Scores: Tricep reflexes are 2+ on the right side and 2+ on the left side. Bicep reflexes are 2+ on the right side and 2+ on the left side. Patellar reflexes are 2+ on the right side and 2+ on the left side. Psychiatric: Speech: Speech normal. Behavior: Behavior normal. Thought Content: Thought content normal. Judgment: Judgment normal. documented in this encounter [facility] 08-22-2022 Note HNO ID: [id number] Author: Maribel Sheth MD, PhD Service: ? 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 posterior chamber intraocular lens (PCIOL) OU Plan: Eylea 7 w ago and OCT with trace SRF Gets worse at 8 weeks with avastin and 9 wks Eylea not interested in clinical trials Eylea today left eye, subconj Maintain at 7-8 wks weeks for sti Full exam Mar I have confirmed and edited as necessary the relevant ophthalmic history, ROS, and the neuro exam findings as obtained by others. I have seen and examined this patient. I have discussed the case and the management of this patient's care with the Resident/Fellow, if applicable. I also have reviewed and agree with the assessment and plan as stated above and agree with all of its relevant components. Maribel Sheth MD [facility] 08-22-2022 Instructions Maribel Sheth MD, PhD - 08/22/2022 4:31 PM EDT Post-Injection Patient Information You had an injection into the eye today. Tearing and some redness are common after an eye injection. If the eye feels irritated, try to keep it closed; some patients find that a mild pain medicine such as acetaminophen helps. If tearing or pain persists the next day, please call. The redness may take some days to a week to resolve. If you notice increasing pain, redness or blurred vision, please call the office. Loss of central or peripheral vision should prompt a call to us. Please call if you have any questions or concerns. For Questions or an Appointment, please call: [phone] Visit us online at [email or web address]. documented in this encounter [facility] 08-22-2022 History of Present illness Narrative Here for Choroidal neovascular membrane f/u 1. 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 posterior chamber intraocular lens (PCIOL) OU Plan: Eylea 7 w ago and OCT with trace SRF Gets worse at 8 weeks with avastin and 9 wks Eylea not interested in clinical trials Eylea today left eye, subconj Maintain at 7-8 wks weeks for sti Full exam Mar I have confirmed and edited as necessary the relevant ophthalmic history, ROS, and the neuro exam findings as obtained by others. I have seen and examined this patient. I have discussed the case and the management of this patient's care with the Resident/Fellow, if applicable. I also have reviewed and agree with the assessment and plan as stated above and agree with all of its relevant components. Maribel Sheth MD documented in this encounter [facility] 07-05-2022 Note Addended by: CHRIS CARDOSO on: 07/05/2022 03:12 PM Modules accepted: Orders [facility] 07-05-2022 Miscellaneous Notes Addended by: CHRIS CARDOSO on: 07/05/2022 03:12 PM Modules accepted: Orders documented in this encounter [facility] 07-05-2022 History of Present illness Narrative Conference call held with dtr Sonia and son Sujit to address SW referral. Introduced self and role. Pt lives with alone with dtr living one hour away in [place] and son 30 min away in [place]. Son works time study observer and also has health issues. Pt is independent with adls but needs assistance with financial and medication management. She is able to use the microwave but may not be eating much and family feels she has lost weight. She does not want to go to [place] to eat nor consider MOW. Pt drives minimally to grocery store and [employer], but family expresses concern as she has gotten lost in familiar areas and have noticed scratches on her car. Pt also has macular degeneration. She is not a social person - has "always been an introvert" - and has phone contact with one friend. Family describes pt as being easily overwhelmed and anxious on an almost daily basis now. Dtr recently began setting up her medications on a pill organizer but is unsure if pt takes them appropriately. Suggested considering an automated pill dispenser and information on some models given. Also suggested revisiting the idea of MOW and communication strategies surrounding this discussed. Safety concerns regarding driving reviewed and driving evaluation recommended, as well as finding ways to get pt to the grocery store and [employer] so she does not have to drive. Information sent on [facility] services which include MOW and transportation as well as [facility]'s caregiver respite services. Will ask Dr. Cardoso to order a driving evaluation, as family is interested in this. The [place] dementia and driving booklet and brochure for [facility] driving evaluation program given. Pt has a LTC insurance policy. Discussed that ultimately pt may need a more supportive living environment, either through hiring care in the home or moving to an AL. Family is looking at some facilities now and have talked with pt about moving but she waffles on her decision to sell her home. Son has HCPOA and has questions about when this can be enacted; limitations explained, especially surrounding decision making capacity. Dementia education provided including communication and behavior management strategies. Encouraged involvement in [facility] educational and support groups and lists sent from the chapters that serve each of their areas. Support, normalization and validation provided. Reviewed continued SW availability as desired. documented in this encounter [facility] 07-04-2022 Note HNO ID: [id number] Author: Maribel Sheth MD, PhD Service: ? Author Type: Physician Type: Progress Notes Filed: 07/04/2022 5:11 PM Note Text: Here for Choroidal neovascular membrane f/u 1. 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 posterior chamber intraocular lens (PCIOL) OU Plan: Eylea 6 w ago and OCT without fluid Gets worse at 8 weeks with avastin and 9 wks Eylea not interested in clinical trials Eylea #5 today left eye, subconj Extend to 7-8 wks weeks for sti Full exam Mar I have confirmed and edited as necessary the relevant ophthalmic history, ROS, and the neuro exam findings as obtained by others. I have seen and examined this patient. I have discussed the case and the management of this patient's care with the Resident/Fellow, if applicable. I also have reviewed and agree with the assessment and plan as stated above and agree with all of its relevant components. Maribel Sheth MD [facility] 07-04-2022 Instructions Maribel Sheth MD, PhD - 07/04/2022 5:10 PM EDT Post-Injection Patient Information You had an injection into the eye today. Tearing and some redness are common after an eye injection. If the eye feels irritated, try to keep it closed; some patients find that a mild pain medicine such as acetaminophen helps. If tearing or pain persists the next day, please call. The redness may take some days to a week to resolve. If you notice increasing pain, redness or blurred vision, please call the office. Loss of central or peripheral vision should prompt a call to us. Please call if you have any questions or concerns. For Questions or an Appointment, please call: [phone] Visit us online at [email or web address]. documented in this encounter [facility] 07-04-2022 History of Present illness Narrative Here for Choroidal neovascular membrane f/u 1. 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 posterior chamber intraocular lens (PCIOL) OU Plan: Eylea 6 w ago and OCT without fluid Gets worse at 8 weeks with avastin and 9 wks Eylea not interested in clinical trials Eylea #5 today left eye, subconj Extend to 7-8 wks weeks for sti Full exam Mar I have confirmed and edited as necessary the relevant ophthalmic history, ROS, and the neuro exam findings as obtained by others. I have seen and examined this patient. I have discussed the case and the management of this patient's care with the Resident/Fellow, if applicable. I also have reviewed and agree with the assessment and plan as stated above and agree with all of its relevant components. Maribel Sheth MD documented in this encounter [facility] 05-23-2022 Note HNO ID: [id number] Author: Maribel Sheth MD, PhD Service: ? Author Type: Physician Type: Progress Notes Filed: 05/23/2022 2:11 PM Note Text: Here for Choroidal neovascular membrane f/u 1. 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 posterior chamber intraocular lens (PCIOL) OU Plan: Eylea 7 w ago and improved Remain at 6-7 weeks subretinal fluid Gets worse at 8 weeks with avastin and 9 wks Eylea Persistent subretinal fluid , not interested in clinical trials Eylea #4 today left eye, subconj Return in 6-7 weeks for full exam I have confirmed and edited as necessary the relevant ophthalmic history, ROS, and the neuro exam findings as obtained by others. I have seen and examined this patient. I have discussed the case and the management of this patient's care with the Resident/Fellow, if applicable. I also have reviewed and agree with the assessment and plan as stated above and agree with all of its relevant components. Maribel Sheth MD [facility] 05-23-2022 History of Present illness Narrative Here for Choroidal neovascular membrane f/u 1. 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 posterior chamber intraocular lens (PCIOL) OU Plan: Eylea 7 w ago and improved Remain at 6-7 weeks subretinal fluid Gets worse at 8 weeks with avastin and 9 wks Eylea Persistent subretinal fluid , not interested in clinical trials Eylea #4 today left eye, subconj Return in 6-7 weeks for full exam I have confirmed and edited as necessary the relevant ophthalmic history, ROS, and the neuro exam findings as obtained by others. I have seen and examined this patient. I have discussed the case and the management of this patient's care with the Resident/Fellow, if applicable. I also have reviewed and agree with the assessment and plan as stated above and agree with all of its relevant components. Maribel Sheth MD documented in this encounter [facility] 05-14-2022 History of Present illness Narrative She is here for follow-up secondary to chronic kidney disease with a baseline creatinine of about 1.3-1.5, hypertension, hypothyroidism, acid reflux.She had a blood work drawn on May 07Magnesium is 2.15Uric acid is slightly elevated at 7.4BUN is 23 with a creatinine of 1.3 with an estimated GFR of 40Her electrolytes look normal her bicarb is 29 phosphorus is 3.6 vitamin D 57Urinalysis is blandUrine protein creatinine ratio is 0.23Renal ultrasound shows the right kidney to be 6.2 cm and the left kidney to be 8.3 cm. She has bilateral small kidneys with thin corticesHer medications are reviewed and include amlodipine, Synthroid, metoprolol and a multivitaminShe has been measureing her BP at home but cant remember what it was and . Her daughter states that it was 121/81. [facility] DO Work Phone: 04-04-2022 Note HNO ID: [id number] Author: Maribel Sheth MD, PhD Service: ? Author Type: Physician Type: Progress Notes Filed: 04/04/2022 2:17 PM Note Text: Here for Choroidal neovascular membrane f/u 1. 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 posterior chamber intraocular lens (PCIOL) OU Plan: Eylea 6 w ago and improved Remain at 6-7 weeks subretinal fluid Gets worse at 8 weeks with avastin and 9 wks Eylea Persistent subretinal fluid , not interested in clinical trials Eylea #3 today left eye, subconj Return in 6-7 weeks, STI Full exam in June I have confirmed and edited as necessary the relevant ophthalmic history, ROS, and the neuro exam findings as obtained by others. I have seen and examined this patient. I have discussed the case and the management of this patient's care with the Resident/Fellow, if applicable. I also have reviewed and agree with the assessment and plan as stated above and agree with all of its relevant components. Maribel Sheth MD [facility] 04-04-2022 Instructions Maribel Sheth MD, PhD - 04/04/2022 2:17 PM EDT Post-Injection Patient Information You had an injection into the eye today. Tearing and some redness are common after an eye injection. If the eye feels irritated, try to keep it closed; some patients find that a mild pain medicine such as acetaminophen helps. If tearing or pain persists the next day, please call. The redness may take some days to a week to resolve. If you notice increasing pain, redness or blurred vision, please call the office. Loss of central or peripheral vision should prompt a call to us. Please call if you have any questions or concerns. For Questions or an Appointment, please call: [phone] Visit us online at [email or web address]. documented in this encounter [facility] 04-04-2022 History of Present illness Narrative Here for Choroidal neovascular membrane f/u 1. 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 posterior chamber intraocular lens (PCIOL) OU Plan: Eylea 6 w ago and improved Remain at 6-7 weeks subretinal fluid Gets worse at 8 weeks with avastin and 9 wks Eylea Persistent subretinal fluid , not interested in clinical trials Eylea #3 today left eye, subconj Return in 6-7 weeks, STI Full exam in June I have confirmed and edited as necessary the relevant ophthalmic history, ROS, and the neuro exam findings as obtained by others. I have seen and examined this patient. I have discussed the case and the management of this patient's care with the Resident/Fellow, if applicable. I also have reviewed and agree with the assessment and plan as stated above and agree with all of its relevant components. Maribel Sheth MD documented in this encounter [facility] 02-21-2022 Note HNO ID: [id number] Author: Maribel Sheth MD, PhD Service: ? Author Type: Physician Type: Progress Notes Filed: 02/21/2022 1:39 PM Note Text: Here for Choroidal neovascular membrane f/u 1. 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 posterior chamber intraocular lens (PCIOL) OU Plan: Eylea 9 wks ago, worse Remain at 6-8 weeks subretinal fluid Gets worse at 8 weeks with avastin and 9 wks Eylea Persistent subretinal fluid , not interested in clinical trials Eylea #2 today left eye, subconj Return in 6-8 weeks, STI Full exam in June I have confirmed and edited as necessary the relevant ophthalmic history, ROS, and the neuro exam findings as obtained by others. I have seen and examined this patient. I have discussed the case and the management of this patient's care with the Resident/Fellow, if applicable. I also have reviewed and agree with the assessment and plan as stated above and agree with all of its relevant components. Maribel Sheth MD [facility] 02-21-2022 Instructions Maribel Sheth MD, PhD - 02/21/2022 1:38 PM EDT Post-Injection Patient Information You had an injection into the eye today. Tearing and some redness are common after an eye injection. If the eye feels irritated, try to keep it closed; some patients find that a mild pain medicine such as acetaminophen helps. If tearing or pain persists the next day, please call. The redness may take some days to a week to resolve. If you notice increasing pain, redness or blurred vision, please call the office. Loss of central or peripheral vision should prompt a call to us. Please call if you have any questions or concerns. For Questions or an Appointment, please call: [phone] Visit us online at [email or web address]. documented in this encounter [facility] 02-21-2022 History of Present illness Narrative Here for Choroidal neovascular membrane f/u 1. 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 posterior chamber intraocular lens (PCIOL) OU Plan: Eylea 9 wks ago, worse Remain at 6-8 weeks subretinal fluid Gets worse at 8 weeks with avastin and 9 wks Eylea Persistent subretinal fluid , not interested in clinical trials Eylea #2 today left eye, subconj Return in 6-8 weeks, STI Full exam in June I have confirmed and edited as necessary the relevant ophthalmic history, ROS, and the neuro exam findings as obtained by others. I have seen and examined this patient. I have discussed the case and the management of this patient's care with the Resident/Fellow, if applicable. I also have reviewed and agree with the assessment and plan as stated above and agree with all of its relevant components. Maribel Sheth MD documented in this encounter [facility] 12-20-2021 Note HNO ID: [id number] Author: Maribel Sheth MD, PhD Service: ? Author Type: Physician Type: Progress Notes Filed: 12/20/2021 3:23 PM Note Text: Here for Choroidal neovascular membrane f/u 1. 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 posterior chamber intraocular lens (PCIOL) OU Plan: Remain at 6-8 weeks subretinal fluid Gets worse at 8 weeks with avastin Persistent subretinal fluid , consider RegenXbio Eylea #1 today left eye, subconj Return in 8-9 weeks, STI Full exam in June I have confirmed and edited as necessary the relevant ophthalmic history, ROS, and the neuro exam findings as obtained by others. I have seen and examined this patient. I have discussed the case and the management of this patient's care with the Resident/Fellow, if applicable. I also have reviewed and agree with the assessment and plan as stated above and agree with all of its relevant components. Maribel Sheth MD [facility] 02-26-2021 History of Present illness Narrative R SIDED LOW BACK PAIN 5/10 ON AND OFF X 3 MONTHS , WHICH LASTS FROM MINUTES TO WHOLE DAY. CHRONIC CONSTIPATION .CRF HAS BEEN STABLE. [facility] Work Phone: 12-27-2020 History of Present illness Narrative F/U ON LUMBAR XR. AND URINE C/S . LOW BACK PAIN IS IMPROVED AFTER PASSING THE STOOL HAS CHRONIC CONSTIPATION AND PRN COLACE HELPED. HAS STRONG FAMILY H/O CA COLON .HAS PAIN OF R HIP RADIATING TO R LEG ON AND OFF 12/27 . 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.11) - Both Eyes 11/02/2014 05/03/2015 Glaucomatous atrophy (cupping) of optic disc - [facility] 11/02/2014 05/15/2016 documented as of this encounter (statuses as of 02/21/2022) [facility] History of Past illness Narrative* Problem Noted Date Resolved Date COAG (chronic open-angle glaucoma) 05/03/2015 12/02/2016 Primary open-angle glaucoma(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.11) - Both Eyes 11/02/2014 05/03/2015 Glaucomatous atrophy (cupping) of optic disc - [facility] 11/02/2014 05/15/2016 documented as of this encounter (statuses as of 04/04/2022) [facility] History of Past illness Narrative* Problem Noted Date Resolved Date COAG (chronic open-angle glaucoma) 05/03/2015 12/02/2016 Primary open-angle glaucoma(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.11) - Both Eyes 11/02/2014 05/03/2015 Glaucomatous atrophy (cupping) of optic disc - [facility] 11/02/2014 05/15/2016 documented as of this encounter (statuses as of 05/23/2022) [address]15-2015 History of Past illness Narrative* Problem Noted Date Resolved Date COAG (chronic open-angle glaucoma) 05/03/2015 12/02/2016 Primary open-angle glaucoma(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.11) - Both Eyes 11/02/2014 05/03/2015 Glaucomatous atrophy (cupping) of optic disc - [facility] Eyes 11/02/2014 05/15/2016 documented as of this encounter (statuses as of 07/04/2022) [address]15-2015 History of Past illness Narrative* Problem Noted Date Resolved Date COAG (chronic open-angle glaucoma) 05/03/2015 12/02/2016 Primary open-angle glaucoma(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.11) - Both Eyes 11/02/2014 05/03/2015 Glaucomatous atrophy (cupping) of optic disc - [facility] Eyes 11/02/2014 05/15/2016 documented as of this encounter (statuses as of 08/22/2022) [address]15-2015 History of Past illness Narrative* Problem Noted Date Resolved Date COAG (chronic open-angle glaucoma) 05/03/2015 12/02/2016 Primary open-angle glaucoma(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.11) - Both Eyes 11/02/2014 05/03/2015 Glaucomatous atrophy (cupping) of optic disc - [facility] Eyes 11/02/2014 05/15/2016 documented as of this encounter (statuses as of 11/21/2022) [address]15-2015 History of Past illness Narrative* Problem Noted Date Resolved Date COAG (chronic open-angle glaucoma) 05/03/2015 12/02/2016 Primary open-angle glaucoma(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.11) - Both Eyes 11/02/2014 05/03/2015 Glaucomatous atrophy (cupping) of optic disc - [facility] Eyes 11/02/2014 05/15/2016 documented as of this encounter (statuses as of 01/02/2023) [facility] Choroidal neovascular membrane of left eye [facility] Diagnosis Choroidal neovascular membrane of left eye [facility] Diagnosis MCI (mild cognitive impairment)- Primary Mild cognitive impairment, so stated [facility] Diagnosis Choroidal neovascular membrane of left eye [facility]* Diagnosis Dementia without behavioral disturbance, unspecified dementia type (HCC)- Primary documented in this encounter [facility] note* Diagnosis Choroidal neovascular membrane of left eye documented in this encounter [facility] note* Diagnosis Memory changes Depression screen Screening for depression documented in this encounter [facility] note* Diagnosis Choroidal neovascular membrane of left eye documented in this encounter [facility] note* Diagnosis Choroidal neovascular membrane of left eye documented in this encounter [facility] note* Diagnosis Adult onset hypothyroidism- Primary Depression, major, in remission (CMS/HCC) Hyperparathyroidism (CMS/HCC) Hyperparathyroidism, unspecified Stage 3b chronic kidney disease IFG (impaired fasting glucose) MCI (mild cognitive impairment) Mild cognitive impairment, so stated Healthcare maintenance Encounter for screening mammogram for breast cancer Post-menopausal Asymptomatic postmenopausal status (age-related) (natural) Hypercholesterolemia Pure hypercholesterolemia Routine general medical examination at health care facility Routine general medical examination at a health care facility documented in this encounter [facility] Work Phone: Evaluation note* Diagnosis Primary hypertension- Primary Unspecified essential hypertension Adult onset hypothyroidism documented in this encounter [facility] Work Phone: Evaluation note* Diagnosis Primary hypertension- Primary Unspecified essential hypertension IFG (impaired fasting glucose) Adult onset hypothyroidism Hypercholesterolemia Pure hypercholesterolemia Essential hypertension, benign documented in this encounter [facility] Work Phone: Evaluation note* Diagnosis Alzheimer disease (CMS/HCC)- Primary Alzheimer's disease Primary hypertension Unspecified essential hypertension Essential hypertension, benign documented in this encounter [facility] Work Phone: Evaluation note* Diagnosis Primary hypertension- Primary Unspecified essential hypertension Need for immunization against influenza Need for prophylactic vaccination and inoculation against influenza Alzheimer disease (CMS/HCC) Alzheimer's disease Hyperparathyroidism (CMS/HCC) Hyperparathyroidism, unspecified Essential hypertension, benign Cerebral atrophy (CMS/HCC) Unspecified cerebral degeneration IFG (impaired fasting glucose) documented in this encounter [facility] Work Phone: Evaluation note* Diagnosis Sacroiliitis- Primary Sacroiliitis, not elsewhere classified Lumbar radiculopathy Thoracic or lumbosacral neuritis or radiculitis, unspecified Bilateral leg pain Pain in limb Lumbar spondylosis Lumbosacral spondylosis without myelopathy Chronic hip pain, bilateral [facility] Diagnosis Bilateral leg pain Pain in limb documented in this encounter [facility] note* Diagnosis Sacroiliitis- Primary Sacroiliitis, not elsewhere classified documented in this encounter [facility] note* Diagnosis Sacroiliitis Sacroiliitis, not elsewhere classified documented in this encounter [facility] note* Diagnosis Sacroiliitis- Primary Sacroiliitis, not elsewhere classified Lumbar radiculopathy Thoracic or lumbosacral neuritis or radiculitis, unspecified Bilateral leg pain Pain in limb Lumbar spondylosis Lumbosacral spondylosis without myelopathy Chronic hip pain, bilateral documented in this encounter [facility] note* Diagnosis Lumbar radiculopathy Thoracic or lumbosacral neuritis or radiculitis, unspecified documented in this encounter [facility] note* Diagnosis Sacroiliitis- Primary Sacroiliitis, not elsewhere classified Lumbar radiculopathy Thoracic or lumbosacral neuritis or radiculitis, unspecified Lumbar spondylosis Lumbosacral spondylosis without myelopathy Leg cramps Cramp of limb documented in this encounter [facility] note* Diagnosis Sacroiliitis- Primary Sacroiliitis, not elsewhere classified documented in this encounter [facility] note* Diagnosis Sacroiliitis Sacroiliitis, not elsewhere classified documented in this encounter [facility] note* Diagnosis Sacroiliitis- Primary Sacroiliitis, not elsewhere classified Lumbar spondylosis Lumbosacral spondylosis without myelopathy Lumbar radiculopathy Thoracic or lumbosacral neuritis or radiculitis, unspecified documented in this encounter [facility] note* Diagnosis Memory changes Depression screen Screening for depression Depression with anxiety- Primary Dysthymic disorder Dementia, unspecified dementia severity, unspecified dementia type, unspecified whether behavioral, psychotic, or mood disturbance or anxiety (HCC) documented in this encounter [facility] note* Diagnosis Memory changes Depression screen Screening for depression Depression with anxiety- Primary Dysthymic disorder Dementia, unspecified dementia severity, unspecified dementia type, unspecified whether behavioral, psychotic, or mood disturbance or anxiety (HCC) Vasomotor rhinitis- Primary Allergic rhinitis, cause unspecified Excessive cerumen in both ear canals Sensorineural hearing loss, bilateral documented in this encounter [facility] note* Diagnosis Onset Date Resolution Status Admit Date Dementia acute April 06 9:21am Polyneuropathy acute April 06, 2025 9:21am [facility] Work Phone: History of Present illness NarrativeHERE FOR F/U NO COMPLAINT[facility] Work Phone: History of Present illness NarrativeHERE AFTER COLONOSCOPYFrank[facility] Work Phone: History of Present illness NarrativeHERE [facility]COPY[facility]: History of Present illness NarrativeHERE FOR F/U NO COMPLAINTFrank[facility] Work Phone: History of Present illness Narrative* HERE TO DISCUSS MEDS * FEELS FINE [facility] Work Phone: Hisjcle of Present illness Narrative* The patient is being seen for the subsequent annual wellness visit. * Past Medical, Surgical and Family History: reviewed and updated in chart. * Medications and Supplements: Review of all medications by a prescribing practitioner or clinical pharmacist (such as prescriptions, OTCs, herbal therapies and supplements) documented in the medical record. * No, the patient is not using opioids. * Patient Self Assessment of Health Status: good. * Tobacco use: Non-User * Alcohol use: Non-User * Illicit drug use: Non-User * Current diet: unhealthy diet. * Exercise Frequency: the patient does not exercise. * Depression/Suicide Screening: Patient has a current diagnosis of depression. * Cognitive Impairment: Cognitive impairment was observed. * Bathing: performs independently. * Dressing: performs independently. * Walking: performs independently. * Managing Finances: performs independently. * Shopping: performs independently. * Managing Medications: performs independently. * Housework / Basic Home Maintenance: performs independently. * Falls Risk Screening:. DUKE has not fallen in the last 6 months. * Home safety risk factors: none. * Advance directives:. Advance Care Planning discussed and documented in the medical record, patient did not wish or was not able to name a surrogate decision maker or provide an advance care plan. * Additional Information: BRING A COPY. * HERE FOR F/U NO COMPLAINT * WELLNESS EXAM * HAS NOT BEEN ABLE TO TAKE LOSARTAN GIVE HER HEAT BURN [facility] Work Phone: History of Present illness Narrative* PT C/O LE EDEMA WITH BURNING * FOR 1 MO * SEVERITY: MODERATE * CHARACTERISTIC: PERSISTENT * EXACERBATION FACTOR: STANDING * RELIEVING FACTOR: NONE * ASSOCIATED SYMPTOMS: NONE * PRIOR TX: AMLODIPIE [facility] Work Phone: History of Present illness Narrative* HERE FOR F/U WITH LABS * HAS BEEN HAVING NASAL CONGESTION ( CHRONIC ) * LE EDEMA RESOLVED [facility] Work Phone: History of Present illness NarrativeHERE FOR F/U NO COMPLAINTFrank[facility] Work Phone: History of Present illness Narrative* Santhosh Peters MD - 03/18/2023 9:15 AM EDT Subjective Patient ID: Duke Acosta is a 88 y.o. female who presents for Follow-up (1 week bp ). Here for fu for BP feels fine Med review Brought all bottles Review of Systems Constitutional: Negative. Negative for chills and fever. HENT: Negative. Negative for congestion. Eyes: Negative. Negative for discharge. Respiratory: Negative. Negative for cough, shortness of breath and wheezing. Cardiovascular: Negative. Negative for chest pain, palpitations and leg swelling. Gastrointestinal: Negative. Negative for abdominal distention, abdominal pain, constipation, diarrhea, nausea and vomiting. Endocrine: Negative. Genitourinary: Negative. Negative for dysuria and urgency. Musculoskeletal: Negative. Negative for back pain, joint swelling and neck stiffness. Skin: Negative. Negative for rash. Allergic/Immunologic: Negative. Negative for immunocompromised state. Neurological: Negative. Negative for light-headedness, numbness and headaches. Hematological: Negative. Negative for adenopathy. Psychiatric/Behavioral: Negative. Negative for agitation, behavioral problems and confusion. All other systems reviewed and are negative. Objective Physical Exam Vitals reviewed. Constitutional: General: She is not in acute distress. Appearance: Normal appearance. HENT: Head: Normocephalic and atraumatic. Nose: Nose normal. Eyes: Conjunctiva/sclera: Conjunctivae normal. Pupils: Pupils are equal, round, and reactive to light. Neck: Vascular: No carotid bruit. Cardiovascular: Rate and Rhythm: Normal rate and regular rhythm. Pulses: Normal pulses. Heart sounds: No gallop. Pulmonary: Effort: Pulmonary effort is normal. No respiratory distress. Breath sounds: Normal breath sounds. No wheezing. Abdominal: General: Bowel sounds are normal. Palpations: Abdomen is soft. Tenderness: There is no abdominal tenderness. Musculoskeletal: General: Normal range of motion. Cervical back: Normal range of motion. No rigidity. Lymphadenopathy: Cervical: No cervical adenopathy. Skin: General: Skin is warm. Findings: No rash. Neurological: General: No focal deficit present. Mental Status: She is alert and oriented to person, place, and time. Psychiatric: Mood and Affect: Mood normal. Behavior: Behavior normal. BP 145/81 (BP Location: Right arm, Patient Position: Sitting) Pulse 51 Wt 59.4 kg (131 lb) LMP (LMP Unknown) SpO2 97% BMI 22.49 kg/m Hemoglobin A1C Date/Time Value Ref Range Status 02/25/2023 09:31 AM 5.8 (A) % Final Comment: Diagnosis of Diabetes-Adults Non-Diabetic: < or = 5.6% Increased risk for developing diabetes: 5.7-6.4% Diagnostic of diabetes: > or = 6.5% . Monitoring of Diabetes Age (y) Therapeutic Goal (%) Adults: >18 <7.0 Pediatrics: 13-18 <7.5 7-12 <8.0 0- 6 7.5-8.5 [place] [employer]. Diabetes Care 33(S1), Oct 2009. Assessment/Plan Problem List Items Addressed This Visit Circulatory HTN (hypertension) - Primary Endocrine/Metabolic Adult onset hypothyroidism MONITOR BP GOAL BP LOWER THAN 130/80 LOW SALT EXERCISE DAILY Medis reviewed with pt, went over the bottles, the extras were removed Fu 1 mo for bp bring the bottles again ton review [facility] Instructions* Name Dates Details Instructions not documented [facility] Work Phone: Reason for referral (narrative)No reason for referral information availableO[facility] Work [facility]: Summary Purpose Family History No Family History Records Found natural son Name Dates Details Family history of multiple s clerosis(V17.2, Z82.0) Status:Active Mother Name Dates Details Family history of type 2 daniella betes mellitus(V18.0, Z83.3) Status:Active Family history of cerebrovas cular accident (CVA)(V17.1, Z82.3) Status:Active Father Name Dates Details Family history of cardiac di sorder(V17.49, Z82.49) Status:Active Sister Name Dates Details Family history of malignant neoplasm(V16.9, Z80.9) Status:Active Brother Name Dates Details Family history of malignant neoplasm of colon(V16.0, Z80.0) Status:Active natural son Name Dates Details Family history of multiple s clerosis(V17.2, Z82.0) Status:Active Mother Name Dates Details Family history of type 2 daniella betes mellitus(V18.0, Z83.3) Status:Active Family history of cerebrovas cular accident (CVA)(V17.1, Z82.3) Status:Active Father Name Dates Details Family history of cardiac di sorder(V17.49, Z82.49) Status:Active Sister Name Dates Details Family history of malignant neoplasm(V16.9, Z80.9) Status:Active Brother Name Dates Details Family history of malignant neoplasm of colon(V16.0, Z80.0) Status:Active natural son Name Dates Details Family history of multiple s clerosis(V17.2, Z82.0) Status:Active Mother Name Dates Details Family history of type 2 daniella betes mellitus(V18.0, Z83.3) Status:Active Family history of cerebrovas cular accident (CVA)(V17.1, Z82.3) Status:Active Father Name Dates Details Family history of cardiac di sorder(V17.49, Z82.49) Status:Active Sister Name Dates Details Family history of malignant neoplasm(V16.9, Z80.9) Status:Active Brother Name Dates Details Family history of malignant neoplasm of colon(V16.0, Z80.0) Status:Active natural son Name Dates Details Family history of multiple s clerosis(V17.2, Z82.0) Status:Active Mother Name Dates Details Family history of type 2 daniella betes mellitus(V18.0, Z83.3) Status:Active Family history of cerebrovas cular accident (CVA)(V17.1, Z82.3) Status:Active Father Name Dates Details Family history of cardiac di sorder(V17.49, Z82.49) Status:Active Sister Name Dates Details Family history of malignant neoplasm(V16.9, Z80.9) Status:Active Brother Name Dates Details Family history of malignant neoplasm of colon(V16.0, Z80.0) Status:Active natural son Name Dates Details Family history of multiple s clerosis(V17.2, Z82.0) Status:Active Mother Name Dates Details Family history of type 2 daniella betes mellitus(V18.0, Z83.3) Status:Active Family history of cerebrovas cular accident (CVA)(V17.1, Z82.3) Status:Active Father Name Dates Details Family history of cardiac di sorder(V17.49, Z82.49) Status:Active Sister Name Dates Details Family history of malignant neoplasm(V16.9, Z80.9) Status:Active Brother Name Dates Details Family history of malignant neoplasm of colon(V16.0, Z80.0) Status:Active natural son Name Dates Details Family history of multiple s clerosis(V17.2, Z82.0) Status:Active Mother Name Dates Details Family history of type 2 daniella betes mellitus(V18.0, Z83.3) Status:Active Family history of cerebrovas cular accident (CVA)(V17.1, Z82.3) Status:Active Father Name Dates Details Family history of cardiac di sorder(V17.49, Z82.49) Status:Active Sister Name Dates Details Family history of malignant neoplasm(V16.9, Z80.9) Status:Active Brother Name Dates Details Family history of malignant neoplasm of colon(V16.0, Z80.0) Status:Active Unknown Family Member Name Dates Details Family history of type 2 daniella betes mellitus: Mother(V18.0, Z83.3) Status:Active Family history of malignant neoplasm: Sister(V16.9, Z80.9) Status:Active Family history of multiple s clerosis: Son(V17.2, Z82.0) Status:Active Family history of cerebrovas cular accident (CVA): Mother(V17.1, Z82.3) Comments: in her 70s; Status:Active Family history of cardiac di sorder: Father(V17.49, Z82.49) Comments: at 58 [place] ; Status:Active Family history of malignant neoplasm of colon: Brother(V16.0, Z80.0) Comments:two brothers with c olon cancer in their 60s; Status:Active Unknown Family Member Name Dates Details Family history of type 2 daniella betes mellitus: Mother(V18.0, Z83.3) Status:Active Family history of malignant neoplasm: Sister(V16.9, Z80.9) Status:Active Family history of multiple s clerosis: Son(V17.2, Z82.0) Status:Active Family history of cerebrovas cular accident (CVA): Mother(V17.1, Z82.3) Comments: in her 70s; Status:Active Family history of cardiac di sorder: Father(V17.49, Z82.49) Comments: at 58 [place] ; Status:Active Family history of malignant neoplasm of colon: Brother(V16.0, Z80.0) Comments:two brothers with c olon cancer in their 60s; Status:Active Unknown Family Member Name Dates Details Family history of type 2 daniella betes mellitus: Mother(V18.0, Z83.3) Status:Active Family history of malignant neoplasm: Sister(V16.9, Z80.9) Status:Active Family history of multiple s clerosis: Son(V17.2, Z82.0) Status:Active Family history of cerebrovas cular accident (CVA): Mother(V17.1, Z82.3) Comments: in her 70s; Status:Active Family history of cardiac di sorder: Father(V17.49, Z82.49) Comments: at 58 [place] ; Status:Active Family history of malignant neoplasm of colon: Brother(V16.0, Z80.0) Comments:two brothers with c olon cancer in their 60s; Status:Active Unknown Family Member Name Dates Details Family history of malignant neoplasm of colon: Brother(V16.0, Z80.0) Comments:two brothers with c olon cancer in their 60s; Status:Active Family history of cardiac di sorder: Father(V17.49, Z82.49) Comments: at 58 [place] ; Status:Active Family history of cerebrovas cular accident (CVA): Mother(V17.1, Z82.3) Comments: in her 70s; Status:Active Family history of multiple s clerosis: Son(V17.2, Z82.0) Status:Active Family history of malignant neoplasm: Sister(V16.9, Z80.9) Status:Active Family history of type 2 daniella betes mellitus: Mother(V18.0, Z83.3) Status:Active Unknown Family Member Name Dates Details Family history of type 2 daniella betes mellitus: Mother(V18.0, Z83.3) Status:Active Family history of malignant neoplasm: Sister(V16.9, Z80.9) Status:Active Family history of multiple s clerosis: Son(V17.2, Z82.0) Status:Active Family history of cerebrovas cular accident (CVA): Mother(V17.1, Z82.3) Comments: in her 70s; Status:Active Family history of cardiac di sorder: Father(V17.49, Z82.49) Comments: at 58 [place] ; Status:Active Family history of malignant neoplasm of colon: Brother(V16.0, Z80.0) Comments:two brothers with c olon cancer in their 60s; Status:Active Unknown Family Member Name Dates Details Family history of type 2 daniella betes mellitus: Mother(V18.0, Z83.3) Status:Active Family history of malignant neoplasm: Sister(V16.9, Z80.9) Status:Active Family history of multiple s clerosis: Son(V17.2, Z82.0) Status:Active Family history of cerebrovas cular accident (CVA): Mother(V17.1, Z82.3) Comments: in her 70s; Status:Active Family history of cardiac di sorder: Father(V17.49, Z82.49) Comments: at 58 [place] ; Status:Active Family history of malignant neoplasm of colon: Brother(V16.0, Z80.0) Comments:two brothers with c olon cancer in their 60s; Status:Active Unknown Family Member Name Dates Details Family history of type 2 daniella betes mellitus: Mother(V18.0, Z83.3) Status:Active Family history of malignant neoplasm: Sister(V16.9, Z80.9) Status:Active Family history of multiple s clerosis: Son(V17.2, Z82.0) Status:Active Family history of cerebrovas cular accident (CVA): Mother(V17.1, Z82.3) Comments: in her 70s; Status:Active Family history of cardiac di sorder: Father(V17.49, Z82.49) Comments: at 58 [place] ; Status:Active Family history of malignant neoplasm of colon: Brother(V16.0, Z80.0) Comments:two brothers with c olon cancer in their 60s; Status:Active Unknown Family Member Name Dates Details Family history of multiple s clerosis: Son(V17.2, Z82.0) Status:Active Family history of cerebrovas cular accident (CVA): Mother(V17.1, Z82.3) Comments: in her 70s; Status:Active Family history of cardiac di sorder: Father(V17.49, Z82.49) Comments: at 58 [place] ; Status:Active Family history of malignant neoplasm of colon: Brother(V16.0, Z80.0) Comments:two brothers with c olon cancer in their 60s; Status:Active Family history of malignant neoplasm: Sister(V16.9, Z80.9) Status:Active Family history of type 2 daniella betes mellitus: Mother(V18.0, Z83.3) Status:Active Unknown Family Member Name Dates Details Family history of type 2 daniella betes mellitus: Mother(V18.0, Z83.3) Status:Active Family history of malignant neoplasm: Sister(V16.9, Z80.9) Status:Active Family history of multiple s clerosis: Son(V17.2, Z82.0) Status:Active Family history of cerebrovas cular accident (CVA): Mother(V17.1, Z82.3) Comments: in her 70s; Status:Active Family history of cardiac di sorder: Father(V17.49, Z82.49) Comments: at 58 [place] ; Status:Active Family history of malignant neoplasm of colon: Brother(V16.0, Z80.0) Comments:two brothers with c olon cancer in their 60s; Status:Active Unknown Family Member Name Dates Details Family history of type 2 daniella betes mellitus: Mother(V18.0, Z83.3) Status:Active Family history of malignant neoplasm: Sister(V16.9, Z80.9) Status:Active Family history of multiple s clerosis: Son(V17.2, Z82.0) Status:Active Family history of cerebrovas cular accident (CVA): Mother(V17.1, Z82.3) Comments: in her 70s; Status:Active Family history of cardiac di sorder: Father(V17.49, Z82.49) Comments: at 58 [place] ; Status:Active Family history of malignant neoplasm of colon: Brother(V16.0, Z80.0) Comments:two brothers with c olon cancer in their 60s; Status:Active Unknown Family Member Name Dates Details Family history of type 2 daniella betes mellitus: Mother(V18.0, Z83.3) Status:Active Family history of malignant neoplasm: Sister(V16.9, Z80.9) Status:Active Family history of multiple s clerosis: Son(V17.2, Z82.0) Status:Active Family history of cerebrovas cular accident (CVA): Mother(V17.1, Z82.3) Comments: in her 70s; Status:Active Family history of cardiac di sorder: Father(V17.49, Z82.49) Comments: at 58 [place] ; Status:Active Family history of malignant neoplasm of colon: Brother(V16.0, Z80.0) Comments:two brothers with c olon cancer in their 60s; Status:Active natural son Name Dates Details Family history of multiple s clerosis(V17.2, Z82.0) Status:Active Mother Name Dates Details Family history of type 2 daniella betes mellitus(V18.0, Z83.3) Status:Active Family history of cerebrovas cular accident (CVA)(V17.1, Z82.3) Status:Active Father Name Dates Details Family history of cardiac di sorder(V17.49, Z82.49) Status:Active Sister Name Dates Details Family history of malignant neoplasm(V16.9, Z80.9) Status:Active Brother Name Dates Details Family history of malignant neoplasm of colon(V16.0, Z80.0) Status:Active Unknown Family Member Name Dates Details Family history of type 2 daniella betes mellitus: Mother(V18.0, Z83.3) Status:Active Family history of malignant neoplasm: Sister(V16.9, Z80.9) Status:Active Family history of multiple s clerosis: Son(V17.2, Z82.0) Status:Active Family history of cerebrovas cular accident (CVA): Mother(V17.1, Z82.3) Comments: in her 70s; Status:Active Family history of cardiac di sorder: Father(V17.49, Z82.49) Comments: at 58 [place] ; Status:Active Family history of malignant neoplasm of colon: Brother(V16.0, Z80.0) Comments:two brothers with c olon cancer in their 60s; Status:Active Unknown Family Member Name Dates Details Family history of malignant neoplasm of colon: Brother(V16.0, Z80.0) Comments:two brothers with c olon cancer in their 60s; Status:Active Family history of cardiac di sorder: Father(V17.49, Z82.49) Comments: at 58 [place] ; Status:Active Family history of cerebrovas cular accident (CVA): Mother(V17.1, Z82.3) Comments: in her 70s; Status:Active Family history of multiple s clerosis: Son(V17.2, Z82.0) Status:Active Family history of malignant neoplasm: Sister(V16.9, Z80.9) Status:Active Family history of type 2 daniella betes mellitus: Mother(V18.0, Z83.3) Status:Active Unknown Family Member Name Dates Details Family history of type 2 daniella betes mellitus: Mother(V18.0, Z83.3) Status:Active Family history of malignant neoplasm: Sister(V16.9, Z80.9) Status:Active Family history of multiple s clerosis: Son(V17.2, Z82.0) Status:Active Family history of cerebrovas cular accident (CVA): Mother(V17.1, Z82.3) Comments: in her 70s; Status:Active Family history of cardiac di sorder: Father(V17.49, Z82.49) Comments: at 58 [place] ; Status:Active Family history of malignant neoplasm of colon: Brother(V16.0, Z80.0) Comments:two brothers with c olon cancer in their 60s; Status:Active Unknown Family Member Name Dates Details Family history of type 2 daniella betes mellitus: Mother(V18.0, Z83.3) Status:Active Family history of malignant neoplasm: Sister(V16.9, Z80.9) Status:Active Family history of multiple s clerosis: Son(V17.2, Z82.0) Status:Active Family history of cerebrovas cular accident (CVA): Mother(V17.1, Z82.3) Comments: in her 70s; Status:Active Family history of cardiac di sorder: Father(V17.49, Z82.49) Comments: at 58 [place] ; Status:Active Family history of malignant neoplasm of colon: Brother(V16.0, Z80.0) Comments:two brothers with c olon cancer in their 60s; Status:Active Unknown Family Member Name Dates Details Family history of type 2 daniella betes mellitus: Mother(V18.0, Z83.3) Status:Active Family history of malignant neoplasm: Sister(V16.9, Z80.9) Status:Active Family history of multiple s clerosis: Son(V17.2, Z82.0) Status:Active Family history of cerebrovas cular accident (CVA): Mother(V17.1, Z82.3) Comments: in her 70s; Status:Active Family history of cardiac di sorder: Father(V17.49, Z82.49) Comments: at 58 [place] ; Status:Active Family history of malignant neoplasm of colon: Brother(V16.0, Z80.0) Comments:two brothers with c olon cancer in their 60s; Status:Active Unknown Family Member Name Dates Details Family history of type 2 daniella betes mellitus: Mother(V18.0, Z83.3) Status:Active Family history of malignant neoplasm: Sister(V16.9, Z80.9) Status:Active Family history of multiple s clerosis: Son(V17.2, Z82.0) Status:Active Family history of cerebrovas cular accident (CVA): Mother(V17.1, Z82.3) Comments: in her 70s; Status:Active Family history of cardiac di sorder: Father(V17.49, Z82.49) Comments: at 58 [place] ; Status:Active Family history of malignant neoplasm of colon: Brother(V16.0, Z80.0) Comments:two brothers with c olon cancer in their 60s; Status:Active Unknown Family Member Name Dates Details Family history of type 2 daniella betes mellitus: Mother(V18.0, Z83.3) Status:Active Family history of malignant neoplasm: Sister(V16.9, Z80.9) Status:Active Family history of multiple s clerosis: Son(V17.2, Z82.0) Status:Active Family history of cerebrovas cular accident (CVA): Mother(V17.1, Z82.3) Comments: in her 70s; Status:Active Family history of cardiac di sorder: Father(V17.49, Z82.49) Comments: at 58 [place] ; Status:Active Family history of malignant neoplasm of colon: Brother(V16.0, Z80.0) Comments:two brothers with c olon cancer in their 60s; Status:Active Unknown Family Member Name Dates Details Family history of malignant neoplasm of colon: Brother(V16.0, Z80.0) Comments:two brothers with c olon cancer in their 60s; Status:Active Family history of cardiac di sorder: Father(V17.49, Z82.49) Comments: at 58 [place] ; Status:Active Family history of cerebrovas cular accident (CVA): Mother(V17.1, Z82.3) Comments: in her 70s; Status:Active Family history of malignant neoplasm: Sister(V16.9, Z80.9) Status:Active Family history of type 2 daniella betes mellitus: Mother(V18.0, Z83.3) Status:Active Family history of multiple s clerosis: Son(V17.2, Z82.0) Status:Active Unknown Family Member Name Dates Details Family history of type 2 daniella betes mellitus: Mother(V18.0, Z83.3) Status:Active Family history of malignant neoplasm: Sister(V16.9, Z80.9) Status:Active Family history of multiple s clerosis: Son(V17.2, Z82.0) Status:Active Family history of cerebrovas cular accident (CVA): Mother(V17.1, Z82.3) Comments: in her 70s; Status:Active Family history of cardiac di sorder: Father(V17.49, Z82.49) Comments: at 58 [place] ; Status:Active Family history of malignant neoplasm of colon: Brother(V16.0, Z80.0) Comments:two brothers with c olon cancer in their 60s; Status:Active Unknown Family Member Name Dates Details Family history of type 2 daniella betes mellitus: Mother(V18.0, Z83.3) Status:Active Family history of malignant neoplasm: Sister(V16.9, Z80.9) Status:Active Family history of multiple s clerosis: Son(V17.2, Z82.0) Status:Active Family history of cerebrovas cular accident (CVA): Mother(V17.1, Z82.3) Comments: in her 70s; Status:Active Family history of cardiac di sorder: Father(V17.49, Z82.49) Comments: at 58 [place] ; Status:Active Family history of malignant neoplasm of colon: Brother(V16.0, Z80.0) Comments:two brothers with c olon cancer in their 60s; Status:Active Unknown Family Member Name Dates Details Family history of type 2 daniella betes mellitus: Mother(V18.0, Z83.3) Status:Active Family history of malignant neoplasm: Sister(V16.9, Z80.9) Status:Active Family history of multiple s clerosis: Son(V17.2, Z82.0) Status:Active Family history of cerebrovas cular accident (CVA): Mother(V17.1, Z82.3) Comments: in her 70s; Status:Active Family history of cardiac di sorder: Father(V17.49, Z82.49) Comments: at 58 [place] ; Status:Active Family history of malignant neoplasm of colon: Brother(V16.0, Z80.0) Comments:two brothers with c olon cancer in their 60s; Status:Active Unknown Family Member Name Dates Details Family history of malignant neoplasm of colon: Brother(V16.0, Z80.0) Comments:two brothers with c olon cancer in their 60s; Status:Active Family history of cardiac di sorder: Father(V17.49, Z82.49) Comments: at 58 [place] ; Status:Active Family history of cerebrovas cular accident (CVA): Mother(V17.1, Z82.3) Comments: in her 70s; Status:Active Family history of multiple s clerosis: Son(V17.2, Z82.0) Status:Active Family history of malignant neoplasm: Sister(V16.9, Z80.9) Status:Active Family history of type 2 daniella betes mellitus: Mother(V18.0, Z83.3) Status:Active Unknown Family Member Name Dates Details Family history of type 2 daniella betes mellitus: Mother(V18.0, Z83.3) Status:Active Family history of malignant neoplasm: Sister(V16.9, Z80.9) Status:Active Family history of multiple s clerosis: Son(V17.2, Z82.0) Status:Active Family history of cerebrovas cular accident (CVA): Mother(V17.1, Z82.3) Comments: in her 70s; Status:Active Family history of cardiac di sorder: Father(V17.49, Z82.49) Comments: at 58 [place] ; Status:Active Family history of malignant neoplasm of colon: Brother(V16.0, Z80.0) Comments:two brothers with c olon cancer in their 60s; Status:Active Unknown Family Member Name Dates Details Family history of type 2 daniella betes mellitus: Mother(V18.0, Z83.3) Status:Active Family history of malignant neoplasm: Sister(V16.9, Z80.9) Status:Active Family history of multiple s clerosis: Son(V17.2, Z82.0) Status:Active Family history of cerebrovas cular accident (CVA): Mother(V17.1, Z82.3) Comments: in her 70s; Status:Active Family history of cardiac di sorder: Father(V17.49, Z82.49) Comments: at 58 [place] ; Status:Active Family history of malignant neoplasm of colon: Brother(V16.0, Z80.0) Comments:two brothers with c olon cancer in their 60s; Status:Active Unknown Family Member Name Dates Details Family history of type 2 daniella betes mellitus: Mother(V18.0, Z83.3) Status:Active Family history of malignant neoplasm: Sister(V16.9, Z80.9) Status:Active Family history of multiple s clerosis: Son(V17.2, Z82.0) Status:Active Family history of cerebrovas cular accident (CVA): Mother(V17.1, Z82.3) Comments: in her 70s; Status:Active Family history of cardiac di sorder: Father(V17.49, Z82.49) Comments: at 58 [place] ; Status:Active Family history of malignant neoplasm of colon: Brother(V16.0, Z80.0) Comments:two brothers with c olon cancer in their 60s; Status:Active Unknown Family Member Name Dates Details Family history of multiple s clerosis: Son(V17.2, Z82.0) Status:Active Family history of malignant neoplasm of colon: Brother(V16.0, Z80.0) Comments:two brothers with c olon cancer in their 60s; Status:Active Family history of cardiac di sorder: Father(V17.49, Z82.49) Comments: at 58 [place] ; Status:Active Family history of cerebrovas cular accident (CVA): Mother(V17.1, Z82.3) Comments: in her 70s; Status:Active Family history of malignant neoplasm: Sister(V16.9, Z80.9) Status:Active Family history of type 2 daniella betes mellitus: Mother(V18.0, Z83.3) Status:Active Unknown Family Member Name Dates Details Family history of type 2 daniella betes mellitus: Mother(V18.0, Z83.3) Status:Active Family history of malignant neoplasm: Sister(V16.9, Z80.9) Status:Active Family history of multiple s clerosis: Son(V17.2, Z82.0) Status:Active Family history of cerebrovas cular accident (CVA): Mother(V17.1, Z82.3) Comments: in her 70s; Status:Active Family history of cardiac di sorder: Father(V17.49, Z82.49) Comments: at 58 [place] ; Status:Active Family history of malignant neoplasm of colon: Brother(V16.0, Z80.0) Comments:two brothers with c olon cancer in their 60s; Status:Active Unknown Family Member Name Dates Details Family history of type 2 daniella betes mellitus: Mother(V18.0, Z83.3) Status:Active Family history of malignant neoplasm: Sister(V16.9, Z80.9) Status:Active Family history of multiple s clerosis: Son(V17.2, Z82.0) Status:Active Family history of cerebrovas cular accident (CVA): Mother(V17.1, Z82.3) Comments: in her 70s; Status:Active Family history of cardiac di sorder: Father(V17.49, Z82.49) Comments: at 58 [place] ; Status:Active Family history of malignant neoplasm of colon: Brother(V16.0, Z80.0) Comments:two brothers with c olon cancer in their 60s; Status:Active Advance Directives No Advanced Directives Records FoundNo Advanced Directives Records FoundNo Advanced Directives Records FoundNo Advanced Directives Records FoundNo Advanced Directives Records FoundNo Advanced Directives Records FoundNo Advanced Directives Records FoundNo Advanced Directives Records FoundNo Advanced Directives Records FoundNo Advanced Directives Records FoundNo Advanced Directives Records Found Chief Complaint Pt presents to this office for lower back pain. relieved with BM.2 WK FU LUMBAR XR PT STATES SINCE HAVING BM BACK PAIN IS BETTER WANTS TO DISCUSS COLONOSCOPY FAMILYHX CANCER4 MONTH FU LABS4 MONTH FU LABSFU COLONOSCOPY DECLINES FLU FOR NOW WANTS TO WAIT TIL FALLFU COLONOSCOPY DECLINES FLU FOR NOW WANTS TO WAIT TIL FALL 6 MO FU LAB NOT DONE NO NEW CO TODAY PT NOT TAKING PAXIL STATES SHE DOESN'T NEED IT6 MO FU LAB NOT DONE NO NEW CO TODAY PT NOT TAKING PAXIL STATES SHE DOESN'T NEED ITPT WANTS TO DISCUSS HER MEDICATIONS POSSIBLY GETTING SOME DC'D SHE IS UNSURE OF THE BEST TIME TO TAKE [facility] WITH LABS. NO LONGER TAKING LOSARTAN2 WEEK FUVC/O BLE EDEMA WITH BURNING [id number] LABS TODAY PT CO SINUS DRAINAGE WORSENING AND EARS FEEL PLUGGED1 WK FU LAB AND BP CHECK TODAY Medications Administered Section Inactive Administered Medications - up to 3 most recent administrations Medication Order MAR Action Action Date Dose Rate Site aflibercept intravitreal injection 2 mg/0.05 mL (EYLEA) 2 mg, ONE TIME INJECTION, 1 dose, Starting on Priscilla 02/21/22 at 1338, Until Priscilla 02/21/22 at 1338 Given 02/21/2022 1:38 PM EDT 2 mg Left Inactive Administered Medications - up to 3 most recent administrations Medication Order MAR Action Action Date Dose Rate Site aflibercept intravitreal injection 2 mg/0.05 mL (EYLEA) 2 mg, ONE TIME INJECTION, 1 dose, Starting on Priscilla 04/04/22 at 1416, Until Priscilla 04/04/22 at 1416 Given 04/04/2022 2:16 PM EDT 2 mg Left Inactive Administered Medications - up to 3 most recent administrations Medication Order MAR Action Action Date Dose Rate Site aflibercept intravitreal injection 2 mg/0.05 mL (EYLEA) 2 mg, ONE TIME INJECTION, 1 dose, Starting on Priscilla 05/23/22 at 1410, Until Priscilla 05/23/22 at 1410 Given 05/23/2022 2:10 PM EDT 2 mg Left Inactive Administered Medications - up to 3 most recent administrations Medication Order MAR Action Action Date Dose Rate Site aflibercept intravitreal injection 2 mg/0.05 mL (EYLEA) 2 mg, ONE TIME INJECTION, 1 dose, Starting on Priscilla 07/04/22 at 1711, Until Priscilla 07/04/22 at 1711 Given 07/04/2022 5:11 PM EDT 2 mg Left Inactive Administered Medications - up to 3 most recent administrations Medication Order MAR Action Action Date Dose Rate Site aflibercept intravitreal injection 2 mg/0.05 mL (EYLEA) 2 mg, ONE TIME INJECTION, 1 dose, Starting on Priscilla 08/22/22 at 1631, Until Priscilla 08/22/22 at 1631 Given 08/22/2022 4:31 PM EDT 2 mg Left Inactive Administered Medications - up to 3 most recent administrations Medication Order MAR Action Action Date Dose Rate Site aflibercept intravitreal injection 2 mg/0.05 mL (EYLEA) 2 mg, ONE TIME INJECTION, 1 dose, Starting on Priscilla 11/21/22 at 1044, Until Priscilla 11/21/22 at 1044 Given 11/21/2022 10:44 AM EST 2 mg Left Inactive Administered Medications - up to 3 most recent administrations Medication Order MAR Action Action Date Dose Rate Site aflibercept intravitreal injection 2 mg/0.05 mL (EYLEA) 2 mg, ONE TIME INJECTION, 1 dose, Starting on Priscilla 01/02/23 at 1357, Until Priscilla 01/02/23 at 1357 Given 01/02/2023 1:57 PM EDT 2 mg Left Reason for Referral Specialty Diagnoses / Procedures Referred By Contac t Referred To Contact Neurology Diagnoses MCI (mild cognitive impairment) Santhosh Peters MD [address] [place] [address] [facility] Neurology [facility] Referral ID Status Reason Start Date Expiration Date V isits Requested Visits Authorized [id number] Authorized 04/24/2022 04/24/2023 1 1 Specialty Diagnoses / Procedures Referred By Contac t Referred To Contact Rehabilitation Diagnoses Dementia without behavioral disturbance, unspecified dementia type (HCC) Chris Cardoso MD [address] [facility] [address] [place] [address] Op Occ Therapy [address] [place] [address] Referral ID Status Reason Start Date Expiration Date V isits Requested Visits Authorized [id number] Authorized 07/05/2022 07/05/2023 1 1 Specialty Diagnoses / Procedures Referred By Contac t Referred To Contact Radiology Diagnoses Encounter for screening mammogram for breast cancer Procedures BI mammo bilateral screening tomosynthesis Santhosh Peters MD [address] [place] [address] Referral ID Status Reason Start Date Expiration Date Visits Requested Visits Authorized [id number] Authorized Perform Procedure 03/03/2023 08/30/2023 1 1 Specialty Diagnoses / Procedures Referred By Contac t Referred To Contact Radiology Diagnoses Post-menopausal Procedures XR DEXA bone density Santhosh Peters MD [address] [place] [address] Referral ID Status Reason Start Date Expiration Date Visits Requested Visits Authorized [id number] Authorized Perform Procedure 03/03/2023 08/30/2023 1 1 Specialty Diagnoses / Procedures Referred By Contac t Referred To Contact Radiology Diagnoses Alzheimer disease ([facility]/HCC) Procedures CT head wo IV contrast Santhosh Peters MD [address] [place] [address] Referral ID Status Reason Start Date Expiration Date Visits Requested Visits Authorized [id number] Authorized Perform Procedure 06/11/2023 12/08/2023 1 1 Specialty Diagnoses / Procedures Referred By Contac t Referred To Contact Diagnoses Sacroiliitis Rik Douglas, PURCHASING AND CLAIMS SUPERVISOR-HUMAN RESOURCE MANAGER [address] [place] [address] Referral ID Status Reason Start Date Expiration Date V isits Requested Visits Authorized [id number] Authorized 07/07/2024 08/01/2025 1 1 Scheduling Instructions Please PA and schedule: right diagnostic SIJI CPT 30882 kx right Specialty Diagnoses / Procedures Referred By Contac t Referred To Contact Diagnoses Sacroiliitis Procedures XR FLUORO PAIN MANAGEMENT Mirtha Galindo MD [address] [place] [address] Referral ID Status Reason Start Date Expiration Date V isits Requested Visits Authorized [id number] New Request 07/13/2024 08/07/2025 1 1 Referral ID Status Reason Start Date Expiration Date V isits Requested Visits Authorized [id number] New Request 11/02/2024 11/27/2025 1 1 Scheduling Instructions Please PA and schedule: Right Sacroiliac Joint Injection under Fluoroscopy CPT 05673 right Referral ID Status Reason Start Date Expiration Date V isits Requested Visits Authorized [id number] New Request 11/15/2024 12/10/2025 1 1 Chief Complaint and Reason for Visit Chief Complaint Admit Date DEMENTIA April 06, 2025 9:21 am Reason for Visit Admit Date Dementia April 06, 2025 9:21 am Polyneuropathy April 06, 2025 9:21 am Additional Source Comments INFORMATION SOURCE (unrecogn ized section and content) DATE CREATED AUTHOR 03/31/2019 [facility] DATE CREATED AUTHOR AUTHOR'S ORGANIZ ATION 10/22/2022 [facility] DATE CREATED AUTHOR AUTHOR'S ORGANIZ ATION 11/22/2022 [facility] DATE CREATED AUTHOR AUTHOR'S ORGANIZ ATION 02/27/2023 [facility] DATE CREATED AUTHOR AUTHOR'S ORGANIZ ATION 03/29/2023 [facility] DATE CREATED AUTHOR AUTHOR'S ORGANIZ ATION 03/29/2023 [facility] DATE CREATED AUTHOR AUTHOR'S ORGANIZ ATION 11/18/2024 [facility] DATE CREATED AUTHOR AUTHOR'S ORGANIZ ATION 12/10/2024 [facility] DATE CREATED AUTHOR AUTHOR'S ORGANIZ ATION 03/20/2025 [facility] DATE CREATED AUTHOR AUTHOR'S ORGANIZ ATION 04/24/2025 [facility] DATE CREATED AUTHOR AUTHOR'S ORGANIZ ATION 04/24/2025 [facility] Source Comments (unrecognize d section and content) In the event this informatio n is protected by the Federal Confidentiality of Alcohol and Drug Abuse Patient Records regulations: The Federal rules restrict any use of the information to criminally investigate or prosecute any alcohol or drug abuse patient.[facility] the event this information is protected by the Federal Confidentiality of Alcohol and Drug Abuse Patient Records regulations: The Federal rules restrict any use of the information to criminally investigate or prosecute any alcohol or drug abuse patient.[facility] the event this information is protected by the Federal Confidentiality of Alcohol and Drug Abuse Patient Records regulations: The Federal rules restrict any use of the information to criminally investigate or prosecute any alcohol or drug abuse patient.[facility] the event this information is protected by the Federal Confidentiality of Alcohol and Drug Abuse Patient Records regulations: The Federal rules restrict any use of the information to criminally investigate or prosecute any alcohol or drug abuse patient.[facility] the event this information is protected by the Federal Confidentiality of Alcohol and Drug Abuse Patient Records regulations: The Federal rules restrict any use of the information to criminally investigate or prosecute any alcohol or drug abuse patient.[facility] the event this information is protected by the Federal Confidentiality of Alcohol and Drug Abuse Patient Records regulations: The Federal rules restrict any use of the information to criminally investigate or prosecute any alcohol or drug abuse patient.[facility] the event this information is protected by the Federal Confidentiality of Alcohol and Drug Abuse Patient Records regulations: The Federal rules restrict any use of the information to criminally investigate or prosecute any alcohol or drug abuse patient.[facility] Reason for Visit (unrecogniz ed section and content) Reason Comments Pain Specialty Diagnoses / Procedures Referred By Contizzy bernstein Referred To Contact Diagnoses Sacroiliitis Rik Douglas, PURCHASING AND CLAIMS SUPERVISOR-HUMAN RESOURCE MANAGER [address] [place] [address] Referral ID Status Reason Start Date Expiration Date Visits Re quested Visits Authorized [id number] Closed 11/02/2024 11/27/2025 1 1 Reason Comments Choroidal neovascular membrane left eye Specialty Diagnoses / Procedures Referred By Contact Referred To Contact Ophthalmology / OPHTHALMOLOGY Diagnoses Retinal neovascularization, unspecified, left eye *sti Procedures AFLIBERCEPT INJECTION INJECTION Maribel Sheth MD, PhD [address] [place] [id number] Maribel Sheth MD, PhD [address] [place] [address] Referral ID Status Reason Start Date Expiration Date V isits Requested Visits Authorized [id number] Authorized-R X 11/15/2022 10/19/2023 12 12 Reason Comments Choroidal Neovascular Membrane Follow Up LEFT EYE/ EYLEA TODAY Blurred Vision Left Eye Reason Comments Choroidal Neovascular Membrane Follow Up Reason Comments Choroidal Neovascular Membrane Follow Up left eye Reason Comments Choroidal Neovascular Membrane Evaluatio n Choroidal Neovascular Membrane Follow Up Left Eye Reason Onset Date Comments Other 07/05/2022 SW referral Reason Comments Choroidal Neovascular Membrane Follow Up Left eye Pseudophakia Floaters Both Eyes Reason Comments Dementia Patients daughter is with her today, she states that things have been going well since last visit. Reason Comments Choroidal Neovascular Membrane Follow Up Left eye Reason Comments Follow-up [facility] PT CO RIGHT FOOT CORN AND RETAINING FLUID Reason Comments Follow-up 1 week bp Reason Comments Follow-up Bp check today Reason Comments Follow-up Family here for disc ussion pt co dizziness Reason Comments Follow-up 1 mo fu Reason Comments Pain New Patient Other Leg cramps Reason Comments Follow-up Referral ID Status Reason Start Date Expiration Date V isits Requested Visits Authorized [id number] Pending Review 07/07/2024 08/01/2025 1 1 Specialty Diagnoses / Procedures Referred By Contac t Referred To Contact Diagnoses Sacroiliitis Procedures XR FLUORO PAIN MANAGEMENT Mirtha Galindo MD [address] [place] [address] Referral ID Status Reason Start Date Expiration Date V isits Requested Visits Authorized [id number] New Request 07/13/2024 08/07/2025 1 1 Reason Comments Pain Reason Comments Pain Follow-up Referral ID Status Reason Start Date Expiration Date V isits Requested Visits Authorized [id number] New Request 11/15/2024 12/10/2025 1 1 Reason Comments Follow-up Pain Reason Comments Dementia Son reports times wh ere pt becomes confused. Pt sundowning in the afternoon, does not happen every day. Short term memory loss reported. Reason Comments Cerumen Impaction New Patient-Feeling Congested Care Teams (unrecognized sec tion and content) Cutting Department Supervisor Relationship Specialty Start Date End Date Tavallaee, Santhosh M, MD PCP - General Internal Medicine 05/15/16 Cutting Department Supervisor Relationship Specialty Start Date End Date Santhosh Peters MD PCP - General Internal Medicine 05/15/16 Cutting Department Supervisor Relationship Specialty Start Date End Date Santhosh Peters MD PCP - General Internal Medicine 05/15/16 Cutting Department Supervisor Relationship Specialty Start Date End Date Santhosh Peters MD [address] [place] [address] PCP - General Internal Medicine 05/17/22 Cutting Department Supervisor Relationship Specialty Start Date End Date Santhosh Peters MD [address] [place] [id number] PCP - General Internal Medicine 05/17/22 Cutting Department Supervisor Relationship Specialty Start Date End Date Santhosh Peters MD PCP - General Internal Medicine 05/15/16 Cutting Department Supervisor Relationship Specialty Start Date End Date Santhosh Peters MD PCP - General Internal Medicine 05/15/16 Cutting Department Supervisor Relationship Specialty Start Date End Date Santhosh Peters MD [address] [place] [address] PCP - General 09/29/19 Santhosh Peters MD [address] [place] [address] PCP - [facility] ACO Attributed Provider 10/20/21 Santhosh Peters MD [address] [place] [address] PCP - [employer] PCP 10/20/22 Cutting Department Supervisor Relationship Specialty Start Date End Date Santhosh Peters MD [address] [place] [address] PCP - General 09/29/19 Santhosh Peters MD [address] [place] [address] PCP - [facility] ACO Attributed Provider 10/20/21 Santhosh Peters MD [address] [place] [address] PCP - [employer] PCP 10/20/22 Cutting Department Supervisor Relationship Specialty Start Date End Date Santhosh Peters MD [address] [place] [address] PCP - General 09/29/19 Santhosh Peters MD [address] [place] [address] PCP - [employer] PCP 10/20/22 Cutting Department Supervisor Relationship Specialty Start Date End Date Santhosh Peters MD [address] [place] [address] PCP - General 09/29/19 Santhosh Peters MD [address] [place] [address] PCP - [employer] PCP 10/20/22 Cutting Department Supervisor Relationship Specialty Start Date End Date Santhosh Peters MD [address] [place] [place] [address] PCP - General 09/29/19 Santhosh Peters MD [address] [place] [address] PCP - [employer] PCP 10/20/22 Cutting Department Supervisor Relationship Specialty Start Date End Date DilCheyanne patel, HUMAN RESOURCE MANAGER [address] [place] [address] PCP - General Nurse Practitioner - Adult Health 07/06/24 Cutting Department Supervisor Relationship Specialty Start Date End Date DillsCheyanne, HUMAN RESOURCE MANAGER [address] [place] [address] PCP - General Nurse Practitioner - Adult Health 07/06/24 Cutting Department Supervisor Relationship Specialty Start Date End Date Cheyanne Rollins HUMAN RESOURCE MANAGER [address] [place] [address] PCP - General Nurse Practitioner - Adult Health 07/06/24 Cutting Department Supervisor Relationship Specialty Start Date End Date DillsCheyanne HUMAN RESOURCE MANAGER [address] [place] [address] PCP - General Nurse Practitioner - Adult Health 07/06/24 Cutting Department Supervisor Relationship Specialty Start Date End Date DillsCheyanne, HUMAN RESOURCE MANAGER [address] [place] [address] PCP - General Nurse Practitioner - Adult Health 07/06/24 Cutting Department Supervisor Relationship Specialty Start Date End Date DillsCheyanne HUMAN RESOURCE MANAGER [address] [place] [address] PCP - General Nurse Practitioner - [facility] 07/06/24 Cutting Department Supervisor Relationship Specialty Start Date End Date DillsCheyanne CNP [address] [place] [address] PCP - General Nurse Practitioner - [facility] 07/06/24 Cutting Department Supervisor Relationship Specialty Start Date End Date DillsCheyanne HUMAN RESOURCE MANAGER [address] [place] [address] PCP - General Nurse Practitioner - [facility] 07/06/24 Cutting Department Supervisor Relationship Specialty Start Date End Date DilCheyanne patel CNP [address] [place] [address] PCP - General Nurse Practitioner - [facility] 07/06/24 Cutting Department Supervisor Relationship Specialty Start Date End Date DilCheyanne patel CNP [address] [place] [address] PCP - General Nurse Practitioner - [facility] 07/06/24 Cutting Department Supervisor Relationship Specialty Start Date End Date DilCheyanne patel CNP [address] [place] [address] PCP - General Nurse Practitioner 11/28/24 Cutting Department Supervisor Relationship Specialty Start Date End Date DilCheyanne patel CNP [address] [place] [address] PCP - General Nurse Practitioner 11/28/24 Team Status: Inactive Member Role Status Dates Dr. Mark Tejeda MD Attending Provider Active Start: April 06, 2025 End: April 06, 2025 Goals (unrecognized section and content) Goals may be documented in a n alternate section FOR RECORDS PERTAINING TO PATIENTS WHO ARE OR HAVE BEEN ENROLLED IN A CHEMICAL DEPENDENCY/SUBSTANCEABUSE PROGRAM, SOME INFORMATION MAY BE OMITTED. This clinical summary was aggregated from multiple sources. Caution should be exercised in using it in the provision of clinical care. This summary normalizes information from multiple sources, and as a consequence, information in this document may materially change the coding, format and clinical context of patient data. In addition, data may be omitted in some cases. CLINICAL DECISIONS SHOULD BE BASED ON THE PRIMARY CLINICAL RECORDS. [facility] provides no warranty or guarantee of the accuracy or completeness of information in this document.
== END 2025-05-09 23:59 | disposition home or self-care (01) ==
PROVIDERS: Referring Provider Psychiatry & Neurology Neurology; Visit Provider Psychiatry & Neurology Neurology
DX: F03.90 Unspecified dementia, unspecified severity, without behavioral disturbance, psychotic disturbance, mood disturbance, and anxiety (principal)
CPT/HCPCS: 70030; 70551

== ENCOUNTER → 2025-07-14 | Outpatient (CLI) | payer MEDICARE, OTHER, SELFPAY ==
[2025-07-19 14:08] LABS: Albumin 4.2 g/dL (2.9-4.4); Gamma Globulin 1.1 g/dL (0.4-1.8); Immunoglobulin A 112 mg/dL (64-422); Immunoglobulin G 1075 mg/dL (586-1602); Immunoglobulin M 107 mg/dL (26-217); PROEL- TOTAL PROTEIN 7.1 g/dL (6.0-8.5)
== END | disposition home or self-care (01) ==
LOC: MTLAB 12:38
PROVIDERS: PCP Psychiatry & Neurology Neurology; Referring Provider Psychiatry & Neurology Neurology; Visit Provider Psychiatry & Neurology Neurology
DX: G62.9 Polyneuropathy, unspecified (principal)
CPT/HCPCS: 36415; 82784; 84165; 86334; 86335